=== PATIENT | male | born 1930 | race Caucasian/White ===

== ENCOUNTER → 2016-10-25 | Outpatient (CLI) | payer OTHER ==
[~2016-10-25] MED LIST: ASPI81TA28 PO; ATOR10TA88 PO; B-COTAB18 PO; CHOL2000 PO; ISOS30TA3 PO; LEVO50TA PO; PRT40 PO; SOTA80TA PO; TAMS0.4C59 PO; WARF6TAB5 PO
[2016-10-25 10:11] LABS: INR 2.5 (0.9-1.1); PROTHROMBIN TIME (PATIENT) 28.1 SECONDS (9.0-12.0)
[2016-10-25 10:19] LABS: ALT/SGPT 27 U/L (12-78); AST/SGOT 27 U/L (15-37); BLOOD UREA NITROGEN 20 mg/dl (7-18); BUN/CREATININE RATIO 26.4 (10-20); CALCIUM 8.6 mg/dl (8.5-10.1); CARBON DIOXIDE 30 mmol/L (21-32); CHLORIDE 106 mmol/L (98-107); CHOLESTEROL 103 mg/dl (0-200); CREATININE 0.75 mg/dl (0.60-1.40); GLUCOSE 119 mg/dl (70-99); POTASSIUM 4.2 mmol/L (3.5-5.1); SODIUM 144 mmol/L (136-145); TRIGLYCERIDES 46 mg/dl (0-150); VERY LOW DENSITY LIPOPROT CALC 9 mg/dl
[2016-10-25 10:21] LABS: ALB/GLOB RATIO 1.3 (0.9-2); ALKALINE PHOSPHATASE 97 U/L (45-117); CHOLESTEROL/HDL RATIO 1.9; HDL CHOLESTEROL 55 mg/dl; LDL CHOLESTEROL CALCULATED 39 mg/dl
== END | disposition home or self-care (01) ==
LOC: C.LABFOXMH 09:14
PROVIDERS: ATTEND Internal Medicine
DX: E78.00 Pure hypercholesterolemia, unspecified (principal); Z79.01 Long term (current) use of anticoagulants; Z51.81 Encounter for therapeutic drug level monitoring

== ENCOUNTER → 2016-11-22 | Outpatient (CLI) | payer OTHER ==
[2016-11-22 09:54] LABS: INR 3.5 (0.9-1.1); PROTHROMBIN TIME (PATIENT) 38.9 SECONDS (9.0-12.0)
== END | disposition home or self-care (01) ==
LOC: C.LABFOXMH 09:07
PROVIDERS: ATTEND Internal Medicine
DX: Z79.01 Long term (current) use of anticoagulants (principal); Z51.81 Encounter for therapeutic drug level monitoring

== ENCOUNTER → 2016-12-06 | Outpatient (CLI) | payer OTHER ==
[2016-12-06 09:02] LABS: INR 1.6 (0.9-1.1); PROTHROMBIN TIME (PATIENT) 17.3 SECONDS (9.0-12.0)
== END ==
LOC: C.LABFOXMH 08:36
PROVIDERS: ATTEND Internal Medicine
DX: Z79.01 Long term (current) use of anticoagulants (principal)

== ENCOUNTER → 2016-12-20 | Outpatient (CLI) | payer OTHER ==
[2016-12-20 09:06] LABS: INR 2.4 (0.9-1.1)
== END | disposition home or self-care (01) ==
LOC: C.LABFOXMH 08:36
PROVIDERS: ATTEND Internal Medicine
DX: Z79.01 Long term (current) use of anticoagulants (principal); Z51.81 Encounter for therapeutic drug level monitoring

== ENCOUNTER → 2017-01-17 | Outpatient (CLI) | payer OTHER ==
[~2017-01-17] MED LIST changes: +ATOR10TA82 PO; -ATOR10TA88 PO
[2017-01-17 09:19] LABS: INR 3.1 (0.9-1.1); PROTHROMBIN TIME (PATIENT) 34.2 SECONDS (9.0-12.0)
== END | disposition home or self-care (01) ==
LOC: C.LABFOXMH 09:00
PROVIDERS: ATTEND Internal Medicine
DX: Z79.01 Long term (current) use of anticoagulants (principal)

== ENCOUNTER 2017-01-30 09:45 | Inpatient (IN) | payer OTHER ==
[~2017-01-30] VITALS: Ht 167.6 cm; Wt 70.9 kg
[2017-01-30] VITALS (17 sets, daily range): BP systolic 90–160; BP diastolic 51–78; PULSE 59–74; TEMP 36.3–36.9; O2SAT 96–100; Ht 167.6 cm; Wt 70.9 kg
[~2017-01-30 09:45] MED LIST changes: -PRT40 PO
[2017-01-30] MEDS ORDERED: SODIUM CHLORIDE 0.9% 1000ML 500 ML IV STA (10:23)
[2017-01-30] MEDS ORDERED: ONDANSETRON INJ 2 MG/ML 2 ML VIAL IV STA (10:23)
[2017-01-30] MEDS ORDERED: PHYTONADIONE 5 MG TAB PO STA (10:23)
[2017-01-30 10:41] LABS: BASO % 0.2 %; BASO ABS # 0.01 K/uL (0-0.2); COMPLETE YES; EOS % 2.9 %; HEMATOCRIT 27.4 % (42-52); IG% 0.4 %; LYMPH % 20.4 %; LYMPH ABS # 1.12 K/uL (1.2-3.4); MEAN CELL VOLUME 95.1 fL (80-100); MEAN CORPUSCULAR HEMOGLOBIN 32.6 pg (25-34); MEAN CORPUSCULAR HGB CONC 34.3 g/dl (32-36); MEAN PLATELET VOLUME 9.7 fL (7.4-10.4); MONO % 8.8 %; NEUT % 67.3 %; PLATELET COUNT 147 K/uL (130-400); RED BLOOD COUNT 2.88 M/uL (4.7-6.1); WHITE BLOOD COUNT 5.48 K/uL (4.8-10.8)
[2017-01-30 10:42] LABS: PARTIAL THROMBOPLASTIN RATIO 1.2; PROTHROMBIN TIME (PATIENT) 49.2 SECONDS (9.0-12.0)
--- NOTE | 2017-01-30 10:42 | DIAGNOSTIC IMAGING REPORT ---
CHEST ONE VIEW PORTABLE CLINICAL HISTORY: EVALUATE GI BLEED bleeding COMPARISON STUDY: 10/07/2015 FINDINGS: Lungs are clear. Calcified granuloma right base. No focal infiltrate. No evidence for cardiac enlargement. IMPRESSION: No acute process. Lungs are clear. Electronically signed by: Renny Lomeli M.D. 01/30/2017 10:40 AM Dictated Date/Time: 01/30/2017 10:39 AM
[2017-01-30] MEDS ORDERED: PANTOprazole INJ 80 MG in DEXTROSE 5% 100ML IV SCH (10:45)
[2017-01-30 10:48] LABS: INR 4.3 (0.9-1.1)
[2017-01-30 10:49] LABS: BUN/CREATININE RATIO 46.2 (10-20); CALCIUM 7.3 mg/dl (8.5-10.1); CREATININE 0.8 mg/dl (0.60-1.40); POTASSIUM 4.2 mmol/L (3.5-5.1)
[2017-01-30] MEDS ORDERED: PANTOprazole INJ 40 MG in DEXTROSE 5% 100ML IV SCH (11:00)
[2017-01-30] MEDS ORDERED: ONDANSETRON INJ 2 MG/ML 2 ML VIAL IV PRN (11:00)
[2017-01-30] MEDS ORDERED: ACETAMINOPHEN 325 MG TAB PO PRN (11:00)
--- NOTE | 2017-01-30 12:28 | History and Physical ---
History & Physical Date & Time of Service: Jan 30, 2017 at 12:01 Chief Complaint: Rectal Bleeding Primary Care Physician: Tyrone Salazar History of Present Illness Source: patient, hospital records 86 yo male with a 3-4 day history of change in stool color and then bleeding today. The patient was feeling well until 4 days ago when he noticed that his appetite was decreased and his stools became dark. His stools were formed. He never noticed this before. He denies any abdominal pain and he has not felt nauseated or vomited. The dark stools persisted for 3 days and then today he had some bright red blood with dark formed stool. He has noticed some increased fatigue for 3 days and some light headedness. No chest pain, no dyspnea and no ONEILL. He has been compliant with all of his medications. His INR was high at 4.2, he has been taking his usual dose of Coumadin and he says it is unusual for him to have an INR that high. 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 He did not eat or drink anything this AM. He has no history of GI bleeding. He remembers having a colonoscopy, he believes with Dr. Hatch, many years ago for hemorrhoids. He did have radiation to the left groin in the and the radiation was wide and hit his left lower quadrant and he was told that in the future he may have issues with left sided colon and small intestine. Past Medical/Surgical History Atrial fibrillation, s/p pacer DVT and PE, 10 years ago Hodgkin's lymphoma, left groin, treated with radiation, Medical Problems: (1) Cataract Nos Status: Resolved (2) Chronic Pulmonary Embolism Status: Chronic (3) Hx-Hodgkin's Disease Status: Chronic (4) Hypertension Nos Status: Chronic (5) Pancreatic Disease Nos Status: Chronic Family History Diabetes mellitus Heart disease Hypertension Social History Smoking Status: Former Smoker Drug Use: none Marital Status: Occupational Status: retired Immunizations History of Influenza Vaccine: No History of Tetanus Vaccine?: Yes History of Pneumococcal: Yes Pneumococcal Date: Oct 20, 1999 History of Hepatitis B Vaccine: Yes Multi-Drug Resistant Organisms History of MDRO: No Allergies Coded Allergies: Doxycycline (Unverified Allergy, Unknown, rash, 01/30/17) Penicillins (Verified Allergy, Unknown, 09/09/16) PT REPORTS TO THIS NURSE " I DONT KNOW IF I HAVE THIS ANYMORE" Home Medications Scheduled Aspirin (Aspirin Ec), 81 MG PO DAILY Atorvastatin (Lipitor), 10 MG PO DAILY B-Complex Vitamins (Vitamin B Complex), 1 TAB PO DAILY Cholecalciferol (Vitamin D3), 1 CAP PO QPM Isosorbide Mononitrate Ext Rel (Imdur Ext Rel), 1 TAB PO DAILY Levothyroxine Sodium (Synthroid), 50 MCG PO DAILY Sotalol Hcl (Sotalol Hcl), 80 MG PO QAM Sotalol Hcl (Sotalol Hcl), 40 TAB PO QPM Tamsulosin Hcl (Flomax), 0.4 MG PO HS Warfarin Sod (Jantoven), 6 MG PO QPM Review of Systems Constitutional: + fatigue, + weakness, No chills, No fever, No sweats, No weight loss Eyes: No diplopia, No discharge, No eye pain, No problem reported, No redness, No worsening of vision ENT: No dental problems, No hearing loss, No nasal symptoms, No problem reported, No sore throat, No tinnitus, No trouble swallowing, No unusual epistaxis Respiratory: No cough, No dyspnea at rest, No dyspnea on exertion, No hemoptysis, No problem reported, No shortness of breath, No sputum, No wheezing Cardiovascular: No PND, No chest pain, No claudication, No edema, No orthopnea , No palpitations, No problem reported Abdomen: + GI bleeding (dark hard stools and then bright red blood for one day) , No constipation, No diarrhea, No nausea, No pain, No vomiting Musculoskeletal: No calf pain, No joint pain, No muscle pain, No problem reported, No swelling Genitourinary - Male: No dysuria, No hematuria, No urinary frequency, No urinary urgency Neurologic: No balance problems, No memory loss, No numbness/tingling, No paralysis, No problem reported, No vertigo, No weakness Psychiatric: No anhedonism, No anxiety, No depression symptoms, No insomnia, No problem reported, No substance abuse Endocrine: No excessive thirst, No excessive urination, No fatigue, No problem reported Hematologic / Lymphatic: No abnormal bleeding/bruising, No clotting problems, No night sweats, No problem reported, No swollen lymph nodes Integumentary: No bleeding, No color change, No itch, No new/changing skin lesions, No problem reported, No rash Allergic / Immunologic: No environmental allergies, No food allergies, No frequent infections, No hives, No pet sensitivities, No poor healing, No problem reported, No prolonged convalescence, No seasonal allergies Physical Exam Vital Signs Date Time Temp Pulse Resp B/P Pulse Ox O2 Delivery O2 Flow Rate FiO2 01/30/17 11:43 73 19 102/47 100 Room Air 01/30/17 11:07 62 21 106/57 95 Room Air 01/30/17 10:45 68 17 103/54 98 Room Air 01/30/17 10:31 99 Room Air 01/30/17 10:09 62 01/30/17 09:50 36.4 73 18 127/70 100 Room Air General Appearance: WD/WN, no apparent distress Head: normocephalic, atraumatic Eyes: normal inspection, EOMI, sclerae normal ENT: normal ENT inspection, hearing grossly normal, pharynx normal Neck: supple, no adenopathy, no JVD, trachea midline Respiratory/Chest: chest non-tender, lungs clear, normal breath sounds, no respiratory distress, no accessory muscle use Cardiovascular: regular rate, rhythm, no edema, no gallop, no JVD, no murmur, normal peripheral pulses Abdomen/GI: normal bowel sounds, non tender, soft, no organomegaly, + pertinent finding (rectal exam performed by ED physician - dark stool, heme + grossly) Back: normal inspection, no CVA tenderness, no muscle spasm, normal range of motion Extremities/Musculoskelatal: normal inspection, no calf tenderness, normal capillary refill, no pedal edema, normal range of motion, pelvis stable Neurologic/Psych: hand binder cutter II-XII nml as tested, no motor/sensory deficits, alert, normal mood/affect, normal reflexes, oriented x 3 Skin: normal color, warm/dry, no rash Lymphatic: no adenopathy Diagnostics Laboratory Results Results Past 24 Hours Test 01/30/17 10:00 Range/Units White Blood Count 5.48 4.8-10.8 K/uL Red Blood Count 2.88 4.7-6.1 M/uL Hemoglobin 9.4 14.0-18.0 g/dL Hematocrit 27.4 42-52 % Mean Corpuscular Volume 95.1 80-100 fL Mean Corpuscular Hemoglobin 32.6 25-34 pg Mean Corpuscular Hemoglobin Concent 34.3 32-36 g/dl Platelet Count 147 130-400 K/uL Mean Platelet Volume 9.7 7.4-10.4 fL Neutrophils (%) (Auto) 67.3 % Lymphocytes (%) (Auto) 20.4 % Monocytes (%) (Auto) 8.8 % Eosinophils (%) (Auto) 2.9 % Basophils (%) (Auto) 0.2 % Neutrophils # (Auto) 3.69 1.4-6.5 K/uL Lymphocytes # (Auto) 1.12 1.2-3.4 K/uL Monocytes # (Auto) 0.48 0.11-0.59 K/uL Eosinophils # (Auto) 0.16 0-0.5 K/uL Basophils # (Auto) 0.01 0-0.2 K/uL RDW Standard Deviation 47.4 36.4-46.3 fL RDW Coefficient of Variation 13.8 11.5-14.5 % Immature Granulocyte % (Auto) 0.4 % Immature Granulocyte # (Auto) 0.02 0.00-0.02 K/uL Prothrombin Time 49.2 9.0-12.0 SECONDS Prothromb Time International Ratio 4.3 0.9-1.1 Activated Partial Thromboplast Time 32.2 21.0-31.0 SECONDS Partial Thromboplastin Ratio 1.2 Sodium Level 141 136-145 mmol/L Potassium Level 4.2 3.5-5.1 mmol/L Chloride Level 107 98-107 mmol/L Carbon Dioxide Level 28 21-32 mmol/L Anion Gap 6.0 3-11 mmol/L Blood Urea Nitrogen 37 7-18 mg/dl Creatinine 0.80 0.60-1.40 mg/dl Est Creatinine Clear Calc Drug Dose 60.9 ml/min Estimated GFR () 94.4 Estimated GFR (Non- 81.5 BUN/Creatinine Ratio 46.2 10-20 Random Glucose 163 70-99 mg/dl Calcium Level 7.3 8.5-10.1 mg/dl Total Bilirubin 1.2 0.2-1 mg/dl Direct Bilirubin 0.2 0-0.2 mg/dl Aspartate Amino Transf (AST/SGOT) 25 15-37 U/L Alanine Aminotransferase (ALT/SGPT) 27 12-78 U/L Alkaline Phosphatase 72 45-117 U/L Total Protein 4.7 6.4-8.2 gm/dl Albumin 2.6 3.4-5.0 gm/dl CXR normal Impression Assessment and Plan 86 yo male with history of atrial fibrillation, s/p pacer, h/o DVT/PE on Coumadin who presented with 4 days of dark stools then some bright red blood, weakness and fatigue - GI bleed with acute blood loss anemia: vitals stable, Hb down at 9.5 from baseline closer to 14 no need for transfusion currently but patient agreeable if needed, type and screen repeat H/H this afternoon NPO, Protonix IV, consult GI - Case admit to telemetry for close monitoring - Coagulopathy: INR 4.2, normally not supratherapeutic, maybe due to poor diet past few days? received PO Vitamin K in the ED, ordered some IV as well to try to reverse for potential scope today - Atrial fibrillation, sick sinus history, s/p pacer continue Sotalolol 80mg qAM and 40mg qPM - DVT/PE: reverse INR due to bleeding, clot was 10 years ago - h/o Hodgkin's lymphoma left groin: treated with radiation in the - DVT prophylaxis: SCD only, INR 4.2 Level 1 Level of Care Telemetry Advanced Directives Existing Living Will: Yes VTE Prophylaxis VTE Risk Assessment Done? Y/N: Yes Risk Level: Moderate Given or contraindicated: SCD's Additional Copies To Tyrone Salazar
[2017-01-30] MEDS ORDERED: PHYTONADIONE INJ 5 MG in SODIUM CHLORIDE 0.9% 50ML 50 ML IV ONE (13:00)
[2017-01-30] MEDS: SODIUM CHLORIDE 0.9% 1000ML 1,000 ML IV SCH (13:08)
--- NOTE | 2017-01-30 13:54 | EMERGENCY ROOM VISIT NOTE ---
History Report prepared by Phani: Vito Sexton Under the Supervision of: Dr. Austen Leonard M.D. First contact with patient: 10:13 Chief Complaint: RECTAL BLEEDING Stated Complaint: RECTAL BLEEDING Nursing Triage Summary: Patient arrived via EMS from [facility]. Patient reports he has had dark tarry stools x 3 days and this morning the blood was red and filled the commode. Pt denies n/v/d/abdominal pain. Associates Loss of appetite. Pt states stool has been wnl, no constipation or diarrhea. Pt reports coumadin daily for afib. History of Present Illness The patient is an 86 year old male who presents to the Emergency Room with complaints of persistent rectal bleeding for the past three days. The patient started having black tarry stools three days ago, however today he noticed red blood in his stool. He is on Coumadin for a history of atrial fibrillation, and has a pacemaker. He also has a history of blood clots. He has felt weaker lately and experiences some dizziness. He denies syncope, increased shortness of breath, or abdominal pain. The patient came to the ED from [facility]. He denies recent falls. He has a history of cancer which was treated with radiation therapy in the . The patient has chronic back pain. Source of History: patient Onset: three days ago Position: other (rectal) Quality: other (bleeding) Timing: other (persistent) Associated Symptoms: + weakness, No LOC, No SOB, No abdominal pain Review of Systems See HPI for pertinent positives & negatives. A total of 10 systems reviewed and were otherwise negative. 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 Family History Diabetes mellitus Heart disease Hypertension Social History Smoking Status: Former Smoker Drug Use: none Marital Status: Housing Status: lives with family Occupation Status: retired Current/Historical Medications Scheduled Aspirin (Aspirin Ec), 81 MG PO DAILY Atorvastatin (Lipitor), 10 MG PO DAILY B-Complex Vitamins (Vitamin B Complex), 1 TAB PO DAILY Cholecalciferol (Vitamin D3), 1 CAP PO QPM Isosorbide Mononitrate Ext Rel (Imdur Ext Rel), 1 TAB PO DAILY Levothyroxine Sodium (Synthroid), 50 MCG PO DAILY Sotalol Hcl (Sotalol Hcl), 80 MG PO QAM Sotalol Hcl (Sotalol Hcl), 40 TAB PO QPM Tamsulosin Hcl (Flomax), 0.4 MG PO HS Warfarin Sod (Jantoven), 6 MG PO QPM Allergies Coded Allergies: Doxycycline (Unverified Allergy, Unknown, rash, 01/30/17) Penicillins (Verified Allergy, Unknown, 09/09/16) PT REPORTS TO THIS NURSE " I DONT KNOW IF I HAVE THIS ANYMORE" Physical Exam Vital Signs Date Time Temp Pulse Resp B/P Pulse Ox O2 Delivery O2 Flow Rate FiO2 01/30/17 10:45 68 17 103/54 98 Room Air 01/30/17 10:31 99 Room Air 01/30/17 10:09 62 01/30/17 09:50 36.4 73 18 127/70 100 Room Air Physical Exam GENERAL: Patient is in no acute distress. HEENT: No acute trauma, normocephalic atraumatic, mucous membranes moist, no nasal congestion, no scleral icterus. NECK: No stridor, no adenopathy, no meningismus, trachea is midline. LUNGS: Crackles in both lung bases no wheezing, breath sounds are equal. HEART: Irregular rhythm with no murmurs, rate is normal. ABDOMEN: Soft, nontender, bowel sounds positive, no hernias, no peritonitis. EXTREMITIES: No cyanosis or edema, full range of motion of all the joints without pain or difficulty, no signs for acute trauma. NEUROLOGIC: Oriented x 3, no acute motor or sensory deficits, no focal weakness. SKIN: No rash, no jaundice, no diaphoresis. RECTAL: Maroon / dark red stool that tests heme positive. Medical Decision & Procedures ER Provider Diagnostic Interpretation: X-ray results as stated below per interpretation by me and the radiologist: CHEST ONE VIEW PORTABLE CLINICAL HISTORY: EVALUATE GI BLEED bleeding COMPARISON STUDY: 10/07/2015 FINDINGS: Lungs are clear. Calcified granuloma right base. No focal infiltrate. No evidence for cardiac enlargement. IMPRESSION: No acute process. Lungs are clear. Electronically signed by: Renny Lomeli M.D. 01/30/2017 10:40 AM Dictated Date/Time: 01/30/2017 10:39 AM Laboratory Results 01/30/17 10:00 Red Blood Count 2.88, Mean Corpuscular Volume 95.1, Mean Corpuscular Hemoglobin 32.6, Mean Corpuscular Hemoglobin Concent 34.3, Mean Platelet Volume 9.7, Neutrophils (%) (Auto) 67.3, Lymphocytes (%) (Auto) 20.4, Monocytes (%) (Auto) 8.8, Eosinophils (%) (Auto) 2.9, Basophils (%) (Auto) 0.2, Neutrophils # (Auto) 3.69, Lymphocytes # (Auto) 1.12, Monocytes # (Auto) 0.48, Eosinophils # (Auto) 0.16, Basophils # (Auto) 0.01 01/30/17 10:00 Test 01/30/17 10:00 White Blood Count 5.48 K/uL (4.8-10.8) Red Blood Count 2.88 M/uL (4.7-6.1) Hemoglobin 9.4 g/dL (14.0-18.0) Hematocrit 27.4 % (42-52) Mean Corpuscular Volume 95.1 fL (80-100) Mean Corpuscular Hemoglobin 32.6 pg (25-34) Mean Corpuscular Hemoglobin Concent 34.3 g/dl (32-36) Platelet Count 147 K/uL (130-400) Mean Platelet Volume 9.7 fL (7.4-10.4) Neutrophils (%) (Auto) 67.3 % Lymphocytes (%) (Auto) 20.4 % Monocytes (%) (Auto) 8.8 % Eosinophils (%) (Auto) 2.9 % Basophils (%) (Auto) 0.2 % Neutrophils # (Auto) 3.69 K/uL (1.4-6.5) Lymphocytes # (Auto) 1.12 K/uL (1.2-3.4) Monocytes # (Auto) 0.48 K/uL (0.11-0.59) Eosinophils # (Auto) 0.16 K/uL (0-0.5) Basophils # (Auto) 0.01 K/uL (0-0.2) RDW Standard Deviation 47.4 fL (36.4-46.3) RDW Coefficient of Variation 13.8 % (11.5-14.5) Immature Granulocyte % (Auto) 0.4 % Immature Granulocyte # (Auto) 0.02 K/uL (0.00-0.02) Activated Partial Thromboplast Time 32.2 SECONDS (21.0-31.0) Partial Thromboplastin Ratio 1.2 Anion Gap 6.0 mmol/L (3-11) Est Creatinine Clear Calc Drug Dose 60.9 ml/min Estimated GFR () 94.4 Estimated GFR (Non- 81.5 BUN/Creatinine Ratio 46.2 (10-20) Calcium Level 7.3 mg/dl (8.5-10.1) Total Bilirubin 1.2 mg/dl (0.2-1) Direct Bilirubin 0.2 mg/dl (0-0.2) Aspartate Amino Transf (AST/SGOT) 25 U/L (15-37) Alanine Aminotransferase (ALT/SGPT) 27 U/L (12-78) Alkaline Phosphatase 72 U/L (45-117) Total Protein 4.7 gm/dl (6.4-8.2) Albumin 2.6 gm/dl (3.4-5.0) Laboratory results reviewed by me. Medications Administered Medications (Trade) Dose Ordered Sig/Efrain Route Start Time Stop Time Status Last Admin Dose Admin Sodium Chloride (Nss 1000ml) 500 ml @ 999 mls/hr Q31M STAT IV 01/30/17 10:23 01/30/17 10:53 DC 01/30/17 10:40 999 MLS/HR Ondansetron HCl (Zofran Inj) 4 mg NOW STAT IV 01/30/17 10:23 01/30/17 10:26 DC 01/30/17 10:39 4 MG Phytonadione (Mephyton Tab) 10 mg NOW STAT PO 01/30/17 10:23 01/30/17 10:26 DC 01/30/17 10:39 10 MG Pantoprazole Sodium 1 ea 1 ea NOW STAT IV 01/30/17 10:29 01/30/17 10:30 DC 01/30/17 10:29 1 EA Pantoprazole Sodium 80 mg/ Dextrose 120 ml @ 480 mls/hr 1045 IV 01/30/17 10:45 01/30/17 10:59 DC 01/30/17 10:46 480 MLS/HR Pantoprazole Sodium/Dextrose (Protonix Inj/D5 100ml) 100 ml @ 20 mls/hr Q5H IV 01/30/17 11:00 01/30/17 15:59 DC 01/30/17 10:46 20 MLS/HR ECG Indication: weakness Rate (beats per minute): 65 Rhythm: other (atrial pacemaker) Findings: no acute ischemic change, no ectopy ED Course 1015: The patient was evaluated in room A12b. A complete history and physical exam was performed. 1023: Mephyton Tab 10 mg PO, Zofran 4 mg IV, NSS 500 ml @ 999 mls/hr. 1029: Protonix IV bolus / drip. 1045: Pantoprazole Sodium 80 mg / dextrose 120 ml @ 480 mls/hr. 1055: Discussed the case with Dr. Molina [facility]. The patient will be evaluated. 1059: Updated the patient. 1100: Pantoprazole Sodium 40 mg / dextrose 100 ml @ 20 mls/hr. Medical Decision Differential diagnosis includes upper or lower GI bleeding, coagulopathy, anemia , electrolyte imbalance, dehydration, hypotension, hemorrhoid. There is no leukocytosis. The patient is anemic with a hemoglobin around 9- this is a drop for him. No significant electrolyte abnormality, kidney failure or hepatitis. INR is elevated at around 4-he is over anticoagulated. Chest x- ray shows no pneumonia or free air. EKG shows an atrial pacemaker, no acute ischemia. By exam, patient had tarry, dark red stool that was heme positive. The patient received IV saline, he was given a dose of IV Protonix and then placed on an IV Protonix drip. He received a dose of oral vitamin K. Patient was given IV Zofran for nausea. The patient presents with tarry, maroon-colored stools. He is suffering from a GI bleed and is anemic although he is not hypotensive or in need of an emergent blood transfusion. His hemoglobin may drop further and he is aware of this, in short, a blood transfusion may be needed in the near future. Admission/observation is warranted. I spoke to the patient and case management. The on-call hospitalist was consulted. Consults Time Called: 1050 Consulting Physician: Dr. Molina [facility]. Returned Call: [phone]: Discussed the case with Dr. Molina, [facility] Hospitalist. The patient will be evaluated. Impression Primary Impression: GI bleed Additional Impressions: Anemia Coagulopathy Scribe Attestation The scribe's documentation has been prepared under my direction and personally reviewed by me in its entirety. I confirm that the note above accurately reflects all work, treatment, procedures, and medical decision making performed by me. Departure Information Dispostion Being Evaluated By Hospitalist Referrals Tyrone Salazar (PCP) Patient Instructions My [facility] Health Problem Qualifiers
[2017-01-30 15:30] LABS: PROTHROMBIN TIME (PATIENT) 49.5 SECONDS (9.0-12.0)
[2017-01-30 15:36] LABS: HEMATOCRIT 22.3 % (42-52)
[2017-01-30 15:55] LABS: INR 4.4 (0.9-1.1)
[2017-01-30] MEDS ORDERED: PHYTONADIONE INJ 5 MG in SODIUM CHLORIDE 0.9% 50ML 50 ML IV STA (17:42)
--- NOTE | 2017-01-30 18:40 | GASTROINTESTINAL CONSULTATION ---
DATE OF CONSULTATION: 01/30/2017 AGE: 86 SEX: Male. RACE: . CONSULTING PHYSICIAN: Nikolas Prado DO REASON FOR CONSULTATION: Acute blood loss anemia, GI bleed. HISTORY OF PRESENT ILLNESS: Evens Osborn is an 86-year-old male who presented to the Department of Emergency Medicine earlier today with a 3-4 day history of melena with bright red blood per rectum today. He stated that he noticed dark stools and denied any NSAID use prior to arrival to the ER. He does take Coumadin for atrial fibrillation and upon arrival was noted to have an INR of 4.3. His H\T\H was noted to be 9.4 and 27.4. His most recent H\T\H prior to this was in March of 2016 when he was noted to have an H\T\H of 14.4 and 41.6. He was given p.o. vitamin K in the ER and I was contacted by Dr. Molina regarding this patient's consultation and after noting that patient was hemodynamically stable with a supratherapeutic INR, decision was made to place patient on Protonix 40 mg IV b.i.d., give an additional 5 mg of IV vitamin K and plan on upper endoscopy in the a.m. unless there was a change in patient's clinical status. I examined patient at his bedside this afternoon. Repeat laboratory studies showed an H\T\H of 8.2 and 22.3 and an INR of 4.4. The patient himself stated that he was feeling slightly improved since when he presented to the ER, but still has slight lightheadedness. He denied any chest pain, shortness of breath, fevers, chills, nausea, vomiting, hematemesis. He did admit to having 1 melenic bowel movement since his arrival here. He denied any abdominal pain. He does have a history of having undergone a colonoscopy by Dr. Sterling in 2005 and had removal of 2 hyperplastic polyps at that time. He does state also that he has a history of gastroparesis and admits to taking no PPI therapy at home. He denies any further complaints. PAST MEDICAL HISTORY: Significant for atrial fibrillation on chronic Coumadin therapy, DVT and PE greater than 10 years ago, history of Hodgkin lymphoma, hypertension, pancreatitis. PAST SURGICAL HISTORY: Includes cataract surgery, pacemaker placement. ALLERGIES: DOXYCYCLINE AND PENICILLIN. MEDICATIONS AT PRESENT: Sotalol 80 mg p.o. q.a.m., Synthroid 50 mcg p.o. daily, Zofran 4 mg IV q. 6 p.r.n. nausea, and Tylenol as needed. SOCIAL HISTORY: He is . He denies any tobacco, alcohol or illicit drug use at present. He is a former smoker. FAMILY HISTORY: Negative for GI malignancy or inflammatory bowel disease. REVIEW OF SYSTEMS: Negative x12 system review other than pertinent positives listed in the HPI. PHYSICAL EXAMINATION: VITAL SIGNS: Temp of 36.5, pulse 69, respirations 18, blood pressure 90/54, 96% on room air. I did recycle his blood pressure and his repeat reading was 104/60. GENERAL: He is alert, oriented x3, cooperative, noted pallor. HEAD: Normocephalic, atraumatic. EYES: Pupils equally round. Extraocular muscles are intact. ENT: External evaluation of ears and nose are normal. Oropharynx is clear. NECK: Soft and supple. There is no JVD or lymphadenopathy. CHEST: Clear to auscultation bilaterally. CARDIOVASCULAR SYSTEM: Regular rate and rhythm. No murmurs, rubs or gallops. ABDOMEN: Soft. Nontender. EXTREMITIES: No clubbing, cyanosis or edema. SKIN: Noted pallor. RADIOGRAPHIC STUDIES AND LABORATORY STUDIES. Reviewed in the HPI. IMPRESSION: An 86-year-old male who presents with acute blood loss anemia secondary to gastrointestinal bleeding with melena and supratherapeutic INR. PLAN: At the present time, I would recommend that patient be continued to be on a monitored bed. I would recommend transfusing him to maintain his H\T\H greater than 8 and 24. I would recommend continue him on Protonix 40 mg IV b.i.d. I would recommend reversal of his INR with an additional 5 mg of vitamin K IV x1 now, this was discussed with Dr. Molina. I would also recommend rechecking this later this evening and keeping patient n.p.o. tonight after midnight for upper endoscopy in the morning. If patient has any instability overnight, the submarine cable equipment technician concrete mixer operator helper should be notified, though it is imperative that patient's INR be reversed as it is contributing to patient's continued GI bleeding. Once again, thanks for allowing me to participate in the care of this patient. If you have any further questions, please do not hesitate in contacting me.
[2017-01-30] MEDS: SOTALOL HCL 80 MG TAB PO SCH (21:02)
[2017-01-30] MEDS: PANTOprazole INJ 40 MG in SYRINGE 0 ML IV SCH (21:02)
[2017-01-30 22:21] LABS: HEMATOCRIT 23.8 % (42-52)
[2017-01-31] VITALS (7 sets, daily range): BP systolic 90–132; BP diastolic 51–71; PULSE 61–86; TEMP 36.4–36.8; O2SAT 93–100
[2017-01-31] MEDS: SODIUM CHLORIDE 0.9% 1000ML 1,000 ML IV SCH ×2 (01:25→13:58)
[2017-01-31] MEDS: LEVOTHYROXINE 50 MCG TAB PO SCH (06:03)
[2017-01-31 06:17] LABS: BASO % 0.2 %; BASO ABS # 0.01 K/uL (0-0.2); EOS % 1.9 %; IG% 0.2 %; LYMPH % 23.2 %; LYMPH ABS # 1.35 K/uL (1.2-3.4); MEAN CELL VOLUME 90.6 fL (80-100); MEAN CORPUSCULAR HEMOGLOBIN 32.2 pg (25-34); MEAN CORPUSCULAR HGB CONC 35.6 g/dl (32-36); MEAN PLATELET VOLUME 9.8 fL (7.4-10.4); MONO % 10.8 %; NEUT % 63.7 %; PLATELET COUNT 100 K/uL (130-400); RED BLOOD COUNT 2.76 M/uL (4.7-6.1); WHITE BLOOD COUNT 5.83 K/uL (4.8-10.8)
[2017-01-31 06:23] LABS: INR 1.3 (0.9-1.1); PROTHROMBIN TIME (PATIENT) 14.3 SECONDS (9.0-12.0)
[2017-01-31 06:46] LABS: COMPLETE YES
[2017-01-31 06:52] LABS: CALCIUM 7.1 mg/dl (8.5-10.1); CREATININE 0.74 mg/dl (0.60-1.40); POTASSIUM 4.1 mmol/L (3.5-5.1)
--- NOTE | 2017-01-31 07:48 | Clinical Documentation Query ---
CLINICAL DOCUMENTATION QUERY Dr. ESCALONA, In your clinical opinion is this patient being managed for: ( xx ) Coumadin induced coagulopathy with GI bleed ( ) Other explanation of clinical findings (Please Explain) ( ) Unable to determine (Please Define) ( ) Need to Discuss ( ) Not Agree Why didn't Thuan bring this down in the morning? The medical record reflects the following clinical findings, treatment, and risk factors. Clinical Indicators: 86 yo male presenting with melena and supratherapeutic INR (4.2). Chronically treated with coumadin for A fib. Treatment:500 cc NSS bolus then continuous fluids, 2U PRBC, po and IV x 2 vitamin K, IV protonix bolus then gtt then changed to BID, GI consult with plan for endoscopy Risk Factors: supratherapeutic INR d/t chronic coumadin therapy for Afib Please clarify and document your clinical opinion in the progress notes and discharge summary. Terms such as "probable", "suspected", "likely", "questionable", "possible", or "still to be ruled out" are acceptable. IF IN AGREEMENT, YOU MUST DOCUMENT ABOVE DIAGNOSTIC STATEMENT IN DAILY PROGRESS NOTES AND DISCHARGE SUMMARY. This document is not part of the patient's record. Thank You, Shazia Olvera, JOSE [phone]
[2017-01-31] MEDS: PANTOprazole INJ 40 MG in SYRINGE 0 ML IV SCH (08:20)
[2017-01-31] MEDS ORDERED: MIDAZOLAM HCL 1 MG/ML 2ML VIAL ONE (09:41)
[2017-01-31] MEDS ORDERED: PROPOFOL IV EMULSION 10 MG/ML 20 ML VIAL IV ONE (09:41)
[2017-01-31] MEDS ORDERED: ONDANSETRON INJ 2 MG/ML 2 ML VIAL ONE (09:41)
[2017-01-31] MEDS ORDERED: LIDOCAINE HCL 2% 2 ML VIAL (20MG/ML) ONE (09:41)
--- NOTE | 2017-01-31 10:28 | GI REPORT ---
Procedure Date: 01/31/2017 9:28 AM Procedure: Upper GI endoscopy Indications: Acute post hemorrhagic anemia, Melena Medicines: Monitored Anesthesia Care Complications: No immediate complications. Estimated Blood Loss: Estimated blood loss: none. Procedure: Pre-Anesthesia Assessment: - Prior to the procedure, a History and Physical was performed, and patient medications and allergies were reviewed. The patient's tolerance of previous anesthesia was also reviewed. The risks and benefits of the procedure and the sedation options and risks were discussed with the patient. All questions were answered, and informed consent was obtained. Prior Anticoagulants: The patient last took aspirin 2 days and Coumadin (warfarin) 2 days prior to the procedure. ASA Grade Assessment: III - A patient with severe systemic disease. After reviewing the risks and benefits, the patient was deemed in satisfactory condition to undergo the procedure. After obtaining informed consent, the endoscope was passed under direct vision. Throughout the procedure, the patient's blood pressure, pulse, and oxygen saturations were monitored continuously. The scope was introduced through the mouth, and advanced to the third part of duodenum. The upper GI endoscopy was accomplished without difficulty. The patient tolerated the procedure well. Findings: The examined esophagus was normal. A small hiatus hernia was present. Hematin (altered blood/eimyyz-eivbtq-zmij material) was found in the stomach. One oozing cratered duodenal ulcer with a visible vessel was found in the second part of the duodenum. The lesion was 8 mm in largest dimension. Area was successfully injected with 2 mL of a 1:10,000 solution of epinephrine for hemostasis. Fulguration to ablate the lesion to prevent bleeding by heater probe was successful. Impression: - Normal esophagus. - Small hiatus hernia. - Hematin (altered blood/aragak-qsbvup-uihb material) in the stomach. - One oozing duodenal ulcer with a visible vessel. Injected. Treated with a heater probe. - No specimens collected. Recommendation: - Resume previous diet. - Continue present medications. - [facility] patient [facility] care. - Clear liquid diet today. - Continue present medications. Nikolas Prado DO 01/31/2017 10:27:00 AM This report has been signed electronically. Note Initiated On: 01/31/2017 9:28 AM I attest to the content of the Intraoperative Record and orders documented therein, exceptions below
[2017-01-31] MEDS ORDERED: PANTOprazole INJ 80 MG in DEXTROSE 5% 100ML IV ONE (10:30)
--- NOTE | 2017-01-31 10:53 | Anesthesiology Progress Note ---
Anesthesia Post Op Note Date & Time Jan 31, 2017 at 10:52 Vital Signs Pain Intensity: 0.0 Vital Signs Past 12 Hours Date Time Temp Pulse Resp B/P Pulse Ox O2 Delivery O2 Flow Rate FiO2 01/31/17 10:29 63 16 100/40 98 Room Air 0.0 01/31/17 10:14 75 16 96/42 96 Room Air 0.0 01/31/17 09:16 36.8 70 20 118/52 97 Room Air 01/31/17 08:04 36.6 64 16 107/68 99 Room Air 01/31/17 08:00 Room Air 01/31/17 04:00 36.7 65 20 93/51 93 Room Air 01/31/17 04:00 Room Air 01/31/17 00:50 36.8 61 18 90/60 98 01/31/17 00:00 Room Air 01/30/17 23:50 36.3 60 18 93/51 99 01/30/17 23:20 36.9 63 18 90/56 98 01/30/17 23:20 36.9 63 18 90/56 98 01/30/17 23:16 36.3 69 18 95/60 98 Room Air Notes Mental Status: alert / awake / arousable, participated in evaluation Pt Amnestic to Procedure: Yes Nausea / Vomiting: adequately controlled Pain: adequately controlled Airway Patency, RR, SpO2: stable & adequate BP & HR: stable & adequate Hydration State: stable & adequate Anesthetic Complications: no major complications apparent
[2017-01-31] MEDS: PANTOprazole INJ 40 MG in DEXTROSE 5% 100ML IV SCH ×3 (11:00→20:58)
[2017-01-31] MEDS: SOTALOL HCL 80 MG TAB PO SCH ×2 (11:31→20:58)
--- NOTE | 2017-01-31 13:58 | Hospitalist Progress Note ---
Hospitalist Progress Note Date of Service Jan 31, 2017. (Hailey Pascual PA-C) Subjective Pt evaluation today including: conversation w/ patient, physical exam, chart review, lab review, review of studies, review of inpatient medication list Patient seen and evaluated. Patient underwent EGD this morning which revealed a bleeding duodenal ulcer. Patient has completed 2 units PRBCs and reversal of Coumadin with current INR of 1.3. Patient tolerated clear liquid diet and is requesting advancement. He verbalizes no other complaints at this time. Additional Comments: REVIEW OF SYSTEMS: General/Constitutional: Denies fever/chills, fatigue, weakness, weight gain/loss ENT: Denies visual changes, nasal drainage, hearing loss, sore throat, trouble swallowing Cardiovascular: Denies chest pain, palpitations, edema Respiratory: Denies cough, sputum, SOB, wheezing, orthopnea GI: +melena/hematochezia (prior to admission); Denies nausea, vomiting, abdominal pain, constipation, diarrhea : Denies dysuria, frequency, hematuria Musculoskeletal: Denies joint/muscle aches, weakness, swelling Neurologic: Denies dizziness/lightheadedness, numbness/tingling, weakness Psychiatric: Deferred Endocrine: Deferred Hematologic/Lymphatic: Denies bleeding/clotting abnormalities (DVT/PE x 10 years ago) Skin: Denies rash, itch, new skin changes, easy bruising Allergy/Immunologic: Deferred (Hailey Pascual, YAELC) Medications Current Inpatient Medications Medications (Trade) Dose Ordered Sig/Efrain Route Start Time Stop Time Status Last Admin Dose Admin Sodium Chloride (Nss 1000ml) 1,000 ml @ 80 mls/hr [id number] IV 01/30/17 12:45 03/01/17 12:44 01/31/17 01:25 80 MLS/HR Acetaminophen (Tylenol Tab) 650 mg Q4H PRN PO 01/30/17 11:00 03/01/17 10:59 Ondansetron HCl (Zofran Inj) 4 mg Q6H PRN IV 01/30/17 11:00 03/01/17 10:59 Levothyroxine Sodium (Synthroid Tab) 50 mcg DAILYBB PO 01/31/17 06:30 03/02/17 06:29 Sotalol HCl (Betapace Tab) 40 mg QPM PO 01/30/17 21:00 03/01/17 20:59 01/30/17 21:02 40 MG Sotalol HCl 80 mg 80 mg QAM PO 01/31/17 09:00 03/02/17 08:59 01/31/17 11:31 80 MG Pantoprazole Sodium/Dextrose (Protonix Inj/D5 100ml) 100 ml @ 20 mls/hr Q5H IV 01/31/17 10:30 03/02/17 10:29 01/31/17 11:00 20 MLS/HR (Hailey Pascual, NIRU) Objective Vital Signs Date Time Temp Pulse Resp B/P Pulse Ox O2 Delivery O2 Flow Rate FiO2 01/31/17 12:00 Room Air 01/31/17 11:01 36.5 66 18 109/63 99 Room Air 01/31/17 10:50 60 16 100/53 98 Room Air 0.0 01/31/17 10:29 63 16 100/40 98 Room Air 0.0 01/31/17 10:14 75 16 96/42 96 Room Air 0.0 01/31/17 09:16 36.8 70 20 118/52 97 Room Air 01/31/17 08:04 36.6 64 16 107/68 99 Room Air 01/31/17 08:00 Room Air 01/31/17 04:00 36.7 65 20 93/51 93 Room Air 01/31/17 04:00 Room Air 01/31/17 00:50 36.8 61 18 90/60 98 01/31/17 00:00 Room Air 01/30/17 23:50 36.3 60 18 93/51 99 01/30/17 23:20 36.9 63 18 90/56 98 01/30/17 23:20 36.9 63 18 90/56 98 01/30/17 23:16 36.3 69 18 95/60 98 Room Air 01/30/17 22:51 36.3 62 18 95/60 98 01/30/17 22:50 36.3 62 18 95/60 98 01/30/17 22:35 36.6 60 16 98/63 01/30/17 22:21 36.6 60 16 98/62 98 01/30/17 22:14 36.7 61 18 102/65 98 01/30/17 21:37 74 18 100/64 96 01/30/17 20:30 36.7 59 16 95/58 01/30/17 20:15 36.7 59 16 95/58 01/30/17 20:00 Room Air 01/30/17 19:50 36.5 64 18 100/60 99 01/30/17 19:19 36.6 60 18 110/68 100 01/30/17 19:07 36.6 69 18 107/64 96 0.0 01/30/17 16:20 Room Air 01/30/17 16:04 36.5 69 18 90/54 Room Air 01/30/17 15:23 36.5 69 18 90/54 96 Room Air (Hailey Pascual PA-C) Physical Exam Notes: PHYSICAL EXAM:: General Appearance: WDWN in NAD who is A&O x 3 HEENT: Head is normocephalic/atraumatic; EOMI; PERRLA; Hearing grossly intact; Mucous membranes moist; Pharynx negative for exudate/lesions Neck: Supple; Trachea midline; Neg JVD; Neg lymphadenopathy Heart: RRR with no M/G/R Lungs: CTA in all lung puentes bilaterally; Respirations unlabored; Neg accessory muscle use Abdomen: Soft, non-tender, non-distended; Positive BS x 4 quadrants; Neg organomegaly Extremities: Capillary refill < 2 seconds; Neg cyanosis or edema Neurological: Speech clear; Gross motor/sensory function intact; Neg focal neurologic deficits Psychiatric: Appropriate mood/affect Skin: Normal Color; Warm/Dry; Neg rashes, ecchymosis, lacerations/ulcerations (Hailey Pascual PA-C) Laboratory Results Last 24 Hours Test 01/30/17 15:00 01/30/17 15:25 01/30/17 22:10 01/31/17 05:43 Prothrombin Time 49.5 SECONDS 14.3 SECONDS Prothromb Time International Ratio 4.4 1.3 Hemoglobin 8.2 g/dL 8.7 g/dL 8.9 g/dL Hematocrit 22.3 % 23.8 % 25.0 % White Blood Count 5.83 K/uL Red Blood Count 2.76 M/uL Mean Corpuscular Volume 90.6 fL Mean Corpuscular Hemoglobin 32.2 pg Mean Corpuscular Hemoglobin Concent 35.6 g/dl Platelet Count 100 K/uL Mean Platelet Volume 9.8 fL Neutrophils (%) (Auto) 63.7 % Lymphocytes (%) (Auto) 23.2 % Monocytes (%) (Auto) 10.8 % Eosinophils (%) (Auto) 1.9 % Basophils (%) (Auto) 0.2 % Neutrophils # (Auto) 3.72 K/uL Lymphocytes # (Auto) 1.35 K/uL Monocytes # (Auto) 0.63 K/uL Eosinophils # (Auto) 0.11 K/uL Basophils # (Auto) 0.01 K/uL RDW Standard Deviation 49.1 fL RDW Coefficient of Variation 15.0 % Immature Granulocyte % (Auto) 0.2 % Immature Granulocyte # (Auto) 0.01 K/uL Red Blood Cell Morphology Unremarkable Sodium Level 144 mmol/L Potassium Level 4.1 mmol/L Chloride Level 111 mmol/L Carbon Dioxide Level 26 mmol/L Anion Gap 7.0 mmol/L Blood Urea Nitrogen 28 mg/dl Creatinine 0.74 mg/dl Est Creatinine Clear Calc Drug Dose 65.8 ml/min Estimated GFR () 97.5 Estimated GFR (Non- 84.1 BUN/Creatinine Ratio 38.0 Random Glucose 122 mg/dl Calcium Level 7.1 mg/dl Magnesium Level 2.0 mg/dl (Hailey Pascual, PAKindraC) Assessment and Plan 86 yo male with history of atrial fibrillation, s/p pacer, h/o DVT/PE on Coumadin who presented with 4 days of dark stools then some bright red blood, weakness and fatigue Acute Blood Loss Anemia 2/2 Bleeding Duodenal Ulcer and Supratherapeutic INR: Baseline Hgb 14 - Patient received 2 units PRBC (01/30) and Coumadin reversal with current INR of 1.3 - Protonix bolus/drip - NSS at 80 mL/hr and can be D/C'd once diet tolerance confirmed - Clear liquid diet and advance as tolerated - patient currently tolerating clear liquid diet for lunch - GI following - recommendations reviewed - continue current regimen and diet advancement Atrial Fibrillation - Sick Sinus History - S/P Pacer: - Sotalol 80 mg in AM and 40 mg in PM - Continue to hold Coumadin - 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 Discussed with Hailey Pascual PAC and agree with findings and plan as documented in the note. Any exceptions or clarifications are listed here: None Pt admitted with Coumadin coagulapathy associated GIB, found to have duodenal ulcer on EGD, did receive 2 U PRBC for acute blood loss anemia, now will be on 72 hours IV protonix vitals stable hoarse voice but is his baseline car is regular, lungs are clear abd is soft and non tender supportive care, follow hgb, continue IV PPI, hold coumadin for short term healing Documented By: Jesse Butcher (Jesse Butcher M.D.)
[2017-01-31] MEDS: TAMSULOSIN HCL 0.4 MG CAP PO SCH (20:58)
[2017-02-01] VITALS (19 sets, daily range): BP systolic 91–134; BP diastolic 49–81; PULSE 62–88; TEMP 36.3–37.1; O2SAT 93–100
[2017-02-01] MEDS: PANTOprazole INJ 40 MG in DEXTROSE 5% 100ML IV SCH ×5 (02:04→21:37)
[2017-02-01] MEDS: SODIUM CHLORIDE 0.9% 1000ML 1,000 ML IV SCH ×2 (02:05→16:29)
[2017-02-01] MEDS: LEVOTHYROXINE 50 MCG TAB PO SCH (05:49)
[2017-02-01 06:06] LABS: HEMATOCRIT 22.9 % (42-52); MEAN CELL VOLUME 93.9 fL (80-100); MEAN CORPUSCULAR HEMOGLOBIN 31.6 pg (25-34); MEAN CORPUSCULAR HGB CONC 33.6 g/dl (32-36); RED BLOOD COUNT 2.44 M/uL (4.7-6.1); WHITE BLOOD COUNT 5.37 K/uL (4.8-10.8)
[2017-02-01 06:30] LABS: MEAN PLATELET VOLUME 9.8 fL (7.4-10.4); PLATELET COUNT 94 K/uL (130-400); PLT ESTIMATE DECREASED
[2017-02-01 06:51] LABS: BUN/CREATININE RATIO 18.8 (10-20); CALCIUM 6.9 mg/dl (8.5-10.1); CREATININE 0.79 mg/dl (0.60-1.40); MAGNESIUM 1.9 mg/dl (1.8-2.4); POTASSIUM 3.7 mmol/L (3.5-5.1)
[2017-02-01] MEDS: SOTALOL HCL 80 MG TAB PO SCH ×2 (08:54→21:37)
--- NOTE | 2017-02-01 10:04 | Hospitalist Progress Note ---
Hospitalist Progress Note Date of Service Feb 01, 2017. (Hailey Pascual PA-C) Subjective Pt evaluation today including: conversation w/ patient, physical exam, chart review, lab review, review of studies, review of inpatient medication list Patient seen and evaluated. Noted to have 29 beat PVCs overnight with hypotension. Patient asymptomatic and has low normal blood pressures normally. AM labs noted for Hgb 7.7 and will transfuse 2 more units PRBCs. H and states that he did not feel palpitations overnight but reports having history of runs of an abnormal arrhythmia in the past. Patient is largely tolerating a clear liquid diet and with like to advance to a full liquid diet but would like to avoid solid foods at this time. He denies abdominal pain however states that he does have a sensation in the right upper quadrant that he is unable to describe but says it is manageable. He denies any further complaints at this time. 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 He follows with Dr. Jesse Lubin ([facility]) will attempt to discuss patient later today and give recommendations for reinstitution of anticoagulation. Additional Comments: REVIEW OF SYSTEMS: General/Constitutional: Denies fever/chills, fatigue, weakness ENT: Denies visual changes, nasal drainage, hearing loss, sore throat, trouble swallowing Cardiovascular: Denies chest pain, palpitations, edema Respiratory: Denies cough, sputum, SOB, wheezing, orthopnea GI: Denies nausea, vomiting, abdominal pain, constipation, diarrhea, melena/ hematochezia : Denies dysuria, frequency, hematuria Musculoskeletal: Denies joint/muscle aches, weakness, swelling Neurologic: Denies dizziness/lightheadedness, numbness/tingling, weakness Psychiatric: Deferred Endocrine: Deferred Hematologic/Lymphatic: Denies bleeding/clotting abnormalities Skin: Denies rash, itch, new skin changes, easy bruising Allergy/Immunologic: Deferred (Hailey Pascual PA-C) Medications Current Inpatient Medications Medications (Trade) Dose Ordered Sig/Efrain Route Start Time Stop Time Status Last Admin Dose Admin Sodium Chloride (Nss 1000ml) 1,000 ml @ 80 mls/hr [id number] IV 01/30/17 12:45 03/01/17 12:44 02/01/17 02:05 80 MLS/HR Acetaminophen (Tylenol Tab) 650 mg Q4H PRN PO 01/30/17 11:00 03/01/17 10:59 Ondansetron HCl (Zofran Inj) 4 mg Q6H PRN IV 01/30/17 11:00 03/01/17 10:59 Levothyroxine Sodium (Synthroid Tab) 50 mcg DAILYBB PO 01/31/17 06:30 03/02/17 06:29 02/01/17 05:49 50 MCG Sotalol HCl (Betapace Tab) 40 mg QPM PO 01/30/17 21:00 03/01/17 20:59 01/31/17 20:58 40 MG Sotalol HCl 80 mg 80 mg QAM PO 01/31/17 09:00 03/02/17 08:59 02/01/17 08:54 80 MG Pantoprazole Sodium/Dextrose (Protonix Inj/D5 100ml) 100 ml @ 20 mls/hr Q5H IV 01/31/17 10:30 03/02/17 10:29 02/01/17 07:03 20 MLS/HR Tamsulosin HCl (Flomax Cap) 0.4 mg HS PO 01/31/17 21:00 03/02/17 20:59 01/31/17 20:58 0.4 MG (Hailey Pascual, MINERVA-C) Objective Vital Signs Date Time Temp Pulse Resp B/P Pulse Ox O2 Delivery O2 Flow Rate FiO2 02/01/17 07:38 36.4 65 20 103/65 99 02/01/17 04:43 36.7 62 18 94/52 97 Room Air 02/01/17 04:00 Room Air 02/01/17 02:25 36.8 63 18 101/56 98 Room Air 02/01/17 00:01 Room Air 01/31/17 23:12 36.8 61 18 109/64 98 Room Air 01/31/17 20:10 Room Air 01/31/17 19:01 36.4 86 20 132/66 98 01/31/17 16:10 Room Air 01/31/17 15:34 36.4 62 20 117/71 100 Room Air 01/31/17 12:00 Room Air 01/31/17 11:01 36.5 66 18 109/63 99 Room Air 01/31/17 10:50 60 16 100/53 98 Room Air 0.0 01/31/17 10:29 63 16 100/40 98 Room Air 0.0 01/31/17 10:14 75 16 96/42 96 Room Air 0.0 01/31/17 09:16 36.8 70 20 118/52 97 Room Air (Hailey Pascual PA-C) Physical Exam Notes: PHYSICAL EXAM:: General Appearance: WDWN in NAD who is A&O x 3; thin HEENT: Head is normocephalic/atraumatic; EOMI; PERRLA; Hearing grossly intact; Mucous membranes moist; Pharynx negative for exudate/lesions Neck: Supple; Trachea midline; Neg JVD; Neg lymphadenopathy Heart: RRR with no M/G/R Lungs: CTA in all lung puentes bilaterally; Respirations unlabored; Neg accessory muscle use Abdomen: Soft, non-tender, non-distended; Positive BS x 4 quadrants; Neg organomegaly Extremities: +trace pitting edema bilateral lower extremities; Capillary refill < 2 seconds; Neg cyanosis Neurological: Speech clear; Gross motor/sensory function intact; Neg focal neurologic deficits Psychiatric: Appropriate mood/affect Skin: Normal Color; Warm/Dry; Neg rashes, ecchymosis, lacerations/ulcerations (Hailey Pascual PA-C) Laboratory Results Last 24 Hours Test 02/01/17 05:33 White Blood Count 5.37 K/uL Red Blood Count 2.44 M/uL Hemoglobin 7.7 g/dL Hematocrit 22.9 % Mean Corpuscular Volume 93.9 fL Mean Corpuscular Hemoglobin 31.6 pg Mean Corpuscular Hemoglobin Concent 33.6 g/dl RDW Standard Deviation 51.8 fL RDW Coefficient of Variation 15.2 % Platelet Count 94 K/uL Mean Platelet Volume 9.8 fL Platelet Estimate DECREASED Sodium Level 145 mmol/L Potassium Level 3.7 mmol/L Chloride Level 112 mmol/L Carbon Dioxide Level 26 mmol/L Anion Gap 7.0 mmol/L Blood Urea Nitrogen 15 mg/dl Creatinine 0.79 mg/dl Est Creatinine Clear Calc Drug Dose 61.7 ml/min Estimated GFR () 94.9 Estimated GFR (Non- 81.9 BUN/Creatinine Ratio 18.8 Random Glucose 138 mg/dl Calcium Level 6.9 mg/dl Magnesium Level 1.9 mg/dl (Hailey Pascual, YAELC) Assessment and Plan 86 yo male with history of atrial fibrillation, s/p pacer, h/o DVT/PE on Coumadin who presented with 4 days of dark stools then some bright red blood, weakness and fatigue Acute Blood Loss Anemia 2/2 Bleeding Duodenal Ulcer and Supratherapeutic INR: Baseline Hgb 14 - Patient received 2 units PRBC (01/30) and will receive 2 units PRBCs (02/01) we' ll continue to monitor H&H - Protonix bolus/drip - NSS at 80 mL/hr - Clear liquid diet and advance as tolerated - patient currently tolerating clear liquid diet and will advance to full liquid - GI following - recommendations reviewed - continue current regimen and diet advancement Atrial Fibrillation - Sick Sinus History - S/P Pacer: - Sotalol 80 mg in AM and 40 mg in PM - Continue to hold Coumadin - will discuss with 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 Discussed with Hailey Pascual PAC and agree with findings and plan as documented in the note. Any exceptions or clarifications are listed here: None Pt admitted with Coumadin coagulopathy associated GIB, found to have duodenal ulcer on EGD, did receive 4 U PRBC for acute blood loss anemia, now will be on 72 hours IV protonix vitals stable( did have lowering of hgb suspected from dilution and ordered additional prbc making 4 units given) hoarse voice but is his baseline car is regular, lungs are clear abd is soft and non tender supportive care, follow hgb, continue IV PPI, hold coumadin for short term healing will discuss with Dr Lubin for advice, continue clear liq diet for now Documented By: Jesse Butcher (Jesse Butcher M.D.)
--- NOTE | 2017-02-01 11:03 | Gastroenterology Progress Note ---
Progress Note Date of Service: Feb 01, 2017 Subjective Pt evaluation today including: conversation w/ patient, physical exam, chart review, lab review, review of studies, review of inpatient medication list Patient reports feeling well today. Has not had a bowel movement since yesterday. Slight drop in H&H and he is currently being transfused with 1 of 2 ordered units of PRBCs. Continues PPI ggt. Clear liquid diet. Stool for H pylori remains uncollected. No abdominal pain, nausea or vomiting or other GI complaints. Review of Systems Constitutional: No problem reported Respiratory: No problem reported Cardiac: No problem reported Abdomen: + see HPI Medications Current Inpatient Medications Medications (Trade) Dose Ordered Sig/Efrain Route Start Time Stop Time Status Last Admin Dose Admin Sodium Chloride (Nss 1000ml) 1,000 ml @ 80 mls/hr [id number] IV 01/30/17 12:45 03/01/17 12:44 02/01/17 02:05 80 MLS/HR Acetaminophen (Tylenol Tab) 650 mg Q4H PRN PO 01/30/17 11:00 03/01/17 10:59 Ondansetron HCl (Zofran Inj) 4 mg Q6H PRN IV 01/30/17 11:00 03/01/17 10:59 Levothyroxine Sodium (Synthroid Tab) 50 mcg DAILYBB PO 01/31/17 06:30 03/02/17 06:29 02/01/17 05:49 50 MCG Sotalol HCl (Betapace Tab) 40 mg QPM PO 01/30/17 21:00 03/01/17 20:59 01/31/17 20:58 40 MG Sotalol HCl 80 mg 80 mg QAM PO 01/31/17 09:00 03/02/17 08:59 02/01/17 08:54 80 MG Pantoprazole Sodium/Dextrose (Protonix Inj/D5 100ml) 100 ml @ 20 mls/hr Q5H IV 01/31/17 10:30 03/02/17 10:29 02/01/17 07:03 20 MLS/HR Tamsulosin HCl (Flomax Cap) 0.4 mg HS PO 01/31/17 21:00 03/02/17 20:59 01/31/17 20:58 0.4 MG Objective Vital Signs Date Time Temp Pulse Resp B/P Pulse Ox O2 Delivery O2 Flow Rate FiO2 4/19/17 09:55 36.5 66 18 92/55 02/01/17 09:25 36.3 88 18 110/58 02/01/17 08:55 36.4 88 18 97/52 02/01/17 08:40 36.7 88 18 91/54 02/01/17 08:24 36.6 88 20 108/64 02/01/17 08:00 Room Air 02/01/17 07:38 36.4 65 20 103/65 99 02/01/17 04:43 36.7 62 18 94/52 97 Room Air 02/01/17 04:00 Room Air 02/01/17 02:25 36.8 63 18 101/56 98 Room Air 02/01/17 00:01 Room Air 01/31/17 23:12 36.8 61 18 109/64 98 Room Air 01/31/17 20:10 Room Air 01/31/17 19:01 36.4 86 20 132/66 98 01/31/17 16:10 Room Air 01/31/17 15:34 36.4 62 20 117/71 100 Room Air 01/31/17 12:00 Room Air 01/31/17 11:01 36.5 66 18 109/63 99 Room Air Physical Exam General Appearance: no apparent distress Eyes: EOMI ENT: hearing grossly normal Respiratory/Chest: lungs clear, normal breath sounds, no respiratory distress Cardiovascular: regular rate, rhythm, no gallop, no murmur Abdomen: normal bowel sounds, non tender, soft Extremities: no pedal edema Neurologic/Psych: alert, normal mood/affect, oriented x 3 Skin: warm/dry Laboratory Results Last 24 Hours Test 02/01/17 05:33 White Blood Count 5.37 K/uL Red Blood Count 2.44 M/uL Hemoglobin 7.7 g/dL Hematocrit 22.9 % Mean Corpuscular Volume 93.9 fL Mean Corpuscular Hemoglobin 31.6 pg Mean Corpuscular Hemoglobin Concent 33.6 g/dl RDW Standard Deviation 51.8 fL RDW Coefficient of Variation 15.2 % Platelet Count 94 K/uL Mean Platelet Volume 9.8 fL Platelet Estimate DECREASED Sodium Level 145 mmol/L Potassium Level 3.7 mmol/L Chloride Level 112 mmol/L Carbon Dioxide Level 26 mmol/L Anion Gap 7.0 mmol/L Blood Urea Nitrogen 15 mg/dl Creatinine 0.79 mg/dl Est Creatinine Clear Calc Drug Dose 61.7 ml/min Estimated GFR () 94.9 Estimated GFR (Non- 81.9 BUN/Creatinine Ratio 18.8 Random Glucose 138 mg/dl Calcium Level 6.9 mg/dl Magnesium Level 1.9 mg/dl Assessment and Plan Patient is a 86 year-old male admitted with acute blood loss anemia in the setting of supratherapeutic INR (now corrected) and findings of duodenal ulcer with visible vessel status post hemostasis with Epinephrine and Bicap therapy. 1. Continue PPI ggt for a total of 72 hours. Then switch to Protonix 40 mg BID thereafter. 2. Clear liquid diet today with slow dietary advancement this evening if no significant bleeding events today. 3. Supportive measures per primary team. Agree with JONI Damian as above Abd: Soft, NT, ND, +BS Continue Protonix gtt. for 72 hours Advance diet as tolerated
[2017-02-01 16:16] LABS: HEMATOCRIT 33.8 % (42-52)
[2017-02-01] MEDS ORDERED: NURSING VERBAL MED ORDER ONE (18:30)
[2017-02-01] MEDS ORDERED: FUROSEMIDE INJ 20 MG in SYRINGE 0 ML IV ONE (19:00)
[2017-02-01] MEDS: TAMSULOSIN HCL 0.4 MG CAP PO SCH (21:37)
[2017-02-02] VITALS (8 sets, daily range): BP systolic 102–136; BP diastolic 49–65; PULSE 63–81; TEMP 36.3–36.8; O2SAT 96–99
[2017-02-02] MEDS: PANTOprazole INJ 40 MG in DEXTROSE 5% 100ML IV SCH ×2 (02:56→07:05)
[2017-02-02 05:43] LABS: HEMATOCRIT 28.8 % (42-52); MEAN CELL VOLUME 91.4 fL (80-100); MEAN CORPUSCULAR HEMOGLOBIN 31.4 pg (25-34); MEAN CORPUSCULAR HGB CONC 34.4 g/dl (32-36); RED BLOOD COUNT 3.15 M/uL (4.7-6.1); WHITE BLOOD COUNT 4.18 K/uL (4.8-10.8)
[2017-02-02 05:44] LABS: PLATELET COUNT 97 K/uL (130-400)
[2017-02-02 05:49] LABS: INR 1.1 (0.9-1.1); PROTHROMBIN TIME (PATIENT) 11.5 SECONDS (9.0-12.0)
[2017-02-02 06:33] LABS: BUN/CREATININE RATIO 13.9 (10-20); CALCIUM 7.3 mg/dl (8.5-10.1); CREATININE 0.83 mg/dl (0.60-1.40)
[2017-02-02] MEDS: LEVOTHYROXINE 50 MCG TAB PO SCH (07:05)
[2017-02-02] MEDS: SOTALOL HCL 80 MG TAB PO SCH (08:05)
[2017-02-02] MEDS ORDERED: POTASSIUM CHLORIDE 10 MEQ TABCR PO ONE (08:15)
--- NOTE | 2017-02-02 10:18 | Gastroenterology Progress Note ---
Progress Note Date of Service: Feb 02, 2017 Subjective Pt evaluation today including: conversation w/ patient, physical exam, chart review, lab review, review of studies, review of inpatient medication list Patient reports feeling well today. Reports only small amount of dark stool last evening. No bowel movements this morning. Tolerating full liquids. Continues PPI ggt. No new GI complaints. Review of Systems Constitutional: No fatigue Respiratory: No problem reported Cardiac: No problem reported Abdomen: + see HPI, No nausea, No pain, No vomiting Medications Current Inpatient Medications Medications (Trade) Dose Ordered Sig/Efrain Route Start Time Stop Time Status Last Admin Dose Admin Acetaminophen (Tylenol Tab) 650 mg Q4H PRN PO 01/30/17 11:00 03/01/17 10:59 Ondansetron HCl (Zofran Inj) 4 mg Q6H PRN IV 01/30/17 11:00 03/01/17 10:59 Levothyroxine Sodium (Synthroid Tab) 50 mcg DAILYBB PO 01/31/17 06:30 03/02/17 06:29 02/02/17 07:05 50 MCG Sotalol HCl (Betapace Tab) 40 mg QPM PO 01/30/17 21:00 03/01/17 20:59 02/01/17 21:37 40 MG Sotalol HCl 80 mg 80 mg QAM PO 01/31/17 09:00 03/02/17 08:59 02/02/17 08:05 80 MG Pantoprazole Sodium/Dextrose (Protonix Inj/D5 100ml) 100 ml @ 20 mls/hr Q5H IV 01/31/17 10:30 03/02/17 10:29 02/02/17 07:05 20 MLS/HR Tamsulosin HCl (Flomax Cap) 0.4 mg HS PO 01/31/17 21:00 03/02/17 20:59 02/01/17 21:37 0.4 MG Objective Vital Signs Date Time Temp Pulse Resp B/P Pulse Ox O2 Delivery O2 Flow Rate FiO2 02/02/17 07:22 36.8 64 20 109/49 96 02/02/17 04:00 36.7 64 20 107/58 98 Room Air 02/02/17 04:00 Room Air 02/02/17 02:13 76 113/65 02/02/17 00:05 36.6 81 20 136/65 99 02/02/17 00:01 Room Air 02/01/17 20:10 Room Air 02/01/17 19:15 36.3 69 18 95 Room Air 02/01/17 18:57 68 123/63 02/01/17 17:44 67 18 132/79 99 02/01/17 15:37 Room Air 02/01/17 15:31 73 93 02/01/17 14:19 36.4 63 18 110/61 100 02/01/17 13:20 36.4 63 18 95/54 02/01/17 12:50 36.6 62 18 99/49 100 02/01/17 12:20 36.4 66 18 107/65 02/01/17 12:07 37.1 64 18 98/63 02/01/17 12:00 Room Air 02/01/17 11:48 36.4 64 18 101/60 02/01/17 10:59 36.6 67 18 96/58 Physical Exam General Appearance: no apparent distress Eyes: EOMI ENT: hearing grossly normal Respiratory/Chest: lungs clear, normal breath sounds, no respiratory distress Cardiovascular: regular rate, rhythm, no murmur, + extra beats Abdomen: normal bowel sounds, non tender, soft Extremities: no pedal edema Neurologic/Psych: alert, normal mood/affect, oriented x 3 Skin: warm/dry Laboratory Results Last 24 Hours Test 02/01/17 15:51 02/01/17 15:53 02/02/17 05:13 Hemoglobin 11.3 g/dL 9.9 g/dL Hematocrit 33.8 % 28.8 % White Blood Count 4.18 K/uL Red Blood Count 3.15 M/uL Mean Corpuscular Volume 91.4 fL Mean Corpuscular Hemoglobin 31.4 pg Mean Corpuscular Hemoglobin Concent 34.4 g/dl RDW Standard Deviation 51.3 fL RDW Coefficient of Variation 15.5 % Platelet Count 97 K/uL Mean Platelet Volume 10.0 fL Prothrombin Time 11.5 SECONDS Prothromb Time International Ratio 1.1 Sodium Level 144 mmol/L Potassium Level 3.0 mmol/L Chloride Level 108 mmol/L Carbon Dioxide Level 31 mmol/L Anion Gap 5.0 mmol/L Blood Urea Nitrogen 12 mg/dl Creatinine 0.83 mg/dl Est Creatinine Clear Calc Drug Dose 58.7 ml/min Estimated GFR () 93.0 Estimated GFR (Non- 80.2 BUN/Creatinine Ratio 13.9 Random Glucose 143 mg/dl Calcium Level 7.3 mg/dl Assessment and Plan Patient is a 86 year-old male admitted with acute blood loss anemia in the setting of supratherapeutic INR (now corrected) and findings of duodenal ulcer with visible vessel status post hemostasis with Epinephrine and Bicap therapy. 1. Continue PPI ggt for a total of 72 hours (tomorrow morning). Then switch to Protonix 40 mg BID thereafter. 2. Okay to advance diet. 3. Supportive measures per primary team. 4. Reinitiation of Coumadin per cardiology but would recommend holding at least 1 additional week to reduce risk of brisk rebleeding. This was discussed with Hailey Pascual PA-C.
[2017-02-02] MEDS ORDERED: PRT40 PO (11:12)
--- NOTE | 2017-02-02 11:24 | Discharge Instructions ---
Discharge Instructions Date of Service Feb 02, 2017. Admission Reason for Admission: Blood Loss Anemia; Gi Bleed Discharge Discharge Diagnosis / Problem: Bleeding Duodenal Ulcer Discharge Goals Goal(s): Decrease discomfort, Improve function, Increase independence Activity Recommendations Activity Limitations: as noted below Lifting Limitations: gradually increase as tolerated Exercise/Sports Limitations: gradually increase as tolerated Shower/Bathe: no limitations . Instructions / Follow-Up Instructions / Follow-Up 86 yo male with history of atrial fibrillation, s/p pacer, h/o DVT/PE on Coumadin who presented with 4 days of dark stools then some bright red blood, weakness and fatigue Acute Blood Loss Anemia due to Bleeding Duodenal Ulcer and Supratherapeutic INR : Baseline Hgb 14 - He received 4 units of blood on 01/30 and 02/01 and hemoglobin has stabilized at 9.9 - You will be sent with a prescription for Protonix 40 mg twice a day and will use this for the next 6 weeks. 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 Your family doctor will obtain these results. - Would recommend taking it easy and gradually increasing your activity level - as your blood levels improve your energy level well improve as well - AVOID medications such as ibuprofen, Motrin, Advil... These medications are grouped in a class called NSAIDs. These medications can increase bleeding risk. -- If you're experiencing mild pain he may use Tylenol. Please follow dosing instructions on the bottle for administration WHAT TO WATCH FOR: -You may experience a few more bowel movements that are dark in color as the remaining blood is removed from your body and this should begin to lessen - If you notice increasing amount of black colored stools or bright red blood please seek medical attention - As well, if you develop significant weakness, shortness of breath, chest pain - please seek medical attention Follow-Up: - Please see your family doctor in 7-10 days - and please obtain your blood work prior to this appointment Current Hospital Diet Patient's current hospital diet: AHA Diet (Heart Healthy), Vegetarian Diet Discharge Diet Recommended Diet: AHA Diet (Heart Healthy) Procedures Procedures Performed: EGD w/Hemostasis and Epinephrine injection Pending Studies Studies pending at discharge: yes List of pending studies: Stool H. Pylori Medical Emergencies . Who to Call and When: Medical Emergencies: If at any time you feel your situation is an emergency, please call 911 immediately. . Non-Emergent Contact Non-Emergency issues call your: Primary Care Provider Call Non-Emergent contact if: you have a fever, your pain is concerning you, you have any medication questions . . "Provider Documentation" section prepared by Hailey Pascual. . VTE Core Measure Inpt VTE Proph given/why not?: SCD's
[2017-02-02 11:59] LABS: HEMATOCRIT 31.6 % (42-52)
--- NOTE | 2017-02-02 15:12 | Discharge Summary ---
Discharge Summary Date of Service Feb 02, 2017. 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 CHEST ONE VIEW PORTABLE CLINICAL HISTORY: EVALUATE GI BLEED bleeding COMPARISON STUDY: 10/07/2015 FINDINGS: Lungs are clear. Calcified granuloma right base. No focal infiltrate. No evidence for cardiac enlargement. IMPRESSION: No acute process. Lungs are clear. 2. EGD Impression: - Normal esophagus. - Small hiatus hernia. - Hematin (altered blood/lbemwl-cxqubh-wgsc material) in the stomach. - One oozing duodenal ulcer with a visible vessel. Injected. Treated with a heater probe. - No specimens collected. Recommendation: - Resume previous diet. - Continue present medications. - Return patient to [facility] for [facility] care. - Clear liquid diet today. - Continue present medications. Consultations: 1. Gastroenterology 2. PT/OT (Hailey Pascual PA-C) Medication Reconciliation New Medications: Pantoprazole (Pantoprazole Sodium) 40 Mg Tab 40 MG PO BID for 42 Days, #84 TAB Take one dose tonight 02/02 then resume twice a day on 02/03 Continued Medications: Atorvastatin (Lipitor) 10 Mg Tab 10 MG PO DAILY, TAB B-Complex Vitamins (Vitamin B Complex) 1 Tab Tab 1 TAB PO DAILY Cholecalciferol (Vitamin D3) 2,000 Unit Cap 1 CAP PO QPM for 90 Days, CAP 3 Refills Isosorbide Mononitrate Ext Rel (Imdur Ext Rel) 30 Mg Ertab 1 TAB PO DAILY for 30 Days, #30 TAB 5 Refills Levothyroxine Sodium (Synthroid) 50 Mcg Tab 50 MCG PO DAILY, TAB Sotalol Hcl (Sotalol Hcl) 80 Mg Tab 80 MG PO QAM for 30 Days Sotalol Hcl (Sotalol Hcl) 80 Mg Tab 40 TAB PO QPM for 30 Days, TAB 5 Refills Tamsulosin Hcl (Flomax) 0.4 Mg Cap 0.4 MG PO HS, CAP Discontinued Medications: Aspirin (Aspirin Ec) 81 Mg Tab 81 MG PO DAILY Warfarin Sod (Jantoven) 6 Mg Tab 6 MG PO QPM, TAB TAKES WITH EVENING MEAL Discharge Exam REVIEW OF SYSTEMS: General/Constitutional: +generalized fatigue (improving); Denies fever/chills, fatigue, weight gain/loss ENT: +hoarse voice (baseline); Denies visual changes, nasal drainage, hearing loss, sore throat, trouble swallowing Cardiovascular: Denies chest pain, palpitations Respiratory: Denies cough, sputum, SOB, wheezing, orthopnea GI: +minimal melena; Denies nausea, vomiting, abdominal pain, constipation, diarrhea : Denies dysuria, frequency, hematuria Musculoskeletal: +bilateral lower extremity edema (baseline); Denies joint/ muscle aches, weakness Neurologic: Denies dizziness/lightheadedness, numbness/tingling, weakness Psychiatric: Deferred Endocrine: Deferred Hematologic/Lymphatic: H/O DVT/PE (10 years ago) Skin: Denies rash, itch, new skin changes, easy bruising Allergy/Immunologic: Deferred PHYSICAL EXAM:: General Appearance: WDWN in NAD who is A&O x 3 HEENT: Head is normocephalic/atraumatic; EOMI; PERRLA; Hearing grossly intact; Mucous membranes moist; Pharynx negative for exudate/lesions Neck: Supple; Trachea midline; Neg JVD; Neg lymphadenopathy Heart: RRR with no M/G/R Lungs: CTA in all lung puentes bilaterally; Respirations unlabored; Neg accessory muscle use Abdomen: Soft, non-tender, non-distended; Positive BS x 4 quadrants; Neg organomegaly Extremities: trace to 1+ pitting edema of bilateral lower extremities (baseline) Neurological: Speech clear; Gross motor/sensory function intact; Neg focal neurologic deficits Psychiatric: Appropriate mood/affect Skin: Normal Color; Warm/Dry; Neg rashes, ecchymosis, lacerations/ulcerations (Hailey Pascual, NIRU) Hospital Course ADMISSION: 86 yo male with a 3-4 day history of change in stool color and then bleeding today. The patient was feeling well until 4 days ago when he noticed that his appetite was decreased and his stools became dark. His stools were formed. He never noticed this before. He denies any abdominal pain and he has not felt nauseated or vomited. The dark stools persisted for 3 days and then today he had some bright red blood with dark formed stool. He has noticed some increased fatigue for 3 days and some light headedness. No chest pain, no dyspnea and no ONEILL. He has been compliant with all of his medications. His INR was high at 4.2, he has been taking his usual dose of Coumadin and he says it is unusual for him to have an INR that high. 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 He did not eat or drink anything this AM. He has no history of GI bleeding. He remembers having a colonoscopy, he believes with Dr. Hatch, many years ago for hemorrhoids. He did have radiation to the left groin in the and the radiation was wide and hit his left lower quadrant and he was told that in the future he may have issues with left sided colon and small intestine. HOSPITAL COURSE: Mr. sOborn was admitted for acute GI bleed 2/2 duodenal ulcer with visible vessel and hemostasis maintained. He presented with supratherapeutic INR is reversed with vitamin K. Hemoglobin on admission was 9.4 and decreased to 8.2 and was transfused 2 units PRBCs and hemoglobin remained stable throughout the day. The following day, hemoglobin dropped to 7.7 and was transfused another 2 units PRBCs. He was maintained on Protonix drip for 72 hours and prescription provided for Protonix 40 mg BID for the next 6 weeks. 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 Recommendation to Coumadin and ASA therapy 1 week and can resume. Patient noted to have isolated runs of PVCs with intermittent normal conducted beats two nights in a row but was asymptomatic. Patient is hemodynamically stable and optimal for discharge home. He was provided a prescription for follow-up CBC to be forwarded to PCP. Recommend PCP follow-up in 7-10 days. Total Time Spent: Greater than 30 minutes This includes examination of the patient, discharge planning, medication reconciliation, and communication with other providers. (Hailey Pascual, NIRU) [facility] Physician Supervision Note: I interviewed and examined the patient. Discussed with Hailey Pascual PAC and agree with findings and plan as documented in the note. Any exceptions or clarifications are listed here: None Pt admitted with Coumadin coagulopathy associated GIB, found to have duodenal ulcer on EGD, did receive 4 U PRBC for acute blood loss anemia, completed 72 hours IV protonix, will be on po protonix vitals stable( did have lowering of hgb suspected from dilution and ordered additional prbc making 4 units given) hoarse voice but is his baseline car is regular, lungs are clear abd is soft and non tender follow hgb out pt hgb, po PPI, hold coumadin for short term healing will discuss with Dr Lubin in out pt clinic Documented By: Jesse Butcher (Jesse Butcher M.D.) Discharge Instructions Please refer to the electronic Patient Visit Report (Discharge Instructions) for additional information. (Hailey Pascual PA-C) Additional Copies To Terence Lynn M.D.
[2017-02-02] MEDS ORDERED: PANTOprazole SOD 40 MG TAB PO SCH (21:00)
== END 2017-02-02 16:15 | disposition home or self-care (01) | DRG 378 ==
LOC: ENRESERVDT → ENRESERVTM → C.EDA 10:09 → C.MED 11:02
PROVIDERS: ADMIT Internal Medicine; ATTEND Internal Medicine
PROC: 0DJ08ZZ Inspection of Upper Intestinal Tract, Via Natural or Artificial Opening Endoscopic (ICD-10-PCS; principal; 2017-01-31 09:08)
DX: K26.4 Chronic or unspecified duodenal ulcer with hemorrhage (principal); D68.9 Coagulation defect, unspecified; D62 Acute posthemorrhagic anemia; I48.91 Unspecified atrial fibrillation; Z86.718 Personal history of other venous thrombosis and embolism; Z95.0 Presence of cardiac pacemaker; Z86.711 Personal history of pulmonary embolism; Z85.71 Personal history of Hodgkin lymphoma; I10 Essential (primary) hypertension; K44.9 Diaphragmatic hernia without obstruction or gangrene; Z87.891 Personal history of nicotine dependence; Z83.3 Family history of diabetes mellitus; Z82.49 Family history of ischemic heart disease and other diseases of the circulatory system; Z79.82 Long term (current) use of aspirin; Z79.01 Long term (current) use of anticoagulants; H26.9 Unspecified cataract

== ENCOUNTER → 2017-02-03 | Outpatient (CLI) | payer OTHER ==
[~2017-02-03] MED LIST changes: -ASPI81TA28 PO; +PRT40 PO; -WARF6TAB5 PO
[2017-02-03 10:06] LABS: HEMATOCRIT 32.8 % (42-52); MEAN CELL VOLUME 92.4 fL (80-100); MEAN CORPUSCULAR HGB CONC 33.5 g/dl (32-36); MEAN PLATELET VOLUME 9.8 fL (7.4-10.4); PLATELET COUNT 139 K/uL (130-400); RED BLOOD COUNT 3.55 M/uL (4.7-6.1); WHITE BLOOD COUNT 5.15 K/uL (4.8-10.8)
== END | disposition home or self-care (01) ==
LOC: C.LABVPSUW 09:54
PROVIDERS: ATTEND Internal Medicine
DX: D64.9 Anemia, unspecified (principal)

== ENCOUNTER → 2017-02-06 | Outpatient (CLI) | payer OTHER ==
--- NOTE | 2017-02-06 15:33 | DIAGNOSTIC IMAGING REPORT ---
ULTRASOUND VENOUS DOPPLER LWR EXT BILA CLINICAL HISTORY: Lower leg edema COMPARISON STUDY: 02/12/2010 FINDINGS: Real-time and color flow Doppler imaging were performed. Flow was seen within the femoral, popliteal and calf veins with no intraluminal thrombus demonstrated. The saphenous vein is patent. IMPRESSION: No evidence of lower extremity DVT. Electronically signed by: Aamir Giles M.D. 02/06/2017 3:30 PM Dictated Date/Time: 02/06/2017 3:30 PM
== END ==
LOC: C.ULTRBC 14:55
PROVIDERS: ATTEND Internal Medicine
DX: R60.9 Edema, unspecified (principal)

== ENCOUNTER → 2017-02-09 | Outpatient (CLI) | payer OTHER ==
[2017-02-09 09:22] LABS: HEMATOCRIT 33.1 % (42-52); MEAN CELL VOLUME 94.8 fL (80-100); MEAN CORPUSCULAR HEMOGLOBIN 30.9 pg (25-34); MEAN CORPUSCULAR HGB CONC 32.6 g/dl (32-36); MEAN PLATELET VOLUME 9.3 fL (7.4-10.4); PLATELET COUNT 195 K/uL (130-400); RED BLOOD COUNT 3.49 M/uL (4.7-6.1); WHITE BLOOD COUNT 4.32 K/uL (4.8-10.8)
== END ==
LOC: C.LABFOXMH 09:02
PROVIDERS: ATTEND Internal Medicine
DX: D64.9 Anemia, unspecified (principal)

== ENCOUNTER → 2017-02-13 | Outpatient (CLI) | payer OTHER ==
[2017-02-13 09:25] LABS: HEMATOCRIT 33.8 % (42-52); MEAN CELL VOLUME 94.4 fL (80-100); MEAN CORPUSCULAR HEMOGLOBIN 31.3 pg (25-34); MEAN CORPUSCULAR HGB CONC 33.1 g/dl (32-36); MEAN PLATELET VOLUME 9.3 fL (7.4-10.4); PLATELET COUNT 205 K/uL (130-400); RED BLOOD COUNT 3.58 M/uL (4.7-6.1)
[2017-02-13 09:34] LABS: ALT/SGPT 22 U/L (12-78); AST/SGOT 22 U/L (15-37); BLOOD UREA NITROGEN 13 mg/dl (7-18); BUN/CREATININE RATIO 14.9 (10-20); CARBON DIOXIDE 31 mmol/L (21-32); CHLORIDE 105 mmol/L (98-107); GLUCOSE 147 mg/dl (70-99); SODIUM 143 mmol/L (136-145)
[2017-02-13 09:35] LABS: ALKALINE PHOSPHATASE 113 U/L (45-117)
[2017-02-13 09:38] LABS: CALCIUM 8.6 mg/dl (8.5-10.1)
== END | disposition home or self-care (01) ==
LOC: C.LABFOXMH 08:39
PROVIDERS: ATTEND Internal Medicine
DX: D64.9 Anemia, unspecified (principal)

== ENCOUNTER → 2017-02-17 | Outpatient (CLI) | payer OTHER ==
[2017-02-17 10:34] LABS: INR 1.1 (0.9-1.1); PROTHROMBIN TIME (PATIENT) 11.9 SECONDS (9.0-12.0)
== END | disposition home or self-care (01) ==
LOC: C.LABFOXMH 09:58
PROVIDERS: ATTEND Internal Medicine
DX: Z51.81 Encounter for therapeutic drug level monitoring (principal); Z79.01 Long term (current) use of anticoagulants

== ENCOUNTER → 2017-02-20 | Outpatient (CLI) | payer OTHER | LOC: C.LABFOXMH 14:01 | PROVIDERS: ATTEND Internal Medicine | DX: K26.9 Duodenal ulcer, unspecified as acute or chronic, without hemorrhage or perforation (principal) ==

== ENCOUNTER → 2017-02-21 | Outpatient (CLI) | payer OTHER ==
[2017-02-21 10:10] LABS: INR 1.6 (0.9-1.1); PROTHROMBIN TIME (PATIENT) 17.9 SECONDS (9.0-12.0)
== END ==
LOC: C.LABFOXMH 09:44
PROVIDERS: ATTEND Internal Medicine
DX: Z79.01 Long term (current) use of anticoagulants (principal)

== ENCOUNTER → 2017-02-28 | Outpatient (CLI) | payer OTHER ==
[2017-02-28 10:38] LABS: PROTHROMBIN TIME (PATIENT) 34.1 SECONDS (9.0-12.0)
== END ==
LOC: C.LABFOXMH 10:03
PROVIDERS: ATTEND Internal Medicine
DX: Z79.01 Long term (current) use of anticoagulants (principal)

== ENCOUNTER → 2017-03-09 | Outpatient (CLI) | payer OTHER ==
[2017-03-09 11:30] LABS: HEMATOCRIT 34.5 % (42-52); MEAN CELL VOLUME 88.9 fL (80-100); MEAN CORPUSCULAR HEMOGLOBIN 27.3 pg (25-34); MEAN CORPUSCULAR HGB CONC 30.7 g/dl (32-36); MEAN PLATELET VOLUME 9.4 fL (7.4-10.4); PLATELET COUNT 190 K/uL (130-400); RED BLOOD COUNT 3.88 M/uL (4.7-6.1)
[2017-03-09 11:42] LABS: CALCIUM 8.3 mg/dl (8.5-10.1)
[2017-03-09 11:47] LABS: BLOOD UREA NITROGEN 18 mg/dl (7-18); CARBON DIOXIDE 30 mmol/L (21-32); CHLORIDE 108 mmol/L (98-107); CHOLESTEROL 84 mg/dl (0-200); CREATININE 0.92 mg/dl (0.60-1.40); GLUCOSE 112 mg/dl (70-99); POTASSIUM 4.2 mmol/L (3.5-5.1); SODIUM 144 mmol/L (136-145); TRIGLYCERIDES 44 mg/dl (0-150); VERY LOW DENSITY LIPOPROT CALC 9 mg/dl
[2017-03-09 11:51] LABS: HDL CHOLESTEROL 42 mg/dl; LDL CHOLESTEROL CALCULATED 33 mg/dl
[2017-03-09 12:21] LABS: ESTIMATED AVERAGE GLUCOSE 146 mg/dl; HA1C FLAG Normal (Normal)
== END | disposition home or self-care (01) ==
LOC: C.LABFOXMH 09:39
PROVIDERS: ATTEND Internal Medicine
DX: E11.9 Type 2 diabetes mellitus without complications (principal); D64.9 Anemia, unspecified

== ENCOUNTER → 2017-03-16 | Outpatient (CLI) | payer OTHER ==
[2017-03-16 10:16] LABS: HEMATOCRIT 35.6 % (42-52); MEAN CELL VOLUME 90.6 fL (80-100); MEAN CORPUSCULAR HEMOGLOBIN 28.5 pg (25-34); MEAN CORPUSCULAR HGB CONC 31.5 g/dl (32-36); MEAN PLATELET VOLUME 9.7 fL (7.4-10.4); PLATELET COUNT 203 K/uL (130-400); RED BLOOD COUNT 3.93 M/uL (4.7-6.1); WHITE BLOOD COUNT 4.45 K/uL (4.8-10.8)
[2017-03-16 10:28] LABS: INR 3.2 (0.9-1.1); PROTHROMBIN TIME (PATIENT) 35.9 SECONDS (9.0-12.0)
== END | disposition home or self-care (01) ==
LOC: C.LABFOXMH 09:06
PROVIDERS: ATTEND Internal Medicine
DX: D64.9 Anemia, unspecified (principal); Z79.01 Long term (current) use of anticoagulants

== ENCOUNTER → 2017-03-23 | Outpatient (CLI) | payer OTHER ==
[2017-03-23 10:03] LABS: HEMATOCRIT 35.7 % (42-52); MEAN CELL VOLUME 91.1 fL (80-100); MEAN CORPUSCULAR HEMOGLOBIN 29.3 pg (25-34); MEAN CORPUSCULAR HGB CONC 32.2 g/dl (32-36); MEAN PLATELET VOLUME 9.8 fL (7.4-10.4); PLATELET COUNT 162 K/uL (130-400); RED BLOOD COUNT 3.92 M/uL (4.7-6.1); WHITE BLOOD COUNT 4.67 K/uL (4.8-10.8)
[2017-03-23 10:11] LABS: INR 2.4 (0.9-1.1); PROTHROMBIN TIME (PATIENT) 26.9 SECONDS (9.0-12.0)
== END ==
LOC: C.LABFOXMH 09:55
PROVIDERS: ATTEND Internal Medicine
DX: D64.9 Anemia, unspecified (principal); Z79.01 Long term (current) use of anticoagulants

== ENCOUNTER → 2017-03-30 | Outpatient (CLI) | payer OTHER ==
[2017-03-30 08:26] LABS: MEAN CELL VOLUME 92.8 fL (80-100); MEAN CORPUSCULAR HEMOGLOBIN 29.4 pg (25-34); MEAN CORPUSCULAR HGB CONC 31.7 g/dl (32-36); MEAN PLATELET VOLUME 9.6 fL (7.4-10.4); PLATELET COUNT 145 K/uL (130-400); RED BLOOD COUNT 3.88 M/uL (4.7-6.1); WHITE BLOOD COUNT 3.79 K/uL (4.8-10.8)
[2017-03-30 08:31] LABS: PROTHROMBIN TIME (PATIENT) 21.8 SECONDS (9.0-12.0)
[2017-03-30 08:32] LABS: BLOOD UREA NITROGEN 14 mg/dl (7-18)
== END | disposition home or self-care (01) ==
LOC: C.LABFOXMH 07:46
PROVIDERS: ATTEND Internal Medicine
DX: D64.9 Anemia, unspecified (principal); Z51.81 Encounter for therapeutic drug level monitoring; Z79.01 Long term (current) use of anticoagulants

== ENCOUNTER → 2017-04-04 | Outpatient (CLI) | payer OTHER ==
[~2017-04-04] MED LIST changes: +GADAVIST IV PRN
--- NOTE | 2017-04-04 15:48 | DIAGNOSTIC IMAGING REPORT ---
MRI OF THE BRAIN COMBO INTERNAL AUDITORY CANAL PROTOCOL CLINICAL HISTORY: Left-sided hearing loss of several months duration. COMPARISON STUDY: CT of the brain dated 09/09/2016. TECHNIQUE: MRI of the brain was performed utilizing various T1 and T2-weighted sequences in the axial, sagittal, and coronal planes. Contrast-enhanced sequences were acquired following the administration of 7 cc of Gadavist. Additional high-resolution imaging was performed through the skull base both pre and post contrast to further assess the internal auditory canals. FINDINGS: Brain parenchyma: There are age-related involutional changes noting mild to moderate patchy subcortical and periventricular microangiopathic disease. There is no hemorrhage or mass effect. There is no restricted diffusion to suggest acute ischemia. No enhancing mass lesion is identified on the postcontrast images. 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 Fischer-white matter differentiation is preserved. No extra-axial fluid collection is seen. The cerebellar tonsils are normal in configuration. Ventricles, sulci, and cisterns: Prominent secondary to involutional change. Internal auditory canals: No enhancing mass lesion is seen in the cerebellopontine angle bilaterally. No mass or abnormal enhancement is identified along the course of the internal auditory canals. The middle ear structures are normal as imaged. Pituitary and sella: Unremarkable. Intracranial vasculature: Normal flow voids are maintained at the skull base. Orbits: The bony orbits are grossly intact. Orbital contents are normal in appearance noting bilateral ocular lens implants. Sinuses and mastoids: Clear. Calvarium: Unremarkable. Cervical cord: Partially visualized cervical spinal cord is normal in morphology and signal intensity. IMPRESSION: 1. No acute intracranial abnormality. 2. Unremarkable MRI assessment of the internal auditory canals. Electronically signed by: Austen Castrejon M.D. 04/04/2017 3:46 PM Dictated Date/Time: 04/04/2017 3:30 PM
== END | disposition home or self-care (01) ==
LOC: C.MRI 14:07
PROVIDERS: ATTEND Physician Assistant
DX: H90.42 Sensorineural hearing loss, unilateral, left ear, with unrestricted hearing on the contralateral side (principal)

== ENCOUNTER → 2017-04-06 | Outpatient (CLI) | payer OTHER ==
[~2017-04-06] MED LIST changes: -GADAVIST IV PRN
[2017-04-06 10:45] LABS: HEMATOCRIT 40.6 % (42-52); MEAN CELL VOLUME 92.9 fL (80-100); MEAN CORPUSCULAR HEMOGLOBIN 29.1 pg (25-34); MEAN CORPUSCULAR HGB CONC 31.3 g/dl (32-36); MEAN PLATELET VOLUME 9.8 fL (7.4-10.4); PLATELET COUNT 162 K/uL (130-400); RED BLOOD COUNT 4.37 M/uL (4.7-6.1); WHITE BLOOD COUNT 4.13 K/uL (4.8-10.8)
[2017-04-06 10:52] LABS: PROTHROMBIN TIME (PATIENT) 22.2 SECONDS (9.0-12.0)
== END | disposition home or self-care (01) ==
LOC: C.LABFOXMH 09:12
PROVIDERS: ATTEND Internal Medicine
DX: D64.9 Anemia, unspecified (principal); Z79.01 Long term (current) use of anticoagulants

== ENCOUNTER → 2017-04-13 | Outpatient (CLI) | payer OTHER ==
[~2017-04-13] MED LIST changes: -ATOR10TA82 PO; +ATOR10TA88 PO
[2017-04-13 10:40] LABS: HEMATOCRIT 40.5 % (42-52); MEAN CORPUSCULAR HEMOGLOBIN 29.5 pg (25-34); MEAN CORPUSCULAR HGB CONC 32.1 g/dl (32-36); MEAN PLATELET VOLUME 10.1 fL (7.4-10.4); PLATELET COUNT 155 K/uL (130-400); WHITE BLOOD COUNT 4.68 K/uL (4.8-10.8)
== END ==
LOC: C.LABFOXMH 08:51
PROVIDERS: ATTEND Internal Medicine
DX: D64.9 Anemia, unspecified (principal); Z79.01 Long term (current) use of anticoagulants

== ENCOUNTER → 2017-04-20 | Outpatient (CLI) | payer OTHER ==
[2017-04-20 09:11] LABS: HEMATOCRIT 39.6 % (42-52); MEAN CELL VOLUME 91.9 fL (80-100); MEAN CORPUSCULAR HEMOGLOBIN 30.2 pg (25-34); MEAN CORPUSCULAR HGB CONC 32.8 g/dl (32-36); MEAN PLATELET VOLUME 9.8 fL (7.4-10.4); PLATELET COUNT 130 K/uL (130-400); RED BLOOD COUNT 4.31 M/uL (4.7-6.1); WHITE BLOOD COUNT 3.93 K/uL (4.8-10.8)
[2017-04-20 09:27] LABS: INR 1.8 (0.9-1.1); PROTHROMBIN TIME (PATIENT) 19.9 SECONDS (9.0-12.0)
== END ==
LOC: C.LABFOXMH 08:40
PROVIDERS: ATTEND Internal Medicine
DX: D64.9 Anemia, unspecified (principal); Z79.01 Long term (current) use of anticoagulants

== ENCOUNTER → 2017-05-02 | Outpatient (CLI) | payer OTHER ==
[2017-05-02 08:52] LABS: MEAN CELL VOLUME 90.5 fL (80-100); MEAN CORPUSCULAR HEMOGLOBIN 30.1 pg (25-34); MEAN CORPUSCULAR HGB CONC 33.3 g/dl (32-36); MEAN PLATELET VOLUME 9.3 fL (7.4-10.4); PLATELET COUNT 124 K/uL (130-400); RED BLOOD COUNT 4.42 M/uL (4.7-6.1); WHITE BLOOD COUNT 4.04 K/uL (4.8-10.8)
[2017-05-02 09:01] LABS: INR 1.9 (0.9-1.1); PROTHROMBIN TIME (PATIENT) 21.3 SECONDS (9.0-12.0)
== END | disposition home or self-care (01) ==
LOC: C.LABFOXDH 08:25
PROVIDERS: ATTEND Nurse Practitioner Family
DX: D64.9 Anemia, unspecified (principal); Z79.01 Long term (current) use of anticoagulants

== ENCOUNTER → 2017-05-16 | Outpatient (CLI) | payer OTHER ==
[2017-05-16 11:21] LABS: HEMATOCRIT 39.3 % (42-52); MEAN CELL VOLUME 91.4 fL (80-100); MEAN CORPUSCULAR HEMOGLOBIN 31.2 pg (25-34); MEAN CORPUSCULAR HGB CONC 34.1 g/dl (32-36); MEAN PLATELET VOLUME 9.8 fL (7.4-10.4); PLATELET COUNT 117 K/uL (130-400); WHITE BLOOD COUNT 4.27 K/uL (4.8-10.8)
[2017-05-16 11:31] LABS: INR 1.8 (0.9-1.1); PROTHROMBIN TIME (PATIENT) 19.5 SECONDS (9.0-12.0)
[2017-05-16 11:32] LABS: ALT/SGPT 27 U/L (12-78); AST/SGOT 27 U/L (15-37); BLOOD UREA NITROGEN 16 mg/dl (7-18); BUN/CREATININE RATIO 19.4 (10-20); CALCIUM 8.1 mg/dl (8.5-10.1); CARBON DIOXIDE 30 mmol/L (21-32); CHLORIDE 107 mmol/L (98-107); CREATININE 0.83 mg/dl (0.60-1.40); GLUCOSE 123 mg/dl (70-99); POTASSIUM 3.9 mmol/L (3.5-5.1); SODIUM 142 mmol/L (136-145)
[2017-05-16 11:35] LABS: ALB/GLOB RATIO 1.2 (0.9-2); ALKALINE PHOSPHATASE 97 U/L (45-117); CHOLESTEROL 86 mg/dl (0-200); CHOLESTEROL/HDL RATIO 1.9; HDL CHOLESTEROL 45 mg/dl; LDL CHOLESTEROL CALCULATED 30 mg/dl; TRIGLYCERIDES 54 mg/dl (0-150); VERY LOW DENSITY LIPOPROT CALC 11 mg/dl
== END | disposition home or self-care (01) ==
LOC: C.LABFOXMH 09:45
PROVIDERS: ATTEND Internal Medicine
DX: D64.9 Anemia, unspecified (principal); I48.0 Paroxysmal atrial fibrillation; Z95.0 Presence of cardiac pacemaker; I95.9 Hypotension, unspecified; I25.10 Atherosclerotic heart disease of native coronary artery without angina pectoris; Z79.01 Long term (current) use of anticoagulants

== ENCOUNTER → 2017-05-23 | Outpatient (CLI) | payer OTHER ==
[2017-05-23 10:46] LABS: INR 2.1 (0.9-1.1); PROTHROMBIN TIME (PATIENT) 22.9 SECONDS (9.0-12.0)
== END ==
LOC: C.LABFOXMH 08:40
PROVIDERS: ATTEND Internal Medicine
DX: Z79.01 Long term (current) use of anticoagulants (principal)

== ENCOUNTER → 2017-06-06 | Outpatient (CLI) | payer OTHER ==
[2017-06-06 09:59] LABS: INR 2.3 (0.9-1.1); PROTHROMBIN TIME (PATIENT) 25.9 SECONDS (9.0-12.0)
== END | disposition home or self-care (01) ==
LOC: C.LABFOXMH 09:15
PROVIDERS: ATTEND Nurse Practitioner Family
DX: Z51.81 Encounter for therapeutic drug level monitoring (principal); Z79.01 Long term (current) use of anticoagulants

== ENCOUNTER → 2017-06-27 | Outpatient (CLI) | payer OTHER ==
[2017-06-27 11:31] LABS: INR 1.9 (0.9-1.1); PROTHROMBIN TIME (PATIENT) 20.9 SECONDS (9.0-12.0)
== END | disposition home or self-care (01) ==
LOC: C.LABFOXMH 09:19
PROVIDERS: ATTEND Nurse Practitioner Family
DX: Z51.81 Encounter for therapeutic drug level monitoring (principal); Z79.01 Long term (current) use of anticoagulants

== ENCOUNTER → 2017-07-11 | Outpatient (CLI) | payer OTHER ==
[2017-07-11 09:15] LABS: PROTHROMBIN TIME (PATIENT) 22.6 SECONDS (9.0-12.0)
== END | disposition home or self-care (01) ==
LOC: C.LABFOXMH 08:32
PROVIDERS: ATTEND Internal Medicine
DX: Z51.81 Encounter for therapeutic drug level monitoring (principal); Z79.01 Long term (current) use of anticoagulants

== ENCOUNTER → 2017-08-01 | Outpatient (CLI) | payer OTHER ==
[2017-08-01 10:59] LABS: INR 2.4 (0.9-1.1); PROTHROMBIN TIME (PATIENT) 27.1 SECONDS (9.0-12.0)
== END ==
LOC: C.LABFOXMH 10:43
PROVIDERS: ATTEND Internal Medicine
DX: Z79.01 Long term (current) use of anticoagulants (principal)

== ENCOUNTER → 2017-09-12 | Outpatient (CLI) | payer OTHER ==
[~2017-09-12] MED LIST changes: +ATOR10TA82 PO; -ATOR10TA88 PO
[2017-09-12 09:24] LABS: INR 2.5 (0.9-1.1); PROTHROMBIN TIME (PATIENT) 27.7 SECONDS (9.0-12.0)
== END | disposition home or self-care (01) ==
LOC: C.LABFOXMH 08:43
PROVIDERS: ATTEND Internal Medicine
DX: Z51.81 Encounter for therapeutic drug level monitoring (principal); Z79.01 Long term (current) use of anticoagulants

== ENCOUNTER → 2017-10-10 | Outpatient (CLI) | payer OTHER ==
[2017-10-10 08:21] LABS: INR 1.5 (0.9-1.1); PROTHROMBIN TIME (PATIENT) 15.5 SECONDS (9.0-12.0)
== END | disposition home or self-care (01) ==
LOC: C.LABFOXMH 08:03
PROVIDERS: ATTEND Internal Medicine
DX: Z79.01 Long term (current) use of anticoagulants (principal)

== ENCOUNTER → 2017-10-24 | Outpatient (CLI) | payer OTHER ==
[2017-10-24 10:14] LABS: INR 2.2 (0.9-1.1)
== END | disposition home or self-care (01) ==
LOC: C.LABFOXMH 08:58
PROVIDERS: ATTEND Internal Medicine
DX: Z79.01 Long term (current) use of anticoagulants (principal); Z51.81 Encounter for therapeutic drug level monitoring

== ENCOUNTER → 2017-11-14 | Outpatient (CLI) | payer OTHER ==
[2017-11-14 09:41] LABS: HEMATOCRIT 41.2 % (42-52); HEMOGLOBIN 14.3 g/dL (14.0-18.0); MEAN CELL VOLUME 96.7 fL (80-100); MEAN CORPUSCULAR HEMOGLOBIN 33.6 pg (25-34); MEAN CORPUSCULAR HGB CONC 34.7 g/dl (32-36); PLATELET COUNT 132 K/uL (130-400); RED CELL DISTRIBUTION WIDTH CV 13.5 % (11.5-14.5); RED CELL DISTRIBUTION WIDTH SD 47.1 fL (36.4-46.3); WHITE BLOOD COUNT 4.68 K/uL (4.8-10.8)
[2017-11-14 09:52] LABS: HEMOGLOBIN A1C 6.4 % (4.5-5.6)
[2017-11-14 09:54] LABS: INR 2.1 (0.9-1.1)
[2017-11-14 09:55] LABS: ALBUMIN 3.1 gm/dl (3.4-5.0); ALT/SGPT 33 U/L (12-78); AST/SGOT 31 U/L (15-37); BLOOD UREA NITROGEN 14 mg/dl (7-18); CALCIUM 8.4 mg/dl (8.5-10.1); CARBON DIOXIDE 29 mmol/L (21-32); CHOLESTEROL 88 mg/dl (0-200); CREATININE 0.81 mg/dl (0.60-1.40); GLUCOSE 131 mg/dl (70-99); SODIUM 141 mmol/L (136-145)
[2017-11-14 09:58] LABS: ALKALINE PHOSPHATASE 86 U/L (45-117); LDL CHOLESTEROL CALCULATED 31 mg/dl; TOTAL PROTEIN 5.7 gm/dl (6.4-8.2)
== END ==
LOC: C.LABFOXMH 08:54
PROVIDERS: ATTEND Internal Medicine Cardiovascular Disease
DX: Z79.01 Long term (current) use of anticoagulants (principal); D64.9 Anemia, unspecified; E11.9 Type 2 diabetes mellitus without complications; I10 Essential (primary) hypertension; R97.20 Elevated prostate specific antigen [PSA]; I48.0 Paroxysmal atrial fibrillation

== ENCOUNTER → 2017-11-24 | Outpatient (CLI) | payer OTHER | END | disposition home or self-care (01) | LOC: C.LABFOXMH 11:06 | PROVIDERS: ATTEND Nurse Practitioner Family | DX: R35.0 Frequency of micturition (principal) ==

== ENCOUNTER → 2017-12-26 | Outpatient (CLI) | payer OTHER ==
[2017-12-26 09:30] LABS: INR 2.7 (0.9-1.1)
== END | disposition home or self-care (01) ==
LOC: C.LABFOXMH 08:50
PROVIDERS: ATTEND Internal Medicine
DX: Z79.01 Long term (current) use of anticoagulants (principal); Z51.81 Encounter for therapeutic drug level monitoring

== ENCOUNTER → 2018-01-16 | Outpatient (CLI) | payer OTHER ==
[2018-01-16 09:10] LABS: INR 2.4 (0.9-1.1)
== END | disposition home or self-care (01) ==
LOC: C.LABFOXMH 08:21
PROVIDERS: ATTEND Internal Medicine
DX: Z79.01 Long term (current) use of anticoagulants (principal)

== ENCOUNTER → 2018-02-02 | Outpatient (CLI) | payer OTHER ==
[2018-02-02 17:00] LABS: HEMATOCRIT 39.9 % (42-52); HEMOGLOBIN 13.5 g/dL (14.0-18.0); MEAN CELL VOLUME 95.5 fL (80-100); MEAN CORPUSCULAR HEMOGLOBIN 32.3 pg (25-34); MEAN CORPUSCULAR HGB CONC 33.8 g/dl (32-36); MEAN PLATELET VOLUME 10.1 fL (7.4-10.4); PLATELET COUNT 148 K/uL (130-400); RED CELL DISTRIBUTION WIDTH CV 14.5 % (11.5-14.5); RED CELL DISTRIBUTION WIDTH SD 50.2 fL (36.4-46.3); WHITE BLOOD COUNT 5.92 K/uL (4.8-10.8)
[2018-02-02 17:07] LABS: INR 2.3 (0.9-1.1)
== END | disposition home or self-care (01) ==
LOC: C.LABBC 13:00
PROVIDERS: ATTEND Internal Medicine
DX: Z79.01 Long term (current) use of anticoagulants (principal)

== ENCOUNTER → 2018-02-06 | Outpatient (CLI) | payer OTHER ==
[2018-02-06 16:18] LABS: HEMATOCRIT 39.5 % (42-52); HEMOGLOBIN 13.8 g/dL (14.0-18.0); MEAN CELL VOLUME 93.6 fL (80-100); MEAN CORPUSCULAR HEMOGLOBIN 32.7 pg (25-34); MEAN CORPUSCULAR HGB CONC 34.9 g/dl (32-36); MEAN PLATELET VOLUME 9.8 fL (7.4-10.4); PLATELET COUNT 145 K/uL (130-400); WHITE BLOOD COUNT 5.76 K/uL (4.8-10.8)
[2018-02-06 16:26] LABS: ALBUMIN 3.1 gm/dl (3.4-5.0); ALT/SGPT 31 U/L (12-78); AST/SGOT 27 U/L (15-37); BLOOD UREA NITROGEN 17 mg/dl (7-18); CARBON DIOXIDE 31 mmol/L (21-32); CREATININE 0.96 mg/dl (0.60-1.40); GLUCOSE 165 mg/dl (70-99); LIPASE 79 U/L (73-393); POTASSIUM 3.7 mmol/L (3.5-5.1); SODIUM 141 mmol/L (136-145)
[2018-02-06 16:33] LABS: ALKALINE PHOSPHATASE 93 U/L (45-117); TOTAL PROTEIN 5.8 gm/dl (6.4-8.2)
== END | disposition home or self-care (01) ==
LOC: C.LABFOXMH 15:40
PROVIDERS: ATTEND Internal Medicine
DX: R10.813 Right lower quadrant abdominal tenderness (principal)

== ENCOUNTER → 2018-02-08 | Outpatient (CLI) | payer OTHER ==
--- NOTE | 2018-02-08 08:53 | DIAGNOSTIC IMAGING REPORT ---
ABDOMINAL ULTRASOUND, RIGHT UPPER QUADRANT HISTORY: Right upper quadrant abdominal pain.. COMPARISON: None. FINDINGS: Pancreas: Obscured by overlying bowel gas. Liver: Unremarkable. Gallbladder: No gallbladder wall thickening. No gallstones. CBD: 4 mm. Right kidney: No hydronephrosis. IMPRESSION: No significant abnormality identified within the right upper quadrant. The pancreas was obscured by overlying bowel gas. Electronically signed by: Scout Greenberg M.D. 02/08/2018 8:02 AM Dictated Date/Time: 02/08/2018 7:56 AM
== END | disposition home or self-care (01) ==
LOC: C.ULTR 07:05
PROVIDERS: ATTEND Internal Medicine
DX: R10.11 Right upper quadrant pain (principal)

== ENCOUNTER → 2018-02-26 | Outpatient (CLI) | payer OTHER ==
[2018-02-26 09:46] LABS: INR 2.2 (0.9-1.1)
== END | disposition home or self-care (01) ==
LOC: C.LABFOXMH 08:47
PROVIDERS: ATTEND Internal Medicine
DX: Z79.01 Long term (current) use of anticoagulants (principal); Z51.81 Encounter for therapeutic drug level monitoring

== ENCOUNTER → 2018-05-04 | Outpatient (CLI) | payer OTHER ==
[~2018-05-04] MED LIST changes: +PANT1TAB4 PO; -PRT40 PO
[2018-05-04 11:05] LABS: HEMATOCRIT 38.1 % (42-52); HEMOGLOBIN 13.5 g/dL (14.0-18.0); MEAN CELL VOLUME 93.2 fL (80-100); MEAN CORPUSCULAR HGB CONC 35.4 g/dl (32-36); MEAN PLATELET VOLUME 9.9 fL (7.4-10.4); PLATELET COUNT 155 K/uL (130-400); RED CELL DISTRIBUTION WIDTH CV 13.6 % (11.5-14.5); RED CELL DISTRIBUTION WIDTH SD 46.1 fL (36.4-46.3); WHITE BLOOD COUNT 5.34 K/uL (4.8-10.8)
[2018-05-04 11:24] LABS: ALBUMIN 2.9 gm/dl (3.4-5.0); ALKALINE PHOSPHATASE 89 U/L (45-117); ALT/SGPT 36 U/L (12-78); AST/SGOT 31 U/L (15-37); BLOOD UREA NITROGEN 14 mg/dl (7-18); CALCIUM 7.7 mg/dl (8.5-10.1); CARBON DIOXIDE 26 mmol/L (21-32); CREATININE 0.73 mg/dl (0.60-1.40); GLUCOSE 130 mg/dl (70-99); SODIUM 140 mmol/L (136-145); TOTAL PROTEIN 5.6 gm/dl (6.4-8.2)
== END | disposition home or self-care (01) ==
LOC: C.LABFOXMH 10:47
PROVIDERS: ATTEND Nurse Practitioner Family
DX: R53.83 Other fatigue (principal)

== ENCOUNTER → 2018-05-08 | Outpatient (CLI) | payer OTHER ==
[2018-05-08 09:51] LABS: INR 2.2 (0.9-1.1)
== END ==
LOC: C.LABFOXMH 08:58
PROVIDERS: ATTEND Internal Medicine
DX: Z79.01 Long term (current) use of anticoagulants (principal)

== ENCOUNTER → 2018-05-17 | Outpatient (CLI) | payer OTHER ==
[~2018-05-17] MED LIST changes: +OPTIRAY 320 IV PRN
--- NOTE | 2018-05-17 14:03 | DIAGNOSTIC IMAGING REPORT ---
CT ABD/PELVIS IV AND ORAL CONT CLINICAL HISTORY: ABD PAIN, WEIGHT LOSS, HX OF LYMPHOMA COMPARISON STUDY: Biliary ultrasound dated 02/08/2018 TECHNIQUE: Following the IV administration of 94 mL of Optiray-320, CT scan of the abdomen and pelvis was performed from the lung bases to the proximal femurs. Images are reviewed in the axial, sagittal, and coronal planes. IV contrast was administered without complication. A dose lowering technique was utilized adhering to the principles of ALARA. CT DOSE: 318.73 mGy.cm FINDINGS: Lower chest: There is a 3 cm groundglass opacity within the right lower lobe. Additional subcentimeter groundglass nodules are present within the right lower lobe. The 7 mm groundglass nodule within the left lower lobe. Short-term CT follow-up subsequent antibiotic therapy is recommended. Liver: The contrast-enhanced liver is normal in size, contour, and attenuation. There is no intrahepatic biliary ductal dilatation. The hepatic veins and portal veins are patent. Gallbladder: Unremarkable. Spleen: Normal in size and attenuation. Pancreas: There are a few scattered calcifications. There is no pancreatic ductal dilatation. No pancreatic masses are visualized. Adrenal glands: Unremarkable. Kidneys: There is a 17 mm left renal cyst. Bowel: There are no transition zones indicate bowel obstruction. There is no acute diverticulitis. There is no nodes of acute appendicitis. Peritoneum: There is no intraperitoneal free air or abdominal ascites. There is a left inguinal hernia containing fat and fluid. Vasculature: The abdominal aorta is normal in course and caliber. Adenopathy: None. Pelvic viscera: The prostate is enlarged measuring 7 cm. There are several bladder diverticula/septations present. Skeletal structures: The bones are osteopenic. No destructive lesions are visualized. IMPRESSION: 1. No evidence of bowel obstruction. No evidence of free air 2. Normal appendix. No evidence of acute diverticulitis 3. Marked prostamegaly 4. Bladder diverticula/septations 5. Left inguinal hernia containing fat and fluid 6. No evidence of pathologic adenopathy 7. Nonspecific bilateral lower lobe groundglass pulmonary opacities. A short-term follow-up CT scan subsequent to antibiotic therapy is recommended. Please refer to below summary of Fleischner criteria recommendations for follow-up of incidental CT nodules (Rick Mora, Guidelines for management of small pulmonary nodules detected on CT scans: A statement from the Fleischner Society, Radiology 237: [id number].) SOLID NODULES Solitary nodule size: <6 mm * low risk patients: no follow-up needed * high risk patients: optional CT at 12 months Solitary nodule size: 6-8 mm * low risk patients: follow-up at 6-12 months, then consider further follow-up at 18-24 months * high risk patients: initial follow-up CT at 6-12 months and then at 18-24 months if no change Solitary nodule size: >8 mm * either low or high risk patients - consider follow-up CT at 3 months, and/or CT-PET, and/or biopsy Multiple nodules size: <6 mm * low risk patients: no routine follow-up * high risk patients: optional CT at 12 months Multiple nodules size: 6-8 mm * low risk patients: follow-up at 3-6 months, then consider further follow-up at 18-24 months * high risk patients: follow-up at 3-6 months, then at 18-24 months if no change Multiple nodules size: >8 mm * low risk patients: follow-up at 3-6 months, then consider further follow-up at 18-24 months * high risk patients: follow-up at 3-6 months, then at 18-24 months if no change Note: newly detected indeterminate nodule in persons 35 years of age or older. * low risk patients: minimal or absent history of smoking and/or other known risk factors * high risk patients: history of smoking or of other known risk factors (e.g. first degree relative with lung cancer, or exposure to asbestos, radon, uranium) * if a nodule up to 8 mm is partly solid or is ground glass further follow-up is required after 24 months to exclude possible slow growing adenocarcinoma (JAKI) SUBSOLID NODULES Solitary pure ground-glass nodule * nodule size <6 mm - no CT follow-up required * nodule size >=6 mm - follow-up CT at 6-12 months, then every 2 years until 5 years Solitary part-solid nodule * nodule size <6 mm - no CT follow-up required * nodule size >=6 mm - follow-up CT at 3-6 months. If unchanged, and solid component remains <6 mm, then annual follow-up for 5 years Multiple subsolid nodules * nodule size <6 mm - follow-up CT at 3-6 months, consider further follow-up at 2 and 4 years if stable * nodule size >=6 mm - follow-up CT at 3-6 months, subsequent management based on the most suspicious nodule(s) Electronically signed by: Aamir Giles M.D. 05/17/2018 2:02 PM Dictated Date/Time: 05/17/2018 1:53 PM
== END | disposition home or self-care (01) ==
LOC: C.CTS 13:25
PROVIDERS: ATTEND Internal Medicine
DX: R10.9 Unspecified abdominal pain (principal); R63.4 Abnormal weight loss; Z85.72 Personal history of non-Hodgkin lymphomas

== ENCOUNTER → 2018-05-22 | Outpatient (CLI) | payer OTHER ==
[~2018-05-22] MED LIST changes: -OPTIRAY 320 IV PRN
[2018-05-22 10:52] LABS: INR 1.9 (0.9-1.1)
== END | disposition home or self-care (01) ==
LOC: C.LABFOXMH 08:23
PROVIDERS: ATTEND Internal Medicine
DX: Z79.01 Long term (current) use of anticoagulants (principal)

== ENCOUNTER → 2018-05-29 | Outpatient (CLI) | payer OTHER | END | disposition home or self-care (01) | LOC: C.LABFOXMH 08:59 | PROVIDERS: ATTEND Internal Medicine | DX: N40.1 Benign prostatic hyperplasia with lower urinary tract symptoms (principal); R63.4 Abnormal weight loss ==

== ENCOUNTER → 2018-06-05 | Outpatient (CLI) | payer OTHER ==
[2018-06-05 09:30] LABS: INR 1.9 (0.9-1.1)
== END ==
LOC: C.LABFOXMH 08:32
PROVIDERS: ATTEND Internal Medicine
DX: Z79.01 Long term (current) use of anticoagulants (principal)

== ENCOUNTER 2018-11-22 17:45 | Inpatient (IN) ==
[2018-11-22] MEDS ORDERED: ACETAMINOPHEN 1,000 MG/100 ML VIAL IV ONE (18:07)
[2018-11-22] MEDS ORDERED: SODIUM CHLORIDE 0.9% 500 ML IV SCH (18:15)
[2018-11-22 18:40] LABS: Basophils # (auto) 0.01 K/uL (0-0.2); Basophils % (auto) 0.2 %; Eosinophils # (auto) 0.08 K/uL (0-0.5); Eosinophils % (auto) 1.4 %; Hematocrit (blood only) 36.5 % (42-52); Hemoglobin 12.7 g/dL (14.0-18.0); Immature Granulocytes # (auto) 0.01 K/uL (0.00-0.02); Immature Granulocytes % (auto) 0.2 %; Lymphocytes # (auto) 1.59 K/uL (1.2-3.4); Lymphocytes % (auto) 28.3 %; Mean Corpuscular Hgb Conc 34.8 g/dL (32-36); Mean Corpuscular Volume 93.4 fL (80-100); Mean Platelet Volume 9.5 fL (7.4-10.4); Monocytes # (auto) 0.62 K/uL (0.11-0.59); Neutrophils # (auto) 3.31 K/uL (1.4-6.5); Neutrophils % (auto) 58.9 %; Platelet Count 159 K/uL (130-400); RDW Coefficient of Variation 14.5 % (11.5-14.5); Red Blood Count 3.91 M/uL (4.7-6.1); White Blood Count 5.62 K/uL (4.8-10.8)
[2018-11-22 18:46] LABS: INR 1.5 (0.9-1.1); Prothrombin Time 15.1 Seconds (9.0-12.0)
[2018-11-22 18:51] LABS: Alanine Aminotransferase 43 U/L (12-78); Albumin Level 2.6 gm/dl (3.4-5.0); Aspartate Aminotransferase 33 U/L (15-37); BUN Creatinine Ratio 17.1 (10-20); Blood Urea Nitrogen 11 mg/dl (7-18); Carbon Dioxide 30 mmol/L (21-32); Chloride 104 mmol/L (98-107); Creatinine Clr Calc Pharmacy 83.9 ml/min; Est GFR (African American) 103.4; Est GFR (Non-African American) 89.2; Glucose 68 mg/dl (70-99); Potassium 3.5 mmol/L (3.5-5.1); Sodium 137 mmol/L (136-145)
[2018-11-22 18:56] LABS: Albumin Globulin Ratio 0.9 (0.9-2); Alkaline Phosphatase 137 U/L (45-117); Bilirubin,Total 1.3 mg/dl (0.2-1); Globulin 2.9 gm/dl (2.5-4.0); Total Protein 5.5 gm/dl (6.4-8.2); Troponin I < 0.015 ng/ml (0-0.045)
[2018-11-22 18:59] LABS: Appearance Urine Clear (Clear); Bilirubin Urine Negative (Negative); Color Urine Yellow; Glucose Urine UA Negative (Negative); Ketones Urine Negative (Negative); Leukocyte Esterase Urine Negative (Negative); Nitrite Urine Negative (Negative); Protein Urine Negative (Negative); Specific Gravity Urine 1.011 (1.000-1.030); Urobilinogen Urine Negative (Negative)
[2018-11-22] MEDS ORDERED: IOVERSOL 100ml IV PRN (19:06)
--- NOTE | 2018-11-22 19:07 | Emergency Department Note ---
Entered by Austen Browne acting as a scribe for Alvaro Jiang MD History of Present Illness General Chief complaint: Abdominal Pain Time Seen by Provider: 11/22/18 18:00 Source: patient and family History of Present Illness Provider complaint: Abdominal Pain Onset (ago): hour(s) 2 Location: abdomen Pain Consistency: + constant Maximum Pain Intensity: 8 Associated symptoms: + denies other symptoms (cough, congestion, diarrhea, black or bloody stools) and + other (swollen legs); no fever/chills, no nausea/ vomiting and no shortness of breath The patient is a 88 year old male who presents to the Emergency Room with complaints of abdominal pain starting 2 hours ago. The patient rates his pain as an 8/10. He reports that the pain is throughout his entire abdomen. The patient notes he has a history of pancreatitis and states that his current symptoms feel similar to his past symptoms of pancreatitis. The patient states that his last pancreatitis was diagnosed with bloodwork. The patient also adds that he had a CT done approximately 6 months ago. The patient reports that over the last several months he has lost 15 pounds and has felt weak.. The patient adds that he has swollen legs. The patient reports that he is on Coumadin and has recently started insulin. The patient denies any past abdominal surgeries. The patient denies fevers, coughs, congestion, shortness of breath, nausea / vomiting, diarrhea, and bloody or black stools. Home Medications Home Medications Medication Instructions Recorded Confirmed Type atorvastatin 10 mg PO QAM 10/22/18 11/22/18 History cholecalciferol (vitamin D3) 2,000 units PO QPM 10/22/18 11/22/18 History [Vitamin D3] finasteride 5 mg PO HS 10/22/18 11/22/18 History insulin detemir U-100 [Levemir 14 units SUBCUT HS 10/22/18 11/22/18 History FlexTouch U-100 Insuln] levothyroxine 50 mcg PO QAM 10/22/18 11/22/18 History pantoprazole 40 mg PO QAM 10/22/18 11/22/18 History warfarin 5 mg PO HS 10/30/18 11/22/18 History warfarin 2 mg PO HS 11/22/18 11/22/18 History Allergies Allergy/AdvReac Type Severity Reaction Status Date / Time doxycycline Allergy Unknown rash Unverified 10/30/18 10:17 Penicillins Allergy Unknown Unknown Verified 10/30/18 10:17 Past Med/Surg History Medical History Atrial fibrillation (Chronic) HTN (hypertension) (Chronic) Chest pain (Acute) Hyperlipidemia (Chronic) Tachy-logan syndrome (Acute) Social History Current Living Situation: Spouse Current Living Situation Comment: [place] Other Information That Helps Us Care for You: No Feels Safe at Home: Yes Smoking Status: Former smoker Hx Alcohol Use: Yes Alcohol type: wine Alcohol Intake Frequency: holidays/ special occasions only Hx Substance Use: No Beliefs That Will Affect Care: None Preferred Language: Croatian Communication Ability: Effective Clinical Geneticist Required: No Review of Systems See HPI for pertinent positives & negatives. and A total of 10 systems reviewed and were otherwise negative Physical Exam Vital Signs Vital Signs - 24 hr 11/22/18 17:54 11/22/18 19:37 11/22/18 22:36 Temperature 36.5 C Temperature Source Oral Sepsis Recent Fever Within 48 Hours No Sepsis New/Unexplained Change in Mental Status No Sepsis Action Taken by Nursing No Action Required Pulse Rate 90 Pulse Rate [Right Finger] 60 73 Respiratory Rate 18 18 18 Respiratory Effort / Characteristics Respiratory Depth Respiratory Pattern Blood Pressure 135/89 Blood Pressure [Left Arm] 117/66 149/75 H Blood Pressure Mean 104 Blood Pressure Mean [Left Arm] 83 99 Blood Pressure Position Lying Pulse Oximetry 100 98 98 Oxygen Delivery Method Room Air 11/22/18 23:24 11/23/18 00:19 11/23/18 00:30 Temperature Temperature Source Sepsis Recent Fever Within 48 Hours Sepsis New/Unexplained Change in Mental Status Sepsis Action Taken by Nursing Pulse Rate 63 Pulse Rate [Right Finger] 60 62 Respiratory Rate 16 15 18 Respiratory Effort / Characteristics Non-Labored Spontaneous Respiratory Depth Normal Respiratory Pattern Regular Blood Pressure 119/67 Blood Pressure [Left Arm] 117/67 145/62 H Blood Pressure Mean Blood Pressure Mean [Left Arm] 83 89 Blood Pressure Position Pulse Oximetry 92 96 Oxygen Delivery Method Room Air Room Air 11/23/18 01:34 11/23/18 03:00 Temperature 34.2 C L Temperature Source Rectal Sepsis Recent Fever Within 48 Hours Sepsis New/Unexplained Change in Mental Status Sepsis Action Taken by Nursing Pulse Rate 60 Pulse Rate [Right Finger] Respiratory Rate Respiratory Effort / Characteristics Respiratory Depth Respiratory Pattern Blood Pressure Blood Pressure [Left Arm] Blood Pressure Mean Blood Pressure Mean [Left Arm] Blood Pressure Position Pulse Oximetry Oxygen Delivery Method GENERAL: Awake, alert, Fatigued-cachectic appearing, in no distress HENT: Normocephalic, atraumatic. Oropharynx with dry mucous membranes and otherwise unremarkable. EYES: Normal conjunctiva. Sclera non-icteric. NECK: Supple. No nuchal rigidity. FROM. No JVD. RESPIRATORY: Clear to auscultation. CARDIAC: Regular rate, normal rhythm. Extremities warm and well perfused. Pulses equal. ABDOMEN: Soft, non-distended. Generalized abdominal discomfort without discrete tenderness. No rebound or guarding. No masses. RECTAL: Deferred. MUSCULOSKELETAL: Chest examination reveals no tenderness. The back is symmetrical on inspection without obvious abnormality. There is no CVA tenderness to palpation. No joint edema. LOWER EXTREMITIES: Calves are equal size bilaterally and non-tender. No edema. No discoloration. NEURO: Normal sensorium. No sensory or motor deficits noted. SKIN: No rash or jaundice noted. Course 1803: Past medical records reviewed. The patient was evaluated in room B06, and a complete history and physical examination were performed. 2012: I reviewed the patient's case with to Dr. Bello-Hospitalist. He will evaluate the patient for further management. Administered Medications Dextrose (Dextrose 50%) 25 - 50 ml IV UD PRN; Protocol PRN Reason: Hypoglycemia Protocol Stop: 12/23/18 01:13 Last Admin: 11/23/18 02:29 Dose: 25 ml Glucose (Glucose 40%) 15 - 30 gm PO UD PRN; Protocol PRN Reason: Hypoglycemia Protocol Stop: 12/23/18 01:13 Last Admin: 11/23/18 02:10 Dose: 15 gm Admin: 11/23/18 01:48 Dose: 15 gm Dextrose/Sodium Chloride (D5w And Nss) 1,000 mls @ 80 mls/hr IV .[id number] OPAL Stop: 11/26/18 01:59 Last Admin: 11/23/18 02:00 Dose: 80 mls/hr Ioversol (Optiray 320 100ml) 95 ml IV ONCE PRN PRN Reason: Interaction Checking Stop: 11/26/18 19:05 Last Admin: 11/22/18 19:06 Dose: 95 ml Discontinued Medications Dextrose (Dextrose 50%) 25 ml IV NOW ONE Stop: 11/22/18 19:11 Last Admin: 11/22/18 19:31 Dose: 25 ml Sodium Chloride (Nss) 500 mls @ 999 mls/hr IV .[id number] OPAL Stop: 11/22/18 18:45 Last Infusion: 11/22/18 19:34 Dose: 0 mls/hr Admin: 11/22/18 18:52 Dose: 999 mls/hr Acetaminophen (Ofirmev) 1,000 mg in 100 mls @ 400 mls/hr IV NOW ONE Stop: 11/22/18 18:21 Last Infusion: 11/22/18 19:34 Dose: 0 mls/hr Admin: 11/22/18 18:52 Dose: 400 mls/hr Sodium Chloride (Nss 1000ml) 1,000 mls @ 80 mls/hr IV .[id number] [facility] Stop: 11/25/18 00:40 Last Admin: 11/23/18 02:05 Dose: Not Given Medical Decision Making Differential Diagnosis I considered cholelithiasis, cholecystitis, bowel obstruction, diverticulitis , pancreatitis, renal colic, appendicitis inflammatory bowel disease, gastritis , and peptic/gastric ulcer disease. Medical Records Attestation: I reviewed the patient's medical records. Home Medications Current Medication List: was personally reviewed by me Laboratory Data Attestation: I reviewed the patient's lab results. Result diagrams: 11/22/18 18:22 11/22/18 18:22 Lab Results 11/22/18 11/22/18 11/22/18 Range/Units 18:22 18:22 18:22 WBC 5.62 (4.8-10.8) K/uL RBC 3.91 L (4.7-6.1) M/uL Hgb 12.7 L (14.0-18.0) g/dL Hct 36.5 L (42-52) % MCV 93.4 (80-100) fL MCH 32.5 (25-34) pg MCHC 34.8 (32-36) g/dL RDW Std Deviation 49.0 H (36.4-46.3) fL RDW Coeff of Zane 14.5 (11.5-14.5) % Plt Count 159 (130-400) K/uL MPV 9.5 (7.4-10.4) fL Immature Gran % (Auto) 0.2 % Neut % (Auto) 58.9 % Lymph % (Auto) 28.3 % [place] % (Auto) 11.0 % Eos % (Auto) 1.4 % Baso % (Auto) 0.2 % Immature Gran # (Auto) 0.01 (0.00-0.02) K/uL Neut # (Auto) 3.31 (1.4-6.5) K/uL Lymph # (Auto) 1.59 (1.2-3.4) K/uL [place] # (Auto) 0.62 H (0.11-0.59) K/uL Eos # (Auto) 0.08 (0-0.5) K/uL Baso # (Auto) 0.01 (0-0.2) K/uL PT 15.1 H (9.0-12.0) Seconds INR 1.5 H (0.9-1.1) Sodium 137 (136-145) mmol/L Potassium 3.5 (3.5-5.1) mmol/L Chloride 104 (98-107) mmol/L Carbon Dioxide 30 (21-32) mmol/L Anion Gap 3.0 (3-11) BUN 11 (7-18) mg/dl Creatinine 0.62 (0.6-1.4) mg/dl Est Cr Clr Drug Dosing 83.9 ml/min Est GFR ( Amer) 103.4 Est GFR (Non-Af Amer) 89.2 BUN/Creatinine Ratio 17.1 (10-20) Glucose 68 L (70-99) mg/dl POC Glucose (70-99) Calcium 8.0 L (8.5-10.1) mg/dl Total Bilirubin 1.3 H (0.2-1) mg/dl Direct Bilirubin 0.3 H (0-0.2) mg/dl AST 33 (15-37) U/L ALT 43 (12-78) U/L Alkaline Phosphatase 137 H (45-117) U/L Troponin I < 0.015 (0-0.045) ng/ml Total Protein 5.5 L (6.4-8.2) gm/dl Albumin 2.6 L (3.4-5.0) gm/dl Globulin 2.9 (2.5-4.0) gm/dl Albumin/Globulin Ratio 0.9 (0.9-2) Lipase 572 H (73-393) U/L Urine Color Urine Appearance (Clear) Urine pH (4.5-7.5) Ur Specific [place] (1.000-1.030) Urine Protein (Negative) Urine Glucose (UA) (Negative) Urine Ketones (Negative) Urine Blood (Negative) Urine Nitrite (Negative) Urine Bilirubin (Negative) Urine Urobilinogen (Negative) Ur Leukocyte Esterase (Negative) 11/22/18 11/22/18 11/23/18 Range/Units 18:46 19:59 01:04 WBC (4.8-10.8) K/uL RBC (4.7-6.1) M/uL Hgb (14.0-18.0) g/dL Hct (42-52) % MCV (80-100) fL MCH (25-34) pg MCHC (32-36) g/dL RDW Std Deviation (36.4-46.3) fL RDW Coeff of Zane (11.5-14.5) % Plt Count (130-400) K/uL MPV (7.4-10.4) fL Immature Gran % (Auto) % Neut % (Auto) % Lymph % (Auto) % [place] % (Auto) % Eos % (Auto) % Baso % (Auto) % Immature Gran # (Auto) (0.00-0.02) K/uL Neut # (Auto) (1.4-6.5) K/uL Lymph # (Auto) (1.2-3.4) K/uL [place] # (Auto) (0.11-0.59) K/uL Eos # (Auto) (0-0.5) K/uL Baso # (Auto) (0-0.2) K/uL PT (9.0-12.0) Seconds INR (0.9-1.1) Sodium (136-145) mmol/L Potassium (3.5-5.1) mmol/L Chloride (98-107) mmol/L Carbon Dioxide (21-32) mmol/L Anion Gap (3-11) BUN (7-18) mg/dl Creatinine (0.6-1.4) mg/dl Est Cr Clr Drug Dosing ml/min Est GFR ( Amer) Est GFR (Non-Af Amer) BUN/Creatinine Ratio (10-20) Glucose (70-99) mg/dl POC Glucose 127 H 60 L* (70-99) Calcium (8.5-10.1) mg/dl Total Bilirubin (0.2-1) mg/dl Direct Bilirubin (0-0.2) mg/dl AST (15-37) U/L ALT (12-78) U/L Alkaline Phosphatase (45-117) U/L Troponin I (0-0.045) ng/ml Total Protein (6.4-8.2) gm/dl Albumin (3.4-5.0) gm/dl Globulin (2.5-4.0) gm/dl Albumin/Globulin Ratio (0.9-2) Lipase (73-393) U/L Urine Color Yellow Urine Appearance Clear (Clear) Urine pH 8.0 H (4.5-7.5) Ur Specific [place] 1.011 (1.000-1.030) Urine Protein Negative (Negative) Urine Glucose (UA) Negative (Negative) Urine Ketones Negative (Negative) Urine Blood Negative (Negative) Urine Nitrite Negative (Negative) Urine Bilirubin Negative (Negative) Urine Urobilinogen Negative (Negative) Ur Leukocyte Esterase Negative (Negative) 11/23/18 11/23/18 11/23/18 Range/Units 01:40 02:04 02:22 WBC (4.8-10.8) K/uL RBC (4.7-6.1) M/uL Hgb (14.0-18.0) g/dL Hct (42-52) % MCV (80-100) fL MCH (25-34) pg MCHC (32-36) g/dL RDW Std Deviation (36.4-46.3) fL RDW Coeff of Zane (11.5-14.5) % Plt Count (130-400) K/uL MPV (7.4-10.4) fL Immature Gran % (Auto) % Neut % (Auto) % Lymph % (Auto) % [place] % (Auto) % Eos % (Auto) % Baso % (Auto) % Immature Gran # (Auto) (0.00-0.02) K/uL Neut # (Auto) (1.4-6.5) K/uL Lymph # (Auto) (1.2-3.4) K/uL [place] # (Auto) (0.11-0.59) K/uL Eos # (Auto) (0-0.5) K/uL Baso # (Auto) (0-0.2) K/uL PT (9.0-12.0) Seconds INR (0.9-1.1) Sodium (136-145) mmol/L Potassium (3.5-5.1) mmol/L Chloride (98-107) mmol/L Carbon Dioxide (21-32) mmol/L Anion Gap (3-11) BUN (7-18) mg/dl Creatinine (0.6-1.4) mg/dl Est Cr Clr Drug Dosing ml/min Est GFR ( Amer) Est GFR (Non-Af Amer) BUN/Creatinine Ratio (10-20) Glucose (70-99) mg/dl POC Glucose 64 L* 63 L* 68 L* (70-99) Calcium (8.5-10.1) mg/dl Total Bilirubin (0.2-1) mg/dl Direct Bilirubin (0-0.2) mg/dl AST (15-37) U/L ALT (12-78) U/L Alkaline Phosphatase (45-117) U/L Troponin I (0-0.045) ng/ml Total Protein (6.4-8.2) gm/dl Albumin (3.4-5.0) gm/dl Globulin (2.5-4.0) gm/dl Albumin/Globulin Ratio (0.9-2) Lipase (73-393) U/L Urine Color Urine Appearance (Clear) Urine pH (4.5-7.5) Ur Specific [place] (1.000-1.030) Urine Protein (Negative) Urine Glucose (UA) (Negative) Urine Ketones (Negative) Urine Blood (Negative) Urine Nitrite (Negative) Urine Bilirubin (Negative) Urine Urobilinogen (Negative) Ur Leukocyte Esterase (Negative) 11/23/18 Range/Units 02:50 WBC (4.8-10.8) K/uL RBC (4.7-6.1) M/uL Hgb (14.0-18.0) g/dL Hct (42-52) % MCV (80-100) fL MCH (25-34) pg MCHC (32-36) g/dL RDW Std Deviation (36.4-46.3) fL RDW Coeff of Zane (11.5-14.5) % Plt Count (130-400) K/uL MPV (7.4-10.4) fL Immature Gran % (Auto) % Neut % (Auto) % Lymph % (Auto) % [place] % (Auto) % Eos % (Auto) % Baso % (Auto) % Immature Gran # (Auto) (0.00-0.02) K/uL Neut # (Auto) (1.4-6.5) K/uL Lymph # (Auto) (1.2-3.4) K/uL [place] # (Auto) (0.11-0.59) K/uL Eos # (Auto) (0-0.5) K/uL Baso # (Auto) (0-0.2) K/uL PT (9.0-12.0) Seconds INR (0.9-1.1) Sodium (136-145) mmol/L Potassium (3.5-5.1) mmol/L Chloride (98-107) mmol/L Carbon Dioxide (21-32) mmol/L Anion Gap (3-11) BUN (7-18) mg/dl Creatinine (0.6-1.4) mg/dl Est Cr Clr Drug Dosing ml/min Est GFR ( Amer) Est GFR (Non-Af Amer) BUN/Creatinine Ratio (10-20) Glucose (70-99) mg/dl POC Glucose 131 H (70-99) Calcium (8.5-10.1) mg/dl Total Bilirubin (0.2-1) mg/dl Direct Bilirubin (0-0.2) mg/dl AST (15-37) U/L ALT (12-78) U/L Alkaline Phosphatase (45-117) U/L Troponin I (0-0.045) ng/ml Total Protein (6.4-8.2) gm/dl Albumin (3.4-5.0) gm/dl Globulin (2.5-4.0) gm/dl Albumin/Globulin Ratio (0.9-2) Lipase (73-393) U/L Urine Color Urine Appearance (Clear) Urine pH (4.5-7.5) Ur Specific [place] (1.000-1.030) Urine Protein (Negative) Urine Glucose (UA) (Negative) Urine Ketones (Negative) Urine Blood (Negative) Urine Nitrite (Negative) Urine Bilirubin (Negative) Urine Urobilinogen (Negative) Ur Leukocyte Esterase (Negative) Imaging Data Radiologist's Impression: Radiology results as stated below per my review and the radiologist's interpretation: CT SCAN OF THE ABDOMEN AND PELVIS WITH IV CONTRAST CLINICAL HISTORY: Generalized abdominal pain. COMPARISON STUDY: Abdominal CT dated 05/17/2018. TECHNIQUE: Following the IV administration of 95 cc of Optiray 320, CT scan of the abdomen and pelvis is performed from the lung bases to the proximal femora. Images are reviewed in the axial, sagittal, and coronal planes. IV contrast was administered without complication. A dose lowering technique was utilized adhering to the principles of ALARA. CT DOSE: 252.76 mGy.cm FINDINGS: Lung bases: The heart is enlarged and without pericardial effusion. Pacemaker leads are noted. The lung bases are clear comment noting bibasilar scarring/ atelectasis. Liver: The contrast-enhanced liver is normal in size, contour, and attenuation. There is moderate intra and extrahepatic biliary ductal dilatation. This represents a significant change from 05/17/2018. The hepatic veins and portal veins are patent. Gallbladder: The gallbladder is distended. There is no CT evidence of acute cholecystitis. Spleen: Normal in size and attenuation. Calcified spine granuloma is incidentally noted. Pancreas: The pancreas is atrophic. Numerous parenchymal calcifications suggest chronic pancreatitis. The pancreatic duct is markedly dilated, measuring up to 9 mm in diameter, with a sharp cut off in the region of the pancreatic head/ ampulla. 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 No definite pancreatic mass lesion is identified. The pancreatic parenchyma enhances homogeneously. There is trace fluid around the distal pancreas and in the gastrohepatic space. Adrenal glands: Unremarkable. Kidneys: The contrast enhanced kidneys demonstrate cortical atrophy and are without hydronephrosis. The kidneys enhance symmetrically. A 1.3 cm cyst is noted in the left upper pole. Abdominal vasculature: The abdominal aorta is normal in course and caliber noting advanced atherosclerotic calcification. Bowel: There is moderate colonic fecal retention. No bowel obstruction is identified. The appendix is well-visualized and normal. Peritoneum: There is a small volume of free fluid in the upper abdomen, greatest around the distal pancreas. There is also trace free fluid in the pelvis. No intraperitoneal free air is seen. Lymphadenopathy: None. Pelvic viscera: The prostate gland is markedly enlarged and heterogeneous, measuring 7 cm in transverse diameter. There is median lobe hypertrophy. The bladder is distended, and the bladder wall is thickened and trabeculated. Large bladder diverticula are noted and the appearance is consistent with chronic outlet obstruction. There is a small fat-containing right inguinal hernia. Skeletal structures: The skeletal structures are heterogeneously osteopenic. There is moderate to advanced lumbosacral spondylosis. Degenerative change and partial fusion is noted in the sacroiliac joints. No lytic or blastic lesions are seen. IMPRESSION: 1. There is moderate intra and extrahepatic biliary ductal dilatation, as well as marked dilatation of the pancreatic duct. This represents a significant change from the 05/17/2018 examination and this is highly concerning for an obstructing mass lesion at the level of the pancreatic head/ampulla. There is also high-grade narrowing of the superior mesenteric vein just below the portosplenic confluence at this level. No mass lesion is clearly delineated on today's CT scan. Consider ERCP for further assessment. 2. There are changes of chronic pancreatitis. 3. There is a small volume of free fluid in the upper abdomen, greatest around the distal pancreas and in the gastrohepatic space. This is nonspecific, and could be seen in the setting of acute on chronic pancreatitis. Correlation with serum amylase/lipase levels is recommended. 4. Trace free fluid is also seen in the pelvis. 5. 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 6. Cardiomegaly and cardiac pacemaker. 7. Additional findings as above. Findings were discussed with Dr. Jiang in the emergency department at the time of interpretation. Electronically signed by: Austen Castrejon M.D. 11/22/2018 7:29 PM SINGLE VIEW CHEST CLINICAL HISTORY: Generalized abdominal pain. FINDINGS: An AP, portable, upright chest radiograph is compared to study dated and correlated with chest CT dated 07/12/2018. The examination is degraded by portable technique and patient rotation. A 2-lead cardiac pacemaker is unchanged in position and partially obscures the left mid chest. The heart is mildly enlarged and there is atherosclerotic calcification of the thoracic aorta. The pulmonary vasculature is noncongested. Chronic interstitial thickening is similar to previous. There is mild bibasilar scarring/ atelectasis. No airspace consolidation or large pleural effusion is identified. Mild apical scarring is observed. No pneumothorax is seen. The skeletal structures are osteopenic. The bony thorax is grossly intact. IMPRESSION: 1. Cardiomegaly and cardiac pacemaker. There is no radiographic evidence of congestive failure. 2. No airspace consolidation or large pleural effusion is identified. Electronically signed by: Austen Castrejon M.D. 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 On arrival the patient is fatigued appearing but no acute distress, afebrile stable vital signs. Patient appears clinically dry. Patient's abdomen has generalized discomfort without discrete tenderness. WBC within normal limits. H/H 12.7/36.5 similar to prior. Chemistry without acidosis. Glucose 68 and patient provided with half amp of D50. Total bilirubin 1.3 with direct bilirubin of 0.3. Troponin negative. Lipase 572 slightly decreased from prior. UA negative for infection. Chest x-ray negative for acute process. CT abdomen pelvis demonstrates moderate intra-and extrahepatic biliary ductal dilatation with marked dilatation of the pancreatic duct that is highly concerning for obstructing mass lesion at the level of the pancreatic head/ampulla. However, no mass lesion definitively seen on CT. Additionally shows small volume of free fluid that is mostly around the distal pancreas and gastrohepatic space that could suggest acute on chronic pancreatitis. Given the patient's pain in the setting of his ongoing weight loss findings are highly suspicious for pancreatic mass. Thus reasonable to admit the patient for further management and likely GI consultation for ERCP. Case was discussed with Dr. Bello, [facility] hospitalist, who will evaluate the patient for admission. Impression & Plan Mass of pancreas Discharge Plan Visit Data *Final* Discharge Date/Time: 11/23/18 00:19 Chief Complaint: Abdominal Pain ED Provider: Alvaro Jiang Discharge Problem: Mass of pancreas Patient Disposition: Admitted As Inpatient Discharge Instructions Interventions: ED Discharge Assessment Last Done: 11/23/18 00:19 The scribe's documentation has been prepared under my direction and personally reviewed by me in its entirety. I confirm that the note above accurately reflects all work, treatment, procedures, and medical decision making performed by me.
[2018-11-22] MEDS ORDERED: DEXTROSE 50% 50 ML SYRINGE IV ONE (19:10)
--- NOTE | 2018-11-22 19:15 | XRay Report ---
SINGLE VIEW CHEST CLINICAL HISTORY: Generalized abdominal pain. FINDINGS: An AP, portable, upright chest radiograph is compared to study dated 10/30/2018 and correlat ed with chest CT dated 07/12/2018. The examination is degraded by portable technique and patient rotat ion. A 2-lead cardiac pacemaker is unchanged in position and partially obscures the left mid chest. T he heart is mildly enlarged and there is atherosclerotic calcification of the thoracic aorta. The pul monary vasculature is noncongested. Chronic interstitial thickening is similar to previous. There is mild bibasilar scarring/atelectasis. No airspace consolidation or large pleural effusion is identifie d. Mild apical scarring is observed. No pneumothorax is seen. The skeletal structures are osteopenic. The bony thorax is grossly intact. IMPRESSION: 1. Cardiomegaly and cardiac pacemaker. There is no radiographic evidence of congestive failure. 2. No airspace consolidation or large pleural effusion is identified. Electronically signed by: Austen Castrejon M.D. 11/22/2018 7:14 PM
--- NOTE | 2018-11-22 19:32 | CT Scan Report ---
CT SCAN OF THE ABDOMEN AND PELVIS WITH IV CONTRAST CLINICAL HISTORY: Generalized abdominal pain. COMPARISON STUDY: Abdominal CT dated 05/17/2018. TECHNIQUE: Following the IV administration of 95 cc of Optiray 320, CT scan of the abdomen and pelvi s is performed from the lung bases to the proximal femora. Images are reviewed in the axial, sagittal , and coronal planes. IV contrast was administered without complication. A dose lowering technique wa s utilized adhering to the principles of ALARA. CT DOSE: 252.76 mGy.cm FINDINGS: Lung bases: The heart is enlarged and without pericardial effusion. Pacemaker leads are noted. The abel ng bases are clear comment noting bibasilar scarring/atelectasis. Liver: The contrast-enhanced liver is normal in size, contour, and attenuation. There is moderate int ra and extrahepatic biliary ductal dilatation. This represents a significant change from 05/17/2018. Th e hepatic veins and portal veins are patent. Gallbladder: The gallbladder is distended. There is no CT evidence of acute cholecystitis. Spleen: Normal in size and attenuation. Calcified spine granuloma is incidentally noted. Pancreas: The pancreas is atrophic. Numerous parenchymal calcifications suggest chronic pancreatitis. The pancreatic duct is markedly dilated, measuring up to 9 mm in diameter, with a sharp cut off in t he region of the pancreatic head/ampulla. There is also high-grade narrowing of the superior mesenter ic vein at this level below the portosplenic confluence (axial image #108). No definite pancreatic ma ss lesion is identified. The pancreatic parenchyma enhances homogeneously. There is trace fluid aroun d the distal pancreas and in the gastrohepatic space. Adrenal glands: Unremarkable. Kidneys: The contrast enhanced kidneys demonstrate cortical atrophy and are without hydronephrosis. T he kidneys enhance symmetrically. A 1.3 cm cyst is noted in the left upper pole. Abdominal vasculature: The abdominal aorta is normal in course and caliber noting advanced atheroscle rotic calcification. Bowel: There is moderate colonic fecal retention. No bowel obstruction is identified. The appendix is well-visualized and normal. Peritoneum: There is a small volume of free fluid in the upper abdomen, greatest around the distal pa ncreas. There is also trace free fluid in the pelvis. No intraperitoneal free air is seen. Lymphadenopathy: None. Pelvic viscera: The prostate gland is markedly enlarged and heterogeneous, measuring 7 cm in transver se diameter. There is median lobe hypertrophy. The bladder is distended, and the bladder wall is thic kened and trabeculated. Large bladder diverticula are noted and the appearance is consistent with chr onic outlet obstruction. There is a small fat-containing right inguinal hernia. Skeletal structures: The skeletal structures are heterogeneously osteopenic. There is moderate to adv anced lumbosacral spondylosis. Degenerative change and partial fusion is noted in the sacroiliac join ts. No lytic or blastic lesions are seen. IMPRESSION: 1. There is moderate intra and extrahepatic biliary ductal dilatation, as well as marked dilatation o f the pancreatic duct. This represents a significant change from the 05/17/2018 examination and this is highly concerning for an obstructing mass lesion at the level of the pancreatic head/ampulla. There is also high-grade narrowing of the superior mesenteric vein just below the portosplenic confluence a t this level. No mass lesion is clearly delineated on today's CT scan. Consider ERCP for further asse ssment. 2. There are changes of chronic pancreatitis. 3. There is a small volume of free fluid in the upper abdomen, greatest around the distal pancreas an d in the gastrohepatic space. This is nonspecific, and could be seen in the setting of acute on chron ic pancreatitis. Correlation with serum amylase/lipase levels is recommended. 4. Trace free fluid is also seen in the pelvis. 5. 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 6. Cardiomegaly and cardiac pacemaker. 7. Additional findings as above. Findings were discussed with Dr. Jiang in the emergency department at the time of interpretation. Electronically signed by: Austen Castrejon M.D. 11/22/2018 7:29 PM
[2018-11-22 19:34] LABS: Bilirubin Direct 0.3 mg/dl (0-0.2)
--- NOTE | 2018-11-22 23:13 | History & Physical Report ---
Date of Service November 22, 2018 Assessment & Plan (1) Dilated pancreatic duct: Evens is an 88-year-old male resident of [facility] who presents with nonspecific abdominal pain. His past medical history is significant for recurrent pancreatitis as well as lymphoma, esophageal dysmotility and gastroparesis. Recent medical history is also notable for new onset diabetes 1 month ago and 15 pound unintentional weight loss over the last 6 months as well as fatigue. In the ED, abdomen and pelvis CT was done and significant for markedly dilated pancreatic duct measuring up to 9 mm in diameter, as well as moderate intra-and extrahepatic biliary ductal dilatation which is a significant change from previous CT done 05/17/2018 -- highly concerning for an obstructing mass lesion at the pancreatic head. No definite pancreatic mass lesion is identified. Homogenous parenchyma. Trace fluid around the distal pancreas. No lymphadenopathy. Chronic outlet obstruction is evident, small fat-containing right inguinal hernia. No lytic or blastic lesions are seen in the skeletal structures. Labs remarkable for anemia H&H 12.7/36.5 which is not his baseline. INR 1.5, BMP unremarkable with the exception of hypoglycemia. Total bilirubin elevated 1.3, elevated alkaline phosphatase 137, negative troponin, elevated lipase 572. Patient was admitted for further evaluation and possible ERCP. Assessment -New markedly dilated pancreatic duct, up to 9 mm -15 pound unintentional weight loss -Chronic pancreatitis -Normocytic anemia -New onset diabetes 1 month ago, hypoglycemia -Findings concerning for malignancy Plan -ERCP: Patient has requested [facility] gastroenterology, nonurgent consult placed -N.p.o. except meds -Maintenance fluids with D5 normal saline due to persistent hypoglycemia. -Pain adequately controlled with IV Tylenol as needed Diabetes, insulin-dependent -Insulin sliding scale -Hypoglycemia as above On anticoagulation -For 2 instances of thromboembolism in lower leg and PE in the distant past -INR 1.3, will hold Coumadin until seen by GI in anticipation of procedure Unintentional weight loss -Concerning for malignancy -May benefit from dietitian consult FEN/GI: N.p.o. except meds, maintenance fluids normal saline at 80 mL/hr DVT ppx: Previously on Coumadin this has been held in preparation for possible procedure. SCDs. CODE STATUS: Full, no mechanical ventilation as confirmed with the patient. Note he has a pacemaker. DISPO: Med telemetry Other ongoing medical problems: Chronic outlet obstruction, BPH-continue Flomax 0.4 mg daily, finasteride 5 mg p.o. at bedtime Hyperlipidemia-continue atorvastatin 10 mg p.o. every morning Hypothyroid-continue levothyroxine 50 mcg p.o. History of GI bleed, ulcer-continue pantoprazole 40 mg p.o. every morning Kizzy Peralta MD Store Manager (2) Dilated intrahepatic bile duct: (3) Abdominal pain of unknown etiology: (4) Pacemaker: (5) HTN (hypertension): (6) Hyperlipidemia: (7) History of deep venous thrombosis or pulmonary embolus: (8) History of upper gastrointestinal bleeding: (9) Unintended weight loss: (10) Fatigue: History of Present Illness [facility] Evens is an 88-year-old male resident of [facility] who presents with nonspecific abdominal pain. His past medical history is significant for recurrent pancreatitis as well as lymphoma, esophageal dysmotility and gastroparesis. Recent medical history is also notable for new onset diabetes 1 month ago and 15 pound unintentional weight loss over the last 6 months as well as fatigue. In the ED, abdomen and pelvis CT was done and significant for markedly dilated pancreatic duct measuring up to 9 mm in diameter which is a significant change from previous CT done 05/17/2018 highly concerning for an obstructing mass lesion at the pancreatic head. No definite pancreatic mass lesion is identified. Homogenous parenchyma. Trace fluid around the distal pancreas. No lymphadenopathy. Chronic outlet obstruction is evident, small fat-containing right inguinal hernia. No lytic or blastic lesions are seen in the skeletal structures. Patient was admitted for further evaluation and possible ERCP. PMH: 1. Lymphoma, status post radiation, 10 years ago 2. Chronic pancreatitis since the 3. Laryngospasm historically requiring Botox injections 4. Esophageal dysmotility disorder, status post esophageal dilatation 5. History of gastroparesis on Reglan, Reglan stopped 7 years ago with no current issues. 6. History of bleeding ulcer, cauterized by Dr. Prado 2 years ago 7. History of PE, history of DVT in lower extremity, on Coumadin 8. Tachybradycardia syndrome, status post pacemaker 9. History of BCC and actinic keratoses, status post Mohs surgery Past surgical history: Bleeding ulcer cauterization as above, esophageal dilatation as above Family history: Sister lung cancer, mother CVA, father suicide Social history: Lives at [facility] with his . Smoked 1 cigar/day for 30 years but quit 40 years ago. Occasional alcohol 1 glass of wine every 2-3 days , no illicit drug use. Allergies Allergy/AdvReac Type Severity Reaction Status Date / Time doxycycline Allergy Unknown rash Unverified 10/30/18 10:17 Penicillins Allergy Unknown Unknown Verified 10/30/18 10:17 Home Medications Home Medications Medication Instructions Recorded Confirmed Type atorvastatin 10 mg PO QAM 10/22/18 11/22/18 History cholecalciferol (vitamin D3) 2,000 units PO QPM 10/22/18 11/22/18 History [Vitamin D3] finasteride 5 mg PO HS 10/22/18 11/22/18 History insulin detemir U-100 [Levemir 14 units SUBCUT HS 10/22/18 11/22/18 History FlexTouch U-100 Insuln] levothyroxine 50 mcg PO QAM 10/22/18 11/22/18 History pantoprazole 40 mg PO QAM 10/22/18 11/22/18 History warfarin 5 mg PO HS 10/30/18 11/22/18 History warfarin 2 mg PO HS 11/22/18 11/22/18 History Past Med/Surg History Medical History Atrial fibrillation (Chronic) HTN (hypertension) (Chronic) Chest pain (Acute) Hyperlipidemia (Chronic) Tachy-logan syndrome (Acute) S/p PM placement Diabetes 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 Pulmonary embolism 10 years ago Surgical History H/O esophagogastroduodenoscopy H/O local excision of skin lesion S/P cardiac cath 2011 S/P placement of cardiac pacemaker 2014 Social History Current Living Situation: Spouse Current Living Situation Comment: [place] Other Information That Helps Us Care for You: No Feels Safe at Home: Yes Smoking Status: Former smoker Hx Alcohol Use: Yes Alcohol type: wine Alcohol Intake Frequency: holidays/ special occasions only Hx Substance Use: No Beliefs That Will Affect Care: None Communication Ability: Effective Physical Exam 2 Vital Signs (Past 24 Hours): Last Vital Signs Temp 36.5 C 11/22/18 17:54 Pulse 73 11/22/18 22:36 Resp 18 11/22/18 22:36 BP 149/75 H 11/22/18 22:36 Pulse Ox 98 11/22/18 22:36 Physical Exam: Vitals noted as above and within normal limits GENERAL: Awake, alert to person, place, and time, nontoxic-appearing, in no distress. Very thin. HENT: Normocephalic, atraumatic. . Mucus membranes appear moist. EYES: Normal conjunctiva. Sclera non-icteric. EOMI. NECK: Supple. Full range of motion. No JVD RESPIRATORY: Clear to auscultation. Normal work of breathing. CARDIAC: Regular rate, paced rhythm. Extremities warm and well perfused, 2+ radial pulses bilaterally; 2+ posterior tibialis pulses bilaterally. ABDOMEN: Soft, non-distended. No tenderness to palpation in all four quadrants. No rebound or guarding. Right inguinal hernia palpated. Bowel sounds are normal. LOWER EXTREMITIES: Inspection of calves reveal equal size bilaterally. They are non-tender. Trace edema. No discoloration. Left calf slightly larger than right. Patient states this is chronic for him. NEURO: No focal gross focal motor deficits noted. Sensation in tact. CN II-XII grossly in tact. SKIN: Rash not present. No jaundice noted. Significant lesions not present. PSYCH: Appropriate mood and affect. Cooperative. Exam as done by Kizzy Peralta MD, Store Manager. Results & Data Laboratory Results 11/23/18 11/23/18 11/23/18 Range/Units 02:50 02:22 02:04 WBC (4.8-10.8) K/uL RBC (4.7-6.1) M/uL Hgb (14.0-18.0) g/dL Hct (42-52) % MCV (80-100) fL MCH (25-34) pg MCHC (32-36) g/dL RDW Std Deviation (36.4-46.3) fL RDW Coeff of Zane (11.5-14.5) % Plt Count (130-400) K/uL MPV (7.4-10.4) fL Immature Gran % (Auto) % Neut % (Auto) % Lymph % (Auto) % [place] % (Auto) % Eos % (Auto) % Baso % (Auto) % Immature Gran # (Auto) (0.00-0.02) K/uL Neut # (Auto) (1.4-6.5) K/uL Lymph # (Auto) (1.2-3.4) K/uL [place] # (Auto) (0.11-0.59) K/uL Eos # (Auto) (0-0.5) K/uL Baso # (Auto) (0-0.2) K/uL PT (9.0-12.0) Seconds INR (0.9-1.1) Sodium (136-145) mmol/L Potassium (3.5-5.1) mmol/L Chloride (98-107) mmol/L Carbon Dioxide (21-32) mmol/L Anion Gap (3-11) BUN (7-18) mg/dl Creatinine (0.6-1.4) mg/dl Est Cr Clr Drug Dosing ml/min Est GFR ( Amer) Est GFR (Non-Af Amer) BUN/Creatinine Ratio (10-20) Glucose (70-99) mg/dl POC Glucose 131 H 68 L* 63 L* (70-99) Calcium (8.5-10.1) mg/dl Total Bilirubin (0.2-1) mg/dl Direct Bilirubin (0-0.2) mg/dl AST (15-37) U/L ALT (12-78) U/L Alkaline Phosphatase (45-117) U/L Troponin I (0-0.045) ng/ml Total Protein (6.4-8.2) gm/dl Albumin (3.4-5.0) gm/dl Globulin (2.5-4.0) gm/dl Albumin/Globulin Ratio (0.9-2) Lipase (73-393) U/L Urine Color Urine Appearance (Clear) Urine pH (4.5-7.5) Ur Specific [place] (1.000-1.030) Urine Protein (Negative) Urine Glucose (UA) (Negative) Urine Ketones (Negative) Urine Blood (Negative) Urine Nitrite (Negative) Urine Bilirubin (Negative) Urine Urobilinogen (Negative) Ur Leukocyte Esterase (Negative) 11/23/18 11/23/18 11/22/18 Range/Units 01:40 01:04 19:59 WBC (4.8-10.8) K/uL RBC (4.7-6.1) M/uL Hgb (14.0-18.0) g/dL Hct (42-52) % MCV (80-100) fL MCH (25-34) pg MCHC (32-36) g/dL RDW Std Deviation (36.4-46.3) fL RDW Coeff of Zane (11.5-14.5) % Plt Count (130-400) K/uL MPV (7.4-10.4) fL Immature Gran % (Auto) % Neut % (Auto) % Lymph % (Auto) % [place] % (Auto) % Eos % (Auto) % Baso % (Auto) % Immature Gran # (Auto) (0.00-0.02) K/uL Neut # (Auto) (1.4-6.5) K/uL Lymph # (Auto) (1.2-3.4) K/uL [place] # (Auto) (0.11-0.59) K/uL Eos # (Auto) (0-0.5) K/uL Baso # (Auto) (0-0.2) K/uL PT (9.0-12.0) Seconds INR (0.9-1.1) Sodium (136-145) mmol/L Potassium (3.5-5.1) mmol/L Chloride (98-107) mmol/L Carbon Dioxide (21-32) mmol/L Anion Gap (3-11) BUN (7-18) mg/dl Creatinine (0.6-1.4) mg/dl Est Cr Clr Drug Dosing ml/min Est GFR ( Amer) Est GFR (Non-Af Amer) BUN/Creatinine Ratio (10-20) Glucose (70-99) mg/dl POC Glucose 64 L* 60 L* 127 H (70-99) Calcium (8.5-10.1) mg/dl Total Bilirubin (0.2-1) mg/dl Direct Bilirubin (0-0.2) mg/dl AST (15-37) U/L ALT (12-78) U/L Alkaline Phosphatase (45-117) U/L Troponin I (0-0.045) ng/ml Total Protein (6.4-8.2) gm/dl Albumin (3.4-5.0) gm/dl Globulin (2.5-4.0) gm/dl Albumin/Globulin Ratio (0.9-2) Lipase (73-393) U/L Urine Color Urine Appearance (Clear) Urine pH (4.5-7.5) Ur Specific [place] (1.000-1.030) Urine Protein (Negative) Urine Glucose (UA) (Negative) Urine Ketones (Negative) Urine Blood (Negative) Urine Nitrite (Negative) Urine Bilirubin (Negative) Urine Urobilinogen (Negative) Ur Leukocyte Esterase (Negative) 11/22/18 11/22/18 11/22/18 Range/Units 18:46 18:22 18:22 WBC (4.8-10.8) K/uL RBC (4.7-6.1) M/uL Hgb (14.0-18.0) g/dL Hct (42-52) % MCV (80-100) fL MCH (25-34) pg MCHC (32-36) g/dL RDW Std Deviation (36.4-46.3) fL RDW Coeff of Zane (11.5-14.5) % Plt Count (130-400) K/uL MPV (7.4-10.4) fL Immature Gran % (Auto) % Neut % (Auto) % Lymph % (Auto) % [place] % (Auto) % Eos % (Auto) % Baso % (Auto) % Immature Gran # (Auto) (0.00-0.02) K/uL Neut # (Auto) (1.4-6.5) K/uL Lymph # (Auto) (1.2-3.4) K/uL [place] # (Auto) (0.11-0.59) K/uL Eos # (Auto) (0-0.5) K/uL Baso # (Auto) (0-0.2) K/uL PT 15.1 H (9.0-12.0) Seconds INR 1.5 H (0.9-1.1) Sodium 137 (136-145) mmol/L Potassium 3.5 (3.5-5.1) mmol/L Chloride 104 (98-107) mmol/L Carbon Dioxide 30 (21-32) mmol/L Anion Gap 3.0 (3-11) BUN 11 (7-18) mg/dl Creatinine 0.62 (0.6-1.4) mg/dl Est Cr Clr Drug Dosing 83.9 ml/min Est GFR ( Amer) 103.4 Est GFR (Non-Af Amer) 89.2 BUN/Creatinine Ratio 17.1 (10-20) Glucose 68 L (70-99) mg/dl POC Glucose (70-99) Calcium 8.0 L (8.5-10.1) mg/dl Total Bilirubin 1.3 H (0.2-1) mg/dl Direct Bilirubin 0.3 H (0-0.2) mg/dl AST 33 (15-37) U/L ALT 43 (12-78) U/L Alkaline Phosphatase 137 H (45-117) U/L Troponin I < 0.015 (0-0.045) ng/ml Total Protein 5.5 L (6.4-8.2) gm/dl Albumin 2.6 L (3.4-5.0) gm/dl Globulin 2.9 (2.5-4.0) gm/dl Albumin/Globulin Ratio 0.9 (0.9-2) Lipase 572 H (73-393) U/L Urine Color Yellow Urine Appearance Clear (Clear) Urine pH 8.0 H (4.5-7.5) Ur Specific [place] 1.011 (1.000-1.030) Urine Protein Negative (Negative) Urine Glucose (UA) Negative (Negative) Urine Ketones Negative (Negative) Urine Blood Negative (Negative) Urine Nitrite Negative (Negative) Urine Bilirubin Negative (Negative) Urine Urobilinogen Negative (Negative) Ur Leukocyte Esterase Negative (Negative) 11/22/18 Range/Units 18:22 WBC 5.62 (4.8-10.8) K/uL RBC 3.91 L (4.7-6.1) M/uL Hgb 12.7 L (14.0-18.0) g/dL Hct 36.5 L (42-52) % MCV 93.4 (80-100) fL MCH 32.5 (25-34) pg MCHC 34.8 (32-36) g/dL RDW Std Deviation 49.0 H (36.4-46.3) fL RDW Coeff of Zane 14.5 (11.5-14.5) % Plt Count 159 (130-400) K/uL MPV 9.5 (7.4-10.4) fL Immature Gran % (Auto) 0.2 % Neut % (Auto) 58.9 % Lymph % (Auto) 28.3 % [place] % (Auto) 11.0 % Eos % (Auto) 1.4 % Baso % (Auto) 0.2 % Immature Gran # (Auto) 0.01 (0.00-0.02) K/uL Neut # (Auto) 3.31 (1.4-6.5) K/uL Lymph # (Auto) 1.59 (1.2-3.4) K/uL [place] # (Auto) 0.62 H (0.11-0.59) K/uL Eos # (Auto) 0.08 (0-0.5) K/uL Baso # (Auto) 0.01 (0-0.2) K/uL PT (9.0-12.0) Seconds INR (0.9-1.1) Sodium (136-145) mmol/L Potassium (3.5-5.1) mmol/L Chloride (98-107) mmol/L Carbon Dioxide (21-32) mmol/L Anion Gap (3-11) BUN (7-18) mg/dl Creatinine (0.6-1.4) mg/dl Est Cr Clr Drug Dosing ml/min Est GFR ( Amer) Est GFR (Non-Af Amer) BUN/Creatinine Ratio (10-20) Glucose (70-99) mg/dl POC Glucose (70-99) Calcium (8.5-10.1) mg/dl Total Bilirubin (0.2-1) mg/dl Direct Bilirubin (0-0.2) mg/dl AST (15-37) U/L ALT (12-78) U/L Alkaline Phosphatase (45-117) U/L Troponin I (0-0.045) ng/ml Total Protein (6.4-8.2) gm/dl Albumin (3.4-5.0) gm/dl Globulin (2.5-4.0) gm/dl Albumin/Globulin Ratio (0.9-2) Lipase (73-393) U/L Urine Color Urine Appearance (Clear) Urine pH (4.5-7.5) Ur Specific [place] (1.000-1.030) Urine Protein (Negative) Urine Glucose (UA) (Negative) Urine Ketones (Negative) Urine Blood (Negative) Urine Nitrite (Negative) Urine Bilirubin (Negative) Urine Urobilinogen (Negative) Ur Leukocyte Esterase (Negative) Supervising Physician Co-Signing Physician Notes Attending addendum: I have physically seen this patient, have supervised the medical residents activities, and agree with the H&P unless as otherwise noted. Assessment and Plan: Recurrent pancreatitis/newly diagnosed dilated pancreatic duct-- 15 lb weight loss Moderate intra- and extrahepatic biliary ductal dilitation. Patient will need an ERCP. NPO IVF's Serial Labs. Hypoglycemia-- place on D5 Remainer of orders and notations as noted Resident Activity Tracking Resident Involvement: Resident Care Provided Care Provided: Adult [facility] Medicine
[2018-11-23] MEDS ORDERED: SODIUM CHLORIDE 0.9% 1000ML 1,000 ML IV SCH (00:41)
[2018-11-23] MEDS ORDERED: ACETAMINOPHEN 1000 MG/100 ML IV IV PRN (00:41)
[2018-11-23] MEDS ORDERED: ONDANSETRON INJ 2 MG/ML 2 ML VIAL IV PRN ×2 (00:41→16:07)
[2018-11-23] MEDS ORDERED: GLUCOSE 10 TABS/TUBE PO PRN (01:14)
[2018-11-23] MEDS ORDERED: DEXTROSE 50% 50 ML SYRINGE IV PRN (01:14)
[2018-11-23] MEDS ORDERED: GLUCAGON FOR INJ 1 MG VIAL SQ PRN (01:14)
[2018-11-23] MEDS ORDERED: CARBOHYDRATES FOR HYPOGLYCEMIA PO PRN (01:14)
[2018-11-23] MEDS: GLUCOSE 40% GEL 15 GM TUBE PO PRN ×2 (01:48→02:10)
[2018-11-23] MEDS: D5W AND NSS 1,000 ML IV SCH ×2 (02:00→14:16)
[2018-11-23] MEDS: LEVOTHYROXINE SODIUM 50 MCG TABLET PO SCH (05:51)
[2018-11-23 07:15] LABS: Estimated Average Glucose 260 mg/dl
[2018-11-23] MEDS ORDERED: INSULIN ASPART 100 UNITS/ML 3 ML PEN SC SCH (07:30)
[2018-11-23] MEDS: PANTOprazole 40 MG TAB PO SCH (07:55)
[2018-11-23] MEDS: ATORVASTATIN 10 MG TAB PO SCH (07:55)
[2018-11-23] MEDS: INSULIN ASPART 100 UNITS/ML 3 ML PEN SC SCH ×3 (12:12→21:31)
--- NOTE | 2018-11-23 12:43 | Gastrointestinal Consultation ---
Addendum entered and electronically signed by Isabella Jones 11/23/18 13: 31: Addendum (Blank) Addendum November 23, 2018 13:30 Please keep the patient NPO for EUS today 11/23/18 CA 19-9 added AMS Original Note: Date of Consultation November 23, 2018 Assessment & Plan (1) Dilated pancreatic duct: 88 year old male who presents with new onset diabetesm upper abdominal pain and weight loss - CT w/ markedly dilated 9 mm pancreatic duct w/ intra and extrahepatic biliary ductal dilatation highly concerning for an obstructing mass lesion at the pancreatic head. Last dose of coumadin was 11/22/18 Will need evaluation w/ endoscopic ultrasound. Will discuss with attending timing, likely Monday given INR elevation and coumain dose yesterday. His LFTs are normal, no currrent indication for ERCP. Please keep the patient NPO until we are able to finalize plan for EUS. Will need LFTs, PT,INR and PLT prior to EUS. Thank you for allowing us to participate in the care of this patient. Please call with any acute changes, questions or concerns. Please see addendum below with additional recommendation from my supervising physician. Present on Admission?: Yes Supervising Physician Co-Signing Physician Notes I saw and evaluated the patient. He presented yesterday afternoon for evaluation of abdominal discomfort. Of note he did have an upper endoscopy performed by my partner about 6 weeks ago which was notable for a duodenal ulcer. A CT scan was performed while in the emergency room and was found to have ductal dilation of the biliary tree in addition to the pancreatic duct. Of note his liver enzymes are presently within normal limits. The patient notes that his discomfort has dissipated since admission. Physical examination Elderly male in no obvious distress No scleral icterus noted No abdominal tenderness noted on examination today Impression: Patient presents with a history of abdominal discomfort found to have imaging which is suggestive of a pancreatic head mass. We are planning to do endoscopic ultrasound as his INR is presently 1.5 for further evaluation. As the patient's liver enzymes are presently within normal limits we will hold on ERCP for the present time. The patient and I have discussed the risks of the procedure to include bleeding, infection, perforation, pain and insufficient cellularity. We have also discussed the potential for pancreatitis. History of Present Illness Reason for Consultation: abnormal CT imaging Requesting Physician: Jesse Attending Physician: Roque Molina, DO History of Present Illness 88 year old male with history of lymphoma, chronic pancreatitis, laryngospasm, esophageal dysmotility disorder, status post esophageal dilatation, gastroparesis, PUD, PE/DVT on Coumadin last dose 11/22/17 who presents from home for evaluation of abdominal pain and weight loss. Pt was seen and evaluated, chart reviewed. Daughter at bedside. Notes he has had new diagnosis of diabetes about 1 month ago and unintentional weight loss of about 20 lbs. Yesterday AM, developed upper abdominal pain. Constant. Pressure/sharp. Radiates to his back. No nausea, vomiting. No change in bowels movements. No black/bloody stools. No fever, chills, CP, SOB CT: There is moderate intra and extrahepatic biliary ductal dilatation, as well as marked dilatation of the pancreatic duct. This represents a significant change from the 05/17/2018 examination and this is highly concerning for an obstructing mass lesion at the level of the pancreatic head/ampulla. There is also high-grade narrowing of the superior mesenteric vein just below the portosplenic confluence at this level. No mass lesion is clearly delineated on today's CT scan. Consider ERCP for further assessment. There are changes of chronic pancreatitis. Allergies Allergy/AdvReac Type Severity Reaction Status Date / Time doxycycline Allergy Unknown rash Unverified 10/30/18 10:17 Penicillins Allergy Unknown Unknown Verified 10/30/18 10:17 Home Medications Home Medications Medication Instructions Recorded Confirmed Type atorvastatin 10 mg PO QAM 10/22/18 11/22/18 History cholecalciferol (vitamin D3) 2,000 units PO QPM 10/22/18 11/22/18 History [Vitamin D3] finasteride 5 mg PO HS 10/22/18 11/22/18 History insulin detemir U-100 [Levemir 14 units SUBCUT HS 10/22/18 11/22/18 History FlexTouch U-100 Insuln] levothyroxine 50 mcg PO QAM 10/22/18 11/22/18 History pantoprazole 40 mg PO QAM 10/22/18 11/22/18 History warfarin 5 mg PO HS 10/30/18 11/22/18 History warfarin 2 mg PO HS 11/22/18 11/22/18 History Patient History Medical History Atrial fibrillation (Chronic) HTN (hypertension) (Chronic) Chest pain (Acute) Hyperlipidemia (Chronic) Tachy-logan syndrome (Acute) S/p PM placement Diabetes 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 Pulmonary embolism 10 years ago Surgical History H/O esophagogastroduodenoscopy H/O local excision of skin lesion S/P cardiac cath 2011 S/P placement of cardiac pacemaker 2014 Social History Current Living Situation: Spouse Current Living Situation Comment: [place] Other Information That Helps Us Care for You: No Feels Safe at Home: Yes Smoking Status: Former smoker Hx Alcohol Use: Yes Alcohol type: wine Alcohol Intake Frequency: holidays/ special occasions only Hx Substance Use: No Beliefs That Will Affect Care: None Communication Ability: Effective Review of Systems Constitutional: + anorexia and + weight loss; no fever, no chills and no fatigue Respiratory: no cough, no dyspnea and no wheezing Cardiovascular: no chest pain, no radiating jaw, neck or arm pain, no dyspnea, no dyspnea on exertion and no palpitations Gastrointestinal: + abdominal pain, + bloating and + early satiety; no belching , no heartburn, no nausea, no vomiting, no coffee ground emesis, no hematemesis , no pain with swallowing, no dysphagia, no cramping, no excessive flatulence, no change in bowel habits, no change in stools, no constipation, no diarrhea/ loose stools, no fecal incontinence, no constant urge to pass stools, no blood in stools and no melena Physical Exam 2 Vital Signs (Past 24 Hours): Last Vital Signs Temp 36.7 C 11/23/18 11:29 Pulse 66 11/23/18 11:29 Resp 20 11/23/18 11:29 BP 113/69 11/23/18 11:29 Pulse Ox 95 11/23/18 11:29 Constitutional: + thin, cooperative and comfortable; no acute distress Respiratory: normal respiratory effort, lungs clear to auscultation Cardiovascular: RRR, no murmur, no edema Gastrointestinal (Abdomen): normal bowel sounds, soft, nontender, no hepatosplenomegaly Skin: no rashes, warm and dry Results & Data Laboratory Results 11/23/18 11/23/18 11/23/18 Range/Units 11:25 06:21 06:09 WBC (4.8-10.8) K/uL RBC (4.7-6.1) M/uL Hgb (14.0-18.0) g/dL Hct (42-52) % MCV (80-100) fL MCH (25-34) pg MCHC (32-36) g/dL RDW Std Deviation (36.4-46.3) fL RDW Coeff of Zane (11.5-14.5) % Plt Count (130-400) K/uL MPV (7.4-10.4) fL Immature Gran % (Auto) % Neut % (Auto) % Lymph % (Auto) % [place] % (Auto) % Eos % (Auto) % Baso % (Auto) % Immature Gran # (Auto) (0.00-0.02) K/uL Neut # (Auto) (1.4-6.5) K/uL Lymph # (Auto) (1.2-3.4) K/uL [place] # (Auto) (0.11-0.59) K/uL Eos # (Auto) (0-0.5) K/uL Baso # (Auto) (0-0.2) K/uL PT (9.0-12.0) Seconds INR (0.9-1.1) Sodium (136-145) mmol/L Potassium (3.5-5.1) mmol/L Chloride (98-107) mmol/L Carbon Dioxide (21-32) mmol/L Anion Gap (3-11) BUN (7-18) mg/dl Creatinine (0.6-1.4) mg/dl Est Cr Clr Drug Dosing ml/min Est GFR ( Amer) Est GFR (Non-Af Amer) BUN/Creatinine Ratio (10-20) Glucose (70-99) mg/dl POC Glucose 215 H 195 H (70-99) Estimat Average Glucose 260 mg/dl Hemoglobin A1c 10.7 H (4.5-5.6) % Calcium (8.5-10.1) mg/dl Total Bilirubin (0.2-1) mg/dl Direct Bilirubin (0-0.2) mg/dl AST (15-37) U/L ALT (12-78) U/L Alkaline Phosphatase (45-117) U/L Troponin I (0-0.045) ng/ml Total Protein (6.4-8.2) gm/dl Albumin (3.4-5.0) gm/dl Globulin (2.5-4.0) gm/dl Albumin/Globulin Ratio (0.9-2) Lipase (73-393) U/L Urine Color Urine Appearance (Clear) Urine pH (4.5-7.5) Ur Specific [place] (1.000-1.030) Urine Protein (Negative) Urine Glucose (UA) (Negative) Urine Ketones (Negative) Urine Blood (Negative) Urine Nitrite (Negative) Urine Bilirubin (Negative) Urine Urobilinogen (Negative) Ur Leukocyte Esterase (Negative) 11/23/18 11/23/18 11/23/18 Range/Units 02:50 02:22 02:04 WBC (4.8-10.8) K/uL RBC (4.7-6.1) M/uL Hgb (14.0-18.0) g/dL Hct (42-52) % MCV (80-100) fL MCH (25-34) pg MCHC (32-36) g/dL RDW Std Deviation (36.4-46.3) fL RDW Coeff of Zane (11.5-14.5) % Plt Count (130-400) K/uL MPV (7.4-10.4) fL Immature Gran % (Auto) % Neut % (Auto) % Lymph % (Auto) % [place] % (Auto) % Eos % (Auto) % Baso % (Auto) % Immature Gran # (Auto) (0.00-0.02) K/uL Neut # (Auto) (1.4-6.5) K/uL Lymph # (Auto) (1.2-3.4) K/uL [place] # (Auto) (0.11-0.59) K/uL Eos # (Auto) (0-0.5) K/uL Baso # (Auto) (0-0.2) K/uL PT (9.0-12.0) Seconds INR (0.9-1.1) Sodium (136-145) mmol/L Potassium (3.5-5.1) mmol/L Chloride (98-107) mmol/L Carbon Dioxide (21-32) mmol/L Anion Gap (3-11) BUN (7-18) mg/dl Creatinine (0.6-1.4) mg/dl Est Cr Clr Drug Dosing ml/min Est GFR ( Amer) Est GFR (Non-Af Amer) BUN/Creatinine Ratio (10-20) Glucose (70-99) mg/dl POC Glucose 131 H 68 L* 63 L* (70-99) Estimat Average Glucose mg/dl Hemoglobin A1c (4.5-5.6) % Calcium (8.5-10.1) mg/dl Total Bilirubin (0.2-1) mg/dl Direct Bilirubin (0-0.2) mg/dl AST (15-37) U/L ALT (12-78) U/L Alkaline Phosphatase (45-117) U/L Troponin I (0-0.045) ng/ml Total Protein (6.4-8.2) gm/dl Albumin (3.4-5.0) gm/dl Globulin (2.5-4.0) gm/dl Albumin/Globulin Ratio (0.9-2) Lipase (73-393) U/L Urine Color Urine Appearance (Clear) Urine pH (4.5-7.5) Ur Specific [place] (1.000-1.030) Urine Protein (Negative) Urine Glucose (UA) (Negative) Urine Ketones (Negative) Urine Blood (Negative) Urine Nitrite (Negative) Urine Bilirubin (Negative) Urine Urobilinogen (Negative) Ur Leukocyte Esterase (Negative) 11/23/18 11/23/18 11/22/18 Range/Units 01:40 01:04 19:59 WBC (4.8-10.8) K/uL RBC (4.7-6.1) M/uL Hgb (14.0-18.0) g/dL Hct (42-52) % MCV (80-100) fL MCH (25-34) pg MCHC (32-36) g/dL RDW Std Deviation (36.4-46.3) fL RDW Coeff of Zane (11.5-14.5) % Plt Count (130-400) K/uL MPV (7.4-10.4) fL Immature Gran % (Auto) % Neut % (Auto) % Lymph % (Auto) % [place] % (Auto) % Eos % (Auto) % Baso % (Auto) % Immature Gran # (Auto) (0.00-0.02) K/uL Neut # (Auto) (1.4-6.5) K/uL Lymph # (Auto) (1.2-3.4) K/uL [place] # (Auto) (0.11-0.59) K/uL Eos # (Auto) (0-0.5) K/uL Baso # (Auto) (0-0.2) K/uL PT (9.0-12.0) Seconds INR (0.9-1.1) Sodium (136-145) mmol/L Potassium (3.5-5.1) mmol/L Chloride (98-107) mmol/L Carbon Dioxide (21-32) mmol/L Anion Gap (3-11) BUN (7-18) mg/dl Creatinine (0.6-1.4) mg/dl Est Cr Clr Drug Dosing ml/min Est GFR ( Amer) Est GFR (Non-Af Amer) BUN/Creatinine Ratio (10-20) Glucose (70-99) mg/dl POC Glucose 64 L* 60 L* 127 H (70-99) Estimat Average Glucose mg/dl Hemoglobin A1c (4.5-5.6) % Calcium (8.5-10.1) mg/dl Total Bilirubin (0.2-1) mg/dl Direct Bilirubin (0-0.2) mg/dl AST (15-37) U/L ALT (12-78) U/L Alkaline Phosphatase (45-117) U/L Troponin I (0-0.045) ng/ml Total Protein (6.4-8.2) gm/dl Albumin (3.4-5.0) gm/dl Globulin (2.5-4.0) gm/dl Albumin/Globulin Ratio (0.9-2) Lipase (73-393) U/L Urine Color Urine Appearance (Clear) Urine pH (4.5-7.5) Ur Specific [place] (1.000-1.030) Urine Protein (Negative) Urine Glucose (UA) (Negative) Urine Ketones (Negative) Urine Blood (Negative) Urine Nitrite (Negative) Urine Bilirubin (Negative) Urine Urobilinogen (Negative) Ur Leukocyte Esterase (Negative) 11/22/18 11/22/18 11/22/18 Range/Units 18:46 18:22 18:22 WBC (4.8-10.8) K/uL RBC (4.7-6.1) M/uL Hgb (14.0-18.0) g/dL Hct (42-52) % MCV (80-100) fL MCH (25-34) pg MCHC (32-36) g/dL RDW Std Deviation (36.4-46.3) fL RDW Coeff of Zane (11.5-14.5) % Plt Count (130-400) K/uL MPV (7.4-10.4) fL Immature Gran % (Auto) % Neut % (Auto) % Lymph % (Auto) % [place] % (Auto) % Eos % (Auto) % Baso % (Auto) % Immature Gran # (Auto) (0.00-0.02) K/uL Neut # (Auto) (1.4-6.5) K/uL Lymph # (Auto) (1.2-3.4) K/uL [place] # (Auto) (0.11-0.59) K/uL Eos # (Auto) (0-0.5) K/uL Baso # (Auto) (0-0.2) K/uL PT 15.1 H (9.0-12.0) Seconds INR 1.5 H (0.9-1.1) Sodium 137 (136-145) mmol/L Potassium 3.5 (3.5-5.1) mmol/L Chloride 104 (98-107) mmol/L Carbon Dioxide 30 (21-32) mmol/L Anion Gap 3.0 (3-11) BUN 11 (7-18) mg/dl Creatinine 0.62 (0.6-1.4) mg/dl Est Cr Clr Drug Dosing 83.9 ml/min Est GFR ( Amer) 103.4 Est GFR (Non-Af Amer) 89.2 BUN/Creatinine Ratio 17.1 (10-20) Glucose 68 L (70-99) mg/dl POC Glucose (70-99) Estimat Average Glucose mg/dl Hemoglobin A1c (4.5-5.6) % Calcium 8.0 L (8.5-10.1) mg/dl Total Bilirubin 1.3 H (0.2-1) mg/dl Direct Bilirubin 0.3 H (0-0.2) mg/dl AST 33 (15-37) U/L ALT 43 (12-78) U/L Alkaline Phosphatase 137 H (45-117) U/L Troponin I < 0.015 (0-0.045) ng/ml Total Protein 5.5 L (6.4-8.2) gm/dl Albumin 2.6 L (3.4-5.0) gm/dl Globulin 2.9 (2.5-4.0) gm/dl Albumin/Globulin Ratio 0.9 (0.9-2) Lipase 572 H (73-393) U/L Urine Color Yellow Urine Appearance Clear (Clear) Urine pH 8.0 H (4.5-7.5) Ur Specific [place] 1.011 (1.000-1.030) Urine Protein Negative (Negative) Urine Glucose (UA) Negative (Negative) Urine Ketones Negative (Negative) Urine Blood Negative (Negative) Urine Nitrite Negative (Negative) Urine Bilirubin Negative (Negative) Urine Urobilinogen Negative (Negative) Ur Leukocyte Esterase Negative (Negative) 11/22/18 Range/Units 18:22 WBC 5.62 (4.8-10.8) K/uL RBC 3.91 L (4.7-6.1) M/uL Hgb 12.7 L (14.0-18.0) g/dL Hct 36.5 L (42-52) % MCV 93.4 (80-100) fL MCH 32.5 (25-34) pg MCHC 34.8 (32-36) g/dL RDW Std Deviation 49.0 H (36.4-46.3) fL RDW Coeff of Zane 14.5 (11.5-14.5) % Plt Count 159 (130-400) K/uL MPV 9.5 (7.4-10.4) fL Immature Gran % (Auto) 0.2 % Neut % (Auto) 58.9 % Lymph % (Auto) 28.3 % [place] % (Auto) 11.0 % Eos % (Auto) 1.4 % Baso % (Auto) 0.2 % Immature Gran # (Auto) 0.01 (0.00-0.02) K/uL Neut # (Auto) 3.31 (1.4-6.5) K/uL Lymph # (Auto) 1.59 (1.2-3.4) K/uL [place] # (Auto) 0.62 H (0.11-0.59) K/uL Eos # (Auto) 0.08 (0-0.5) K/uL Baso # (Auto) 0.01 (0-0.2) K/uL PT (9.0-12.0) Seconds INR (0.9-1.1) Sodium (136-145) mmol/L Potassium (3.5-5.1) mmol/L Chloride (98-107) mmol/L Carbon Dioxide (21-32) mmol/L Anion Gap (3-11) BUN (7-18) mg/dl Creatinine (0.6-1.4) mg/dl Est Cr Clr Drug Dosing ml/min Est GFR ( Amer) Est GFR (Non-Af Amer) BUN/Creatinine Ratio (10-20) Glucose (70-99) mg/dl POC Glucose (70-99) Estimat Average Glucose mg/dl Hemoglobin A1c (4.5-5.6) % Calcium (8.5-10.1) mg/dl Total Bilirubin (0.2-1) mg/dl Direct Bilirubin (0-0.2) mg/dl AST (15-37) U/L ALT (12-78) U/L Alkaline Phosphatase (45-117) U/L Troponin I (0-0.045) ng/ml Total Protein (6.4-8.2) gm/dl Albumin (3.4-5.0) gm/dl Globulin (2.5-4.0) gm/dl Albumin/Globulin Ratio (0.9-2) Lipase (73-393) U/L Urine Color Urine Appearance (Clear) Urine pH (4.5-7.5) Ur Specific [place] (1.000-1.030) Urine Protein (Negative) Urine Glucose (UA) (Negative) Urine Ketones (Negative) Urine Blood (Negative) Urine Nitrite (Negative) Urine Bilirubin (Negative) Urine Urobilinogen (Negative) Ur Leukocyte Esterase (Negative)
[2018-11-23] MEDS ORDERED: ACETAMINOPHEN 500 MG TAB PO PRN (14:47)
--- NOTE | 2018-11-23 15:27 | Anesthesiology Consultation ---
Date of Service November 23, 2018 Assessment & Plan Chart Review Chart Review: Acceptable Risk for Surgery and Patient NOT seen in Pre Admission Testing Consults Requested none ASA [id number] Proposed Anesthesia Anesthesia Type: MAC Risk / Benefits Reviewed With: PT / POA / Parent / Guardian, Accepts Plan and Informed Consent Obtained NPO Date Last Intake of Fluids: 11/23/18 Time Last Intake of Fluids: 01:00 Last Intake of Fluids Comment: OJ for low BSG Date Last Intake of Solids: 11/22/18 Time Last Intake of Solids: 12:00 History Surgery Operation Date: 11/23/18 14:00 Proposed Procedures p Upper Endoscopic Ultrasonography - Cindy Phani Height/Weight Height: 1.68 m Weight: 64.8 kg Allergies Allergy/AdvReac Type Severity Reaction Status Date / Time doxycycline Allergy Unknown rash Unverified 10/30/18 10:17 Penicillins Allergy Unknown Unknown Verified 10/30/18 10:17 Medications Home Medications Medication Instructions Recorded Confirmed Last Taken atorvastatin 10 mg PO QAM 10/22/18 11/22/18 10/29/18 cholecalciferol (vitamin D3) 2,000 units PO QPM 10/22/18 11/22/18 10/29/18 [Vitamin D3] finasteride 5 mg PO HS 10/22/18 11/22/18 10/29/18 insulin detemir U-100 [Levemir 14 units SUBCUT HS 10/22/18 11/22/18 10/29/18 FlexTouch U-100 Insuln] 12 unit levothyroxine 50 mcg PO QAM 10/22/18 11/22/18 10/30/18 pantoprazole 40 mg PO QAM 10/22/18 11/22/18 10/29/18 warfarin 5 mg PO HS 10/30/18 11/22/18 10/29/18 warfarin 2 mg PO HS 11/22/18 11/22/18 Unknown Active Medications Generic Name Dose Route Start Last Admin Trade Name Freq PRN Reason Stop Dose Admin Atorvastatin Calcium 10 mg 11/23/18 09:00 11/23/18 07:55 Lipitor PO 12/23/18 08:59 10 mg QAM OPAL Administration Dextrose 25 - 50 ml 11/23/18 01:14 11/23/18 02:29 Dextrose 50% IV 12/23/18 01:13 25 ml UD PRN Administration Hypoglycemia Protocol Protocol Glucose 15 - 30 gm 11/23/18 01:14 11/23/18 02:10 Glucose 40% PO 12/23/18 01:13 15 gm UD PRN Administration Hypoglycemia Protocol Protocol Dextrose/Sodium Chloride 1,000 mls @ 80 mls/hr 11/23/18 02:00 11/23/18 14:16 D5w And Nss IV 11/26/18 01:59 80 mls/hr .[id number] OPAL Administration Insulin Aspart 0 units 11/23/18 12:00 11/23/18 12:12 Novolog Flexpen SC 12/23/18 11:59 2 units Q6 OPAL Administration Ioversol 95 ml 11/22/18 19:06 11/22/18 19:06 Optiray 320 100ml IV 11/26/18 19:05 95 ml ONCE PRN Administration Interaction Checking Levothyroxine Sodium 50 mcg 11/23/18 06:30 11/23/18 05:51 Synthroid PO 12/23/18 06:29 50 mcg DAILYBB OPAL Administration Pantoprazole Sodium 40 mg 11/23/18 09:00 11/23/18 07:55 Protonix PO 12/23/18 08:59 40 mg QAM OPAL Administration Past Medical History Medical History Atrial fibrillation (Chronic) HTN (hypertension) (Chronic) Chest pain (Acute) Hyperlipidemia (Chronic) Tachy-logan syndrome (Acute) S/p PM placement Diabetes 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 Pulmonary embolism 10 years ago Past Surgical History Surgical History H/O esophagogastroduodenoscopy H/O local excision of skin lesion S/P cardiac cath 2011 S/P placement of cardiac pacemaker 2014 Past Anesthesia History No Hx of Anesthesia Complications and No Family Hx of Anesthesia Complications History of PONV No Motion Sickness Screening History of Motion Sickness: No Social History Smoking Status: Former smoker Hx Alcohol Use: Yes Alcohol type: wine alcohol intake frequency: holidays/special occasions only Hx Substance Use: No Exercise / Class Metabolic Activity III < 4 Walking/Shop/Light housework Physical Exam Vital Signs Last Vital Signs Temp 36.6 C 11/23/18 14:56 Pulse 95 H 11/23/18 14:56 Resp 20 11/23/18 14:56 BP 133/79 11/23/18 14:56 Pulse Ox 98 11/23/18 14:56 ENMT Mouth: no TMJ abnormality and no TMJ clicking Thyromental Distance: < 3.5 Finger Breadths Mallampati Class: II Neck normal visual inspection; neck extension not limited Respiratory Auscultation: lungs clear to auscultation bilaterally Cardiovascular Rate/Rhythm: regular rate and regular rhythm Testing Electrocardiogram Date: 11/22/18 Atrial-paced rhythm @ 62 bpm with prolonged AV conduction Abnormal ECG When compared with ECG of 30-OCT-2018 08:30, QT has shortened Echocardiogram Date: 09/12/15 EF: 55-60% LV Function: normal RWMA: + none Other Findings: + diastolic dysfunction (gr II) The RV is mildly dilated The RVSP is normal Aortic valve sclerosis moderate without aortic stenosis Mild AR Moderate MR Laboratory Results 11/22/18 18:22 11/22/18 18:22 PT 15.1 Seconds (9.0-12.0) H 11/22/18 18:22 INR 1.5 (0.9-1.1) H 11/22/18 18:22 Hemoglobin A1c 10.7 % (4.5-5.6) H 11/23/18 06:21 Urine Color Yellow 11/22/18 18:46 Urine Appearance Clear (Clear) 11/22/18 18:46 Urine pH 8.0 (4.5-7.5) H 11/22/18 18:46 Ur Specific [place] 1.011 (1.000-1.030) 11/22/18 18:46 Urine Protein Negative (Negative) 11/22/18 18:46 Urine Glucose (UA) Negative (Negative) 11/22/18 18:46 Urine Ketones Negative (Negative) 11/22/18 18:46 Urine Nitrite Negative (Negative) 11/22/18 18:46 Ur Leukocyte Esterase Negative (Negative) 11/22/18 18:46 11/23/18 11/23/18 11:25 06:09 POC Glucose 215 H 195 H
--- NOTE | 2018-11-23 15:31 | Hospitalist Progress Note ---
Date of Service November 23, 2018 Assessment & Plan (1) Mass of pancreas: plan for EUS today if possible with Dr. Jeronimo follow up on pathology results CA 19-9 added to AM labs has had 15 lb unintentional weight loss wait on oncology consult until pathology results back (2) Dilated pancreatic duct: due to suspected mass, see above (3) Dilated intrahepatic bile duct: due to pancreatic mass Bilirubin minimally elevated and alk phos minimally elevated no indication for ERCP/stent at this time (4) Atrial fibrillation: h/o sick sinus and pacer hold Coumadin for EUS (5) Pacemaker: (6) History of deep venous thrombosis or pulmonary embolus: INR 1.5 hold Coumadin until after EUS (7) History of upper gastrointestinal bleeding: continue Protonix, no evidence of bleeding currently (8) Unintended weight loss: likely due to mass supportive care, nutritional support (9) Diabetes: hold on Levemir, had hypoglycemia this AM on D5, use Novolog q6 since he is not eating yet change to ACHS once eating new diagnosis for patient Subjective patient feels fine, no pain today, he is hungry no nausea discussed recent health issues such as weight loss, new diabetes discussed findings on imaging concerning for pancreatic head mass discussed case with Dr. Jeronimo, plan for EUS today for biopsy, no indication for ERCP updated patient's at the bedside Review of Systems All systems reviewed & are unremarkable except as noted in HPI & below Constitutional: + fatigue, + weakness and + weight loss (15 lbs in past few months) Gastrointestinal: + abdominal pain; no nausea, no vomiting, no constipation and no diarrhea/loose stools Physical Exam 2 Vital Signs (Past 24 Hours): Last Vital Signs Temp 36.6 C 11/23/18 14:56 Pulse 95 H 11/23/18 14:56 Resp 20 11/23/18 14:56 BP 133/79 11/23/18 14:56 Pulse Ox 98 11/23/18 14:56 Constitutional: WD/WN, vitals as above + thin Eyes: PERRL, conjunctivae normal, anicteric sclerae ENMT: external ear and nose normal, oropharynx normal Neck: trachea midline, no thyromegaly Respiratory: normal respiratory effort, lungs clear to auscultation Cardiovascular: RRR, no murmur, no edema Gastrointestinal (Abdomen): normal bowel sounds, soft, nontender, no hepatosplenomegaly Musculoskeletal: no cyanosis or clubbing, extremities motor strength 5/5 Skin: no rashes, warm and dry Neurologic: patellar DTR's 2+ bilat, sensation intact and PERRL, EOMI, accommodation nl, no face palsy, no dysarthria Psychiatric: A+Ox3, euthymic affect Lymphatic: no cervical or axillary lymphadenopathy Results & Data Laboratory Results Laboratory Results - last 24 hr 11/22/18 11/22/18 11/22/18 18:22 18:22 18:22 WBC 5.62 RBC 3.91 L Hgb 12.7 L Hct 36.5 L MCV 93.4 MCH 32.5 MCHC 34.8 RDW Std Deviation 49.0 H RDW Coeff of Zane 14.5 Plt Count 159 MPV 9.5 Immature Gran % (Auto) 0.2 Neut % (Auto) 58.9 Lymph % (Auto) 28.3 [place] % (Auto) 11.0 Eos % (Auto) 1.4 Baso % (Auto) 0.2 Immature Gran # (Auto) 0.01 Neut # (Auto) 3.31 Lymph # (Auto) 1.59 [place] # (Auto) 0.62 H Eos # (Auto) 0.08 Baso # (Auto) 0.01 PT 15.1 H INR 1.5 H Sodium 137 Potassium 3.5 Chloride 104 Carbon Dioxide 30 Anion Gap 3.0 BUN 11 Creatinine 0.62 Est Cr Clr Drug Dosing 83.9 Est GFR ( Amer) 103.4 Est GFR (Non-Af Amer) 89.2 BUN/Creatinine Ratio 17.1 Glucose 68 L POC Glucose Estimat Average Glucose Hemoglobin A1c Calcium 8.0 L Total Bilirubin 1.3 H Direct Bilirubin 0.3 H AST 33 ALT 43 Alkaline Phosphatase 137 H Troponin I < 0.015 Total Protein 5.5 L Albumin 2.6 L Globulin 2.9 Albumin/Globulin Ratio 0.9 Lipase 572 H Urine Color Urine Appearance Urine pH Ur Specific [place] Urine Protein Urine Glucose (UA) Urine Ketones Urine Blood Urine Nitrite Urine Bilirubin Urine Urobilinogen Ur Leukocyte Esterase 11/22/18 11/22/18 11/23/18 18:46 19:59 01:04 WBC RBC Hgb Hct MCV MCH MCHC RDW Std Deviation RDW Coeff of [place] Plt Count MPV Immature Gran % (Auto) Neut % (Auto) Lymph % (Auto) [place] % (Auto) Eos % (Auto) Baso % (Auto) Immature Gran # (Auto) Neut # (Auto) Lymph # (Auto) [place] # (Auto) Eos # (Auto) Baso # (Auto) PT INR Sodium Potassium Chloride Carbon Dioxide Anion Gap BUN Creatinine Est Cr Clr Drug Dosing Est GFR ( Amer) Est GFR (Non-Af Amer) BUN/Creatinine Ratio Glucose POC Glucose 127 H 60 L* Estimat Average Glucose Hemoglobin A1c Calcium Total Bilirubin Direct Bilirubin AST ALT Alkaline Phosphatase Troponin I Total Protein Albumin Globulin Albumin/Globulin Ratio Lipase Urine Color Yellow Urine Appearance Clear Urine pH 8.0 H Ur Specific [place] 1.011 Urine Protein Negative Urine Glucose (UA) Negative Urine Ketones Negative Urine Blood Negative Urine Nitrite Negative Urine Bilirubin Negative Urine Urobilinogen Negative Ur Leukocyte Esterase Negative 11/23/18 11/23/18 11/23/18 01:40 02:04 02:22 WBC RBC Hgb Hct MCV MCH MCHC RDW Std Deviation RDW Coeff of [place]ane Plt Count MPV Immature Gran % (Auto) Neut % (Auto) Lymph % (Auto) [place] % (Auto) Eos % (Auto) Baso % (Auto) Immature Gran # (Auto) Neut # (Auto) Lymph # (Auto) [place] # (Auto) Eos # (Auto) Baso # (Auto) PT INR Sodium Potassium Chloride Carbon Dioxide Anion Gap BUN Creatinine Est Cr Clr Drug Dosing Est GFR ( Amer) Est GFR (Non-Af Amer) BUN/Creatinine Ratio Glucose POC Glucose 64 L* 63 L* 68 L* Estimat Average Glucose Hemoglobin A1c Calcium Total Bilirubin Direct Bilirubin AST ALT Alkaline Phosphatase Troponin I Total Protein Albumin Globulin Albumin/Globulin Ratio Lipase Urine Color Urine Appearance Urine pH Ur Specific [place] Urine Protein Urine Glucose (UA) Urine Ketones Urine Blood Urine Nitrite Urine Bilirubin Urine Urobilinogen Ur Leukocyte Esterase 11/23/18 11/23/18 11/23/18 02:50 06:09 06:21 WBC RBC Hgb Hct MCV MCH MCHC RDW Std Deviation RDW Coeff of [place] Plt Count MPV Immature Gran % (Auto) Neut % (Auto) Lymph % (Auto) [place] % (Auto) Eos % (Auto) Baso % (Auto) Immature Gran # (Auto) Neut # (Auto) Lymph # (Auto) [place] # (Auto) Eos # (Auto) Baso # (Auto) PT INR Sodium Potassium Chloride Carbon Dioxide Anion Gap BUN Creatinine Est Cr Clr Drug Dosing Est GFR ( Amer) Est GFR (Non-Af Amer) BUN/Creatinine Ratio Glucose POC Glucose 131 H 195 H Estimat Average Glucose 260 Hemoglobin A1c 10.7 H Calcium Total Bilirubin Direct Bilirubin AST ALT Alkaline Phosphatase Troponin I Total Protein Albumin Globulin Albumin/Globulin Ratio Lipase Urine Color Urine Appearance Urine pH Ur Specific [place] Urine Protein Urine Glucose (UA) Urine Ketones Urine Blood Urine Nitrite Urine Bilirubin Urine Urobilinogen Ur Leukocyte Esterase 11/23/18 11:25 WBC RBC Hgb Hct MCV MCH MCHC RDW Std Deviation RDW Coeff of Zane Plt Count MPV Immature Gran % (Auto) Neut % (Auto) Lymph % (Auto) [place] % (Auto) Eos % (Auto) Baso % (Auto) Immature Gran # (Auto) Neut # (Auto) Lymph # (Auto) [place] # (Auto) Eos # (Auto) Baso # (Auto) PT INR Sodium Potassium Chloride Carbon Dioxide Anion Gap BUN Creatinine Est Cr Clr Drug Dosing Est GFR ( Amer) Est GFR (Non-Af Amer) BUN/Creatinine Ratio Glucose POC Glucose 215 H Estimat Average Glucose Hemoglobin A1c Calcium Total Bilirubin Direct Bilirubin AST ALT Alkaline Phosphatase Troponin I Total Protein Albumin Globulin Albumin/Globulin Ratio Lipase Urine Color Urine Appearance Urine pH Ur Specific [place] Urine Protein Urine Glucose (UA) Urine Ketones Urine Blood Urine Nitrite Urine Bilirubin Urine Urobilinogen Ur Leukocyte Esterase Medications Administered Current Inpatient Medications Acetaminophen (Tylenol) 1,000 mg PO Q8H PRN PRN Reason: Pain Stop: 12/23/18 14:46 Atorvastatin Calcium (Lipitor) 10 mg PO QAM [facility]AL Stop: 12/23/18 08:59 Last Admin: 11/23/18 07:55 Dose: 10 mg Dextrose (Dextrose 50%) 25 - 50 ml IV UD PRN; Protocol PRN Reason: Hypoglycemia Protocol Stop: 12/23/18 01:13 Last Admin: 11/23/18 02:29 Dose: 25 ml Finasteride (Proscar) 5 mg PO HS [facility] Stop: 12/23/18 20:59 Glucagon (Glucagen) 1 mg SQ UD PRN; Protocol PRN Reason: Hypoglycemia Protocol Stop: 12/23/18 01:13 Glucose (Glucose 40%) 15 - 30 gm PO UD PRN; Protocol PRN Reason: Hypoglycemia Protocol Stop: 12/23/18 01:13 Last Admin: 11/23/18 02:10 Dose: 15 gm Glucose (Dex4 Glucose) 4 - 8 tabs PO UD PRN; Protocol PRN Reason: Hypoglycemia Protocol Stop: 12/23/18 01:13 Dextrose/Sodium Chloride (D5w And Nss) 1,000 mls @ 80 mls/hr IV .[id number] [facility] Stop: 11/26/18 01:59 Last Admin: 11/23/18 14:16 Dose: 80 mls/hr Insulin Aspart (Novolog Flexpen) 0 units SC Q6 OPAL Stop: 12/23/18 11:59 Last Admin: 11/23/18 12:12 Dose: 2 units Ioversol (Optiray 320 100ml) 95 ml IV ONCE PRN PRN Reason: Interaction Checking Stop: 11/26/18 19:05 Last Admin: 11/22/18 19:06 Dose: 95 ml Levothyroxine Sodium (Synthroid) 50 mcg PO DAILYBB [facility] Stop: 12/23/18 06:29 Last Admin: 11/23/18 05:51 Dose: 50 mcg Miscellaneous (Carbohydrates For Hypoglycemia) 15 - 30 gm PO UD PRN PRN Reason: Hypoglycemia Treatment Stop: 12/23/18 01:13 Ondansetron HCl (Zofran) 4 mg IV Q6H PRN PRN Reason: Nausea Stop: 12/23/18 00:40 Pantoprazole Sodium (Protonix) 40 mg PO QAM OPAL Stop: 12/23/18 08:59 Last Admin: 11/23/18 07:55 Dose: 40 mg Vitamin D (Vitamin D3) 2,000 units PO QPM [facility] Stop: 12/23/18 20:59
[2018-11-23] MEDS ORDERED: PROPOFOL IV EMULSION 10 MG/ML 20 ML VIAL IV ONE ×2 (15:52→17:05)
[2018-11-23] MEDS ORDERED: fentaNYL citrate 100 MCG/2 ML VIAL ONE (15:52)
[2018-11-23] MEDS ORDERED: SUCCINYLCHOLINE CHLORIDE 20 MG/ML 10 ML VIAL ONE (15:52)
[2018-11-23] MEDS ORDERED: PHENYLEPHRINE 100MCG/ML 5ML SYR IV PRN (16:07)
[2018-11-23] MEDS ORDERED: fentaNYL citrate 100 MCG/2 ML VIAL IV PRN (16:07)
[2018-11-23] MEDS ORDERED: ePHEDrine sulfate 50 MG/ML AMP IV PRN (16:07)
[2018-11-23] MEDS ORDERED: ATROPINE SULFATE 0.1 MG/ML 10ML SYR IV PRN (16:07)
--- NOTE | 2018-11-23 16:29 | GI REPORT ---
Patient Name: Evens Osborn Procedure Date: 11/23/2018 4:23 PM Date of : 1930 Admit Type: Inpatient Age: 88 Gender: Male Attending MD: Cindy Jeronimo DO Procedure: Upper GI endoscopy Providers: Cindy Jeronimo DO Referring MD: Roque Molina Indications: Epigastric abdominal pain, Follow-up of duodenal ulcer Medicines: Monitored Anesthesia Care Complications: No immediate complications. Estimated blood loss: Minimal. Estimated Blood Loss: Estimated blood loss was minimal. Procedure: Pre-Anesthesia Assessment: - Prior to the procedure, a History and Physical was performed, and patient medications, allergies and sensitivities were reviewed. The patient's tolerance of previous anesthesia was reviewed. - The risks and benefits of the procedure and the sedation options and risks were discussed with the patient. All questions were answered and informed consent was obtained. - Patient identification and proposed procedure were verified prior to the procedure by the physician, the nurse and the team leader/research psychologist. The procedure was verified in the procedure room. - Pre-procedure physical examination revealed no contraindications to sedation. - After reviewing the risks and benefits, the patient was deemed in satisfactory condition to undergo the procedure. - The anesthesia plan was to use monitored anesthesia care (MAC). - Immediately prior to administration of medications, the patient was re-assessed for adequacy to receive sedatives. - The heart rate, respiratory rate, oxygen saturations, blood pressure, adequacy of pulmonary ventilation, and response to care were monitored throughout the procedure. - The physical status of the patient was re-assessed after the procedure. After obtaining informed consent, the endoscope was passed under direct vision. Throughout the procedure, the patient's blood pressure, pulse, and oxygen saturations were monitored continuously. The Endoscope was introduced through the mouth, and advanced to the third part of duodenum. The upper GI endoscopy was accomplished without difficulty. The patient tolerated the procedure well. Findings: The examined esophagus was normal. The Z-line was regular and was found 38 cm from the incisors. The entire examined stomach was normal. The examined duodenum was normal. Impression: - Normal esophagus. - Z-line regular, 38 cm from the incisors. - Normal stomach. - Normal examined duodenum. - No specimens collected. Recommendation: - Perform an upper endoscopic ultrasound (UEUS) today. Marten Jeronimo, D.Bong Jeronimo DO 11/23/2018 4:29:12 PM This report has been signed electronically. Note Initiated On: 11/23/2018 4:23 PM Number of Addenda: 0 I attest to the content of the Intraoperative Record and orders documented therein, exceptions below {[id number]}
--- NOTE | 2018-11-23 17:05 | Post Operative Brief Note ---
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
--- NOTE | 2018-11-23 17:19 | GI REPORT ---
Patient Name: Evens Osborn Procedure Date: 11/23/2018 4:29 PM Date of : 1930 Admit Type: Inpatient Age: 88 Gender: Male Attending MD: Cindy Jeronimo DO Procedure: Upper EUS Providers: Cindy Jeronimo DO Referring MD: Roque Molina Indications: Suspected mass in pancreas on CT scan Medicines: Monitored Anesthesia Care Complications: No immediate complications. Estimated blood loss: Minimal. Estimated Blood Loss: Estimated blood loss was minimal. Procedure: Pre-Anesthesia Assessment: - Prior to the procedure, a History and Physical was performed, and patient medications, allergies and sensitivities were reviewed. The patient's tolerance of previous anesthesia was reviewed. - The risks and benefits of the procedure and the sedation options and risks were discussed with the patient. All questions were answered and informed consent was obtained. - Patient identification and proposed procedure were verified prior to the procedure by the physician, the nurse and the international sales representative. The procedure was verified in the procedure room. - Pre-procedure physical examination revealed no contraindications to sedation. - ASA Grade Assessment: III - A patient with severe systemic disease. - After reviewing the risks and benefits, the patient was deemed in satisfactory condition to undergo the procedure. - The anesthesia plan was to use monitored anesthesia care (MAC). - Immediately prior to administration of medications, the patient was re-assessed for adequacy to receive sedatives. - The heart rate, respiratory rate, oxygen saturations, blood pressure, adequacy of pulmonary ventilation, and response to care were monitored throughout the procedure. - The physical status of the patient was re-assessed after the procedure. After obtaining informed consent, the endoscope was passed under direct vision. Throughout the procedure, the patient's blood pressure, pulse, and oxygen saturations were monitored continuously. The Endosonoscope was introduced through the mouth, and advanced to the second part of duodenum. The upper EUS was accomplished without difficulty. The patient tolerated the procedure well. The Endosonoscope was introduced through the mouth, and advanced to the second part of duodenum. Findings: Endosonographic Finding : Moderate hyperechoic material consistent with sludge was visualized endosonographically in the gallbladder. There was dilation in the common bile duct which measured up to 11 mm. There was no sign of significant endosonographic abnormality in the left lobe of the liver. Homogeneous parenchyma, no focal pathology and no masses were identified. There was no sign of significant endosonographic abnormality in the left adrenal gland. No adrenal gland enlargement was identified. No lymphadenopathy seen. An oval mass was identified in the region of the pancreatic head and proximal bile duct. The mass was hypoechoic. The mass measured 19 mm by 19 mm in maximal cross-sectional diameter. The endosonographic borders were well-defined.. The remainder of the pancreas was examined. The endosonographic appearance of parenchyma and the upstream pancreatic duct indicated duct dilation and parenchymal atrophy. Fine needle aspiration for cytology was performed. Color Doppler imaging was utilized prior to needle puncture to confirm a lack of significant vascular structures within the needle path. Four passes were made with the 22 gauge needle (1 pass) and with the 25 gauge needle (3 passes) using a transduodenal approach. A stylet was used. A home health travel ot was present and performed a preliminary cytologic examination. Final cytology results are pending. Estimated blood loss was minimal. Impression: - Hyperechoic material consistent with sludge was visualized endosonographically in the gallbladder. - There was dilation in the common bile duct which measured up to 11 mm. - There was no evidence of significant pathology in the left lobe of the liver. - Endosonographic images of the left adrenal gland were unremarkable. - A 19 mass was identified in the region of the pancreatic head. 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 Fine needle aspiration performed. Recommendation: - Return patient [facility] for [facility] care. - Advance diet as tolerated today. - Cipro (ciprofloxacin) 400 mg IV q 12 hr for 3 days. - Await cytology results. - MRCP over the weekend please. Cindy Jeronimo D.O. Cindy Jeronimo, 11/23/2018 5:19:22 PM This report has been signed electronically. Note Initiated On: 11/23/2018 4:29 PM Number of Addenda: 0 I attest to the content of the Intraoperative Record and orders documented therein, exceptions below {[id number]}
--- NOTE | 2018-11-23 17:39 | Anesthesiology Progress Note ---
Date of Service November 23, 2018 Anesthesia Post Procedure Vital Signs Vital Signs: Temp Pulse Pulse Pulse Resp BP BP 11/23/18 17:30 36.7 C 72 21 11/23/18 17:20 74 22 11/23/18 17:10 36.3 C L 76 17 11/23/18 16:07 37.0 C 131 H 17 11/23/18 15:51 37.0 C 76 20 11/23/18 15:30 111 H 11/23/18 14:56 36.6 C 95 H 20 133/79 11/23/18 11:29 36.7 C 66 20 113/69 11/23/18 07:16 36.4 C L 67 20 112/68 11/23/18 03:00 34.2 C L 11/23/18 01:34 60 11/23/18 00:30 62 18 145/62 H 11/23/18 00:19 63 15 119/67 11/22/18 23:24 60 16 117/67 11/22/18 22:36 73 18 149/75 H 11/22/18 19:37 60 18 117/66 11/22/18 17:54 36.5 C 90 18 135/89 BP Pulse Ox 11/23/18 17:30 103/50 L 99 11/23/18 17:20 101/43 L 99 11/23/18 17:10 87/52 L 100 11/23/18 16:07 110/67 96 11/23/18 15:51 123/73 98 11/23/18 15:30 11/23/18 14:56 98 11/23/18 11:29 95 11/23/18 07:16 98 11/23/18 03:00 11/23/18 01:34 11/23/18 00:30 96 11/23/18 00:19 92 11/22/18 23:24 11/22/18 22:36 98 11/22/18 19:37 98 11/22/18 17:54 100 Pain Intensity Medial Abdomen: Pain Intensity: 0 Notes Mental Status: alert / awake / arousable Patient Amnestic to Procedure: Yes Nausea / Vomiting: adequately controlled Pain: adequately controlled Airway Patency, RR, SpO2: stable & adequate BP & HR: stable & adequate Hydration State: stable & adequate Anesthetic Complications: no major complications apparent
[2018-11-23] MEDS: CIPROFLOXACIN 400 MG/200 ML BAG IV SCH (18:28)
[2018-11-23] MEDS: CHOLECALCIFEROL 1,000 UNITS TAB PO SCH (21:18)
[2018-11-23] MEDS: FINASTERIDE 5 MG TAB PO SCH (21:18)
[2018-11-24] MEDS: SOTALOL HCL 80 MG TAB PO SCH ×3 (00:42→20:45)
[2018-11-24 06:09] LABS: Basophils # (auto) 0.01 K/uL (0-0.2); Basophils % (auto) 0.2 %; Eosinophils # (auto) 0.04 K/uL (0-0.5); Eosinophils % (auto) 0.7 %; Immature Granulocytes # (auto) 0.01 K/uL (0.00-0.02); Immature Granulocytes % (auto) 0.2 %; Lymphocytes # (auto) 0.88 K/uL (1.2-3.4); Lymphocytes % (auto) 16.1 %; Mean Corpuscular Hgb Conc 34.4 g/dL (32-36); Mean Corpuscular Volume 94.7 fL (80-100); Mean Platelet Volume 9.7 fL (7.4-10.4); Monocytes # (auto) 0.74 K/uL (0.11-0.59); Monocytes % (auto) 13.6 %; Neutrophils # (auto) 3.78 K/uL (1.4-6.5); Neutrophils % (auto) 69.2 %; Platelet Count 117 K/uL (130-400); RDW Coefficient of Variation 14.7 % (11.5-14.5); RDW Standard Deviation 50.7 fL (36.4-46.3); Red Blood Count 3.38 M/uL (4.7-6.1); White Blood Count 5.46 K/uL (4.8-10.8)
[2018-11-24] MEDS: CIPROFLOXACIN 400 MG/200 ML BAG IV SCH (06:11)
[2018-11-24] MEDS: LEVOTHYROXINE SODIUM 50 MCG TABLET PO SCH (06:12)
[2018-11-24 06:16] LABS: INR 1.5 (0.9-1.1); Prothrombin Time 14.8 Seconds (9.0-12.0)
[2018-11-24 06:44] LABS: BUN Creatinine Ratio 17.2 (10-20); Calcium 7.4 mg/dl (8.5-10.1); Creatinine Clr Calc Pharmacy 83.9 ml/min; Est GFR (African American) 107.8; Potassium 3.3 mmol/L (3.5-5.1)
[2018-11-24 06:47] LABS: Albumin Globulin Ratio 0.7 (0.9-2); Bilirubin,Total 1.7 mg/dl (0.2-1); Globulin 2.7 gm/dl (2.5-4.0); Total Protein 4.7 gm/dl (6.4-8.2)
[2018-11-24] MEDS: ATORVASTATIN 10 MG TAB PO SCH (08:21)
[2018-11-24] MEDS: PANTOprazole 40 MG TAB PO SCH (08:21)
[2018-11-24] MEDS: INSULIN ASPART 100 UNITS/ML 3 ML PEN SC SCH ×4 (08:22→20:55)
--- NOTE | 2018-11-24 15:12 | Hospitalist Progress Note ---
Date of Service November 24, 2018 Assessment & Plan (1) Mass of pancreas: EUS on 11/23, no complications discussed with Dr. 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 biopsies taken but will take a few days for results since it is the weekend he recommended MRCP to look for other lesions in biliary tract results still pending at this time CA 19-9 drawn, will be pending still on discharge if he is strong enough we will d/c to [facility] tomorrow get PT/OT evaluations prior to discharge (2) Dilated pancreatic duct: due to mass confirmed on EUS and biopsied (3) Dilated intrahepatic bile duct: due to pancreatic mass Bilirubin minimally elevated and alk phos minimally elevated no indication for ERCP/stent at this time certainly in the future he may require ERCP if bile duct completely obstructed (4) Atrial fibrillation: h/o sick sinus and pacer hold Coumadin over the weekend with recent biopsy safe to resume on 11/26 (5) Pacemaker: (6) History of deep venous thrombosis or pulmonary embolus: INR 1.5 again today hold Coumadin as described above (7) History of upper gastrointestinal bleeding: continue Protonix, no evidence of bleeding currently (8) Unintended weight loss: likely due to mass supportive care, nutritional support (9) Diabetes: continue Novolog SS patient now eating no longer on D5 monitor for hypoglycemia (10) Hypokalemia: PO replacement ordered labs tomorrow Subjective patient doing well today, ate after his MRCP completed results still pending discussed the plan with him, to follow up with GI for pathology asked CM to arrange transport back to [facility] the facility has some concerns about his strength, requested PT/OT evaluations prior to going back discussed with patient, he is okay with staying reviewed labs today, Hb 11, plt 117 INR 1.5, K is 3.3, Bili 1.[address] Jeronimo about his recommendations Review of Systems All systems reviewed & are unremarkable except as noted in HPI & below Constitutional: + fatigue and + weakness Respiratory: no dyspnea Gastrointestinal: no abdominal pain, no nausea, no vomiting, no constipation and no diarrhea/loose stools Physical Exam 2 Vital Signs (Past 24 Hours): Last Vital Signs Temp 37.0 C 11/24/18 12:00 Pulse 83 11/24/18 15:00 Resp 20 11/24/18 12:00 BP 123/75 11/24/18 12:00 Pulse Ox 97 11/24/18 12:00 Constitutional: WD/WN, vitals as above + thin Eyes: PERRL, conjunctivae normal, anicteric sclerae ENMT: external ear and nose normal, oropharynx normal Neck: trachea midline, no thyromegaly Respiratory: normal respiratory effort, lungs clear to auscultation Cardiovascular: RRR, no murmur, no edema Gastrointestinal (Abdomen): normal bowel sounds, soft, nontender, no hepatosplenomegaly Musculoskeletal: no cyanosis or clubbing, extremities motor strength 5/5 Skin: no rashes, warm and dry Neurologic: patellar DTR's 2+ bilat, sensation intact and PERRL, EOMI, accommodation nl, no face palsy, no dysarthria Psychiatric: A+Ox3, euthymic affect Lymphatic: no cervical or axillary lymphadenopathy Results & Data Laboratory Results Laboratory Results - last 24 hr 11/23/18 11/23/18 11/23/18 15:54 17:16 18:45 WBC RBC Hgb Hct MCV MCH MCHC RDW Std Deviation RDW Coeff of Zane Plt Count MPV Immature Gran % (Auto) Neut % (Auto) Lymph % (Auto) Sac % (Auto) Eos % (Auto) Baso % (Auto) Immature Gran # (Auto) Neut # (Auto) Lymph # (Auto) Sac # (Auto) Eos # (Auto) Baso # (Auto) PT INR Sodium Potassium Chloride Carbon Dioxide Anion Gap BUN Creatinine Est Cr Clr Drug Dosing Est GFR ( Amer) Est GFR (Non-Af Amer) BUN/Creatinine Ratio Glucose POC Glucose 170 H 189 H 166 H Calcium Total Bilirubin AST ALT Alkaline Phosphatase Total Protein Albumin Globulin Albumin/Globulin Ratio 11/23/18 11/24/18 11/24/18 20:30 05:19 05:19 WBC 5.46 RBC 3.38 L Hgb 11.0 L Hct 32.0 L MCV 94.7 MCH 32.5 MCHC 34.4 RDW Std Deviation 50.7 H RDW Coeff of Zane 14.7 H Plt Count 117 L MPV 9.7 Immature Gran % (Auto) 0.2 Neut % (Auto) 69.2 Lymph % (Auto) 16.1 Sac % (Auto) 13.6 Eos % (Auto) 0.7 Baso % (Auto) 0.2 Immature Gran # (Auto) 0.01 Neut # (Auto) 3.78 Lymph # (Auto) 0.88 L Sac # (Auto) 0.74 H Eos # (Auto) 0.04 Baso # (Auto) 0.01 PT 14.8 H INR 1.5 H Sodium Potassium Chloride Carbon Dioxide Anion Gap BUN Creatinine Est Cr Clr Drug Dosing Est GFR ( Amer) Est GFR (Non-Af Amer) BUN/Creatinine Ratio Glucose POC Glucose 203 H Calcium Total Bilirubin AST ALT Alkaline Phosphatase Total Protein Albumin Globulin Albumin/Globulin Ratio 11/24/18 11/24/18 11/24/18 05:19 07:42 11:39 WBC RBC Hgb Hct MCV MCH MCHC RDW Std Deviation RDW Coeff of Zane Plt Count MPV Immature Gran % (Auto) Neut % (Auto) Lymph % (Auto) Sac % (Auto) Eos % (Auto) Baso % (Auto) Immature Gran # (Auto) Neut # (Auto) Lymph # (Auto) Sac # (Auto) Eos # (Auto) Baso # (Auto) PT INR Sodium 138 Potassium 3.3 L Chloride 104 Carbon Dioxide 28 Anion Gap 6.0 BUN 10 Creatinine 0.56 L Est Cr Clr Drug Dosing 83.9 Est GFR ( Amer) 107.8 Est GFR (Non-Af Amer) 93.0 BUN/Creatinine Ratio 17.2 Glucose 152 H POC Glucose 177 H 231 H Calcium 7.4 L Total Bilirubin 1.7 H AST 21 ALT 31 Alkaline Phosphatase 105 Total Protein 4.7 L Albumin 2.0 L Globulin 2.7 Albumin/Globulin Ratio 0.7 L Medications Administered Current Inpatient Medications Acetaminophen (Tylenol) 1,000 mg PO Q8H PRN PRN Reason: Pain Stop: 12/23/18 14:46 Atorvastatin Calcium (Lipitor) 10 mg PO QAM OPAL Stop: 12/23/18 08:59 Last Admin: 11/24/18 08:21 Dose: 10 mg Dextrose (Dextrose 50%) 25 - 50 ml IV UD PRN; Protocol PRN Reason: Hypoglycemia Protocol Stop: 12/23/18 01:13 Last Admin: 11/23/18 02:29 Dose: 25 ml Finasteride (Proscar) 5 mg PO HS OPAL Stop: 12/23/18 20:59 Last Admin: 11/23/18 21:18 Dose: 5 mg Glucose (Glucose 40%) 15 - 30 gm PO UD PRN; Protocol PRN Reason: Hypoglycemia Protocol Stop: 12/23/18 01:13 Last Admin: 11/23/18 02:10 Dose: 15 gm Ciprofloxacin (Cipro) 400 mg in 200 mls @ 100 mls/hr IV Q12H OPAL Stop: 11/24/18 17:59 Last Infusion: 11/24/18 08:24 Dose: Infused Insulin Aspart (Novolog Flexpen) 0 units SC ACHS OPAL Stop: 12/23/18 20:59 Last Admin: 11/24/18 13:37 Dose: 5 units Ioversol (Optiray 320 100ml) 95 ml IV ONCE PRN PRN Reason: Interaction Checking Stop: 11/26/18 19:05 Last Admin: 11/22/18 19:06 Dose: 95 ml Levothyroxine Sodium (Synthroid) 50 mcg PO DAILYBB OPAL Stop: 12/23/18 06:29 Last Admin: 11/24/18 06:12 Dose: 50 mcg Miscellaneous (Carbohydrates For Hypoglycemia) 15 - 30 gm PO UD PRN PRN Reason: Hypoglycemia Treatment Stop: 12/23/18 01:13 Ondansetron HCl (Zofran) 4 mg IV Q6H PRN PRN Reason: Nausea Stop: 12/23/18 00:40 Pantoprazole Sodium (Protonix) 40 mg PO QAM OPAL Stop: 12/23/18 08:59 Last Admin: 11/24/18 08:21 Dose: 40 mg Sotalol HCl (Betapace) 40 mg PO BID OPAL Stop: 12/23/18 22:44 Last Admin: 11/24/18 08:21 Dose: 40 mg Vitamin D (Vitamin D3) 2,000 units PO QPM OPAL Stop: 12/23/18 20:59 Last Admin: 11/23/18 21:18 Dose: 2,000 units
--- NOTE | 2018-11-24 17:28 | Magnetic Resonance Report ---
MRCP CLINICAL HISTORY: Intrahepatic biliary ductal dilatation and pancreatic ductal dilatation. COMPARISON STUDY: Abdominal CT dated 11/22/2018. TECHNIQUE: Abdominal MRCP is performed utilizing various T2-weighted sequences in the axial and coron al planes. IV contrast was not administered for this examination. 3-D reformats are created and asses sed. The examination is significantly compromised by motion artifact. FINDINGS: The gallbladder is distended. No gallstones are identified. There is no convincing evidence of choled ocholithiasis. The common bile duct is markedly dilated, measuring up to 14 mm in diameter. There is moderate to severe intrahepatic biliary ductal dilatation. There are no filling defects within the co mmon bile duct to suggest choledocholithiasis. Additionally, there is significant dilatation of the p ancreatic duct. This measures up to 8 mm. There is a sharp cut off of the distal common bile duct near the pancreatic head. There is also cut o ff of the pancreatic duct at this site. There is significant narrowing of the superior mesenteric vei n in this region. This constellation of findings is highly concerning for a mass lesion at the level of the pancreatic head/ampulla. A mass lesion is not well delineated on today's examination. The heart is enlarged. A trace left pleural effusion is noted. There is a small volume of upper abdom inal ascites. The liver is heterogeneous in signal intensity. The spleen is grossly unremarkable, as are the adrenal glands. Numerous tiny sidebranch IPMNs are suggested in the pancreas. The kidneys dem onstrate cortical atrophy and are without hydronephrosis. A cyst in the left upper pole measures up t o 18 mm. The abdominal aorta is normal in caliber. Fecal retention is noted throughout the colon. No bowel obstruction is identified. The partially visualized bladder is distended with evidence of chron ic outlet obstruction. IMPRESSION: 1. Motion compromised examination. 2. Again seen is marked dilatation of the intra- and extrahepatic bile ducts as well as the pancreati c duct. These findings remain highly concerning for a mass lesion at the level of the pancreatic head /ampulla, and this was better assessed on the 11/22/2018 CT scan. No mass lesion was delineated on th is examination. ERCP would be appropriate for further interrogation. 3. There is a small volume of abdominal ascites, new from 11/22/2018. 4. A trace left pleural effusion is also new from previous. Dictated: 11/24/2018 2:15 PM Transcribed: 11/24/2018 5:27 PM Concepcion [id number] JOSE ELIAS_Wadsworth Electronically signed by: Austen Castrejon M.D. 11/24/2018 7:31 PM
[2018-11-24] MEDS: CHOLECALCIFEROL 1,000 UNITS TAB PO SCH (20:45)
[2018-11-24] MEDS: POTASSIUM CHLORIDE 20 MEQ TABCR PO SCH (20:46)
[2018-11-24] MEDS: FINASTERIDE 5 MG TAB PO SCH (20:46)
[2018-11-25 05:22] LABS: INR 1.3 (0.9-1.1); Prothrombin Time 12.5 Seconds (9.0-12.0)
[2018-11-25 05:35] LABS: BUN Creatinine Ratio 17.5 (10-20); Calcium 7.2 mg/dl (8.5-10.1); Creatinine Clr Calc Pharmacy 79.6 ml/min; Est GFR (African American) 105.5; Potassium 3.5 mmol/L (3.5-5.1)
[2018-11-25 05:38] LABS: Albumin Globulin Ratio 0.7 (0.9-2); Bilirubin,Total 1.6 mg/dl (0.2-1); Globulin 2.8 gm/dl (2.5-4.0); Total Protein 4.8 gm/dl (6.4-8.2)
[2018-11-25] MEDS: LEVOTHYROXINE SODIUM 50 MCG TABLET PO SCH (06:25)
[2018-11-25] MEDS: SOTALOL HCL 80 MG TAB PO SCH (08:17)
[2018-11-25] MEDS: POTASSIUM CHLORIDE 20 MEQ TABCR PO SCH (08:17)
[2018-11-25] MEDS: PANTOprazole 40 MG TAB PO SCH (08:18)
[2018-11-25] MEDS: INSULIN ASPART 100 UNITS/ML 3 ML PEN SC SCH (08:18)
[2018-11-25] MEDS: ATORVASTATIN 10 MG TAB PO SCH (08:18)
--- NOTE | 2018-11-25 12:23 | Discharge Summary ---
Date of Service November 25, 2018 Admission HPI Per Admitting Provider Evens is an 88-year-old male resident of [facility] who presents with nonspecific abdominal pain. His past medical history is significant for recurrent pancreatitis as well as lymphoma, esophageal dysmotility and gastroparesis. Recent medical history is also notable for new onset diabetes 1 month ago and 15 pound unintentional weight loss over the last 6 months as well as fatigue. In the ED, abdomen and pelvis CT was done and significant for markedly dilated pancreatic duct measuring up to 9 mm in diameter which is a significant change from previous CT done 05/17/2018 highly concerning for an obstructing mass lesion at the pancreatic head. No definite pancreatic mass lesion is identified. Homogenous parenchyma. Trace fluid around the distal pancreas. No lymphadenopathy. Chronic outlet obstruction is evident, small fat-containing right inguinal hernia. No lytic or blastic lesions are seen in the skeletal structures. Patient was admitted for further evaluation and possible ERCP. PMH: 1. Lymphoma, status post radiation, 10 years ago 2. Chronic pancreatitis since the 3. Laryngospasm historically requiring Botox injections 4. Esophageal dysmotility disorder, status post esophageal dilatation 5. History of gastroparesis on Reglan, Reglan stopped 7 years ago with no current issues. 6. History of bleeding ulcer, cauterized by Dr. Prado 2 years ago 7. History of PE, history of DVT in lower extremity, on Coumadin 8. Tachybradycardia syndrome, status post pacemaker 9. History of BCC and actinic keratoses, status post Mohs surgery Past surgical history: Bleeding ulcer cauterization as above, esophageal dilatation as above Family history: Sister lung cancer, mother CVA, father suicide Social history: Lives at [facility] with his . Smoked 1 cigar/day for 30 years but quit 40 years ago. Occasional alcohol 1 glass of wine every 2-3 days , no illicit drug use. Admission Exam Per Admitting Provider Vitals noted as above and within normal limits GENERAL: Awake, alert to person, place, and time, nontoxic-appearing, in no distress. Very thin. HENT: Normocephalic, atraumatic. . Mucus membranes appear moist. EYES: Normal conjunctiva. Sclera non-icteric. EOMI. NECK: Supple. Full range of motion. No JVD RESPIRATORY: Clear to auscultation. Normal work of breathing. CARDIAC: Regular rate, paced rhythm. Extremities warm and well perfused, 2+ radial pulses bilaterally; 2+ posterior tibialis pulses bilaterally. ABDOMEN: Soft, non-distended. No tenderness to palpation in all four quadrants. No rebound or guarding. Right inguinal hernia palpated. Bowel sounds are normal. LOWER EXTREMITIES: Inspection of calves reveal equal size bilaterally. They are non-tender. Trace edema. No discoloration. Left calf slightly larger than right. Patient states this is chronic for him. NEURO: No focal gross focal motor deficits noted. Sensation in tact. CN II-XII grossly in tact. SKIN: Rash not present. No jaundice noted. Significant lesions not present. PSYCH: Appropriate mood and affect. Cooperative. Principal Diagnosis Pancreatic mass Discharge Exam Constitutional WD/WN, vitals as above + thin Eyes PERRL, conjunctivae normal, anicteric sclerae ENMT external ear and nose normal, oropharynx normal Neck trachea midline, no thyromegaly Respiratory normal respiratory effort, lungs clear to auscultation Cardiovascular RRR, no murmur, no edema Gastrointestinal (Abdomen) normal bowel sounds, soft, nontender, no hepatosplenomegaly Musculoskeletal no cyanosis or clubbing, extremities motor strength 5/5 Skin no rashes, warm and dry Neurologic patellar DTR's 2+ bilat, sensation intact and PERRL, EOMI, accommodation nl, no face palsy, no dysarthria Psychiatric A+Ox3, euthymic affect Lymphatic no cervical or axillary lymphadenopathy Discharge Data Allergies Allergy/AdvReac Type Severity Reaction Status Date / Time doxycycline Allergy Unknown rash Unverified 10/30/18 10:17 Penicillins Allergy Unknown Unknown Verified 10/30/18 10:17 Consultations 11/22/18 19:53 ED Decision to Admit Stat 11/23/18 11:50 Consult Gastroenterology Routine Procedures Performed Operation Date: 11/23/18 14:00 Actual Procedures p Upper Endoscopic Ultrasonography, esophagoduodenoscopy, (Not Applicable) - Cindy Jeronimo Ordered Studies 11/22/18 18:21 CT abd pelvis IV con only Stat 11/23/18 16:22 US upper EUS PACS images Routine 11/24/18 08:59 MR MRCP Urgent Hospital Course (1) Mass of pancreas: EUS on 11/23, no complications discussed with Dr. 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 biopsies taken but will take a few days for results since it is the weekend he recommended MRCP to look for other lesions in biliary tract MRCP on 11/24, no other massess seen in biliary duct system CA 19-9 drawn, pending still on discharge d/c to [facility] independent living, walked independently in the joshi today with therapy will be on Cipro for two more doses for prophylaxis after the biopsy hold Coumadin on 11/25 but can resume on 11/[address] Jeronimo this week for pathology results and further recommendations discussed this with patient's (2) Dilated pancreatic duct: due to mass confirmed on EUS and biopsied (3) Dilated intrahepatic bile duct: due to pancreatic mass Bilirubin minimally elevated and alk phos minimally elevated no indication for ERCP/stent at this time certainly in the future he may require ERCP if bile duct completely obstructed (4) Atrial fibrillation: h/o sick sinus and pacer hold Coumadin over the weekend with recent biopsy safe to resume on 11/26 continue Sotalol (5) Pacemaker: (6) History of deep venous thrombosis or pulmonary embolus: INR 1.3 today hold Coumadin as described above resume on 11/26 (7) History of upper gastrointestinal bleeding: continue Protonix, no evidence of bleeding currently (8) Unintended weight loss: likely due to mass supportive care, nutritional support recommend Boost or Ensure three times a day with meals, try to increase protein intake (9) Diabetes: resume prior regimen of Levemir (10) Hypokalemia: PO replacement ordered resolved Total Time Total Time Spent Total Time Spent (In Minutes): 40 minutes Total Time Includes: Examination of the Patient, Discharge Planning, Medication Reconciliation, Communication With Other Providers (Dr. Jeronimo) and Other ( discussion with patient's family) Discharge Plan Discharge Items Patient Disposition: Home - Self-Care Reason For Visit: PANCREATIC MASS, ABDOMINAL PAIN Discharge Diagnosis: Mass in head of the pancreas Condition: Good Discharge Goals: Improve function, Improve nutritional status and Specific goals Specific Goals: follow up with Dr. Jeronimo for pathology results Activity: Resume your previous activity Non-emergency contact: Primary Care Provider and Asl Interpreter Call non-emergency contact if: you have any medication questions, your symptoms worsen, your pain is not controlled and you have a fever Diet: Carb Consistent or DM2 Addtl Provider Instructions: Medications: - CIPROFLOXACIN: complete two more doses per direction of gastroenterology - SOTALOL: listed as new but that is because it was not on initial list Pancreatic mass seen on initial CT of the abdomen, showed dilation of pancreatic duct endoscopic ultrasound with Dr. Jeronimo on 11/23, showed mass in the duct biopsies taken, they are still pending no indication for ERCP or stent placement in the bile duct because bilirubin stable MRI on 11/24 showed only the mass in the pancreas, no masses in liver complete two more doses of cipro, this is just preventative after biopsy HOLD coumadin today, can resume tomorrow Plan: get rest and try to improve nutrition recommend glucose control Boost or Ensure three times a day in addition to meals FOLLOW UP - Dr. Jeronimo, cement tester assistant, later this week for pathology results his office should contact you if you do not hear from them tomorrow then call [phone] during your follow up visit, Dr. Jeronimo will discuss the diagnosis and what steps should be taken next possible referral to oncologic surgeon and oncology but he will make those recommendations Prescriptions: New sotalol 80 mg Tablet 40 mg PO BID 30 Days Qty: 30 RF: 1 ciprofloxacin HCl 250 mg tablet 250 mg PO Q12H Qty: 2 RF: 0 Continue warfarin 5 mg tablet 5 mg PO HS RF: 0 atorvastatin 10 mg tablet 10 mg PO QAM RF: 0 levothyroxine 50 mcg tablet 50 mcg PO QAM RF: 0 pantoprazole 40 mg tablet,delayed release (DR/EC) 40 mg PO QAM RF: 0 finasteride 5 mg tablet 5 mg PO HS RF: 0 insulin detemir U-100 100 unit/mL (3 mL) insulin pen 14 units subcut HS RF: 0 cholecalciferol (vitamin D3) [Vitamin D3] 2,000 unit Capsule 2,000 units PO QPM RF: 0 warfarin 2 mg tablet 2 mg PO HS RF: 0 Stand-Alone Forms: [facility] Discharge Orders: Discharge Order (Routine); Ordered 11/25/18 Ordered By: Roque Molina Admission Data Admit Date/Time: 11/22/18 23:05 Attending Provider: Roque Molina Admit Provider: Kizzy Peralta Primary Care Provider: Marie Hansen Other Providers: Edmar Bello ; Rosa Molina ; Phil Orellana ; Mary Brooke ; Abdiaziz Neal ; Cindy Jeronimo ; Joceline Salazar ; Lilia Leavitt ; Nico Sterling ; Orlando Crowder ; Isabella Jones ; Evelina Coon ; Sheela Izaguirre ; Kami Amado ; Madie Pepper Service: Telemetry Medical Other Interventions: Discharge Summary Assessment (RN) Last Done: 11/25/18 11:38
== END 2018-11-25 12:41 | disposition home or self-care (01) | DRG 436 ==
LOC: ED 17:45 → SUATTDRO 23:05 → 2N 23:05

== ENCOUNTER 2018-11-29 05:55 | Inpatient (IN) ==
[2018-11-29 06:58] LABS: Eosinophils # (auto) 0.02 K/uL (0-0.5); Eosinophils % (auto) 0.4 %; Hematocrit (blood only) 31.2 % (42-52); Hemoglobin 10.8 g/dL (14.0-18.0); Immature Granulocytes # (auto) 0.02 K/uL (0.00-0.02); Immature Granulocytes % (auto) 0.4 %; Lymphocytes # (auto) 0.17 K/uL (1.2-3.4); Mean Corpuscular Hgb Conc 34.6 g/dL (32-36); Mean Corpuscular Volume 94.3 fL (80-100); Mean Platelet Volume 9.9 fL (7.4-10.4); Monocytes # (auto) 0.24 K/uL (0.11-0.59); Monocytes % (auto) 4.3 %; Neutrophils # (auto) 5.19 K/uL (1.4-6.5); Neutrophils % (auto) 91.9 %; Platelet Count 101 K/uL (130-400); RDW Coefficient of Variation 14.3 % (11.5-14.5); Red Blood Count 3.31 M/uL (4.7-6.1); White Blood Count 5.64 K/uL (4.8-10.8)
[2018-11-29 07:25] LABS: Appearance Urine Clear (Clear); Bilirubin Urine Negative (Negative); Color Urine Yellow; Glucose Urine UA Negative (Negative); Ketones Urine Negative (Negative); Leukocyte Esterase Urine Negative (Negative); Nitrite Urine Negative (Negative); Protein Urine Negative (Negative); Specific Gravity Urine 1.014 (1.000-1.030); Urobilinogen Urine Negative (Negative); pH Urine 7.5 (4.5-7.5)
[2018-11-29 08:14] LABS: INR 1.3 (0.9-1.1); Prothrombin Time 12.5 Seconds (9.0-12.0)
[2018-11-29 08:24] LABS: Albumin Level 2.1 gm/dl (3.4-5.0); Calcium 7.8 mg/dl (8.5-10.1); Creatinine Clr Calc Pharmacy 69.1 ml/min; Est GFR (African American) 99.5; Est GFR (Non-African American) 85.9; Potassium 3.8 mmol/L (3.5-5.1)
[2018-11-29 08:27] LABS: Albumin Globulin Ratio 0.7 (0.9-2); Bilirubin,Total 1.1 mg/dl (0.2-1); Total Protein 5.1 gm/dl (6.4-8.2)
[2018-11-29] MEDS ORDERED: IOVERSOL 100ml IV PRN (09:19)
--- NOTE | 2018-11-29 09:37 | CT Scan Report ---
CT abd pelvis IV con only CLINICAL HISTORY: lower abd pain COMPARISON STUDY: 11/22/2018 TECHNIQUE: The patient was scanned in a dynamic helical fashion during intravenous administration of 92 cc of Optiray 320. A dose lowering technique was utilized adhering to the principles of ALARA. CT DOSE: 350.62 mGy.cm FINDINGS: Lower chest: The heart is mildly enlarged. There is basilar atelectasis. Liver: There is evidence for intra and extrahepatic biliary ductal dilatation. The degree of ductal d ilatation is slightly diminished when compared the preceding study. No focal hepatic masses are visua lized. Gallbladder: The gallbladder is mildly distended. No calculi are visualized. Spleen: The spleen is mildly enlarged measuring 12.7 cm Pancreas: There are changes of chronic pancreatitis with pancreatic calcifications. There is persiste nt pancreatic ductal dilatation measuring up to 6 mm. Venous narrowing at the portal splenic confluen ce. Adrenal glands: Unremarkable. Kidneys: There is a 12 mm left renal cyst. There is no hydronephrosis. No solid renal masses are visu alized. Bowel: There are no transition zones indicate bowel obstruction. There is fecal retention. Correlate clinically for symptoms of constipation. The appendix appears normal. There is no acute diverticuliti s. Peritoneum: There is no intraperitoneal free. There is trace ascites. There are small fat-containing hernias. Vasculature: The abdominal aorta is normal in course and caliber. Adenopathy: None. Pelvic viscera: The prostate is enlarged. There are bladder trabeculation/septations, likely secondar y to chronic bladder outlet obstruction. Skeletal structures: No destructive osseous lesions are seen. IMPRESSION: 1. Persistent intra and extrahepatic biliary ductal dilatation. Persistent pancreatic ductal dilatati on. The degree of intrahepatic biliary ductal dilatation is slightly diminished when compared the pre ceding study 2. Changes of chronic pancreatitis 3. 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 Trace ascites 5. Fecal retention. Correlate for clinical signs of constipation 6. Possible megaly with evidence of chronic bladder outlet obstruction 7. Normal appendix. No evidence of acute diverticulitis. Electronically signed by: Aamir Giles M.D. 11/29/2018 9:36 AM
--- NOTE | 2018-11-29 10:44 | History & Physical Report ---
Addendum entered and electronically signed by Alicia De Leon PA-C 11/29/18 12:29: Addendum (Blank) Addendum November 29, 2018 12:28 Discussed again with GI - will hold off on antibiotics at this time as no white count and afebrile. Dr. Jeronimo plans to review pts chart and determine if further procedure indicated. Appreciate GI recs. Original Note: Date of Service November 29, 2018 Assessment & Plan (1) Pancreatitis: (2) Mass of pancreas: (3) Dilated intrahepatic bile duct: (4) Dilated pancreatic duct: (5) Elevated LFTs: - Admit to tele - Pt initially hypotensive, with abdominal pain, and significantly elevated AST= 176, JHM=026, alk qszd=856. - Consult GI for possible MRCP and stent placement. Reviewed MRI from 11/24, which shows intra and extrahepatic biliary ductal dilation. - have spoken with Sheela Izaguirre and will await formal consultation for further recs - Follow LFTs with am labs - NPO for elevated [id number]=[id number] - NSS at 80ml/hr - Cover with cefazolin and metronidazole for possible cholangitis in the setting of elevated lfts and abdominal pain with pancreatic mass. - Follow pathology reports for pancreatic mass biopsy, in process. - GI prophylaxis with pantoprazole (6) Unintended weight loss: - Seconday to pancreatic mass - Continue on boost daily for protein supplementation (7) History of deep venous thrombosis or pulmonary embolus: - Continue coumadin (8) Atrial fibrillation: Continue anticoagulation with coumadin. 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 (11) HTN (hypertension): - Hold sotolol 40 mg BID for hypotension upon admission, resume when able. (12) Bilateral hip pain: - Will check bilateral hip xray with new onset pain - CT reviewed but does not show osseous fracture. - Morphine IV 1-2 mg (13) Hyperlipidemia: - Continue statin therapy (14) Diabetes: - Hold outpatient levemir 8 U BID while NPO, use ISS with accuchecks. - Last A1C =10.7 on 11/23/18 (15) Thrombocytopenia: - PLT 101, follow with am labs, have trended down since last admission. (16) Hypothyroidism: - Continue levothyroxine 50 mcg daily (17) DVT prophylaxis: - Continue coumadin. History of Present Illness Chief Complaint: Abdominal pain, lower Primary Care Provider: Tristenoctavia Hansen This is an 88 yo M with PMHx of Lymphoma,s/p radiation 10 years ago, chronic pancreatitis, esophageal dysmotility s/p esophageal dilation, gastroparesis, laryngospasm, bleeding ulcer, cauterized by Dr. 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 Pt was recently admitted from 11/22-11/25 and underwent EUS with bx obtained, which is still pending. CA-19 was elevated a 553. During previous admission his LFTs and bili were within normal limits. Pt underwent and MRI on 11/24 which showed moderate to severe intrahepatic biliary ductal dilatation up to 14 mm. There was also dilation of the pancreatic duct up to 8 mm. Today LFTs have significantly increased. Pt presented with lower abdominal pain while sitting at the edge of the bed, across his hips bilaterally and was unable to get up. He notes having chills overnight but no fevers. He has been using tylenol for pain. Pt currently denies abdominal pain during my exam, denies bloating or distension. He had a BM this morning. Pt admits to 15 lb weight loss in past 6 months and feels his muscle mass has significantly reduced. He was running/walking 3 mi daily before 6 months ago. Allergies Allergy/AdvReac Type Severity Reaction Status Date / Time doxycycline Allergy Unknown rash Unverified 11/29/18 06:19 Penicillins Allergy Unknown Unknown Verified 11/29/18 06:19 Home Medications Home Medications Medication Instructions Recorded Confirmed Type atorvastatin 10 mg PO QAM 10/22/18 11/29/18 History cholecalciferol (vitamin D3) 2,000 units PO QPM 10/22/18 11/29/18 History [Vitamin D3] finasteride 5 mg PO HS 10/22/18 11/29/18 History levothyroxine 50 mcg PO QAM 10/22/18 11/29/18 History pantoprazole 40 mg PO QAM 10/22/18 11/29/18 History sotalol 40 mg PO BID 30 Days #30 tab 11/25/18 11/29/18 Rx ferrous sulfate 325 mg PO BID 11/29/18 11/29/18 History insulin detemir U-100 [Levemir 8 unit SUBCUT BID 11/29/18 11/29/18 History FlexTouch U-100 Insuln] vitamin B complex 1 tab PO DAILY 11/29/18 11/29/18 History warfarin 4 mg PO QPM 11/29/18 11/29/18 History Past Med/Surg History Medical History Thrombocytopenia Bilateral hip pain Hypothyroidism Pancreatitis Elevated LFTs Diabetes Mass of pancreas (Acute) Unintended weight loss History of deep venous thrombosis or pulmonary embolus Pacemaker 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 Atrial fibrillation (Chronic) HTN (hypertension) (Chronic) Hyperlipidemia (Chronic) Tachy-logan syndrome (Acute) S/p PM placement GI bleed Diabetes 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 Pulmonary embolism 10 years ago Surgical History H/O esophagogastroduodenoscopy H/O local excision of skin lesion S/P cardiac cath 2011 S/P placement of cardiac pacemaker 2014 Social History Current Living Situation: Spouse and Personal Care Facility Current Living Situation Comment: [facility] Other Information That Helps Us Care for You: No Feels Safe at Home: Yes Safety Concerns: Feels Safe At This Time Smoking Status: Former smoker Do You Dip or Chew Tobacco: No Second Hand Exposure: No Tobacco Cessation Education Requested by Patient: No Hx Alcohol Use: Yes Alcohol type: wine Alcohol Intake Frequency: holidays/ special occasions only Hx Substance Use: No Beliefs That Will Affect Care: None Preferred Language: Zimbabwean Communication Ability: Effective Tin Flopper Required: No Review of Systems Constitutional: no fever, no chills, no sweats and no fatigue Eyes: no diplopia and no worsening vision Ear, Nose, Mouth, Throat: no dizziness, no nasal discharge, no facial pain and no sore throat Respiratory: no cough, no dyspnea and no wheezing Cardiovascular: no chest pain, no palpitations, no lightheadedness and no syncope Gastrointestinal: as per Subjective / HPI; no nausea, no vomiting, no change in bowel habits, no constipation and no diarrhea/loose stools no diarrhea Genitourinary (Male): no dysuria, no urinary frequency, no urinary hesitancy and no hematuria Musculoskeletal: no back pain, no joint pain, no swelling and no muscle weakness Integumentary: no rash, no lesions and no wounds Neurologic: no gait abnormality, no falls, no numbness, no dizziness and no syncope Psychiatric: no depression and no anxiety Endocrine: no fatigue Physical Exam 2 Vital Signs (Past 24 Hours): Last Vital Signs Temp 37.3 C 11/29/18 06:00 Pulse 95 H 11/29/18 06:53 Resp 18 11/29/18 07:00 BP 90/49 L 11/29/18 07:00 Pulse Ox 98 11/29/18 07:00 Physical Exam: General: awake, alert, no apparent distress, +thin Head: Normocephalic, atraumatic ENT: PERRL, EOMI, no pharyngeal exudate, mucous membranes moist Chest: +diminished at the left base with faint crackles, otherwise clear throughout, on room air. Cardiac: Regular rate and rhythm, + AKILA grade III/, no JVD, normal peripheral pulses, good capillary refill Abdominal: NABS x 4 quadrants, soft, +mild distension, nontender to palpation, no rebound, guarding or tenderness Extremities: Normal inspection, 2+ peripheral edema of ankles and calfs bilaterally, no erythema, calfs nontender to palpation Psych: Normal mood and affect Neuro: AAO x 3, no motor deficits, speech is clear, no peripheral sensory deficits Results & Data Diagnostic Findings CT abd pelvis IV con only CLINICAL HISTORY: lower abd pain COMPARISON STUDY: 11/22/2018 TECHNIQUE: The patient was scanned in a dynamic helical fashion during intravenous administration of 92 cc of Optiray 320. A dose lowering technique was utilized adhering to the principles of ALARA. CT DOSE: 350.62 mGy.cm FINDINGS: Lower chest: The heart is mildly enlarged. There is basilar atelectasis. Liver: There is evidence for intra and extrahepatic biliary ductal dilatation. The degree of ductal dilatation is slightly diminished when compared the preceding study. No focal hepatic masses are visualized. Gallbladder: The gallbladder is mildly distended. No calculi are visualized. Spleen: The spleen is mildly enlarged measuring 12.7 cm Pancreas: There are changes of chronic pancreatitis with pancreatic calcifications. There is persistent pancreatic ductal dilatation measuring up to 6 mm. Venous narrowing at the portal splenic confluence. Adrenal glands: Unremarkable. Kidneys: There is a 12 mm left renal cyst. There is no hydronephrosis. No solid renal masses are visualized. Bowel: There are no transition zones indicate bowel obstruction. There is fecal retention. Correlate clinically for symptoms of constipation. The appendix appears normal. There is no acute diverticulitis. Peritoneum: There is no intraperitoneal free. There is trace ascites. There are small fat-containing hernias. Vasculature: The abdominal aorta is normal in course and caliber. Adenopathy: None. Pelvic viscera: The prostate is enlarged. There are bladder trabeculation/ septations, likely secondary to chronic bladder outlet obstruction. Skeletal structures: No destructive osseous lesions are seen. IMPRESSION: 1. Persistent intra and extrahepatic biliary ductal dilatation. Persistent pancreatic ductal dilatation. The degree of intrahepatic biliary ductal dilatation is slightly diminished when compared the preceding study 2. Changes of chronic pancreatitis 3. 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 Trace ascites 5. Fecal retention. Correlate for clinical signs of constipation 6. Possible megaly with evidence of chronic bladder outlet obstruction 7. Normal appendix. No evidence of acute diverticulitis. Electronically signed by: Aamir Giles M.D. 11/29/2018 9:36 AM Code Status & VTE Plan Code Status DNR - Discussion was held with the patient and his at bedside. Supervising Physician Co-Signing Physician Notes Pt seen examined in conjunction with MINERVA Rosa. Orders and plan of admission formulated with MINERVA. 88 y/o M Hx of Lymphoma 10 years ago, chronic pancreatitis, esophageal dysmotility, gastroparesis, laryngospasm, PUD, previous PE/DVT on coumadin, tachybrady syndrome - pacemaker - recent diagnosis of a pancreatic head/ampulla mass. MRI 11/24 showing moderate to severe intrahepatic biliary ductal dilatation up to 14 mm and dilation of the pancreatic duct up to 8 mm. Presents with increasing abdominal pain. Intial labs demonstrating significant LFT elevation and there is concern for biliary obstruction. 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
[2018-11-29] MEDS ORDERED: MoRPHine SULFATE 2 MG/ML CARP ONE (10:58)
[2018-11-29] MEDS ORDERED: MoRPHine SULFATE 4 MG/ML 1 ML CARP\\VIAL IV STA (11:00)
--- NOTE | 2018-11-29 11:15 | Gastrointestinal Consultation ---
Date of Consultation November 29, 2018 Assessment & Plan (1) Bilateral hip pain: (2) Mass of pancreas: Pt is a 88 y/o male here w bilateral hip pain, worse w straight leg raises and hip rotation. 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 Labs today did show new LFT elevation. Though his abd exam is benign today, and no jaundice, he did report some chills last night but afebrile. - Monitor LFTs - Discussed case with Drs. Coon and Phani: can defer antibiotic use at this time given less likely has developing cholangitis. Will also defer ERCP at this time unless he starts to develop jaundice, abd pain, fevers. Will await EUS path result. - Recommend hip/pelvis xray to further evaluate hip pain. Primary team to follow. Present on Admission?: Yes Supervising Physician Co-Signing Physician Notes I have seen and examined the patient with JONI Choudhury whose note reflects our findings and plan. Discussed with Dr. Jeronimo. Awaiting path from the EUS biopsy which was done. Will watch LFTs. No plan for ERCP at this time. History of Present Illness Reason for Consultation: Lower abdominal pain Requesting Physician: MINERVA Harley Attending Physician: Dr. Evelina Coon History of Present Illness Pt is a 88 y/o male currently seen in ED for lower abd pain symptoms which started and woke him up from sleep today at 3AM. He kept referring to the pain as at his "hips" area and cannot get positionally comfortable. He has hx of L leg neuropathy, took Tylenol this AM for the pain but not relieved. He had been seen by our GI team last week (Dr. Jeronimo and JONI Davison) for obstructing pancreas head mass, biliary and pancreatic duct dilation workup. He is s/p EUS by Dr. Jeronimo 11/23/18, FNA cytology pending but he's suspected to have cholangiocarcinoma. CA 19-9 elevated at 553. He had normal LFTs then so ERCP was deferred last week. It is noted today however that LFTs are significantly increased: T bili 1.1, AST 176, ALT 109, Alk phos 189, Lipase 991. On exam he is non tender to palpation on abdomen areas. He denies any jaundice, nausea, vomiting. Last BM in ED and he denies being constipated. His bilateral his pain is reproducible when he does raise straight leg raises and whenever R hip is externally rotated. Repeat CT abd/pelvis w contrast today showed: 1. Persistent intra and extrahepatic biliary ductal dilatation. Persistent pancreatic ductal dilatation. The degree of intrahepatic biliary ductal dilatation is slightly diminished when compared the preceding study 2. Changes of chronic pancreatitis 3. 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 Trace ascites 5. Fecal retention. Correlate for clinical signs of constipation 6. Possible megaly with evidence of chronic bladder outlet obstruction 7. Normal appendix. No evidence of acute diverticulitis. Allergies Allergy/AdvReac Type Severity Reaction Status Date / Time doxycycline Allergy Unknown rash Unverified 11/29/18 06:19 Penicillins Allergy Unknown Unknown Verified 11/29/18 06:19 Home Medications Home Medications Medication Instructions Recorded Confirmed Type atorvastatin 10 mg PO QAM 10/22/18 11/29/18 History cholecalciferol (vitamin D3) 2,000 units PO QPM 10/22/18 11/29/18 History [Vitamin D3] finasteride 5 mg PO HS 10/22/18 11/29/18 History levothyroxine 50 mcg PO QAM 10/22/18 11/29/18 History pantoprazole 40 mg PO QAM 10/22/18 11/29/18 History sotalol 40 mg PO BID 30 Days #30 tab 11/25/18 11/29/18 Rx ferrous sulfate 325 mg PO BID 11/29/18 11/29/18 History insulin detemir U-100 [Levemir 8 unit SUBCUT BID 11/29/18 11/29/18 History FlexTouch U-100 Insuln] vitamin B complex 1 tab PO DAILY 11/29/18 11/29/18 History warfarin 4 mg PO QPM 11/29/18 11/29/18 History Patient History Medical History Thrombocytopenia Bilateral hip pain Hypothyroidism Pancreatitis Elevated LFTs Diabetes Mass of pancreas (Acute) Unintended weight loss History of deep venous thrombosis or pulmonary embolus Pacemaker 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 Atrial fibrillation (Chronic) HTN (hypertension) (Chronic) Hyperlipidemia (Chronic) Tachy-logan syndrome (Acute) S/p PM placement GI bleed Diabetes 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 Pulmonary embolism 10 years ago Surgical History H/O esophagogastroduodenoscopy H/O local excision of skin lesion S/P cardiac cath 2011 S/P placement of cardiac pacemaker 2014 Social History Current Living Situation: Spouse and Personal Care Facility Current Living Situation Comment: [place] Other Information That Helps Us Care for You: No Feels Safe at Home: Yes Safety Concerns: Feels Safe At This Time Smoking Status: Former smoker Do You Dip or Chew Tobacco: No Second Hand Exposure: No Tobacco Cessation Education Requested by Patient: No Hx Alcohol Use: Yes Alcohol type: wine Alcohol Intake Frequency: holidays/ special occasions only Hx Substance Use: No Beliefs That Will Affect Care: None Preferred Language: Frisian Communication Ability: Effective Hoeing Row Boss Required: No Review of Systems Constitutional: as per Subjective / HPI and + chills; no fever Respiratory: no cough and no dyspnea Cardiovascular: no chest pain Gastrointestinal: as per Subjective / HPI; no abdominal pain, no nausea, no vomiting, no change in stools and no constipation Musculoskeletal: as per Subjective / HPI c/o bilateral hip pain Neurologic: as per Subjective / HPI has L leg neuropathy Physical Exam 2 Vital Signs (Past 24 Hours): Last Vital Signs Temp 37.3 C 11/29/18 06:00 Pulse 95 H 11/29/18 06:53 Resp 18 11/29/18 07:00 BP 90/49 L 11/29/18 07:00 Pulse Ox 98 11/29/18 07:00 Constitutional: + thin, cooperative and + in distress (appears to be in pain, cannot feel comfortable with position changes) Eyes: PERRL, conjunctivae normal, anicteric sclerae ENMT: external ear and nose normal, oropharynx normal Respiratory: normal respiratory effort, lungs clear to auscultation Cardiovascular: RRR, no murmur, no edema Gastrointestinal (Abdomen): Inspection/Auscultation: + hypoactive bowel sounds Percussion/Palpation: abdomen soft; abdomen nontender Skin: no rashes, warm and dry no jaundice Neurologic: Motor/Sensory: no asterixis Psychiatric: A+Ox3, euthymic affect Lymphatic: no lymphedema Results & Data Laboratory Results Laboratory Results - last 48 hr 11/29/18 11/29/18 11/29/18 06:50 06:50 06:50 WBC 5.64 RBC 3.31 L Hgb 10.8 L Hct 31.2 L MCV 94.3 MCH 32.6 MCHC 34.6 RDW Std Deviation 49.0 H RDW Coeff of Zane 14.3 Plt Count 101 L MPV 9.9 Immature Gran % (Auto) 0.4 Neut % (Auto) 91.9 Lymph % (Auto) 3.0 [place] % (Auto) 4.3 Eos % (Auto) 0.4 Baso % (Auto) 0.0 Immature Gran # (Auto) 0.02 Neut # (Auto) 5.19 Lymph # (Auto) 0.17 L [place] # (Auto) 0.24 Eos # (Auto) 0.02 Baso # (Auto) 0.00 PT Cancelled INR Cancelled APTT Cancelled PTT Ratio Cancelled Sodium Cancelled Potassium Cancelled Chloride Cancelled Carbon Dioxide Cancelled Anion Gap Cancelled BUN Cancelled Creatinine Cancelled Est Cr Clr Drug Dosing Cancelled Est GFR ( Amer) Cancelled Est GFR (Non-Af Amer) Cancelled BUN/Creatinine Ratio Cancelled Glucose Cancelled Calcium Cancelled Total Bilirubin Cancelled AST Cancelled ALT Cancelled Alkaline Phosphatase Cancelled Total Protein Cancelled Albumin Cancelled Globulin Cancelled Albumin/Globulin Ratio Cancelled Lipase Cancelled Urine Color Urine Appearance Urine pH Ur Specific [place] Urine Protein Urine Glucose (UA) Urine Ketones Urine Blood Urine Nitrite Urine Bilirubin Urine Urobilinogen Ur Leukocyte Esterase 11/29/18 11/29/18 11/29/18 07:10 07:40 07:40 WBC RBC Hgb Hct MCV MCH MCHC RDW Std Deviation RDW Coeff of Zane Plt Count MPV Immature Gran % (Auto) Neut % (Auto) Lymph % (Auto) [place] % (Auto) Eos % (Auto) Baso % (Auto) Immature Gran # (Auto) Neut # (Auto) Lymph # (Auto) [place] # (Auto) Eos # (Auto) Baso # (Auto) PT 12.5 H INR 1.3 H APTT PTT Ratio Sodium 137 Potassium 3.8 Chloride 101 Carbon Dioxide 29 Anion Gap 7.0 BUN 14 Creatinine 0.68 Est Cr Clr Drug Dosing 69.1 Est GFR ( Amer) 99.5 Est GFR (Non-Af Amer) 85.9 BUN/Creatinine Ratio 20.0 Glucose 155 H Calcium 7.8 L Total Bilirubin 1.1 H AST 176 H ALT 109 H Alkaline Phosphatase 185 H Total Protein 5.1 L Albumin 2.1 L Globulin 3.0 Albumin/Globulin Ratio 0.7 L Lipase 991 H Urine Color Yellow Urine Appearance Clear Urine pH 7.5 Ur Specific [place] 1.014 Urine Protein Negative Urine Glucose (UA) Negative Urine Ketones Negative Urine Blood Negative Urine Nitrite Negative Urine Bilirubin Negative Urine Urobilinogen Negative Ur Leukocyte Esterase Negative 11/29/18 07:40 WBC RBC Hgb Hct MCV MCH MCHC RDW Std Deviation RDW Coeff of Zane Plt Count MPV Immature Gran % (Auto) Neut % (Auto) Lymph % (Auto) [place] % (Auto) Eos % (Auto) Baso % (Auto) Immature Gran # (Auto) Neut # (Auto) Lymph # (Auto) [place] # (Auto) Eos # (Auto) Baso # (Auto) PT INR APTT 25.0 PTT Ratio 1.0 Sodium Potassium Chloride Carbon Dioxide Anion Gap BUN Creatinine Est Cr Clr Drug Dosing Est GFR ( Amer) Est GFR (Non-Af Amer) BUN/Creatinine Ratio Glucose Calcium Total Bilirubin AST ALT Alkaline Phosphatase Total Protein Albumin Globulin Albumin/Globulin Ratio Lipase Urine Color Urine Appearance Urine pH Ur Specific [place] Urine Protein Urine Glucose (UA) Urine Ketones Urine Blood Urine Nitrite Urine Bilirubin Urine Urobilinogen Ur Leukocyte Esterase Diagnostic Findings CT abd/pelvis w contrast as noted in HPI above.
[2018-11-29] MEDS ORDERED: HYDROmorphone INJ 0.5 MG/0.5 ML SYR IV STA (11:42)
[2018-11-29] MEDS ORDERED: GLUCAGON FOR INJ 1 MG VIAL SQ PRN (13:01)
[2018-11-29] MEDS ORDERED: GLUCOSE 40% GEL 15 GM TUBE PO PRN (13:01)
[2018-11-29] MEDS ORDERED: GLUCOSE 10 TABS/TUBE PO PRN (13:01)
[2018-11-29] MEDS ORDERED: DEXTROSE 50% 50 ML SYRINGE IV PRN (13:01)
--- NOTE | 2018-11-29 14:16 | XRay Report ---
XR pelvis 1-2V routine CLINICAL HISTORY: Bilateral hip pain. COMPARISON: CT of the abdomen and pelvis November 22, 2018. FINDINGS: There is contrast within the bladder from recent contrast-enhanced CT. Smooth indentation on the base of the bladder is likely due to an enlarged prostate. Sacroiliac joints and symphysis pub is are intact. There is no acute fracture or suspicious lesion within the pelvis or the hips. There i s mild right and mild to moderate left hip osteoarthrosis. IMPRESSION: 1. No acute fracture within the pelvis or hips. 2. 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 Electronically signed by: Chris Hunter M.D. 11/29/2018 2:15 PM
[2018-11-29] MEDS: SODIUM CHLORIDE 0.9% 1000ML 1,000 ML IV SCH (14:21)
--- NOTE | 2018-11-29 14:22 | Emergency Department Note ---
Entered by Francisca Perla acting as a scribe for Melvin Correa MD History of Present Illness General Chief complaint: Abdominal Pain Time Seen by Provider: 11/29/18 06:28 Source: patient Mode of arrival: EMS History of Present Illness Provider complaint: abdominal pain Onset (ago): hour(s) (2.5) Location: abdomen (lower) Severity: severe and similar to prior episodes Pain Consistency: + other (persistent) Quality: + other (abdominal pain) Associated symptoms: + other (back pain. Denies: bloody or black stools, nausea , vomiting, fevers, difficulty having bowel movements. , chest pain, shortness of breath, groin pain or swelling. ) The patient is an 88 year old male who presents to the Emergency Room with complaints of persistent, severe lower abdominal pain beginning 2.5 hours ago. He notes the pain is on both the left and right side of his abdomen. The patient denies bloody or black stools, nausea, vomiting, fevers, difficulty having bowel movements, chest pain, shortness of breath, or groin pain or swelling. He reports back pain. The patient notes a history of similar symptoms 1 week ago, and states his pain was higher up in his abdomen that time. He states he has lost about 15 lbs in the past month. 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 Home Medications Home Medications Medication Instructions Recorded Confirmed Type atorvastatin 10 mg PO QAM 10/22/18 11/29/18 History cholecalciferol (vitamin D3) 2,000 units PO QPM 10/22/18 11/29/18 History [Vitamin D3] finasteride 5 mg PO HS 10/22/18 11/29/18 History levothyroxine 50 mcg PO QAM 10/22/18 11/29/18 History pantoprazole 40 mg PO QAM 10/22/18 11/29/18 History sotalol 40 mg PO BID 30 Days #30 tab 11/25/18 11/29/18 Rx ferrous sulfate 325 mg PO BID 11/29/18 11/29/18 History insulin detemir U-100 [Levemir 8 unit SUBCUT BID 11/29/18 11/29/18 History FlexTouch U-100 Insuln] vitamin B complex 1 tab PO DAILY 11/29/18 11/29/18 History warfarin 4 mg PO QPM 11/29/18 11/29/18 History Allergies Allergy/AdvReac Type Severity Reaction Status Date / Time doxycycline Allergy Unknown rash Unverified 11/29/18 06:19 Penicillins Allergy Unknown Unknown Verified 11/29/18 06:19 Past Med/Surg History Medical History Thrombocytopenia Bilateral hip pain Hypothyroidism Pancreatitis Elevated LFTs Diabetes Mass of pancreas (Acute) Unintended weight loss History of deep venous thrombosis or pulmonary embolus Pacemaker 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 Atrial fibrillation (Chronic) HTN (hypertension) (Chronic) Hyperlipidemia (Chronic) Tachy-logan syndrome (Acute) S/p PM placement GI bleed Diabetes 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 Pulmonary embolism 10 years ago Surgical History H/O esophagogastroduodenoscopy H/O local excision of skin lesion S/P cardiac cath 2011 S/P placement of cardiac pacemaker 2014 Social History Current Living Situation: Spouse and Personal Care Facility Current Living Situation Comment: [place] Other Information That Helps Us Care for You: No Feels Safe at Home: Yes Safety Concerns: Feels Safe At This Time Smoking Status: Former smoker Do You Dip or Chew Tobacco: No Second Hand Exposure: No Tobacco Cessation Education Requested by Patient: No Hx Alcohol Use: Yes Alcohol type: wine Alcohol Intake Frequency: holidays/ special occasions only Hx Substance Use: No Beliefs That Will Affect Care: None Preferred Language: Bruneian Communication Ability: Effective Drug Department Worker Required: No Review of Systems See HPI for pertinent positives & negatives. and A total of 10 systems reviewed and were otherwise negative Physical Exam Vital Signs Vital Signs - 24 hr 11/29/18 06:00 11/29/18 06:53 11/29/18 07:00 Temperature 37.3 C Temperature Source Oral Sepsis Recent Fever Within 48 Hours No Sepsis New/Unexplained Change in Mental Status No Sepsis Action Taken by Nursing No Action Required Pulse Rate 93 H 95 H Pulse Rate [Left] Pulse Rhythm Regular Pulse Rhythm [Left] Pulse Strength Normal Pulse Strength [Left] Respiratory Rate 18 16 18 Respiratory Effort / Characteristics Non-Labored Non-Labored Respiratory Depth Normal Normal Respiratory Pattern Regular Regular Blood Pressure 142/81 H Blood Pressure [Left Arm] 90/49 L Blood Pressure Mean 101 Blood Pressure Mean [Left Arm] 62 Blood Pressure Position Lying Blood Pressure Position [Left Arm] Lying Pulse Oximetry 94 98 98 Oxygen Delivery Method Room Air Room Air Room Air 11/29/18 09:00 11/29/18 12:00 11/29/18 13:10 Temperature 36.9 C Temperature Source Oral Sepsis Recent Fever Within 48 Hours Sepsis New/Unexplained Change in Mental Status Sepsis Action Taken by Nursing Pulse Rate Pulse Rate [Left] 82 86 Pulse Rhythm Pulse Rhythm [Left] Regular Regular Pulse Strength Pulse Strength [Left] Normal Normal Respiratory Rate 18 Respiratory Effort / Characteristics Non-Labored Spontaneous Non-Labored Non-Labored Spontaneous Respiratory Depth Normal Normal Normal Respiratory Pattern Regular Regular Blood Pressure Blood Pressure [Left Arm] 96/53 L 112/48 L Blood Pressure Mean Blood Pressure Mean [Left Arm] 67 69 Blood Pressure Position Blood Pressure Position [Left Arm] Lying Lying Pulse Oximetry 97 94 Oxygen Delivery Method Room Air Room Air Room Air General: Non-ill appearing older male in no acute distress. HEENT: Normal cephalic atraumatic. Pupils are equal round and reactive to light. Extraocular movements are intact. Oropharynx is pink with moist mucous membranes. No swelling of the mouth lips or tongue. Neck: Supple with a midline trachea. No meningeal signs or stiffness, no JVD or bruits. No Stridor. Chest: Clear to auscultation bilaterally. No wheezes or rhonchi. No increased work of breathing. Heart: regular rate and rhythm. Abdomen: Soft nontender, nondistended without rebound guarding or rigidity. Extremities: No cyanosis clubbing or edema. No calf tenderness or assymetry Spine/Back. Non tender to palpation. No CVA tenderness Skin: Good turgor without rashes. Neurologic exam: Cranial nerves two through 12 are intact. Motor and sensation are intact and symmetrical throughout. Course 0630: Past medical records reviewed. The patient was evaluated in room A11B, and a complete history and physical examination were performed. 727: I reevaluated and updated the patient. 32: Upon reevaluation, the patient is sleeping and waiting for CT. 48: I reviewed the patient's case with Alicia De Leon PA-C, [facility] hospitalist. She will evaluate the patient. Consultations Consultation #1: Alicia De Leon PA-C, [facility] hospitalist Time: 09:48 Administered Medications Ioversol (Optiray 320 100ml) 92 ml IV ONCE PRN PRN Reason: Interaction Checking Stop: 12/03/18 09:18 Last Admin: 11/29/18 09:22 Dose: 92 ml Discontinued Medications Hydromorphone HCl (Dilaudid) 0.5 mg IV NOW STA Stop: 11/29/18 11:43 Last Admin: 11/29/18 12:09 Dose: 0.5 mg Morphine Sulfate (Morphine Sulfate) Confirm Administered Dose 2 mg .ROUTE .STK- MED ONE Stop: 11/29/18 10:59 Last Admin: 11/29/18 11:01 Dose: 2 mg Medical Decision Making Differential Diagnosis Etiologies considered include diverticulitis, pancreatitis, UTI, kidney stone, aneurysm, infection. Medical Records Attestation: I reviewed the patient's medical records. Home Medications Current Medication List: was personally reviewed by me Laboratory Data Attestation: I reviewed the patient's lab results. Result diagrams: 11/29/18 06:50 11/29/18 07:40 Lab Results 11/29/18 11/29/18 11/29/18 Range/Units 06:50 06:50 06:50 WBC 5.64 (4.8-10.8) K/uL RBC 3.31 L (4.7-6.1) M/uL Hgb 10.8 L (14.0-18.0) g/dL Hct 31.2 L (42-52) % MCV 94.3 (80-100) fL MCH 32.6 (25-34) pg MCHC 34.6 (32-36) g/dL RDW Std Deviation 49.0 H (36.4-46.3) fL RDW Coeff of Zane 14.3 (11.5-14.5) % Plt Count 101 L (130-400) K/uL MPV 9.9 (7.4-10.4) fL Immature Gran % (Auto) 0.4 % Neut % (Auto) 91.9 % Lymph % (Auto) 3.0 % [place] % (Auto) 4.3 % Eos % (Auto) 0.4 % Baso % (Auto) 0.0 % Immature Gran # (Auto) 0.02 (0.00-0.02) K/uL Neut # (Auto) 5.19 (1.4-6.5) K/uL Lymph # (Auto) 0.17 L (1.2-3.4) K/uL [place] # (Auto) 0.24 (0.11-0.59) K/uL Eos # (Auto) 0.02 (0-0.5) K/uL Baso # (Auto) 0.00 (0-0.2) K/uL PT Cancelled INR Cancelled APTT Cancelled PTT Ratio Cancelled Sodium Cancelled Potassium Cancelled Chloride Cancelled Carbon Dioxide Cancelled Anion Gap Cancelled BUN Cancelled Creatinine Cancelled Est Cr Clr Drug Dosing Cancelled Est GFR ( Amer) Cancelled Est GFR (Non-Af Amer) Cancelled BUN/Creatinine Ratio Cancelled Glucose Cancelled POC Glucose (70-99) Calcium Cancelled Total Bilirubin Cancelled AST Cancelled ALT Cancelled Alkaline Phosphatase Cancelled Total Protein Cancelled Albumin Cancelled Globulin Cancelled Albumin/Globulin Ratio Cancelled Lipase Cancelled Urine Color Urine Appearance (Clear) Urine pH (4.5-7.5) Ur Specific [place] (1.000-1.030) Urine Protein (Negative) Urine Glucose (UA) (Negative) Urine Ketones (Negative) Urine Blood (Negative) Urine Nitrite (Negative) Urine Bilirubin (Negative) Urine Urobilinogen (Negative) Ur Leukocyte Esterase (Negative) 11/29/18 11/29/18 11/29/18 Range/Units 07:10 07:40 07:40 WBC (4.8-10.8) K/uL RBC (4.7-6.1) M/uL Hgb (14.0-18.0) g/dL Hct (42-52) % MCV (80-100) fL MCH (25-34) pg MCHC (32-36) g/dL RDW Std Deviation (36.4-46.3) fL RDW Coeff of Zane (11.5-14.5) % Plt Count (130-400) K/uL MPV (7.4-10.4) fL Immature Gran % (Auto) % Neut % (Auto) % Lymph % (Auto) % [place] % (Auto) % Eos % (Auto) % Baso % (Auto) % Immature Gran # (Auto) (0.00-0.02) K/uL Neut # (Auto) (1.4-6.5) K/uL Lymph # (Auto) (1.2-3.4) K/uL [place] # (Auto) (0.11-0.59) K/uL Eos # (Auto) (0-0.5) K/uL Baso # (Auto) (0-0.2) K/uL PT 12.5 H INR 1.3 H APTT PTT Ratio Sodium 137 Potassium 3.8 Chloride 101 Carbon Dioxide 29 Anion Gap 7.0 BUN 14 Creatinine 0.68 Est Cr Clr Drug Dosing 69.1 Est GFR ( Amer) 99.5 Est GFR (Non-Af Amer) 85.9 BUN/Creatinine Ratio 20.0 Glucose 155 H POC Glucose (70-99) Calcium 7.8 L Total Bilirubin 1.1 H AST 176 H ALT 109 H Alkaline Phosphatase 185 H Total Protein 5.1 L Albumin 2.1 L Globulin 3.0 Albumin/Globulin Ratio 0.7 L Lipase 991 H Urine Color Yellow Urine Appearance Clear (Clear) Urine pH 7.5 (4.5-7.5) Ur Specific [place] 1.014 (1.000-1.030) Urine Protein Negative (Negative) Urine Glucose (UA) Negative (Negative) Urine Ketones Negative (Negative) Urine Blood Negative (Negative) Urine Nitrite Negative (Negative) Urine Bilirubin Negative (Negative) Urine Urobilinogen Negative (Negative) Ur Leukocyte Esterase Negative (Negative) 11/29/18 11/29/18 Range/Units 07:40 13:05 WBC (4.8-10.8) K/uL RBC (4.7-6.1) M/uL Hgb (14.0-18.0) g/dL Hct (42-52) % MCV (80-100) fL MCH (25-34) pg MCHC (32-36) g/dL RDW Std Deviation (36.4-46.3) fL RDW Coeff of Zane (11.5-14.5) % Plt Count (130-400) K/uL MPV (7.4-10.4) fL Immature Gran % (Auto) % Neut % (Auto) % Lymph % (Auto) % [place] % (Auto) % Eos % (Auto) % Baso % (Auto) % Immature Gran # (Auto) (0.00-0.02) K/uL Neut # (Auto) (1.4-6.5) K/uL Lymph # (Auto) (1.2-3.4) K/uL [place] # (Auto) (0.11-0.59) K/uL Eos # (Auto) (0-0.5) K/uL Baso # (Auto) (0-0.2) K/uL PT INR APTT 25.0 PTT Ratio 1.0 Sodium Potassium Chloride Carbon Dioxide Anion Gap BUN Creatinine Est Cr Clr Drug Dosing Est GFR ( Amer) Est GFR (Non-Af Amer) BUN/Creatinine Ratio Glucose POC Glucose 140 H (70-99) Calcium Total Bilirubin AST ALT Alkaline Phosphatase Total Protein Albumin Globulin Albumin/Globulin Ratio Lipase Urine Color Urine Appearance (Clear) Urine pH (4.5-7.5) Ur Specific [place] (1.000-1.030) Urine Protein (Negative) Urine Glucose (UA) (Negative) Urine Ketones (Negative) Urine Blood (Negative) Urine Nitrite (Negative) Urine Bilirubin (Negative) Urine Urobilinogen (Negative) Ur Leukocyte Esterase (Negative) Imaging Data Radiologist's Impression: Radiology results as stated below per my review and the radiologist's interpretation: CT abd pelvis IV con only CLINICAL HISTORY: lower abd pain COMPARISON STUDY: 11/22/2018 TECHNIQUE: The patient was scanned in a dynamic helical fashion during intravenous administration of 92 cc of Optiray 320. A dose lowering technique was utilized adhering to the principles of ALARA. CT DOSE: 350.62 mGy.cm FINDINGS: Lower chest: The heart is mildly enlarged. There is basilar atelectasis. Liver: There is evidence for intra and extrahepatic biliary ductal dilatation. The degree of ductal dilatation is slightly diminished when compared the preceding study. No focal hepatic masses are visualized. Gallbladder: The gallbladder is mildly distended. No calculi are visualized. Spleen: The spleen is mildly enlarged measuring 12.7 cm Pancreas: There are changes of chronic pancreatitis with pancreatic calcifications. There is persistent pancreatic ductal dilatation measuring up to 6 mm. Venous narrowing at the portal splenic confluence. Adrenal glands: Unremarkable. Kidneys: There is a 12 mm left renal cyst. There is no hydronephrosis. No solid renal masses are visualized. Bowel: There are no transition zones indicate bowel obstruction. There is fecal retention. Correlate clinically for symptoms of constipation. The appendix appears normal. There is no acute diverticulitis. Peritoneum: There is no intraperitoneal free. There is trace ascites. There are small fat-containing hernias. Vasculature: The abdominal aorta is normal in course and caliber. Adenopathy: None. Pelvic viscera: The prostate is enlarged. There are bladder trabeculation/ septations, likely secondary to chronic bladder outlet obstruction. Skeletal structures: No destructive osseous lesions are seen. IMPRESSION: 1. Persistent intra and extrahepatic biliary ductal dilatation. Persistent pancreatic ductal dilatation. The degree of intrahepatic biliary ductal dilatation is slightly diminished when compared the preceding study 2. Changes of chronic pancreatitis 3. 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 Trace ascites 5. Fecal retention. Correlate for clinical signs of constipation 6. Possible megaly with evidence of chronic bladder outlet obstruction 7. Normal appendix. No evidence of acute diverticulitis. Electronically signed by: Aamir Giles M.D. 11/29/2018 9:36 AM Blood Pressure Blood Pressure Findings: Normal blood pressure Blood Pressure Disposition: did not require urgent referral MDM Narrative This patient comes in as described above. He was placed in room A11. He has had lower abdominal pain mostly. It started this morning was severe but he is feeling a lot better. On exam, he has mild diffuse tenderness mostly lower abdomin. No fever. IV access established and blood work was obtained. His lipase is elevated at 900, his AST and ALT are trending upwards when compared to his most recent labs. CAT scan shows persistent dilation of his hepatic and pancreatic ducts. The working diagnosis is some sort of pancreatic tumor causing obstructive changes. He was IV access established and blood work was obtained. I do think he needs to be admitted/observe for further treatment and evaluation given his increasing numbers and I have consulted the hospitalist to see him in the ER for these measures. Impression & Plan Pancreatitis, Lower abdominal pain Discharge Plan Visit Data *Final* Discharge Date/Time: 11/29/18 12:15 Chief Complaint: Abdominal Pain ED Provider: Melvin Correa Discharge Problem: Pancreatitis, Lower abdominal pain Patient Disposition: Admitted As Inpatient Discharge Instructions Interventions: ED Discharge Assessment Last Done: 11/29/18 12:15 The scribe's documentation has been prepared under my direction and personally reviewed by me in its entirety. I confirm that the note above accurately reflects all work, treatment, procedures, and medical decision making performed by me.
[2018-11-29] MEDS ORDERED: WARFARIN SOD 4 MG TAB PO SCH (16:00)
[2018-11-29] MEDS: ENOXAPARIN INJ 40 MG/0.4 ML SYR SQ SCH (16:04)
[2018-11-29] MEDS ORDERED: INSULIN ASPART 100 UNITS/ML 3 ML PEN SC SCH (16:30)
[2018-11-29] MEDS: INSULIN ASPART 100 UNITS/ML 3 ML PEN SC SCH (17:49)
[2018-11-29] MEDS: MoRPHine SULFATE 4 MG/ML 1 ML CARP\\VIAL IV PRN (18:07)
[2018-11-29] MEDS: FINASTERIDE 5 MG TAB PO SCH (21:15)
[2018-11-30] MEDS: INSULIN ASPART 100 UNITS/ML 3 ML PEN SC SCH ×6 (01:18→20:50)
[2018-11-30] MEDS: SODIUM CHLORIDE 0.9% 1000ML 1,000 ML IV SCH ×2 (03:05→16:25)
[2018-11-30] MEDS: MoRPHine SULFATE 4 MG/ML 1 ML CARP\\VIAL IV PRN ×2 (05:02→10:27)
[2018-11-30 05:44] LABS: Hematocrit (blood only) 30.8 % (42-52); Hemoglobin 10.5 g/dL (14.0-18.0); Mean Corpuscular Hgb Conc 34.1 g/dL (32-36); Mean Corpuscular Volume 95.4 fL (80-100); RDW Coefficient of Variation 14.8 % (11.5-14.5); RDW Standard Deviation 51.9 fL (36.4-46.3); Red Blood Count 3.23 M/uL (4.7-6.1); White Blood Count 6.79 K/uL (4.8-10.8)
[2018-11-30] MEDS ORDERED: INDOMETHACIN 50 MG SUPP PR SCH (06:00)
[2018-11-30 06:10] LABS: Mean Platelet Volume 9.3 fL (7.4-10.4); Platelet Count 96 K/uL (130-400)
[2018-11-30 06:13] LABS: Albumin Level 1.9 gm/dl (3.4-5.0); BUN Creatinine Ratio 21.7 (10-20); Calcium 7.3 mg/dl (8.5-10.1); Creatinine Clr Calc Pharmacy 65.2 ml/min; Est GFR (African American) 97.2; Est GFR (Non-African American) 83.9; Magnesium 1.6 mg/dl (1.8-2.4); Potassium 3.6 mmol/L (3.5-5.1)
[2018-11-30 06:20] LABS: INR 1.4 (0.9-1.1); Prothrombin Time 13.8 Seconds (9.0-12.0)
[2018-11-30 06:25] LABS: Albumin Globulin Ratio 0.7 (0.9-2); Bilirubin Direct 0.4 mg/dl (0-0.2); Bilirubin,Total 1.8 mg/dl (0.2-1); Globulin 2.9 gm/dl (2.5-4.0); Phosphorus 2.8 mg/dl (2.5-4.9); Total Protein 4.8 gm/dl (6.4-8.2)
[2018-11-30] MEDS: LEVOTHYROXINE SODIUM 50 MCG TABLET PO SCH (06:44)
[2018-11-30] MEDS: PANTOprazole 40 MG TAB PO SCH (12:05)
[2018-11-30] MEDS: ATORVASTATIN 10 MG TAB PO SCH (12:05)
[2018-11-30] MEDS ORDERED: INDOMETHACIN 50 MG SUPP PR ONE ×2 (13:00→13:35)
[2018-11-30] MEDS ORDERED: fentaNYL citrate 100 MCG/2 ML VIAL ONE (13:14)
[2018-11-30] MEDS ORDERED: PROPOFOL IV EMULSION 10 MG/ML 20 ML VIAL IV ONE (13:14)
[2018-11-30] MEDS ORDERED: LIDOCAINE HCL 2% 2 ML VIAL/AMP(20MG/ML) INFIL ONE (13:14)
--- NOTE | 2018-11-30 13:32 | History & Physical Bridge Note ---
Date of Service November 30, 2018 History & Physical Bridge Note I have examined the patient, reviewed the History & Physical and in the interval since the performance of the History & Physical I have noted the following changes of clinical significance: no changes noted. The patient has evidence of biliary obstruction on imaging studies and has new elevation of his liver associated enzymes. Given the suspicion for an underlying cholangiocarcinoma we are planning to do ERCP today with stent placement and brush cytology. The patient his and I have discussed the risks of the procedure to include bleeding, infection, perforation, pain, infection, failed cannulation and pancreatitis.
--- NOTE | 2018-11-30 13:53 | Anesthesiology Consultation ---
Date of Service November 30, 2018 Assessment & Plan (1) Encounter for pre-operative examination: Chart Review Chart Review: Acceptable Risk for Surgery Consults Requested none ASA ASA4 Proposed Anesthesia Anesthesia Type: General Risk / Benefits Reviewed With: PT / POA / Parent / Guardian, Accepts Plan and Informed Consent Obtained NPO Date Last Intake of Fluids: 11/28/18 Time Last Intake of Fluids: 18:00 Last Intake of Fluids Comment: few sips water over past 2 days Date Last Intake of Solids: 11/28/18 Time Last Intake of Solids: 18:00 History Surgery Operation Date: 11/30/18 09:35 Proposed Procedures p Endoscopic Retrograde Cholangiopancreatogram - Cindy Jeronimo Height/Weight Height: 5 ft 6 in Weight: 65.1 kg Allergies Allergy/AdvReac Type Severity Reaction Status Date / Time doxycycline Allergy Intermediate rash Verified 11/29/18 14:58 Penicillins Allergy Unknown Unknown Verified 11/29/18 06:19 Medications Home Medications Medication Instructions Recorded Confirmed Last Taken atorvastatin 10 mg PO QAM 10/22/18 11/29/18 11/28/18 cholecalciferol (vitamin D3) 2,000 units PO QPM 10/22/18 11/29/18 11/28/18 [Vitamin D3] finasteride 5 mg PO HS 10/22/18 11/29/18 11/28/18 levothyroxine 50 mcg PO QAM 10/22/18 11/29/18 11/28/18 pantoprazole 40 mg PO QAM 10/22/18 11/29/18 11/28/18 sotalol 40 mg PO BID 30 Days #30 tab 11/25/18 11/29/18 11/28/18 ferrous sulfate 325 mg PO BID 11/29/18 11/29/18 11/28/18 insulin detemir U-100 [Levemir 8 unit SUBCUT BID 11/29/18 11/29/18 11/28/18 FlexTouch U-100 Insuln] vitamin B complex 1 tab PO DAILY 11/29/18 11/29/18 11/28/18 warfarin 4 mg PO QPM 11/29/18 11/29/18 11/28/18 Active Medications Generic Name Dose Route Start Last Admin Trade Name Freq PRN Reason Stop Dose Admin Atorvastatin Calcium 10 mg 11/30/18 09:00 11/30/18 12:05 Lipitor PO 12/30/18 08:59 Not Given QAM OPAL Enoxaparin Sodium 40 mg 11/29/18 16:00 11/29/18 16:04 Lovenox SQ 12/29/18 15:59 40 mg Q24H OPAL Administration Finasteride 5 mg 11/29/18 21:00 11/29/18 21:15 Proscar PO 12/29/18 20:59 5 mg HS OPAL Administration Sodium Chloride 1,000 mls @ 80 mls/hr 11/29/18 13:40 11/30/18 03:05 Nss 1000ml IV 12/29/18 13:39 80 mls/hr .[id number] OPAL Administration Insulin Aspart 0 units 11/29/18 18:00 11/30/18 13:02 Novolog Flexpen SC 12/29/18 17:59 Not Given Q6 OPAL Ioversol 92 ml 11/29/18 09:19 11/29/18 09:22 Optiray 320 100ml IV 12/03/18 09:18 92 ml ONCE PRN Administration Interaction Checking Levothyroxine Sodium 50 mcg 11/30/18 06:30 11/30/18 06:44 Synthroid PO 12/30/18 06:29 50 mcg DAILYBB OPAL Administration Morphine Sulfate 1 mg 11/29/18 13:01 11/30/18 10:27 Morphine Sulfate IV 12/13/18 13:00 1 mg Q4H PRN Administration Pain Pantoprazole Sodium 40 mg 11/30/18 09:00 11/30/18 12:05 Protonix PO 12/30/18 08:59 Not Given QAM OPAL Past Medical History Medical History Thrombocytopenia Bilateral hip pain Hypothyroidism Pancreatitis Elevated LFTs Diabetes Mass of pancreas (Acute) Unintended weight loss History of deep venous thrombosis or pulmonary embolus Pacemaker 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 Atrial fibrillation (Chronic) HTN (hypertension) (Chronic) Hyperlipidemia (Chronic) Tachy-logan syndrome (Acute) S/p PM placement GI bleed Diabetes 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 Pulmonary embolism 10 years ago Past Surgical History Surgical History H/O esophagogastroduodenoscopy H/O local excision of skin lesion S/P cardiac cath 2011 S/P placement of cardiac pacemaker 2014 Past Anesthesia History No Hx of Anesthesia Complications and No Family Hx of Anesthesia Complications History of PONV No Motion Sickness Screening History of Motion Sickness: No Social History Smoking Status: Former smoker Do You Dip or Chew Tobacco: No Hx Alcohol Use: Yes Alcohol type: wine alcohol intake frequency: holidays/special occasions only Hx Substance Use: No Exercise / Class Metabolic Activity III < 4 Walking/Shop/Light housework Physical Exam Vital Signs Last Vital Signs Temp 99.1 F 11/30/18 13:32 Pulse 102 H 11/30/18 13:32 Resp 20 11/30/18 13:32 BP 141/75 H 11/30/18 13:32 Pulse Ox 93 11/30/18 13:32 ENMT Mouth: no dentition abnormality Thyromental Distance: > or= 3.5 Finger Breadths Mallampati Class: II Neck normal visual inspection Respiratory normal respiratory effort Auscultation: lungs clear to auscultation bilaterally Cardiovascular Rate/Rhythm: regular rate and regular rhythm Testing Electrocardiogram Date: 11/22/18 Atrial-paced rhythm with prolonged AV conduction rate 62 bpm Chest X-Ray Date: 11/22/18 1. Cardiomegaly and cardiac pacemaker. There is no radiographic evidence of congestive failure. 2. No airspace consolidation or large pleural effusion is identified. Laboratory Results 11/30/18 05:26 11/30/18 05:26 PT 13.8 Seconds (9.0-12.0) H 11/30/18 05:26 INR 1.4 (0.9-1.1) H 11/30/18 05:26 APTT 25.0 Seconds (21.0-31.0) 11/29/18 07:40 Urine Color Yellow 11/29/18 07:10 Urine Appearance Clear (Clear) 11/29/18 07:10 Urine pH 7.5 (4.5-7.5) 11/29/18 07:10 Ur Specific [place] 1.014 (1.000-1.030) 11/29/18 07:10 Urine Protein Negative (Negative) 11/29/18 07:10 Urine Glucose (UA) Negative (Negative) 11/29/18 07:10 Urine Ketones Negative (Negative) 11/29/18 07:10 Urine Nitrite Negative (Negative) 11/29/18 07:10 Ur Leukocyte Esterase Negative (Negative) 11/29/18 07:10 11/30/18 11/30/18 11:34 05:51 POC Glucose 143 H 137 H
[2018-11-30] MEDS ORDERED: ePHEDrine sulfate 50 MG/ML AMP IV PRN (13:55)
[2018-11-30] MEDS ORDERED: fentaNYL citrate 100 MCG/2 ML VIAL IV PRN (13:55)
[2018-11-30] MEDS ORDERED: ATROPINE SULFATE 0.1 MG/ML 10ML SYR IV PRN (13:55)
[2018-11-30] MEDS ORDERED: SUCCINYLCHOLINE CHLORIDE 20 MG/ML 10 ML VIAL ONE (14:14)
[2018-11-30] MEDS ORDERED: ROCURONIUM BROMIDE 10 MG/ML 5 ML VIAL ONE (14:14)
--- NOTE | 2018-11-30 14:35 | GI REPORT ---
Patient Name: Evens Osborn Procedure Date: 11/30/2018 1:48 PM Date of : 1930 Admit Type: Inpatient Age: 88 Gender: Male Attending MD: Cindy Jeronimo DO Procedure: ERCP Providers: Cindy Jeronimo DO Referring MD: Evelina Coon DO, Roy Kedem, . 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 Estimated blood loss: Minimal. Estimated Blood Loss: Estimated blood loss was minimal. Procedure: Pre-Anesthesia Assessment: - Prior to the procedure, a History and Physical was performed, and patient medications, allergies and sensitivities were reviewed. The patient's tolerance of previous anesthesia was reviewed. - The risks and benefits of the procedure and the sedation options and risks were discussed with the patient. All questions were answered and informed consent was obtained. - Patient identification and proposed procedure were verified prior to the procedure by the physician, the nurse and the mainframe systems engineer. The procedure was verified in the procedure room. - Pre-procedure physical examination revealed no contraindications to sedation. - ASA Grade Assessment: III - A patient with severe systemic disease. - After reviewing the risks and benefits, the patient was deemed in satisfactory condition to undergo the procedure. - The anesthesia plan was to use general anesthesia. - Immediately prior to administration of medications, the patient was re-assessed for adequacy to receive sedatives. - The heart rate, respiratory rate, oxygen saturations, blood pressure, adequacy of pulmonary ventilation, and response to care were monitored throughout the procedure. - The physical status of the patient was re-assessed after the procedure. After obtaining informed consent, the scope was passed under direct vision. Throughout the procedure, the patient's blood pressure, pulse, and oxygen saturations were monitored continuously. The scope was introduced through the mouth, and advanced to the duodenum and used to inject contrast into the bile duct. The patient tolerated the procedure well. The ERCP was somewhat difficult due to abnormal anatomy. Findings: The district branch manager film was normal. The esophagus was successfully intubated under direct vision without detailed examination of the pharynx, larynx, and associated structures, and upper GI tract. The upper GI tract was grossly normal. The major papilla was small. The bile duct was deeply cannulated with the short-nosed traction sphincterotome (Omni 35) and 0.035 in Acrobat 2 guidewire during the first attempt. Contrast was injected. I personally interpreted the bile duct images. Contrast extended to the hepatic ducts. The lower third of the main bile duct contained a single segmental stenosis 20 mm in length. The middle third of the main bile duct, upper third of the main bile duct and left and right hepatic ducts and all intrahepatic branches were moderately dilated, with an obstruction. The largest diameter was 11mm. Biliary sphincterotomy was made with a monofilament Fusion OMNI sphincterotome using ERBE electrocautery. There was no post-sphincterotomy bleeding. Cells for cytology were obtained by brushing in the lower third of the main bile duct. One 7 Fr by 7 cm biliary stent with a full external pigtail and a full internal pigtail was placed 7 cm into the common bile duct. Bile and sludge flowed through the stent. The stent was in good position. Indomethacin 100 mg was given via suppository to decrease the risk of post-ERCP pancreatitis (PEP). The total fluoroscopy exposure time was 53 seconds. The endoscope was withdrawn from the patient. Impression: - The major papilla appeared to be small. - A single segmental biliary stricture was found in the lower third of the main bile duct. 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 - The left and right hepatic ducts and all intrahepatic branches, upper third of the main bile duct and middle third of the main bile duct were moderately dilated, with an obstruction. - A biliary sphincterotomy was performed. - Cells for cytology obtained in the lower third of the main duct. - One biliary stent was placed into the common bile duct. - Indomethacin given to decrease risk of post-ERCP pancreatitis. Recommendation: - Return patient to [facility] for [facility] care. - Clear liquid diet today. - Cipro (ciprofloxacin) 400 mg IV q 12 hr for 3 days. - Await cytology results. Cindy Jeronimo D.O. Cindy Jeronimo DO 11/30/2018 2:34:36 PM This report has been signed electronically. Note Initiated On: 11/30/2018 1:48 PM Number of Addenda: 0 I attest to the content of the Intraoperative Record and orders documented therein, exceptions below {[id number]}
--- NOTE | 2018-11-30 14:42 | Post Operative Brief Note ---
Immediate Post Op Note v1 Date of Surgery November 30, 2018 Pre & Post Diagnosis Operation Date: 11/30/18 09:35 Pre-Op Diagnosis: abdominal pain, elevated LFT's, Pancreatic Mass, Common Bile Duct obstruction Post-Op Diagnosis: abdominal pain, elevated LFT's, Pancreatic Mass, Common Bile Duct obstruction Procedure Operation Date: 11/30/18 09:35 Actual Procedures p Endoscopic Retrograde Cholangiopancreatogram(Not Applicable) - Cindy Jeronimo Surgeon Cindy Jeronimo Strip Tank Tender None Estimated Blood Loss 0 Findings Consistent with Post-Op Diagnosis
[2018-11-30] MEDS ORDERED: CIPROFLOXACIN 400MG / 200ML D5W IV ONE (14:55)
--- NOTE | 2018-11-30 15:11 | Fluoroscopy Report ---
[place] ERCP biliary ductal CLINICAL HISTORY: ERCP IN OR COMPARISON STUDY: CT of the abdomen and pelvis November 29, 2018. MRCP November 24, 2018. FLUOROSCOPY TIME: 53 seconds. FLUOROSCOPIC IMAGES: 8 FINDINGS: These images demonstrate cannulation of the common bile duct. Note is made of an area of th e distal common bile duct which suggests a stricture. This may be malignant. Biliary ductal dilatatio n is noted. Subsequent image demonstrates placement of a biliary stent which appears appropriately po sitioned. There is reflux of contrast into the gallbladder. IMPRESSION: 1. Fluoroscopic images from ERCP with biliary stent placement which demonstrate biliary ductal dilata tion and a distal common bile duct stricture which may be malignant. Electronically signed by: Chris Hunter M.D. 11/30/2018 3:09 PM
--- NOTE | 2018-11-30 15:23 | Anesthesiology Progress Note ---
Date of Service November 30, 2018 Anesthesia Post Procedure Vital Signs Vital Signs: Temp Pulse Pulse Pulse Resp BP BP 11/30/18 15:06 99 H 23 139/78 11/30/18 15:05 90 21 11/30/18 15:01 88 19 133/66 11/30/18 15:00 85 19 11/30/18 14:56 94 H 29 H 127/73 11/30/18 14:55 93 H 20 11/30/18 14:51 89 19 127/67 11/30/18 14:50 93 H 18 11/30/18 14:46 93 H 22 127/59 L 11/30/18 14:45 91 H 19 11/30/18 14:40 36.9 C 93 H 93 H 18 112/62 11/30/18 13:32 37.3 C 102 H 20 11/30/18 13:05 85 11/30/18 13:00 79 11/30/18 12:55 81 11/30/18 12:50 92 H 11/30/18 12:45 81 11/30/18 12:40 80 11/30/18 12:35 89 11/30/18 12:30 84 11/30/18 12:25 89 11/30/18 12:23 37 C 81 18 106/54 L 11/30/18 12:20 85 11/30/18 12:15 81 11/30/18 12:10 89 11/30/18 12:05 87 11/30/18 12:00 88 11/30/18 11:55 85 11/30/18 11:50 88 11/30/18 11:45 87 11/30/18 11:40 87 11/30/18 11:35 90 11/30/18 11:30 86 11/30/18 11:25 85 11/30/18 11:20 87 11/30/18 11:15 90 11/30/18 11:10 91 H 11/30/18 11:05 92 H 11/30/18 11:00 94 H 11/30/18 10:55 98 H 11/30/18 10:50 100 H 11/30/18 10:45 97 H 11/30/18 10:40 102 H 11/30/18 10:35 101 H 11/30/18 10:30 103 H 11/30/18 10:29 37.5 C 11/30/18 10:25 104 H 11/30/18 10:20 88 11/30/18 10:15 81 11/30/18 10:10 81 11/30/18 10:05 74 11/30/18 10:00 80 11/30/18 09:55 99 H 11/30/18 08:00 37.8 C H 80 81 18 104/48 L 11/30/18 04:00 36.9 C 83 20 11/30/18 00:00 37.3 C 85 17 96/51 L 11/29/18 19:07 37.5 C 84 16 11/29/18 18:09 146/76 H 11/29/18 17:51 76 11/29/18 16:00 36.9 C 85 18 97/58 L BP Pulse Ox 11/30/18 15:06 96 11/30/18 15:05 93 11/30/18 15:01 94 11/30/18 15:00 94 11/30/18 14:56 99 11/30/18 14:55 99 11/30/18 14:51 99 11/30/18 14:50 99 11/30/18 14:46 100 11/30/18 14:45 99 11/30/18 14:40 112/62 99 11/30/18 13:32 141/75 H 93 11/30/18 13:05 11/30/18 13:00 11/30/18 12:55 11/30/18 12:50 11/30/18 12:45 11/30/18 12:40 11/30/18 12:35 11/30/18 12:30 11/30/18 12:25 11/30/18 12:23 97 11/30/18 12:20 11/30/18 12:15 11/30/18 12:10 11/30/18 12:05 11/30/18 12:00 11/30/18 11:55 11/30/18 11:50 11/30/18 11:45 11/30/18 11:40 11/30/18 11:35 11/30/18 11:30 11/30/18 11:25 11/30/18 11:20 11/30/18 11:15 11/30/18 11:10 11/30/18 11:05 11/30/18 11:00 11/30/18 10:55 11/30/18 10:50 11/30/18 10:45 11/30/18 10:40 11/30/18 10:35 11/30/18 10:30 11/30/18 10:29 11/30/18 10:25 11/30/18 10:20 11/30/18 10:15 11/30/18 10:10 11/30/18 10:05 11/30/18 10:00 11/30/18 09:55 11/30/18 08:00 94 11/30/18 04:00 101/54 L 99 11/30/18 00:00 94 11/29/18 19:07 107/47 L 95 11/29/18 18:09 11/29/18 17:51 11/29/18 16:00 97 Pain Intensity Lower Abdomen: Pain Intensity: 0 Bilateral Hip: Pain Intensity: 0 Notes Mental Status: alert / awake / arousable Patient Amnestic to Procedure: Yes Nausea / Vomiting: adequately controlled Pain: adequately controlled Airway Patency, RR, SpO2: stable & adequate BP & HR: stable & adequate Hydration State: stable & adequate Anesthetic Complications: no major complications apparent
[2018-11-30] MEDS: ENOXAPARIN INJ 40 MG/0.4 ML SYR SQ SCH (17:19)
[2018-11-30] MEDS: FINASTERIDE 5 MG TAB PO SCH (20:51)
[2018-12-01] MEDS: CIPROFLOXACIN 400 MG/200 ML BAG IV SCH ×2 (02:29→13:23)
[2018-12-01] MEDS: MoRPHine SULFATE 4 MG/ML 1 ML CARP\\VIAL IV PRN ×2 (02:46→13:23)
[2018-12-01] MEDS: LEVOTHYROXINE SODIUM 50 MCG TABLET PO SCH (06:36)
[2018-12-01 06:54] LABS: Hematocrit (blood only) 29.6 % (42-52); Hemoglobin 10.3 g/dL (14.0-18.0); Mean Corpuscular Hgb Conc 34.8 g/dL (32-36); Mean Corpuscular Volume 94.3 fL (80-100); RDW Coefficient of Variation 14.7 % (11.5-14.5); RDW Standard Deviation 50.2 fL (36.4-46.3); Red Blood Count 3.14 M/uL (4.7-6.1); White Blood Count 6.77 K/uL (4.8-10.8)
[2018-12-01 07:09] LABS: INR 1.4 (0.9-1.1)
[2018-12-01 07:19] LABS: Mean Platelet Volume 9.7 fL (7.4-10.4); Platelet Count 76 K/uL (130-400)
[2018-12-01] MEDS: SODIUM CHLORIDE 0.9% 1000ML 1,000 ML IV SCH (07:24)
[2018-12-01 07:29] LABS: Albumin Level 1.6 gm/dl (3.4-5.0); BUN Creatinine Ratio 30.9 (10-20); Bilirubin Direct 0.5 mg/dl (0-0.2); Calcium 6.9 mg/dl (8.5-10.1); Creatinine Clr Calc Pharmacy 85.4 ml/min; Est GFR (African American) 108.6; Est GFR (Non-African American) 93.7; Potassium 3.3 mmol/L (3.5-5.1)
[2018-12-01 07:32] LABS: Albumin Globulin Ratio 0.6 (0.9-2); Bilirubin,Total 1.8 mg/dl (0.2-1); Globulin 2.9 gm/dl (2.5-4.0); Total Protein 4.5 gm/dl (6.4-8.2)
--- NOTE | 2018-12-01 08:10 | Gastroenterology Progress Note ---
Date of Service December 01, 2018 Assessment & Plan (1) Bilateral hip pain: (2) Mass of pancreas: Pt is a 88 y/o male here w bilateral hip pain, worse w straight leg raises and hip rotation. 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 Labs did show new LFT elevation. Underwent ERCP yesterday. Stricture noted, brushed for cells, and stent placed. labs improving. - Monitor LFTs - Cipro x 3 days. - Follow up on path results when available. Subjective Still with hip pain. Mild nausea. No vomiting. ERCP done yesterday and reviewed. Stricture noted, brushed for cytology, and stent placed. Transaminases and AP improving. Bili lagging. Constitutional: as per Subjective / HPI and + chills; no fever Gastrointestinal: as per Subjective / HPI; no abdominal pain, no nausea, no vomiting, no change in stools and no constipation Musculoskeletal: as per Subjective / HPI Neurologic: as per Subjective / HPI Physical Exam 2 Vital Signs (Past 24 Hours): Last Vital Signs Temp 37.0 C 12/01/18 06:52 Pulse 65 12/01/18 06:52 Resp 16 12/01/18 06:52 BP 100/55 L 12/01/18 06:52 Pulse Ox 95 12/01/18 06:52 Constitutional: WD/WN, vitals as above Eyes: PERRL, conjunctivae normal, anicteric sclerae Neck: trachea midline, no thyromegaly Respiratory: normal respiratory effort, lungs clear to auscultation Cardiovascular: RRR, no murmur, no edema Gastrointestinal (Abdomen): normal bowel sounds, soft, nontender, no hepatosplenomegaly Musculoskeletal: no cyanosis or clubbing, extremities motor strength 5/5 Neurologic: CN's II-XI intact bilaterally
[2018-12-01] MEDS: INSULIN ASPART 100 UNITS/ML 3 ML PEN SC SCH ×4 (08:13→20:41)
[2018-12-01] MEDS: ATORVASTATIN 10 MG TAB PO SCH (08:14)
[2018-12-01] MEDS: PANTOprazole 40 MG TAB PO SCH (08:14)
--- NOTE | 2018-12-01 10:48 | Anesthesiology Progress Note ---
Date of Service December 01, 2018 Anesthesia Post Procedure Vital Signs Vital Signs: Temp Pulse Pulse Pulse Resp BP BP 12/01/18 06:52 37.0 C 65 16 12/01/18 02:47 36.7 C 72 22 11/30/18 22:48 36.7 C 70 18 11/30/18 19:10 37.1 C 67 18 103/57 L 11/30/18 16:14 115/63 11/30/18 16:00 36.8 C 88 18 123/58 L 11/30/18 15:44 132/69 11/30/18 15:06 99 H 23 139/78 11/30/18 15:05 90 21 11/30/18 15:01 88 19 133/66 11/30/18 15:00 85 19 11/30/18 14:56 94 H 29 H 127/73 11/30/18 14:55 93 H 20 11/30/18 14:51 89 19 127/67 11/30/18 14:50 93 H 18 11/30/18 14:46 93 H 22 127/59 L 11/30/18 14:45 91 H 19 11/30/18 14:40 36.9 C 93 H 93 H 18 112/62 11/30/18 13:32 37.3 C 102 H 20 11/30/18 13:05 85 11/30/18 13:00 79 11/30/18 12:55 81 11/30/18 12:50 92 H 11/30/18 12:45 81 11/30/18 12:40 80 11/30/18 12:35 89 11/30/18 12:30 84 11/30/18 12:25 89 11/30/18 12:23 37 C 81 18 106/54 L 11/30/18 12:20 85 11/30/18 12:15 81 11/30/18 12:10 89 11/30/18 12:05 87 11/30/18 12:00 88 11/30/18 11:55 85 11/30/18 11:50 88 11/30/18 11:45 87 11/30/18 11:40 87 11/30/18 11:35 90 11/30/18 11:30 86 11/30/18 11:25 85 11/30/18 11:20 87 11/30/18 11:15 90 11/30/18 11:10 91 H 11/30/18 11:05 92 H 11/30/18 11:00 94 H 11/30/18 10:55 98 H 11/30/18 10:50 100 H BP Pulse Ox 12/01/18 06:52 100/55 L 95 12/01/18 02:47 122/72 95 11/30/18 22:48 117/62 95 11/30/18 19:10 92 11/30/18 16:14 11/30/18 16:00 95 11/30/18 15:44 11/30/18 15:06 96 11/30/18 15:05 93 11/30/18 15:01 94 11/30/18 15:00 94 11/30/18 14:56 99 11/30/18 14:55 99 11/30/18 14:51 99 11/30/18 14:50 99 11/30/18 14:46 100 11/30/18 14:45 99 11/30/18 14:40 112/62 99 11/30/18 13:32 141/75 H 93 11/30/18 13:05 11/30/18 13:00 11/30/18 12:55 11/30/18 12:50 11/30/18 12:45 11/30/18 12:40 11/30/18 12:35 11/30/18 12:30 11/30/18 12:25 11/30/18 12:23 97 11/30/18 12:20 11/30/18 12:15 11/30/18 12:10 11/30/18 12:05 11/30/18 12:00 11/30/18 11:55 11/30/18 11:50 11/30/18 11:45 11/30/18 11:40 11/30/18 11:35 11/30/18 11:30 11/30/18 11:25 11/30/18 11:20 11/30/18 11:15 11/30/18 11:10 11/30/18 11:05 11/30/18 11:00 11/30/18 10:55 11/30/18 10:50 Pain Intensity Lower Abdomen: Pain Intensity: 0 Bilateral Hip: Pain Intensity: 0 Notes Mental Status: alert / awake / arousable Patient Amnestic to Procedure: Yes Nausea / Vomiting: adequately controlled Pain: adequately controlled Airway Patency, RR, SpO2: stable & adequate BP & HR: stable & adequate Hydration State: stable & adequate Anesthetic Complications: no major complications apparent and Pt Satisfied with anesthetic care
--- NOTE | 2018-12-01 13:40 | Hospitalist Progress Note ---
Date of Service November 30, 2018 Assessment & Plan (1) Pancreatitis: (2) Mass of pancreas: (3) Dilated intrahepatic bile duct: (4) Dilated pancreatic duct: (5) Elevated LFTs: - On tele -Patient appears to be improving after his procedure. Biliary sphincterectomy. Patient no longer hypotensive. will continue to monitor labs - GI prophylaxis with pantoprazole (6) Unintended weight loss: - Seconday to pancreatic mass - Continue on boost daily for protein supplementation (7) History of deep venous thrombosis or pulmonary embolus: - Continue coumadin (8) Atrial fibrillation: Continue anticoagulation with coumadin. 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 (11) HTN (hypertension): - Hold sotolol 40 mg BID for hypotension upon admission, resume when able. (12) Bilateral hip pain: - Will check bilateral hip xray with new onset pain - CT reviewed but does not show osseous fracture. - Morphine IV 1-2 mg (13) Hyperlipidemia: - Continue statin therapy (14) Diabetes: - Hold outpatient levemir 8 U BID while NPO, use ISS with accuchecks. - Last A1C =10.7 on 11/23/18 (15) Thrombocytopenia: - PLT 101, follow with am labs, have trended down since last admission. (16) Hypothyroidism: - Continue levothyroxine 50 mcg daily (17) Cholangiocarcinoma: suspected/still to be ruled out cholangiocarcinoma Pending further workup by GI (18) DVT prophylaxis: - Continue coumadin. Subjective Patient reports feeling better after his procedure. Patient reports that prior he was having hypogastric abdominal pain, but this has resolved. Patient reports his pain was similar to his hip pain. Patient currently denies nausea, and vomiting and reports tolerating his diet. Review of Systems All systems reviewed & are unremarkable except as noted in HPI & below Gastrointestinal: as per Subjective / HPI; no nausea, no vomiting, no change in bowel habits, no constipation and no diarrhea/loose stools Physical Exam 2 Vital Signs (Past 24 Hours): Last Vital Signs Temp 36.8 C 11/30/18 16:00 Pulse 88 11/30/18 16:00 Resp 18 11/30/18 16:00 BP 115/63 11/30/18 16:00 Pulse Ox 95 11/30/18 16:00 Physical Exam: General: awake, alert, no apparent distress, +thin Head: Normocephalic, atraumatic ENT: PERRL, EOMI, no pharyngeal exudate, mucous membranes moist Chest: clear throughout, on room air. Cardiac: Regular rate and rhythm, + AKILA grade III/, no JVD, normal peripheral pulses, good capillary refill Abdominal: NABS x 4 quadrants, soft, +mild distension, nontender to palpation, no rebound, guarding or tenderness Extremities: Normal inspection, 2+ peripheral edema of ankles and calfs bilaterally, no erythema, calfs nontender to palpation Psych: Normal mood and affect Neuro: AAO x 3, no motor deficits, speech is clear, no peripheral sensory deficits
--- NOTE | 2018-12-01 14:26 | XRay Report ---
XR chest 1V portable CLINICAL HISTORY: Shortness of breath. COMPARISON STUDY: Chest CT July 12, 2018. Chest radiograph November 22, 2018. FINDINGS: Dual-lead left subclavian pacemaker is in place. There is no pneumothorax or pleural effusi on. There is no evidence for pulmonary edema. Cardiac size is normal. Biliary stent is noted. Left ba silar opacity has increased. IMPRESSION: Increase in left basilar opacity which may reflect atelectasis or pneumonia. Electronically signed by: Chris Hunter M.D. 12/01/2018 2:24 PM
[2018-12-01] MEDS: ENOXAPARIN 100 MG/1ML SYR SC SCH (16:57)
[2018-12-01] MEDS: SOTALOL HCL 80 MG TAB PO SCH (16:59)
[2018-12-01] MEDS: POTASSIUM CHLORIDE 10 MEQ TABCR PO SCH (20:42)
[2018-12-01] MEDS: FINASTERIDE 5 MG TAB PO SCH (20:42)
[2018-12-02] MEDS: SODIUM CHLORIDE 0.9% 1000ML 1,000 ML IV SCH ×2 (00:29→17:55)
[2018-12-02 06:08] LABS: Hematocrit (blood only) 32.1 % (42-52); Hemoglobin 10.6 g/dL (14.0-18.0); Mean Corpuscular Volume 95.5 fL (80-100); RDW Coefficient of Variation 14.7 % (11.5-14.5); RDW Standard Deviation 51.2 fL (36.4-46.3); Red Blood Count 3.36 M/uL (4.7-6.1); White Blood Count 4.23 K/uL (4.8-10.8)
[2018-12-02 06:10] LABS: Mean Platelet Volume 9.5 fL (7.4-10.4); Platelet Count 77 K/uL (130-400)
[2018-12-02] MEDS: LEVOTHYROXINE SODIUM 50 MCG TABLET PO SCH (06:15)
[2018-12-02 06:27] LABS: INR 1.4 (0.9-1.1); Prothrombin Time 14.2 Seconds (9.0-12.0)
[2018-12-02 06:35] LABS: Albumin Level 1.5 gm/dl (3.4-5.0); BUN Creatinine Ratio 18.9 (10-20); Bilirubin Direct 0.5 mg/dl (0-0.2); Creatinine Clr Calc Pharmacy 74.5 ml/min; Est GFR (African American) 102.7; Est GFR (Non-African American) 88.6; Potassium 3.6 mmol/L (3.5-5.1)
[2018-12-02 06:38] LABS: Albumin Globulin Ratio 0.5 (0.9-2); Bilirubin,Total 1.5 mg/dl (0.2-1); Globulin 3.1 gm/dl (2.5-4.0); Total Protein 4.6 gm/dl (6.4-8.2)
[2018-12-02] MEDS: PANTOprazole 40 MG TAB PO SCH (08:38)
[2018-12-02] MEDS: ATORVASTATIN 10 MG TAB PO SCH (08:38)
[2018-12-02] MEDS: POTASSIUM CHLORIDE 10 MEQ TABCR PO SCH ×2 (08:41→20:53)
[2018-12-02] MEDS: INSULIN ASPART 100 UNITS/ML 3 ML PEN SC SCH ×4 (08:42→20:54)
[2018-12-02] MEDS: SOTALOL HCL 80 MG TAB PO SCH ×2 (08:48→20:52)
--- NOTE | 2018-12-02 09:19 | Hospitalist Progress Note ---
Date of Service December 01, 2018 Assessment & Plan (1) Pancreatitis: (2) Mass of pancreas: (3) Dilated intrahepatic bile duct: (4) Dilated pancreatic duct: (5) Elevated LFTs: - On tele -Patient appears to be improving after his procedure. Biliary sphincterectomy. Patient no longer hypotensive. will continue to monitor labs. Patient remains tachycardic. Restarted sotalol, likely rebound tachycardia Patient symptoms however do not seem to be coming from his pancreatitis. Will obtain consult with ortho. - GI prophylaxis with pantoprazole (6) Unintended weight loss: - Seconday to pancreatic mass - Continue on boost daily for protein supplementation (7) History of deep venous thrombosis or pulmonary embolus: - Continue coumadin (8) Atrial fibrillation: Continue anticoagulation with coumadin. Rate controlled. INR is subtherapuetic. Will place patient on lovenox therapeutic dose. 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 (11) HTN (hypertension): Held on admission. rsumed sotalol today. (12) Bilateral hip pain: - Will check bilateral hip xray with new onset pain - CT reviewed but does not show osseous fracture. - Morphine IV 1-2 mg will consult ortho surgery. (13) Hyperlipidemia: - Continue statin therapy (14) Diabetes: - Hold outpatient levemir 8 U BID while NPO, use ISS with accuchecks. - Last A1C =10.7 on 11/23/18 (15) Thrombocytopenia: - PLT 101, follow with am labs, have trended down since last admission. (16) Hypothyroidism: - Continue levothyroxine 50 mcg daily (17) Cholangiocarcinoma: suspected/still to be ruled out cholangiocarcinoma Pending further workup by GI (18) DVT prophylaxis: - Continue coumadin. and lovenox. spent 35 minutes in management of patient. Subjective Patient reports he continues to have bilateral hip pain, more left than right. He states that this pain is his main concern. Patient reports that prior he was having hypogastric abdominal pain, but this has resolved. Patient currently denies nausea, and vomiting and reports tolerating his diet. was at bedside and was updated. Gastrointestinal: as per Subjective / HPI; no nausea, no vomiting, no change in bowel habits, no constipation and no diarrhea/loose stools Physical Exam 2 Vital Signs (Past 24 Hours): Last Vital Signs Temp 37.2 C 12/01/18 15:22 Pulse 121 12/01/18 15:22 Resp 16 12/01/18 15:22 BP 114/67 12/01/18 15:22 Pulse Ox 95 12/01/18 15:22 Physical Exam: General: awake, alert, no apparent distress, +thin Head: Normocephalic, atraumatic ENT: PERRL, EOMI, no pharyngeal exudate, mucous membranes moist Chest: clear throughout, on room air. Cardiac: Regular rate and rhythm, + AKILA grade III/, no JVD, normal peripheral pulses, good capillary refill Abdominal: NABS x 4 quadrants, soft, +mild distension, nontender to palpation, no rebound, guarding or tenderness Extremities: Normal inspection, 2+ peripheral edema of ankles and calfs bilaterally, no erythema, calfs nontender to palpation, tenderness over hip region Psych: Normal mood and affect Neuro: AAO x 3, no motor deficits, speech is clear, no peripheral sensory deficits
[2018-12-02] MEDS: MoRPHine SULFATE 4 MG/ML 1 ML CARP\\VIAL IV PRN ×3 (11:17→16:47)
[2018-12-02] MEDS ORDERED: MoRPHine SULFATE 4 MG/ML 1 ML CARP\\VIAL IV STA ×2 (13:41→16:55)
[2018-12-02] MEDS ORDERED: NAPROXEN 250 MG TAB PO STA (16:47)
[2018-12-02] MEDS: ENOXAPARIN 100 MG/1ML SYR SC SCH (16:49)
--- NOTE | 2018-12-02 20:12 | Consultation Report ---
DATE OF CONSULTATION: 12/02/2018 ORTHOPEDIC CONSULT CHIEF COMPLAINT: Bilateral hip pain. 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 We were asked to evaluate the patient for his bilateral hip pain. Currently, sitting in his chair at bedside. He is alert and oriented, able to communicate well. He states he is used to having lower abdominal pain secondary to his pancreatitis, but recently developed this lower bilateral groin/hip pain. He denies fall or trauma. He states he does not have any significant pain with weightbearing and he does use a walker to ambulate. PHYSICAL EXAMINATION: EXTREMITIES: On exam, I can passively move both hips without significant pain. He has no pain to passive internal/external rotation. He has no significant discomfort with straight leg raise bilaterally. He has no tenderness about the bilateral greater trochanters. He denies any pain in the low back or buttocks region. X-RAYS: AP pelvis was reviewed and shows no acute findings. He may have some mild degenerative changes, but overall nothing significant. He can note some degenerative disc disease in his lower lumbar spine on the pelvis view. He also had an abdominal/pelvis CT and there was no notable findings on it as well. ASSESSMENT: Nonspecific bilateral hip pain. PLAN: I will discuss this with Dr. Enriquez. At this time, I did not see a significant orthopedic issue. We will follow along with the patient as indicated.
[2018-12-02] MEDS: FINASTERIDE 5 MG TAB PO SCH (20:53)
--- NOTE | 2018-12-02 23:01 | Consultation Report ---
DATE OF CONSULTATION: 12/02/2018 PERTINENT HISTORY: This is an 88-year-old gentleman seen at the request of Dr. Obed Holloway and Dr. Kizzy Peralta as well as Dr. Severiano Castaneda. This is a pleasant 88-year-old gentleman seen at his bedside, sitting up in a chair. He has had complaints of bilateral hip pain, more pronounced on the right than the left. He was admitted due to dilated pancreatic duct with abdominal pain and recurrent pancreatitis, lymphoma and esophageal dysmotility with gastroparesis. He has had new-onset diabetes mellitus and 15-pound unintentional weight loss over the past 6 months. He has had worsening fatigue. He has had to curtail his running. He was running up to 3 miles per day; however, the last several months he had to reduce his running to just a walk for approximately 1 mile now due to the early fatigue and exhaustion. 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 The patient had a recent procedure by Dr. Jeronimo and is feeling somewhat better; however, he continues to have bilateral hip pain which is limiting his ability to ambulate and it is uncomfortable and painful for him on a regular and recurrent basis. PAST MEDICAL HISTORY: Chronic outlet obstruction, BPH, hyperlipidemia, hypothyroidism, history of GI bleed, ulcer, insulin-dependent diabetes mellitus, chronic anticoagulation, unintentional weight loss, chronic recurrent pancreatitis, normocytic anemia, esophageal dysmotility, lymphoma, gastroparesis, hyperlipidemia, history of DVT, fatigue, history of PE, tachybrady syndrome, history of BCC and actinic keratoses, status post Mohs surgery, laryngospasm with intermittent Botox injections. PAST SURGICAL HISTORY: Pacemaker, cholangiogram with stenting, esophageal dilatation and bleeding ulcer cauterization. ALLERGIES: DOXYCYCLINE, PENICILLIN. MEDICATIONS: Atorvastatin, vitamin D3, finasteride, insulin, levothyroxine, pantoprazole, warfarin. SOCIAL HISTORY: Lives at [facility] with his . 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 He smoked 1 cigar per day for 30 years, quit 40 years ago. Occasional glass of wine every 2-3 days. No drug use. PHYSICAL EXAMINATION: This is an 88-year-old gentleman sitting upright in a bedside chair with his present. He is alert and oriented x3. Speech clear and fluent. Affect is appropriate. Examination of the bilateral lower extremities demonstrates skin warm, dry and intact. Cap refill less than 2 seconds. Dorsalis pedis and posterior pulses are palpable. He has tenderness to palpation in bilateral inguinal regions associated with the anterior hip joint capsule. He has pain on the right greater than left with active forward flexion of the hips. He has discomfort with internal and external rotation of the right hip, both active and passive. He has no pain with internal and external rotation of the left hip, active or passive. Limitation of range of motion is noted due to pain and guarding bilateral hips. Radiographs of the pelvis and hips demonstrate moderate degenerative changes with loss of joint space, marginal osteophytes, and subchondral sclerosis. No significant subchondral cyst formation. He was also noted to have lumbosacral degenerative changes with loss of disc height at L4-L5 and L5-S1 with marginal osteophytes and degenerative disc disease. RADIOGRAPHS: Reviewed. LABORATORIES: Reviewed. Notes from other providers reviewed. IMPRESSION: 1. [id number] bilateral hip osteoarthritis, more pronounced on the right than the left. 2. Confounding multiple comorbidities including recent exacerbation of recurrent pancreatitis with likely increase in generalized inflammation which could account for the [id number] arthritis of the hips. RECOMMENDATIONS: Oral anti-inflammatories approved by the medical team and would consider doing an intra-articular steroid injection into the femoral acetabular joint on either the right or bilateral hips if approved by the medical team. We will discuss further. Recommend against any type of hip arthroplasty procedure due to the patient's other ongoing medical issues. Thank you for the opportunity to consult in the care of this patient. I attest to the content of the Intraoperative Record and any orders documented therein. Any exceptions are noted below. VERNA
--- NOTE | 2018-12-02 23:41 | Hospitalist Progress Note ---
Date of Service December 02, 2018 Assessment & Plan (1) Pancreatitis: (2) Mass of pancreas: (3) Dilated intrahepatic bile duct: (4) Dilated pancreatic duct: (5) Elevated LFTs: - On tele -Patient appears to be improving after his procedure. Biliary sphincterectomy. Patient no longer hypotensive. will continue to monitor labs. Patient no longer tachycardic Restarted sotalol yesterday. Patient symptoms however do not seem to be coming from his pancreatitis. Will obtain consult with ortho. They recommend starting NSAIDs. From medicine standpoint ok for hip injection as a diagnosistic and therapuetic approach. - GI prophylaxis with pantoprazole (6) Unintended weight loss: - Seconday to pancreatic mass - Continue on boost daily for protein supplementation (7) History of deep venous thrombosis or pulmonary embolus: - ordered coumadin for 12/03 On lovenox as INR is subtherapuetic. (8) Atrial fibrillation: Continue anticoagulation with coumadin. Rate controlled. INR is subtherapuetic. Will place patient on lovenox therapeutic dose. 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 (11) HTN (hypertension): Held on admission. rsumed sotalol yesterday. (12) Bilateral hip pain: - Will check bilateral hip xray with new onset pain - CT reviewed but does not show osseous fracture. - Morphine IV 1-2 mg consulted ortho surgery. Started naprosyn. ortho may do hip injection. (13) Hyperlipidemia: - Continue statin therapy (14) Diabetes: - Hold outpatient levemir 8 U BID while NPO, use ISS with accuchecks. - Last A1C =10.7 on 11/23/18 (15) Thrombocytopenia: - PLT 101, follow with am labs, have trended down since last admission. (16) Hypothyroidism: - Continue levothyroxine 50 mcg daily (17) Cholangiocarcinoma: suspected/still to be ruled out cholangiocarcinoma Pending further workup by GI (18) DVT prophylaxis: - Continue coumadin. and lovenox. spent 35 minutes in management of patient. Subjective Patient reports he continues to have bilateral hip pain, more left than right. He states that this pain is his main concern. Patient has jamila requiring multiple dorses of morhine to treat the pain. Patient reports that prior he was having hypogastric abdominal pain, but this has resolved. Patient currently denies nausea, and vomiting and reports tolerating his diet. was at bedside and was updated. Gastrointestinal: as per Subjective / HPI; no nausea, no vomiting, no change in bowel habits, no constipation and no diarrhea/loose stools Physical Exam 2 Vital Signs (Past 24 Hours): Last Vital Signs Temp 38.1 C H 12/02/18 19:13 Pulse 79 12/02/18 19:13 Resp 20 12/02/18 19:13 BP 92/54 L 12/02/18 19:13 Pulse Ox 96 12/02/18 19:13 Physical Exam: General: awake, alert, no apparent distress, +thin Head: Normocephalic, atraumatic ENT: PERRL, EOMI, no pharyngeal exudate, mucous membranes moist Chest: clear throughout, on room air. Cardiac: Regular rate and rhythm, + AKILA grade III/, no JVD, normal peripheral pulses, good capillary refill Abdominal: NABS x 4 quadrants, soft, +mild distension, nontender to palpation, no rebound, guarding or tenderness Extremities: Normal inspection, 2+ peripheral edema of ankles and calfs bilaterally, no erythema, calfs nontender to palpation, tenderness over L hip region Psych: Normal mood and affect Neuro: AAO x 3, no motor deficits, speech is clear, no peripheral sensory deficits
[2018-12-03] MEDS: SODIUM CHLORIDE 0.9% 1000ML 1,000 ML IV SCH ×2 (04:56→06:30)
[2018-12-03] MEDS: LEVOTHYROXINE SODIUM 50 MCG TABLET PO SCH (06:30)
--- NOTE | 2018-12-03 08:35 | Anesthesiology Progress Note ---
Date of Service December 03, 2018 Anesthesia Post Procedure Vital Signs Vital Signs: Temp Pulse Pulse Resp BP BP Pulse Ox 12/03/18 07:02 36.5 C 70 18 108/65 99 12/03/18 04:10 36.5 C 61 18 105/57 L 97 12/02/18 23:42 36.4 C L 63 17 107/56 L 99 12/02/18 19:13 38.1 C H 79 20 92/54 L 96 12/02/18 15:15 36.6 C 90 18 110/71 92 12/02/18 10:45 36.6 C 78 18 90/63 L 98 Pain Intensity Lower Abdomen: Pain Intensity: 0 Bilateral Hip: Pain Intensity: 0 Notes Mental Status: alert / awake / arousable and participated in evaluation Nausea / Vomiting: adequately controlled Pain: adequately controlled Airway Patency, RR, SpO2: stable & adequate BP & HR: stable & adequate Hydration State: stable & adequate
[2018-12-03 08:49] LABS: Hematocrit (blood only) 30.7 % (42-52); Hemoglobin 10.6 g/dL (14.0-18.0); Mean Corpuscular Hgb Conc 34.5 g/dL (32-36); Mean Corpuscular Volume 94.8 fL (80-100); RDW Standard Deviation 52.2 fL (36.4-46.3); Red Blood Count 3.24 M/uL (4.7-6.1); White Blood Count 4.91 K/uL (4.8-10.8)
[2018-12-03 08:52] LABS: Basophils # (auto) 0.01 K/uL (0-0.2); Basophils % (auto) 0.2 %; Eosinophils # (auto) 0.08 K/uL (0-0.5); Eosinophils % (auto) 1.6 %; Immature Granulocytes # (auto) 0.02 K/uL (0.00-0.02); Immature Granulocytes % (auto) 0.4 %; Lymphocytes # (auto) 0.84 K/uL (1.2-3.4); Lymphocytes % (auto) 17.1 %; Mean Platelet Volume 9.8 fL (7.4-10.4); Monocytes # (auto) 0.68 K/uL (0.11-0.59); Monocytes % (auto) 13.8 %; Neutrophils # (auto) 3.28 K/uL (1.4-6.5); Neutrophils % (auto) 66.9 %; Platelet Count 89 K/uL (130-400)
[2018-12-03 09:04] LABS: INR 1.4 (0.9-1.1); Prothrombin Time 13.8 Seconds (9.0-12.0)
[2018-12-03] MEDS: PANTOprazole 40 MG TAB PO SCH (09:12)
[2018-12-03] MEDS: NAPROXEN 250 MG TAB PO SCH ×2 (09:13→20:47)
[2018-12-03] MEDS: POTASSIUM CHLORIDE 10 MEQ TABCR PO SCH (09:13)
[2018-12-03] MEDS: ATORVASTATIN 10 MG TAB PO SCH (09:13)
[2018-12-03] MEDS: SOTALOL HCL 80 MG TAB PO SCH ×2 (09:14→20:47)
[2018-12-03] MEDS: INSULIN ASPART 100 UNITS/ML 3 ML PEN SC SCH ×4 (09:16→20:49)
[2018-12-03 09:23] LABS: Albumin Level 1.7 gm/dl (3.4-5.0); BUN Creatinine Ratio 30.3 (10-20); Calcium 7.4 mg/dl (8.5-10.1); Creatinine Clr Calc Pharmacy 71.2 ml/min; Est GFR (African American) 100.8; Est GFR (Non-African American) 86.9; Magnesium 1.9 mg/dl (1.8-2.4); Phosphorus 1.7 mg/dl (2.5-4.9); Potassium 3.9 mmol/L (3.5-5.1)
[2018-12-03 09:25] LABS: Albumin Globulin Ratio 0.6 (0.9-2); Bilirubin,Total 1.4 mg/dl (0.2-1); Total Protein 4.7 gm/dl (6.4-8.2)
--- NOTE | 2018-12-03 09:54 | Orthopedic Progress Note ---
Date of Service December 03, 2018 Assessment & Plan (1) Bilateral hip pain: Bilateral hip pain Likely combination of inflammation of recurrent pancreatitis, multiple medical issues, and osteoarthritis. A this point the patient feels as though the hips are doing well, possibly due to addition of naprosyn. Would recommend Physical therapy: gait training with walker and B/L LE strengthening. If hips were to become more symptomatic in the future, poss steroid injections in the outpatient setting with our pain management team. No surgical indication at this time. Ortho will sign off for now, thank you. Subjective Orthopedically patient states his hips are feeling much better. He states medicine service has added naprosyn to his regimine and has had to use less morphine. He is eager to start some therapy as he has only been to the bathroom and back. He stated, as per earlier suggestion, that he doesnt think he needs steroid injections at this point. Physical Exam 2 Vital Signs (Past 24 Hours): Last Vital Signs Temp 36.5 C 12/03/18 07:02 Pulse 70 12/03/18 07:02 Resp 18 12/03/18 07:02 BP 108/65 12/03/18 07:02 Pulse Ox 99 12/03/18 07:02 Physical Exam: Pleasant 88 yo male sitting upright in his chair. A&Ox3 and very good historian. Both hips: pain free passive IR/ ER, flexion/ extension. Isometric hip strength reasonably good. Both LE's: no calf tenderness, pulses in tact, sensation in tact, minimal edema.
[2018-12-03] MEDS: MoRPHine SULFATE 4 MG/ML 1 ML CARP\\VIAL IV PRN (12:56)
--- NOTE | 2018-12-03 14:38 | Hospitalist Progress Note ---
Date of Service December 03, 2018 Assessment & Plan (1) Elevated LFTs: On admission, had elevated Tbili to 1.8 with concern for biliary obstruction from possible pancreatic mass (GI has concern for cholangiocarcinoma ). Underwent ERCP with Dr. Jeronimo on 11/30 with biliary sphincterectomy and single biliary stent placed. Per reports, he was hypotensive and tachycardic after procedure, but as of 12/03, he is comfortable with normal BP and HR. - Trend LFTs - Follow up with GI re: further recs (2) Mass of pancreas: MRCP on 11/24 showed concerning findings for pancreatic head mass; however , EUS on 11/23 was non-diagnostic. - Will need to follow up with outpatient GI. (3) Bilateral hip pain: Actual reason patient presented to the hospital. Seen by orthopedics with thought that it is osteoarthritis with inflammation from pancreatic issues. - Started naprosyn 250mg PO BID on 12/02 which is a so-so standing medication given his anticoagulation for his afib and possible cancer. - As of 12/03, hip pain improved and orthopedics signed off. - Will monitor hip pain and decrease naproxen as able. (4) Hypophosphatemia: Likely multifactorial with poor PO intake, medications, and possible cancer. May be worsening his weakness. - Replete (5) Pancreatitis: Lipase elevated to 991 on admission, then up to 1940 on 11/30. None after. - Check lipase in the morning, though patient reports no abdominal pain. (6) Unintended weight loss: Likely seconday to pancreatic mass. - Continue on boost daily for protein supplementation (7) History of deep venous thrombosis or pulmonary embolus: Unclear when the patient had DVT/PE. - On warfarin 4mg PO QHS per home dosing - Continue Lovenox as INR is subtherapuetic. (INR 1.4 on 12/03). (8) Atrial fibrillation: Continue anticoagulation with Lovenox/warfarin as above. Rate controlled with sotalol 40mg PO BID. - Plan as above (9) Tachy-logan syndrome: S/p pacemaker. EKG on 11/22 showed atrial pacing with a MI interval of 250. Current HR is around 60 bpm. - No inpatient needs. (10) HTN (hypertension): Has history of HTN listed in chart, but only on sotalol for HTN (not really a BP med). Held on admission for low BP. - Resumed sotalol on 12/01 (11) Hyperlipidemia: - Continued statin therapy (12) Diabetes: Last A1c was 10.7% on 11/23/2018. Held outpatient levemir 8 units BID while NPO for his procedure, but it was never restarted. - Sliding scale insulin - Consistently running 140-210 inpatient - Restarted levemir 8 units subcut QHS on 12/03 (13) Thrombocytopenia: PLT was 101 on admission; down to 89 on 12/03 with nikole of 76 on 12/01. Likely multifactorial with possible cancer, acute illness, and age all playing a role. No signs of bleeding. - Monitor (14) Hypothyroidism: No signs of hypo-/hyperthyroidism. TSH was 3.2 in 10/2018 and stable from priors. - Continue levothyroxine 50 mcg daily (15) DVT prophylaxis: Continue therapeutic Lovenox and warfarin. Subjective 88yo M w/ hx of abdominal pain who presents with right > left hip pain and elevated total bilirubin. This morning, he is doing well. Less hip pain with the naproxen and also notes his appetite is doing well. Reports no fevers/chills, chest pain, shortness of breath, abdominal pain, nausea, or vomiting. Physical Exam 2 Vital Signs (Past 24 Hours): Last Vital Signs Temp 36.6 C 12/03/18 11:56 Pulse 57 L 12/03/18 11:56 Resp 16 12/03/18 11:56 BP 106/61 12/03/18 11:56 Pulse Ox 95 12/03/18 11:56 Constitutional: WD/WN, vitals as above + thin, cooperative and + in distress (appears to be in pain, cannot feel comfortable with position changes) Eyes: PERRL, conjunctivae normal, anicteric sclerae ENMT: external ear and nose normal, oropharynx normal Mouth: no dentition abnormality Mallampati Class: II Neck: trachea midline, no thyromegaly normal visual inspection Respiratory: normal respiratory effort, lungs clear to auscultation normal respiratory effort Auscultation: lungs clear to auscultation bilaterally Cardiovascular: RRR, no murmur, no edema Rate/Rhythm: regular rate and regular rhythm Gastrointestinal (Abdomen): normal bowel sounds, soft, nontender, no hepatosplenomegaly Inspection/Auscultation: + hypoactive bowel sounds Percussion/Palpation: abdomen soft; abdomen nontender Musculoskeletal: no cyanosis or clubbing, extremities motor strength 5/5 Skin: no rashes, warm and dry no jaundice Neurologic: CN's II-XI intact bilaterally Motor/Sensory: no asterixis Psychiatric: A+Ox3, euthymic affect Lymphatic: no lymphedema
[2018-12-03] MEDS: ENOXAPARIN 100 MG/1ML SYR SC SCH (15:14)
[2018-12-03] MEDS: WARFARIN SOD 4 MG TAB PO SCH (15:15)
[2018-12-03] MEDS: POT PHOSPHATE MONOBASIC W/ SOD TAB PO SCH ×2 (17:57→20:46)
[2018-12-03] MEDS: FINASTERIDE 5 MG TAB PO SCH (20:46)
[2018-12-03] MEDS: INSULIN DETEMIR FLEXPEN/FLEX TOUCH 100 UNITS/ML 3ML SC SCH (20:47)
[2018-12-04] MEDS: LEVOTHYROXINE SODIUM 50 MCG TABLET PO SCH (05:59)
[2018-12-04 06:10] LABS: Hematocrit (blood only) 29.1 % (42-52); Hemoglobin 9.9 g/dL (14.0-18.0); Mean Corpuscular Volume 94.8 fL (80-100); RDW Coefficient of Variation 14.8 % (11.5-14.5); RDW Standard Deviation 51.1 fL (36.4-46.3); Red Blood Count 3.07 M/uL (4.7-6.1)
[2018-12-04 06:47] LABS: INR 1.5 (0.9-1.1); Mean Platelet Volume 8.9 fL (7.4-10.4); Platelet Count 85 K/uL (130-400); Prothrombin Time 14.8 Seconds (9.0-12.0)
[2018-12-04 06:50] LABS: Albumin Globulin Ratio 0.6 (0.9-2); Albumin Level 1.6 gm/dl (3.4-5.0); BUN Creatinine Ratio 22.6 (10-20); Calcium 6.8 mg/dl (8.5-10.1); Creatinine Clr Calc Pharmacy 85.4 ml/min; Est GFR (African American) 108.6; Est GFR (Non-African American) 93.7; Globulin 2.8 gm/dl (2.5-4.0); Magnesium 1.8 mg/dl (1.8-2.4); Phosphorus 2.3 mg/dl (2.5-4.9); Potassium 3.5 mmol/L (3.5-5.1); Total Protein 4.4 gm/dl (6.4-8.2)
[2018-12-04] MEDS: PANTOprazole 40 MG TAB PO SCH (07:48)
[2018-12-04] MEDS: SOTALOL HCL 80 MG TAB PO SCH ×2 (07:49→20:28)
[2018-12-04] MEDS: ATORVASTATIN 10 MG TAB PO SCH (07:49)
[2018-12-04] MEDS: NAPROXEN 250 MG TAB PO SCH ×2 (07:49→20:28)
[2018-12-04] MEDS: POT PHOSPHATE MONOBASIC W/ SOD TAB PO SCH ×4 (07:50→20:30)
[2018-12-04] MEDS: INSULIN ASPART 100 UNITS/ML 3 ML PEN SC SCH ×4 (07:50→20:35)
[2018-12-04] MEDS: ENOXAPARIN 100 MG/1ML SYR SC SCH (16:22)
[2018-12-04] MEDS: WARFARIN SOD 4 MG TAB PO SCH (16:23)
--- NOTE | 2018-12-04 17:04 | Hospitalist Progress Note ---
Date of Service December 04, 2018 Assessment & Plan (1) Elevated LFTs: On admission, had elevated Tbili to 1.8 with concern for biliary obstruction from possible pancreatic mass (GI has concern for cholangiocarcinoma ). Underwent ERCP with Dr. Jeronimo on 11/30 with biliary sphincterectomy and single biliary stent placed. Per reports, he was hypotensive and tachycardic after procedure, but as of 12/03, he was comfortable with normal BP and HR. - He will follow up with GI as an outpatient for follow up of his path and further needs for diagnosis or treatment of his possible pancreatic mass. (2) Mass of pancreas: MRCP on 11/24 showed concerning findings for pancreatic head mass; however , EUS on 11/23 was non-diagnostic. - Will need to follow up with outpatient GI. (3) Bilateral hip pain: Actual reason patient presented to the hospital. Seen by orthopedics with thought that it is osteoarthritis with inflammation from pancreatic issues. - Started naprosyn 250mg PO BID on 12/02 which is a so-so standing medication given his anticoagulation for his afib and possible cancer. - As of 12/03, hip pain improved and orthopedics signed off. - Will monitor hip pain and decrease naproxen as able. - Very concerned about hip pain. Will trial Tylenol and tramadol as dual-option pain medication. If no pain or if this works for his pain, will discharge on these meds. (4) Hypophosphatemia: Likely multifactorial with poor PO intake, medications, and possible cancer. May be worsening his weakness. - Replete (5) Pancreatitis: Lipase elevated to 991 on admission, then up to 1940 on 11/30. None after. - Check lipase in the morning, though patient reports no abdominal pain. (6) Unintended weight loss: Likely seconday to pancreatic mass. - Continue on boost daily for protein supplementation (7) History of deep venous thrombosis or pulmonary embolus: Unclear when the patient had DVT/PE. - On warfarin 4mg PO QHS per home dosing - Continue Lovenox as INR is subtherapuetic. (INR 1.5 on 12/04). (8) Atrial fibrillation: Continue anticoagulation with Lovenox/warfarin as above. Rate controlled with sotalol 40mg PO BID. - Plan as above (9) Tachy-logan syndrome: S/p pacemaker. EKG on 11/22 showed atrial pacing with a DE interval of 250. Current HR is around 60 bpm. - No inpatient needs. (10) HTN (hypertension): Has history of HTN listed in chart, but only on sotalol for HTN (not really a BP med). Held on admission for low BP. - Resumed sotalol on 12/01 (11) Hyperlipidemia: - Continued statin therapy (12) Diabetes: Last A1c was 10.7% on 11/23/2018. Held outpatient levemir 8 units BID while NPO for his procedure, but it was never restarted. - Sliding scale insulin - Restarted levemir 8 units subcut QHS on 12/03 - Blood sugar improved on 12/04 with BS running 80-110 (13) Thrombocytopenia: Platelets were 101 on admission; down to 89 on 12/03 with nikole of 76 on 12/01. Likely multifactorial with possible cancer, acute illness, and age all playing a role. No signs of bleeding. - Monitor (14) Hypothyroidism: No signs of hypo-/hyperthyroidism. TSH was 3.2 in 10/2018 and stable from priors. - Continue levothyroxine 50 mcg daily (15) DVT prophylaxis: Continue therapeutic Lovenox and warfarin. I spent 35 minutes counseling the patient and discussing the current state, treatment course, and prognosis of his/her disease, including his possible pancreatic tumor and treatment strategy for his hip pain. Subjective 88yo M w/ hx of abdominal pain who presents with right > left hip pain and elevated total bilirubin. This morning, he is doing well. Less hip pain with the naproxen; however, he is very concerned that he will have pain without the morphine. Reports no fevers/ chills, chest pain, shortness of breath, abdominal pain, nausea, or vomiting. Physical Exam 2 Vital Signs (Past 24 Hours): Last Vital Signs Temp 36.6 C 12/04/18 15:19 Pulse 70 12/04/18 15:19 Resp 18 12/04/18 15:19 BP 95/57 L 12/04/18 15:19 Pulse Ox 98 12/04/18 15:19 Constitutional: WD/WN, vitals as above + thin, cooperative and + in distress (appears to be in pain, cannot feel comfortable with position changes) Eyes: PERRL, conjunctivae normal, anicteric sclerae ENMT: external ear and nose normal, oropharynx normal Mouth: no dentition abnormality Mallampati Class: II Neck: trachea midline, no thyromegaly normal visual inspection Respiratory: normal respiratory effort, lungs clear to auscultation normal respiratory effort Auscultation: lungs clear to auscultation bilaterally Cardiovascular: RRR, no murmur, no edema Rate/Rhythm: regular rate and regular rhythm Gastrointestinal (Abdomen): normal bowel sounds, soft, nontender, no hepatosplenomegaly Inspection/Auscultation: + hypoactive bowel sounds Percussion/Palpation: abdomen soft; abdomen nontender Musculoskeletal: no cyanosis or clubbing, extremities motor strength 5/5 Skin: no rashes, warm and dry no jaundice Neurologic: CN's II-XI intact bilaterally Motor/Sensory: no asterixis Psychiatric: A+Ox3, euthymic affect Lymphatic: no lymphedema
[2018-12-04] MEDS: FINASTERIDE 5 MG TAB PO SCH (20:30)
[2018-12-04] MEDS: INSULIN DETEMIR FLEXPEN/FLEX TOUCH 100 UNITS/ML 3ML SC SCH (20:31)
[2018-12-04] MEDS: ACETAMINOPHEN 500 MG TAB PO PRN (20:35)
[2018-12-04] MEDS: TRAMADOL HCL 50 MG TABLET PO PRN (21:14)
[2018-12-05] MEDS: CARBOHYDRATES FOR HYPOGLYCEMIA PO PRN ×3 (03:54→04:33)
[2018-12-05] MEDS: LEVOTHYROXINE SODIUM 50 MCG TABLET PO SCH (05:01)
[2018-12-05 06:13] LABS: Hematocrit (blood only) 30.3 % (42-52); Hemoglobin 10.2 g/dL (14.0-18.0); Mean Corpuscular Hgb Conc 33.7 g/dL (32-36); RDW Coefficient of Variation 14.7 % (11.5-14.5); RDW Standard Deviation 50.8 fL (36.4-46.3); Red Blood Count 3.19 M/uL (4.7-6.1); White Blood Count 5.07 K/uL (4.8-10.8)
[2018-12-05 06:24] LABS: Mean Platelet Volume 9.3 fL (7.4-10.4); Platelet Count 82 K/uL (130-400)
[2018-12-05 06:37] LABS: INR 1.9 (0.9-1.1); Prothrombin Time 18.2 Seconds (9.0-12.0)
[2018-12-05 06:50] LABS: Albumin Level 1.6 gm/dl (3.4-5.0); BUN Creatinine Ratio 15.4 (10-20); Calcium 6.9 mg/dl (8.5-10.1); Creatinine Clr Calc Pharmacy 73.4 ml/min; Magnesium 1.8 mg/dl (1.8-2.4); Potassium 3.5 mmol/L (3.5-5.1)
[2018-12-05 06:59] LABS: Albumin Globulin Ratio 0.6 (0.9-2); Bilirubin,Total 1.1 mg/dl (0.2-1); Globulin 2.9 gm/dl (2.5-4.0); Phosphorus 3.5 mg/dl (2.5-4.9); Total Protein 4.5 gm/dl (6.4-8.2)
[2018-12-05] MEDS ORDERED: CALCIUM GLUCONATE 10% 2,000 MG in SODIUM CHLORIDE 0.9% 50 ML IV ONE (08:00)
[2018-12-05] MEDS: SOTALOL HCL 80 MG TAB PO SCH (08:07)
[2018-12-05] MEDS: NAPROXEN 250 MG TAB PO SCH (08:07)
[2018-12-05] MEDS: PANTOprazole 40 MG TAB PO SCH (08:07)
[2018-12-05] MEDS: ATORVASTATIN 10 MG TAB PO SCH (08:07)
[2018-12-05] MEDS: INSULIN ASPART 100 UNITS/ML 3 ML PEN SC SCH ×2 (08:09→12:05)
[2018-12-05] MEDS: TRAMADOL HCL 50 MG TABLET PO PRN ×2 (08:15→12:35)
[2018-12-05] MEDS: ACETAMINOPHEN 500 MG TAB PO PRN (09:31)
--- NOTE | 2018-12-05 17:32 | Discharge Summary ---
Date of Service December 05, 2018 Admission HPI Per Admitting Provider This is an 88 yo M with PMHx of Lymphoma,s/p radiation 10 years ago, chronic pancreatitis, esophageal dysmotility s/p esophageal dilation, gastroparesis, laryngospasm, bleeding ulcer, cauterized by Dr. 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 Pt was recently admitted from 11/22-11/25 and underwent EUS with bx obtained, which is still pending. CA-19 was elevated a 553. During previous admission his LFTs and bili were within normal limits. Pt underwent and MRI on 11/24 which showed moderate to severe intrahepatic biliary ductal dilatation up to 14 mm. There was also dilation of the pancreatic duct up to 8 mm. Today LFTs have significantly increased. Pt presented with lower abdominal pain while sitting at the edge of the bed, across his hips bilaterally and was unable to get up. He notes having chills overnight but no fevers. He has been using tylenol for pain. Pt currently denies abdominal pain during my exam, denies bloating or distension. He had a BM this morning. Pt admits to 15 lb weight loss in past 6 months and feels his muscle mass has significantly reduced. He was running/walking 3 mi daily before 6 months ago. Principal Diagnosis Common bile duct obstruction - Concerning for pancreatic mass/cancer Right hip pain - Likely osteoarthritis Discharge Exam Constitutional WD/WN, vitals as above + thin, cooperative and + in distress (appears to be in pain, cannot feel comfortable with position changes) Eyes PERRL, conjunctivae normal, anicteric sclerae ENMT external ear and nose normal, oropharynx normal Mouth: no dentition abnormality Mallampati Class: II Neck trachea midline, no thyromegaly normal visual inspection Respiratory normal respiratory effort, lungs clear to auscultation normal respiratory effort Auscultation: lungs clear to auscultation bilaterally Cardiovascular RRR, no murmur, no edema Rate/Rhythm: regular rate and regular rhythm Gastrointestinal (Abdomen) normal bowel sounds, soft, nontender, no hepatosplenomegaly Inspection/Auscultation: + hypoactive bowel sounds Percussion/Palpation: abdomen soft; abdomen nontender Musculoskeletal no cyanosis or clubbing, extremities motor strength 5/5 Skin no rashes, warm and dry no jaundice Neurologic CN's II-XI intact bilaterally Motor/Sensory: no asterixis Psychiatric A+Ox3, euthymic affect Lymphatic no lymphedema Discharge Data Allergies Allergy/AdvReac Type Severity Reaction Status Date / Time doxycycline Allergy Intermediate rash Verified 11/29/18 14:58 Penicillins Allergy Unknown Unknown Verified 11/29/18 06:19 Consultations 11/29/18 09:52 ED Decision to Admit Stat 11/29/18 13:01 Consult Case Management - Discharge Planning Routine Consult Gastroenterology Routine 12/01/18 14:18 Consult Orthopedic Surgery Routine Procedures Performed Operation Date: 11/30/18 09:35 Actual Procedures p Endoscopic Retrograde Cholangiopancreatogram(Not Applicable) - Cindy Jeronimo Ordered Studies 11/29/18 07:31 CT abd pelvis IV con only Stat 11/30/18 14:00 FL ERCP biliary ductal Routine Hospital Course (1) Elevated LFTs: On admission, had elevated Tbili to 1.8 with concern for biliary obstruction from possible pancreatic mass (GI has concern for cholangiocarcinoma ). Underwent ERCP with Dr. Jeronimo on 11/30 with biliary sphincterectomy and single biliary stent placed. Per reports, he was hypotensive and tachycardic after procedure, but as of 12/03, he was comfortable with normal BP and HR. - He will follow up with GI as an outpatient for follow up of his path and further needs for diagnosis or treatment of his possible pancreatic mass. (2) Mass of pancreas: MRCP on 11/24 showed concerning findings for pancreatic head mass; however , EUS on 11/23 was non-diagnostic. - Will need to follow up with outpatient GI. (3) Bilateral hip pain: Actual reason patient presented to the hospital. Seen by orthopedics with thought that it is osteoarthritis with inflammation from pancreatic issues. - Started naprosyn 250mg PO BID on 12/02 which is a so-so standing medication given his anticoagulation for his afib and possible cancer. - As of 12/03, hip pain improved and orthopedics signed off. - Will monitor hip pain and decrease naproxen as able. - He was very concerned about hip pain. Trialed Tylenol and tramadol as dual- option pain medication with good result. Discharged on naproxen PRN and tramadol /acetaminophen PRN. (4) Hypophosphatemia: Likely multifactorial with poor PO intake, medications, and possible cancer. May be worsening his weakness. - Repleted and stable on discharge (5) Pancreatitis: Lipase elevated to 991 on admission, then up to 1940 on 11/30. On 12/05, lipase up to 5000. Likely due to ERCP. No symptoms. - Monitor for any abdominal pain. (6) Unintended weight loss: Likely secondary to pancreatic mass. - Continue on boost daily for protein supplementation (7) History of deep venous thrombosis or pulmonary embolus: Unclear when the patient had DVT/PE. - On warfarin 4mg PO QHS per home dosing - Was on Lovenox as INR is subtherapuetic initially, but INR was 1.9 on 12/05, so likely no further need. - Check INR in 3-4 days. (8) Atrial fibrillation: Continue anticoagulation with Lovenox/warfarin as above. Rate controlled with sotalol 40mg PO BID. - Plan as above (9) Tachy-logan syndrome: S/p pacemaker. EKG on 11/22 showed atrial pacing with a MT interval of 250. Current HR is around 60 bpm. - No inpatient needs. (10) HTN (hypertension): Has history of HTN listed in chart, but only on sotalol for HTN (not really a BP med). Held on admission for low BP. - Resumed sotalol on 12/01 (11) Hyperlipidemia: - Continued statin therapy (12) Diabetes: Last A1c was 10.7% on 11/23/2018. Held outpatient levemir 8 units BID while NPO for his procedure, but it was never restarted. - Sliding scale insulin - Restarted levemir 8 units subcut QHS on 12/03, but sugars ran low the morning of 12/05. - Lowered insulin to 5 units every evening. (13) Thrombocytopenia: Platelets were 101 on admission; down to 89 on 12/03 with nikole of 76 on 12/01. Likely multifactorial with possible cancer, acute illness, and age all playing a role. No signs of bleeding. - Monitor (14) Hypothyroidism: No signs of hypo-/hyperthyroidism. TSH was 3.2 in 10/2018 and stable from priors. - Continue levothyroxine 50 mcg daily (15) DVT prophylaxis: Continue therapeutic Lovenox and warfarin. Total Time Total Time Spent Total Time Spent (In Minutes): 45 Total Time Includes: Examination of the Patient, Discharge Planning and Medication Reconciliation Discharge Plan Discharge Items Patient Disposition: Transfer Group Home Fac Reason For Visit: ABD PAIN,ELEVATED LFTS,PANCREATIC MASS Discharge Diagnosis: Hip pain; pancreatic mass with obstruction Discharge Goals: Decrease discomfort, Improve disease control and Improve function Activity: Resume your previous activity Exercise/Sports: Gradually increase as tolerated Non-emergency contact: Primary Care Provider and Sql Manager Call non-emergency contact if: you have any medication questions, your symptoms worsen, your pain is unusual for you and your temperature is above 100.5 Follow-up/Referrals: Cindy Jeronimo [Physician] - (Please follow up with Dr. Jeronimo at your scheduled visit.) Marie Hansen [Primary Care Provider] - (Please have the Marie physician(s ) see you in a few days after discharge to see how your hip pain is doing.) Diet: Carb Consistent or DM2 and Heart Healthy Addtl Provider Instructions: Mr. Osborn was admitted for hip pain with right worse than left. He also had elevated LFTs which we are worried is due to a pancreatic mass. He underwent ERCP with a stent placed on 11/30 with Cindy Jeronimo. His LFTs and bilirubin have improved. Tbili was a peak of 1.8, and is now down to 1.1. His AST/ALT have also improved and are 48/44 on discharge from a high of 176/104. He has had minimal abdominal pain and a good appetite while here. He mostly was concerned with his hip pain. His right was worse than left. He was seen by orthopedics with plan for conservative care. He could also consider joint injections, but these would be done outpatient by pain management. On discharge, he was on naproxen 250mg PO BID, acetaminophen, and low-dose tramadol to help with the pain which was working well. Finally, he had low blood sugar here. 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 Prescriptions: New tramadol-acetaminophen 37.5-325 mg tablet 1 tab PO Q8H PRN (Reason: pain) 5 Days Qty: 5 RF: 0 naproxen 250 mg tablet 250 mg PO BID PRN (Reason: pain) Qty: 1 RF: 0 Continue atorvastatin 10 mg tablet 10 mg PO QAM RF: 0 levothyroxine 50 mcg tablet 50 mcg PO QAM RF: 0 pantoprazole 40 mg tablet,delayed release (DR/EC) 40 mg PO QAM RF: 0 finasteride 5 mg tablet 5 mg PO HS RF: 0 cholecalciferol (vitamin D3) [Vitamin D3] 2,000 unit Capsule 2,000 units PO QPM RF: 0 sotalol 80 mg Tablet 40 mg PO BID 30 Days Qty: 30 RF: 1 warfarin 4 mg tablet 4 mg PO QPM RF: 0 vitamin B complex Tablet 1 tab PO DAILY RF: 0 Changed insulin detemir U-100 100 unit/mL (3 mL) insulin pen 5 unit subcut QPM Qty: 0 RF: 0 Discontinued ferrous sulfate 325 mg (65 mg iron) Tablet 325 mg PO BID RF: 0 Stand-Alone Forms: [facility]/Other Patient Handouts: Abd Pain, Pain Management, Chronic Pain Discharge Orders: Discharge Order (Routine); Ordered 12/05/18 Ordered By: Ashok Butler Skilled Items Patient informed of condition?: Yes DNR: Yes Discharge Level of Care: Skilled Communicable Disease: No Discharge Prognosis: Stable Admission Data Admit Date/Time: 11/29/18 10:42 Attending Provider: Ashok Butler Admit Provider: Obed Holloway Primary Care Provider: Marie Hansen Other Providers: Obed Holloway ; Evelina Coon ; Brandon Enriquez Service: Telemetry Other Interventions: Discharge Summary Assessment (RN) Last Done: 12/05/18 14:38 DC Date/Time DO NOT enter until pt leaves facility: 12/05/18 15:32
[2018-12-05] MEDS ORDERED: INSULIN DETEMIR FLEXPEN/FLEX TOUCH 100 UNITS/ML 3ML SC SCH (21:00)
== END 2018-12-05 15:32 | DRG 435 ==
LOC: ED 05:55 → 2S 10:42 → SUATTDRO 10:42 → 2S 12:15

== ENCOUNTER 2018-12-20 09:57 | Inpatient (IN) ==
[2018-12-20] MEDS ORDERED: SODIUM CHLORIDE 0.9% 500 ML IV SCH (10:45)
[2018-12-20 11:02] LABS: Hematocrit (blood only) 28.6 % (42-52); Hemoglobin 9.4 g/dL (14.0-18.0); Mean Corpuscular Hgb Conc 32.9 g/dL (32-36); Mean Corpuscular Volume 92.3 fL (80-100); RDW Coefficient of Variation 14.7 % (11.5-14.5); RDW Standard Deviation 49.4 fL (36.4-46.3); White Blood Count 6.36 K/uL (4.8-10.8)
[2018-12-20 11:05] LABS: Mean Platelet Volume 10.2 fL (7.4-10.4); Platelet Count 64 K/uL (130-400)
--- NOTE | 2018-12-20 11:10 | XRay Report ---
XR chest 1V portable CLINICAL HISTORY: weakness dyspnea COMPARISON STUDY: 12/01/2017 FINDINGS: Interval development of a left basilar parenchymal infiltrate combined with a small left ef fusion. Lungs otherwise appear clear. There is a permanent bipolar cardiac pacemaker. IMPRESSION: Interval development of a left basilar pleural effusion with left basilar infiltrative p rocess. The above report was generated using voice recognition software. It may contain grammatical, syntax or spelling errors. Electronically signed by: Renny Lomeli M.D. 12/20/2018 11:08 AM
[2018-12-20 11:18] LABS: Eosinophils # (auto) 0.04 K/uL (0-0.5); Eosinophils % (auto) 0.6 %; Immature Granulocytes # (auto) 0.02 K/uL (0.00-0.02); Immature Granulocytes % (auto) 0.3 %; Lymphocytes # (auto) 0.73 K/uL (1.2-3.4); Lymphocytes % (auto) 11.5 %; Monocytes # (auto) 0.37 K/uL (0.11-0.59); Monocytes % (auto) 5.8 %; Neutrophils % (auto) 81.8 %
[2018-12-20 11:20] LABS: Alanine Aminotransferase 31 U/L (12-78); Albumin Level 1.5 gm/dl (3.4-5.0); Aspartate Aminotransferase 43 U/L (15-37); BUN Creatinine Ratio 23.1 (10-20); Blood Urea Nitrogen 20 mg/dl (7-18); Carbon Dioxide 29 mmol/L (21-32); Chloride 101 mmol/L (98-107); Creatinine Clr Calc Pharmacy 55.3 ml/min; Est GFR (African American) 90.8; Est GFR (Non-African American) 78.3; Glucose 138 mg/dl (70-99); Potassium 3.7 mmol/L (3.5-5.1); Sodium 135 mmol/L (136-145)
[2018-12-20 11:30] LABS: Prothrombin Time > 90.0 Seconds (9.0-12.0)
[2018-12-20 11:31] LABS: Albumin Globulin Ratio 0.5 (0.9-2); Alkaline Phosphatase 335 U/L (45-117); Globulin 3.2 gm/dl (2.5-4.0); Total Protein 4.7 gm/dl (6.4-8.2); Troponin I < 0.015 ng/ml (0-0.045)
[2018-12-20 11:39] LABS: INR > 10.4 (0.9-1.1); Partial Thromboplastin Time 80.5 Seconds (21.0-31.0)
[2018-12-20] MEDS ORDERED: PANTOprazole 80 MG in DEXTROSE 5% 100 ML IV ONE (11:49)
[2018-12-20] MEDS ORDERED: PANTOPRAZOLE BOLUS/DRIP 1 EA IV STA (11:49)
[2018-12-20] MEDS ORDERED: PHYTONADIONE 10 MG in SODIUM CHLORIDE 0.9% 50 ML IV ONE (11:49)
[2018-12-20] MEDS ORDERED: PANTOprazole 40 MG in DEXTROSE 5% 100 ML IV SCH (12:00)
[2018-12-20 12:20] LABS: Appearance Urine Turbid (Clear); Bacteria Urine Automated 4+ (Negative); Bilirubin Urine Negative (Negative); Blood Urine 3+ (Negative); Color Urine Dark Yellow; Glucose Urine UA Negative (Negative); Ketones Urine Negative (Negative); Leukocyte Esterase Urine 3+ (Negative); Nitrite Urine Negative (Negative); Protein Urine Trace (Negative); Specific Gravity Urine 1.015 (1.000-1.030); Urobilinogen Urine Negative (Negative); WBC Urine Automated >30 /hpf (0-5); pH Urine 6.5 (4.5-7.5)
--- NOTE | 2018-12-20 12:51 | Gastrointestinal Consultation ---
Date of Consultation December 20, 2018 Assessment & Plan (1) Mass of pancreas: Likely malignant. EUS is scheduled. With report of chills, he may have cholangitis. Plan: 1. Cover for cholangitis with Cipro/Flagyl (allx to PCN). 2. Check LFTs tomorrow. 3. Please reverse INR as he may need ERCP procedure. 4. Clear liquids diet. 5. IV BID PPI as no gross GI bleeding. Present on Admission?: Yes Supervising Physician Co-Signing Physician Notes I have performed a history and physical examination of this patient and reviewed the electronic medical record. Specifically, on physical examination there is RUQ mild tenderness. I have discussed the case with JONI Bee. The above note reflects my findings, conclusions, and recommendations. Nico Sterling MD History of Present Illness Reason for Consultation: GI bleeding Requesting Physician: Dr. Ramos, ED Attending Physician: [facility] History of Present Illness Evens Osborn an 88 year old male with a hx of DM-2, lymphoma (chemo 1984), CAD, A-fib and PE on warfarin, who was recently found to have new pancreatic ductal dilation, seen on CT with IV contrast on 11/22/18 and since that time, underwent EUS on 11/23 with findings of a 19mm pancreatic head mass, though FNA was not diagnostic. He had increased pain and underwent ERCP on 11/30 with placement of a biliary stent with improvement in pain. ERCP cytology was negative. EUS is scheduled for 01/[address] Neal for repeat FNA. He presented to the ED today because routine labs showed an INR of 10. Hb on arrival:9.4, down from 10.2 on 12/05/18. He denies an nausea, vomiting, melena or hematochezia. No recent abdominal or back pain. No bleeding gums or nose bleeds. He is awake, alert, oriented. When asked about fevers/chills, he mentioned that he felt very cold and weak, two nights in a row. On arrival, occult stool was (+), LFTs were mildly elevated: T Bili 2.0, AST 43, ALT 31, Alk Phos 335. Prior T Bili on 12/10 was 1.0 Allergies Allergy/AdvReac Type Severity Reaction Status Date / Time doxycycline Allergy Intermediate rash Verified 12/21/18 12:34 Penicillins Allergy Unknown Unknown Verified 12/21/18 12:56 Home Medications Home Medications Medication Instructions Recorded Confirmed Type atorvastatin 10 mg PO QAM 10/22/18 12/20/18 History cholecalciferol (vitamin D3) 2,000 units PO QPM 10/22/18 12/20/18 History [Vitamin D3] finasteride 5 mg PO HS 10/22/18 12/20/18 History levothyroxine 50 mcg PO QAM 10/22/18 12/20/18 History pantoprazole 40 mg PO QAM 10/22/18 12/20/18 History sotalol 40 mg PO BID 30 Days #30 tab 11/25/18 12/20/18 Rx vitamin B complex 1 tab PO QAM 11/29/18 12/20/18 History insulin detemir U-100 5 unit SUBCUT QPM #0 ml 12/05/18 12/20/18 Rx acetaminophen 650 mg PO Q6H PRN 12/19/18 12/20/18 History bumetanide 1 mg PO QAM 12/19/18 12/20/18 History hydrocortisone [Anusol-HC] 1 applic DE BID PRN 12/19/18 12/20/18 History insulin aspart U-100 [Novolog 2 unit SUBCUT AC 12/19/18 12/20/18 History U-100 Insulin aspart] magnesium hydroxide [Milk of 30 ml PO Q OTHER DAY PRN 12/19/18 12/20/18 History Magnesia] naproxen 375 mg PO BID 12/19/18 12/20/18 History nystatin 1 applic TOPICAL BID PRN 12/19/18 12/20/18 History potassium chloride 10 meq PO BID 12/19/18 12/20/18 History sennosides [Senokot] 8.6 mg PO QAM PRN 12/19/18 12/20/18 History sertraline 75 mg PO QAM 12/19/18 12/20/18 History tramadol 50 mg PO Q6H PRN 12/19/18 12/20/18 History warfarin [Coumadin] 2 mg PO QPM 12/19/18 12/20/18 History ciprofloxacin HCl [Cipro] 500 mg PO BID 12/20/18 12/20/18 History dexamethasone [Decadron] 2 mg PO QAM PRN 12/20/18 12/20/18 History polyethylene glycol 3350 [Miralax] 17 g PO QAM PRN 12/20/18 12/20/18 History Patient History Medical History Thrombocytopenia Bilateral hip pain Pancreatitis Elevated LFTs Mass of pancreas (Acute) Unintended weight loss History of deep venous thrombosis or pulmonary embolus 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 Atrial fibrillation (Chronic) on warfarin HTN (hypertension) (Chronic) Hyperlipidemia (Chronic) Tachy-logan syndrome (Acute) S/p PM placement GI bleed (Acute) Anemia BPH (benign prostatic hyperplasia) Coronary artery disease Depression Diabetes mellitus, type 2 IDDM; newly diagnosed GERD (gastroesophageal reflux disease) Generalized edema Hypothyroidism 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 Mitral valve disorder Neuropathy 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 + fell against the wall/grab bar (legs were very weak) 2 nights ago. Eyes: no vision changes, no eye redness or pain Respiratory: No SOB, no cough Cardiovascular: No irregular heartbeats or chest pain (A-fib but never feels the irregular heart beat). Abdomen: No abdominal pain, no nausea/vomiting Ext: No edema Hem: No excessive bruising/bleeding : no dysuria, hematuria or urine hesitency. Physical Exam Vital Signs (Past 24 Hours): Last Vital Signs Temp 36.4 C L 12/20/18 12:21 Pulse 61 12/20/18 12:21 Resp 18 12/20/18 12:21 BP 116/66 12/20/18 12:21 Pulse Ox 98 12/20/18 12:21 Constitutional: + ill appearing, + thin, + frail appearing and cooperative Eyes: PERRL, conjunctivae normal, anicteric sclerae ENMT: external ear and nose normal, oropharynx normal Neck: trachea midline, no thyromegaly Respiratory: normal respiratory effort, lungs clear to auscultation Cardiovascular: RRR, no murmur, no edema Gastrointestinal (Abdomen): normal bowel sounds, soft, nontender, no hepatosplenomegaly Skin: no rashes, warm and dry pale Neurologic: PERRL, EOMI, accommodation nl, no face palsy, no dysarthria Psychiatric: A+Ox3, euthymic affect Results & Data Laboratory Results WBC 6, Hb 9.4, Hct 28.6, Platelts 64, INR 10.4, T Bili 2.0, AST 43, ALT 31, Alk Phos 335 Diagnostic Findings ERCP 11/29/18: The lower third of the main bile duct contained a single segmental stenosis 20 mm in length. The middle third of the main bile duct, upper third of the main bile duct and left and right hepatic ducts and all intrahepatic branches were moderately dilated, with an obstruction. The largest diameter was 11mm. Biliary sphincterotomy was made with a monofilament Fusion OMNI sphincterotome using ERBE electrocautery. There was no post-sphincterotomy bleeding. Cells for cytology were obtained by brushing in the lower third of the main bile duct. One 7 Fr by 7 cm biliary stent with a full external pigtail and a full internal pigtail was placed 7 cm into the common bile duct. Bile and sludge flowed through the stent CT abd/pelvis with IV contrast 11/29/18: 1. Persistent intra and extrahepatic biliary ductal dilatation. Persistent pancreatic ductal dilatation. The degree of intrahepatic biliary ductal dilatation is slightly diminished when compared the preceding study 2. Changes of chronic pancreatitis 3. 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 Trace ascites 5. Fecal retention. Correlate for clinical signs of constipation 6. Possible megaly with evidence of chronic bladder outlet obstruction 7. Normal appendix. No evidence of acute diverticulitis.
--- NOTE | 2018-12-20 14:07 | History & Physical Report ---
Date of Service December 20, 2018 Assessment & Plan (1) Generalized weakness: 88 y/o M hx PAF - Coumadin, HTN, DM II, hypothyroidism, chronic anemia and thrombocytopenia, indeterminate pancreatic head mass. He is being treated for a UTI with Cipro at present and had been complaining of weakness. He also noted bright red blood ID with a bowel movement this AM. Labs were obtained and his INR returned at > 10. He had brown heme + stool on rectal exam in the ER. He does have a history of hemorrhoids which occasionally bleed and so did not become alarmed with some bleeding this AM. The pt is currently being worked up for a pancreatic head mass and required a ductal stent due to biliary o bstruction 12/03/18. He does not report SOB, lightheadedness or CP at the time of admission. He had a biopsy 12/03 with the stent placement which was indeterminate and has an additional biopsy scheduled in the coming weeks. Initial labs are otherwise notable for a 1 unit hemoglobin drop, worsening thrombocytopenia, LFT increase, a slight BUN elevation and a strongly + UA. 1) High INR - possible acute GI bleed - pt provided IV vit K in ER - we are pending a repeat INR a 4 hours. Hb will be trended. He is placed on a PPi drip due to Hx of gastric ulcer, BUN elevation and heme+ stool. We will consult GI prior to DC. 2) UTI - may be contributing to weakness - placed on Ceftriaxone. He was on Cipro at his [facility] which does not appear to have been effective. 3) Pancreatic mass - the patient is exhibiting functional decline, his LFTs are climbing and he has severe protein malnutrition. This all points to a likely diagnosis of malignancy. He is pending stent replacement and expediting this should likely be addressed by GI as well while he is hospitalized. 4) AF - tachy/logan - rhythm is atrially paced on admission - cont Sotalol 5) DM II - placed on a SS 6) Malnourished - currently on Dexamethasone - would benefit from nutrition consult when tolerating PO 7) Hypothyroid - check TSH - cont Synthroid 8) HTN/HLD - cont Statin - Bumex held DNR confirmed Total time for this admit including review of labs, meds, imaging, records - discussion with pt and ER attending - 45 min History of Present Illness Chief Complaint: Weakness, high INR, BRBPR - heme + stool Primary Care Provider: [facility] 88 y/o M hx PAF - Coumadin, tachy/logan - pacer, HTN, DM II, hypothyroidism, chronic anemia and thrombocytopenia, indeterminate pancreatic head mass, history of lymphoma 2007. He is being treated for a UTI with Cipro at present and had been complaining of weakness. He also noted bright red blood ID with a bowel movement this AM. Labs were obtained and his INR returned at > 10. He had brown heme + stool on rectal exam in the ER. He does have a history of hemorrhoids which occasionally bleed and so did not become alarmed with some bleeding this AM. The pt is currently being worked up for a pancreatic head mas s and required a ductal stent due to biliary obstruction 12/03/18. He does not report SOB, lightheadedness or CP at the time of admission. He had a biopsy 12/03 with the stent placement which was indeterminate and has an additional biopsy scheduled in the coming weeks. Initial labs are otherwise notable for a 1 unit hemoglobin drop, worsening thrombocytopenia, LFT increase, a slight BUN elevation and a strongly + UA. 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 11) Basal cell CA 12) Bleeding gastric ulcer required cauterization 2015 13) PE/DVT 14) Hypothyroidism Sugical: 1) Pacer placement 2) Mohs 3) ERCP/stent Social: [facility]ides at [facility], distant history of cigar smoking, until recently would drink a few glasses of wne weekly Family: Mother following CVA Father due to suicide Sister due to lung CA Allergies Allergy/AdvReac Type Severity Reaction Status Date / Time doxycycline Allergy Intermediate rash Verified 12/20/18 10:55 Penicillins Allergy Unknown Unknown Verified 12/20/18 10:55 Home Medications Home Medications Medication Instructions Recorded Confirmed Type atorvastatin 10 mg PO QAM 10/22/18 12/20/18 History cholecalciferol (vitamin D3) 2,000 units PO QPM 10/22/18 12/20/18 History [Vitamin D3] finasteride 5 mg PO HS 10/22/18 12/20/18 History levothyroxine 50 mcg PO QAM 10/22/18 12/20/18 History pantoprazole 40 mg PO QAM 10/22/18 12/20/18 History sotalol 40 mg PO BID 30 Days #30 tab 11/25/18 12/20/18 Rx vitamin B complex 1 tab PO QAM 11/29/18 12/20/18 History insulin detemir U-100 5 unit SUBCUT QPM #0 ml 12/05/18 12/20/18 Rx acetaminophen 650 mg PO Q6H PRN 12/19/18 12/20/18 History bumetanide 1 mg PO QAM 12/19/18 12/20/18 History hydrocortisone [Anusol-HC] 1 applic ID BID PRN 12/19/18 12/20/18 History insulin aspart U-100 [Novolog 2 unit SUBCUT AC 12/19/18 12/20/18 History U-100 Insulin aspart] magnesium hydroxide [Milk of 30 ml PO Q OTHER DAY PRN 12/19/18 12/20/18 History Magnesia] naproxen 375 mg PO BID 12/19/18 12/20/18 History nystatin 1 applic TOPICAL BID PRN 12/19/18 12/20/18 History potassium chloride 10 meq PO BID 12/19/18 12/20/18 History sennosides [Senokot] 8.6 mg PO QAM PRN 12/19/18 12/20/18 History sertraline 75 mg PO QAM 12/19/18 12/20/18 History tramadol 50 mg PO Q6H PRN 12/19/18 12/20/18 History warfarin [Coumadin] 2 mg PO QPM 12/19/18 12/20/18 History ciprofloxacin HCl [Cipro] 500 mg PO BID 12/20/18 12/20/18 History dexamethasone [Decadron] 2 mg PO QAM PRN 12/20/18 12/20/18 History polyethylene glycol 3350 [Miralax] 17 g PO QAM PRN 12/20/18 12/20/18 History Past Med/Surg History Medical History Thrombocytopenia Bilateral hip pain Pancreatitis Elevated LFTs Mass of pancreas (Acute) Unintended weight loss History of deep venous thrombosis or pulmonary embolus 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 Atrial fibrillation (Chronic) on warfarin HTN (hypertension) (Chronic) Hyperlipidemia (Chronic) Tachy-logan syndrome (Acute) S/p PM placement GI bleed (Acute) Anemia BPH (benign prostatic hyperplasia) Coronary artery disease Depression Diabetes mellitus, type 2 IDDM; newly diagnosed GERD (gastroesophageal reflux disease) Generalized edema Hypothyroidism 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 Mitral valve disorder Neuropathy 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 Pulmonary embolism 10 years ago Social History Preferred Language: Macanese Communication Ability: Effective 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 Beliefs That Will Affect Care: None Current Living Situation: [facility] Current Living Situation Comment: [facility] Other Information That Helps Us Care for You: No Feels Safe at Home: Yes Safety Concerns: Feels Safe At This Time Smoking Status: Former smoker Hx Alcohol Use: No Hx Substance Use: No Review of Systems Gen: Malaise and progressive weakness ENT: Denies congestion, throat pain, hearing loss Eyes: Denies acute visual changes CV: Denies CP, palpitations Pulmonary: Denies SOB, cough, wheezing GI: BRBPR - no abdominal pain, N/V Neuro: Denies acute unilateral weakness, acute gait impairment, headache or ac tobin visual changes Musculoskeletal: Denies joint pain, inflammation - worsening LE edema Endocrine: Denies polydipsia, polyuria Skin: Denies acute rashes or ulcers Physical Exam Vital Signs (Past 24 Hours): Last Vital Signs Temp 36.4 C L 12/20/18 12:51 Pulse 69 12/20/18 12:51 Resp 18 12/20/18 12:51 BP 126/70 12/20/18 12:51 Pulse Ox 96 12/20/18 12:51 Physical Exam: General: AAO x 3 - pale, lethargic-appearing, elderly male - no acute distress ENT: No erythema or exudates, no thrush Eyes: DENICE, EOMI Head and neck: Normocephalic, atraumatic, No JVD, neck is supple. Chest/heart: Nontender, S1,2, RRR, no murmurs, no gallops Lungs: CTAB, no wheezing or crackles Abdomen: Nontender, nondistended, BS+ Neuro: AAO x 3, speech is clear, no unilateral weakness or loss of sensation, coordination intact Musculoskeletal: No joint inflammation - significant BL LE edema Skin: No acute rashes or ulcers Extremities: No clubbing, cyanosis - + edema as above
--- NOTE | 2018-12-20 14:22 | Emergency Department Note ---
Entered by Freya Alamo acting as a scribe for History of Present Illness General Chief complaint: Weakness Stated complaint: weakness / [place] Time Seen by Provider: 12/20/18 09:59 Source: patient and other (nursing staff) History of Present Illness Onset (ago): week(s) (6) Location: face (nose), upper extremity, buttocks (rectum) and lower extremity Pain Consistency: + other (persistent) Quality: + other (weakness) Associated symptoms: + other (Positive chills, bleeding from his nose and rectum. Negative pain anywhere, vomiting. ); no chest pain The patient is a 88 year old white male w/ PMHx of Lymphoma,s/p radiation 10 years ago, chronic pancreatitis, esophageal dysmotility s/p esophageal dilation, gastroparesis, laryngospasm, bleeding ulcer, cauterized by Dr. 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 As per nursing staff, the patient has had bleeding from his nose and rectum. The patient has chills but denies any pain anywhere, vomiting, chest pain. He has been taking his medications as prescribed. Home Medications Home Medications Medication Instructions Recorded Confirmed Type atorvastatin 10 mg PO QAM 10/22/18 12/20/18 History cholecalciferol (vitamin D3) 2,000 units PO QPM 10/22/18 12/20/18 History [Vitamin D3] finasteride 5 mg PO HS 10/22/18 12/20/18 History levothyroxine 50 mcg PO QAM 10/22/18 12/20/18 History pantoprazole 40 mg PO QAM 10/22/18 12/20/18 History sotalol 40 mg PO BID 30 Days #30 tab 11/25/18 12/20/18 Rx vitamin B complex 1 tab PO QAM 11/29/18 12/20/18 History insulin detemir U-100 5 unit SUBCUT QPM #0 ml 12/05/18 12/20/18 Rx acetaminophen 650 mg PO Q6H PRN 12/19/18 12/20/18 History bumetanide 1 mg PO QAM 12/19/18 12/20/18 History hydrocortisone [Anusol-HC] 1 applic PA BID PRN 12/19/18 12/20/18 History insulin aspart U-100 [Novolog 2 unit SUBCUT AC 12/19/18 12/20/18 History U-100 Insulin aspart] magnesium hydroxide [Milk of 30 ml PO Q OTHER DAY PRN 12/19/18 12/20/18 History Magnesia] naproxen 375 mg PO BID 12/19/18 12/20/18 History nystatin 1 applic TOPICAL BID PRN 12/19/18 12/20/18 History potassium chloride 10 meq PO BID 12/19/18 12/20/18 History sennosides [Senokot] 8.6 mg PO QAM PRN 12/19/18 12/20/18 History sertraline 75 mg PO QAM 12/19/18 12/20/18 History tramadol 50 mg PO Q6H PRN 12/19/18 12/20/18 History warfarin [Coumadin] 2 mg PO QPM 12/19/18 12/20/18 History ciprofloxacin HCl [Cipro] 500 mg PO BID 12/20/18 12/20/18 History dexamethasone [Decadron] 2 mg PO QAM PRN 12/20/18 12/20/18 History polyethylene glycol 3350 [Miralax] 17 g PO QAM PRN 12/20/18 12/20/18 History Allergies Allergy/AdvReac Type Severity Reaction Status Date / Time doxycycline Allergy Intermediate rash Verified 12/20/18 10:55 Penicillins Allergy Unknown Unknown Verified 12/20/18 10:55 Past Med/Surg History Medical History Thrombocytopenia Bilateral hip pain Pancreatitis Elevated LFTs Mass of pancreas (Acute) Unintended weight loss History of deep venous thrombosis or pulmonary embolus 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 Atrial fibrillation (Chronic) on warfarin HTN (hypertension) (Chronic) Hyperlipidemia (Chronic) Tachy-logan syndrome (Acute) S/p PM placement GI bleed (Acute) Anemia BPH (benign prostatic hyperplasia) Coronary artery disease Depression Diabetes mellitus, type 2 IDDM; newly diagnosed GERD (gastroesophageal reflux disease) Generalized edema Hypothyroidism 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 Mitral valve disorder Neuropathy Other diseases of vocal cords per [facility]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 and A total of 10 systems reviewed and were otherwise negative Physical Exam Vital Signs Vital Signs - 24 hr 12/20/18 09:57 12/20/18 11:00 12/20/18 11:30 Temperature 36.5 C Temperature Source Oral Sepsis Recent Fever Within 48 Hours No Sepsis New/Unexplained Change in Mental Status No Sepsis Action Taken by Nursing No Action Required Pulse Rate 83 Pulse Rate [Apical] 83 67 60 Pulse Rhythm Irregular Pulse Rhythm [Apical] Irregular Pulse Strength Normal Pulse Strength [Apical] Normal Respiratory Rate 16 18 18 Respiratory Effort / Characteristics Non-Labored Spontaneous Non-Labored Spontaneous Non-Labored Spontaneous Respiratory Depth Normal Normal Normal Respiratory Pattern Regular Regular Regular Blood Pressure 119/61 Blood Pressure [Right Arm] 119/61 105/56 L 114/63 Blood Pressure Mean 80 Blood Pressure Mean [Right Arm] 80 72 80 Blood Pressure Position Lying Blood Pressure Position [Right Arm] Lying Sitting Lying Pulse Oximetry 98 96 97 Oxygen Delivery Method Room Air Room Air Room Air 12/20/18 12:06 12/20/18 12:21 12/20/18 12:51 Temperature 36.4 C L 36.4 C L 36.4 C L Temperature Source Oral Oral Oral Sepsis Recent Fever Within 48 Hours Sepsis New/Unexplained Change in Mental Status Sepsis Action Taken by Nursing Pulse Rate Pulse Rate [Apical] 76 61 69 Pulse Rhythm Pulse Rhythm [Apical] Pulse Strength Pulse Strength [Apical] Respiratory Rate 18 18 18 Respiratory Effort / Characteristics Non-Labored Spontaneous Non-Labored Spontaneous Non-Labored Spontaneous Respiratory Depth Normal Normal Normal Respiratory Pattern Regular Regular Regular Blood Pressure Blood Pressure [Right Arm] 125/71 116/66 126/70 Blood Pressure Mean Blood Pressure Mean [Right Arm] 89 82 88 Blood Pressure Position Blood Pressure Position [Right Arm] Lying Sitting Lying Pulse Oximetry 98 98 96 Oxygen Delivery Method Room Air Room Air Room Air 12/20/18 12:59 12/20/18 13:51 Temperature 36.4 C L Temperature Source Oral Sepsis Recent Fever Within 48 Hours Sepsis New/Unexplained Change in Mental Status Sepsis Action Taken by Nursing Pulse Rate Pulse Rate [Apical] 66 Pulse Rhythm Pulse Rhythm [Apical] Pulse Strength Pulse Strength [Apical] Respiratory Rate 18 Respiratory Effort / Characteristics Non-Labored Spontaneous Respiratory Depth Normal Respiratory Pattern Regular Regular Blood Pressure Blood Pressure [Right Arm] 110/68 Blood Pressure Mean Blood Pressure Mean [Right Arm] 82 Blood Pressure Position Blood Pressure Position [Right Arm] Sitting Pulse Oximetry 100 Oxygen Delivery Method Room Air Room Air GENERAL: Well appearing, well nourished, NAD, non-toxic. EYE EXAM: Normal conjunctiva. PERRL, no anisocoria and EOM's grossly intact w/o pain OROPHARYNX: Moist MM. NECK: Supple, no nuchal rigidity, no adenopathy, non-tender. No signs of meningismus LUNGS: Clear to auscultation. Normal chest wall mechanics. HEART: NSR, no MRG CHEST: Device in chest ABDOMEN: Abdomen soft, non-tender, normo-active bowel sounds, no masses, no re bound or guarding. RECTAL: Several nonbleeding external hemorrhoids. NO thrombosed. No dark tarry stool. No bright red bleed. Heme positive. BACK: No CVA TTP SKIN: No rashes. Scattered ecchymosis bilaterally in the upper extremities. UPPER EXTREMITIES: Scattered ecchymosis bilaterally. Scattered ecchymosis bilaterally. LOWER EXTREMITIES: No pitting edema. No calf pain NEURO EXAM: A and O x3. GCS 15. Course 1030: Past medical records reviewed. The patient was evaluated in room C3, and a complete history and physical examination were performed. 1150: I reviewed the patient's case with Dr. Wood, Pathology. He recommends the patient be further evaluated. 1206: I reviewed the patient's case with Dr. Holloway, [facility] Hospitalist. He will e valuate the patient for further management. Consultations Consultation #1: I reviewed the patient's case with Dr. Wood, Pathology. He recommends the patient be further evaluated. Time: 11:50 Consultation #2: I reviewed the patient's case with Dr. Holloway, [facility] Hospitalist. He will evaluate the patient for further management. Time: 12:06 Administered Medications Pantoprazole Sodium 40 mg/ (Dextrose) 100 mls @ 20 mls/hr IV Q5H OPAL Stop: 01/19/19 11:59 Last Admin: 12/20/18 13:09 Dose: 20 mls/hr Documented by: [id number] Discontinued Medications Sodium Chloride (Nss) 500 mls @ 999 mls/hr IV .Q31M OPAL Stop: 12/20/18 11:15 Last Infusion: 12/20/18 12:06 Dose: 0 mls/hr Documented by: [id number] Admin: 12/20/18 11:10 Dose: 999 mls/hr Documented by: [id number] Pantoprazole Sodium (Protonix Bolus/Drip) 0 mls @ 1 mls/hr IV ONE STA Stop: 12/20/18 11:50 Last Admin: 12/20/18 12:51 Dose: Not Given Documented by: [id number] Pantoprazole Sodium 80 mg/ (Dextrose) 120 mls @ 400 mls/hr IV NOW ONE Stop: 12/20/18 12:06 Last Infusion: 12/20/18 13:13 Dose: 0 mls/hr Documented by: [id number] Admin: 12/20/18 12:51 Dose: 400 mls/hr Documented by: [id number] Phytonadione 10 mg/ Sodium (Chloride) 51 mls @ 102 mls/hr IV ONE ONE Stop: 12/20/18 12:18 Last Infusion: 12/20/18 12:36 Dose: 0 mls/hr Documented by: [id number] Admin: 12/20/18 12:06 Dose: 102 mls/hr Documented by: [id number] Medical Decision Making Medical Records Attestation: I reviewed the patient's medical records. Home Medications Current Medication List: was personally reviewed by me Laboratory Data Attestation: I reviewed the patient's lab results. Result diagrams: 12/20/18 10:50 12/20/18 10:50 Lab Results 12/20/18 12/20/18 12/20/18 Range/Units 10:50 10:50 10:50 WBC 6.36 (4.8-10.8) K/uL RBC 3.10 L (4.7-6.1) M/uL Hgb 9.4 L (14.0-18.0) g/dL Hct 28.6 L (42-52) % MCV 92.3 (80-100) fL MCH 30.3 (25-34) pg MCHC 32.9 (32-36) g/dL RDW Std Deviation 49.4 H (36.4-46.3) fL RDW Coeff of Zane 14.7 H (11.5-14.5) % Plt Count 64 L (130-400) K/uL MPV 10.2 (7.4-10.4) fL Immature Gran % (Auto) 0.3 % Neut % (Auto) 81.8 % Lymph % (Auto) 11.5 % [place] % (Auto) 5.8 % Eos % (Auto) 0.6 % Baso % (Auto) 0.0 % Immature Gran # (Auto) 0.02 (0.00-0.02) K/uL Neut # (Auto) 5.20 (1.4-6.5) K/uL Lymph # (Auto) 0.73 L (1.2-3.4) K/uL [place] # (Auto) 0.37 (0.11-0.59) K/uL Eos # (Auto) 0.04 (0-0.5) K/uL Baso # (Auto) 0.00 (0-0.2) K/uL PT > 90.0 H (9.0-12.0) Seconds INR > 10.4 H* (0.9-1.1) APTT 80.5 H* (21.0-31.0) Seconds PTT Ratio 3.0 Sodium 135 L (136-145) mmol/L Potassium 3.7 (3.5-5.1) mmol/L Chloride 101 (98-107) mmol/L Carbon Dioxide 29 (21-32) mmol/L Anion Gap 5.0 (3-11) BUN 20 H (7-18) mg/dl Creatinine 0.85 (0.6-1.4) mg/dl Est Cr Clr Drug Dosing 55.3 ml/min Est GFR ( Amer) 90.8 Est GFR (Non-Af Amer) 78.3 BUN/Creatinine Ratio 23.1 H (10-20) Glucose 138 H (70-99) mg/dl Calcium 7.0 L (8.5-10.1) mg/dl Total Bilirubin 2.0 H (0.2-1) mg/dl AST 43 H (15-37) U/L ALT 31 (12-78) U/L Alkaline Phosphatase 335 H (45-117) U/L Troponin I < 0.015 (0-0.045) ng/ml Total Protein 4.7 L (6.4-8.2) gm/dl Albumin 1.5 L (3.4-5.0) gm/dl Globulin 3.2 (2.5-4.0) gm/dl Albumin/Globulin Ratio 0.5 L (0.9-2) TSH 2.360 (0.300-4.500) uIu/ml Urine Color Urine Appearance (Clear) Urine pH (4.5-7.5) Ur Specific [place] (1.000-1.030) Urine Protein (Negative) Urine Glucose (UA) (Negative) Urine Ketones (Negative) Urine Blood (Negative) Urine Nitrite (Negative) Urine Bilirubin (Negative) Urine Urobilinogen (Negative) Ur Leukocyte Esterase (Negative) Urine WBC (Auto) (0-5) /hpf Urine RBC (Auto) (0-4) /hpf U Hyaline Cast (Auto) (0-5) /lpf U Epithel Cells (Auto) (0-5) /lpf Urine Bacteria (Auto) (Negative) Blood Type Antibody Screen 12/20/18 12/20/18 12/20/18 Range/Units 10:50 10:50 12:05 WBC (4.8-10.8) K/uL RBC (4.7-6.1) M/uL Hgb (14.0-18.0) g/dL Hct (42-52) % MCV (80-100) fL MCH (25-34) pg MCHC (32-36) g/dL RDW Std Deviation (36.4-46.3) fL RDW Coeff of Zane (11.5-14.5) % Plt Count (130-400) K/uL MPV (7.4-10.4) fL Immature Gran % (Auto) % Neut % (Auto) % Lymph % (Auto) % [place] % (Auto) % Eos % (Auto) % Baso % (Auto) % Immature Gran # (Auto) (0.00-0.02) K/uL Neut # (Auto) (1.4-6.5) K/uL Lymph # (Auto) (1.2-3.4) K/uL [place] # (Auto) (0.11-0.59) K/uL Eos # (Auto) (0-0.5) K/uL Baso # (Auto) (0-0.2) K/uL PT (9.0-12.0) Seconds INR (0.9-1.1) APTT (21.0-31.0) Seconds PTT Ratio Sodium (136-145) mmol/L Potassium (3.5-5.1) mmol/L Chloride (98-107) mmol/L Carbon Dioxide (21-32) mmol/L Anion Gap (3-11) BUN (7-18) mg/dl Creatinine (0.6-1.4) mg/dl Est Cr Clr Drug Dosing ml/min Est GFR ( Amer) Est GFR (Non-Af Amer) BUN/Creatinine Ratio (10-20) Glucose (70-99) mg/dl Calcium (8.5-10.1) mg/dl Total Bilirubin (0.2-1) mg/dl AST (15-37) U/L ALT (12-78) U/L Alkaline Phosphatase (45-117) U/L Troponin I Cancelled (0-0.045) ng/ml Total Protein (6.4-8.2) gm/dl Albumin (3.4-5.0) gm/dl Globulin (2.5-4.0) gm/dl Albumin/Globulin Ratio (0.9-2) TSH (0.300-4.500) uIu/ml Urine Color Dark Yellow Urine Appearance Turbid H (Clear) Urine pH 6.5 (4.5-7.5) Ur Specific [place] 1.015 (1.000-1.030) Urine Protein Trace H (Negative) Urine Glucose (UA) Negative (Negative) Urine Ketones Negative (Negative) Urine Blood 3+ H (Negative) Urine Nitrite Negative (Negative) Urine Bilirubin Negative (Negative) Urine Urobilinogen Negative (Negative) Ur Leukocyte Esterase 3+ H (Negative) Urine WBC (Auto) >30 H (0-5) /hpf Urine RBC (Auto) 10-30 H (0-4) /hpf U Hyaline Cast (Auto) 1-5 (0-5) /lpf U Epithel Cells (Auto) 5-10 H (0-5) /lpf Urine Bacteria (Auto) 4+ H (Negative) Blood Type A Positive Antibody Screen NEGATIVE Imaging Data Radiologist's Impression: Radiology results as stated below per my review and the radiologist's interpretation: XR chest 1V portable CLINICAL HISTORY: weakness dyspnea COMPARISON STUDY: 12/01/2017 FINDINGS: Interval development of a left basilar parenchymal infiltrate combined with a small left effusion. Lungs otherwise appear clear. There is a permanent bipolar cardiac pacemaker. IMPRESSION: Interval development of a left basilar pleural effusion with left basilar infiltrative process. The above report was generated using voice recognition software. It may contain grammatical, syntax or spelling errors. Electronically signed by: Renny Lomeli M.D. 12/20/2018 11:08 AM ECG Data Attestation: I personally reviewed and interpreted this ECG as follows: Indication: weakness Rate (beats per minute): 72 Rhythm: other (A-paced) Findings: + other (prolonged PA, normal QRS duration, normal axis); no acute ischemic change Blood Pressure Blood Pressure Findings: Normal blood pressure Blood Pressure Disposition: did not require urgent referral MDM Narrative Prior records/ancillary studies reviewed. Triage nursing notes reviewed. The patient is a 88 year old white male w/ PMHx of Lymphoma,s/p radiation 10 years ago, chronic pancreatitis, esophageal dysmotility s/p esophageal dilation, gastroparesis, laryngospasm, bleeding ulcer, cauterized by Dr. 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 Differential diagnosis: Etiologies such as metabolic, infection, hypo/hyperglycemia, electrolyte abnormalities, cardiac sources, intracerebral event, toxicologic, neurologic, as well as others were entertained. Patient was seen and evaluated the bedside. The patient reportedly has had some epistaxis and associated rectal bleeding. Patient did have an INR of 10 reportedly. Patient otherwise has a fairly benign exam at the bedside. Patient did a blood work completed. Patient blood work shows anemia but appears fairly chronic and stable. Last hemoglobin 10.2 today 9.4. The patient's vital signs are stable. The patient was ordered a PPI bolus and drip as the patient did have Hemoccult positive stool. The patient's INR is unmeasurable. The patient was subsequently ordered IV vitamin K. I did speak with hematology who agreed with the current plan of care and no need for [facility] at this time. If the patient's status were to ameena isidro we could rediscuss the possibility of giving [facility]. I did speak with on-call GI as a consult they will follow the patient. I did speak the on-call hospitalist who agreed to further evaluate treat the patient. The patient was admitted to the medicine service. Of note the patient does have mild changes in his LFTs which are likely related to his pancreatic mass. Impression & Plan GI bleed, Supratherapeutic INR Critical Care Time I have personally spent greater than 45 minutes of critical care time in direct management of this patient. This includes bedside care, interpretation of diagnostic studies, and testing, discussion with consultants, patient, and family members, and other require inpatient management activities. This 45 minutes is in excess of all separately billable procedures. Critical Care Time: Yes Total Critical Care Time: 45 Discharge Plan Visit Data Chief Complaint: Weakness Stated Complaint: weakness / [place] ED Provider: Rojas Ramos Discharge Problem: GI bleed, Supratherapeutic INR Patient Disposition: Being Evaluated by Hospitalist Forms Stand Alone Forms: My [facility] Prescriptions Prescriptions: No Action sennosides [Senokot] 8.6 mg Tablet 8.6 mg PO QAM PRN (Reason: Constipation) RF: 0 acetaminophen 325 mg Tablet 650 mg PO Q6H PRN (Reason: Pain) RF: 0 naproxen 375 mg Tablet 375 mg PO BID RF: 0 nystatin 100,000 unit/gram Ointment 1 applic TOPICAL BID PRN (Reason: Rash) RF: 0 potassium chloride 10 mEq Tablet Extended Release 10 meq PO BID RF: 0 hydrocortisone [Anusol-HC] 2.5 % Cream With Perineal Applicator 1 applic PA BID PRN (Reason: Hemorrhoids) RF: 0 magnesium hydroxide [Milk of Magnesia] 400 mg/5 mL Suspension 30 ml PO Q OTHER DAY PRN (Reason: Constipation) RF: 0 Novolog U-100 Insulin aspart 100 unit/mL Solution 2 unit SUBCUT AC RF: 0 warfarin [Coumadin] 2 mg Tablet 2 mg PO QPM RF: 0 sertraline 25 mg Tablet 75 mg PO QAM RF: 0 bumetanide 1 mg Tablet 1 mg PO QAM RF: 0 tramadol 50 mg Tablet 50 mg PO Q6H PRN (Reason: Pain) RF: 0 atorvastatin 10 mg tablet 10 mg PO QAM RF: 0 levothyroxine 50 mcg tablet 50 mcg PO QAM RF: 0 pantoprazole 40 mg tablet,delayed release (DR/EC) 40 mg PO QAM RF: 0 finasteride 5 mg tablet 5 mg PO HS RF: 0 cholecalciferol (vitamin D3) [Vitamin D3] 2,000 unit Capsule 2,000 units PO QPM RF: 0 sotalol 80 mg Tablet 40 mg PO BID 30 Days Qty: 30 RF: 1 vitamin B complex Tablet 1 tab PO QAM RF: 0 insulin detemir U-100 100 unit/mL (3 mL) insulin pen 5 unit subcut QPM Qty: 0 RF: 0 polyethylene glycol 3350 [Miralax] 17 gram Powder In Packet 17 g PO QAM PRN (Reason: Constipation) RF: 0 ciprofloxacin HCl [Cipro] 500 mg Tablet 500 mg PO BID RF: 0 dexamethasone [Decadron] 4 mg Tablet 2 mg PO QAM PRN (Reason: mood and appetite) RF: 0 Referrals Referrals: Marie Hansen [Primary Care Provider] - Discharge Problem: GI bleed Qualifiers: GI bleed type/associated pathology: unspecified gastrointestinal hemorrhage type Qualified Code(s): K92.2 - Gastrointestinal hemorrhage, unspecified The scribe's documentation has been prepared under my direction and personally reviewed by me in its entirety. I confirm that the note above accurately reflects all work, treatment, procedures, and medical decision making performed by me.
[2018-12-20] MEDS ORDERED: dexAMETHasone 4 MG TAB PO PRN (14:59)
[2018-12-20] MEDS ORDERED: TRAMADOL HCL 50 MG TABLET PO PRN (14:59)
[2018-12-20] MEDS ORDERED: ONDANSETRON INJ 2 MG/ML 2 ML VIAL IV PRN (14:59)
[2018-12-20] MEDS ORDERED: NSS + 20MEQ KCL 20 MEQ/1,000 ML BAG IV SCH (14:59)
[2018-12-20] MEDS ORDERED: CIPROFLOXACIN 400 MG/200 ML BAG IV SCH (15:00)
[2018-12-20] MEDS ORDERED: metroNIDAZOLE 500 MG/100 ML BAG IV SCH (16:00)
[2018-12-20] MEDS: cefTRIAXone SODIUM 1,000 MG in DEXTROSE 5% 50 ML IV SCH (16:13)
[2018-12-20] MEDS: PANTOprazole 40 MG in DEXTROSE 5% 100 ML IV SCH ×2 (17:23→22:13)
[2018-12-20] MEDS ORDERED: GLUCOSE 40% GEL 15 GM TUBE PO PRN (20:18)
[2018-12-20] MEDS ORDERED: CARBOHYDRATES FOR HYPOGLYCEMIA PO PRN (20:18)
[2018-12-20] MEDS ORDERED: GLUCAGON FOR INJ 1 MG VIAL SQ PRN (20:18)
[2018-12-20] MEDS ORDERED: GLUCOSE 10 TABS/TUBE PO PRN (20:18)
[2018-12-20] MEDS ORDERED: DEXTROSE 50% 50 ML SYRINGE IV PRN (20:18)
[2018-12-20] MEDS: FINASTERIDE 5 MG TAB PO SCH (20:59)
[2018-12-20] MEDS ORDERED: INSULIN ASPART 100 UNITS/ML 3 ML PEN SC SCH (21:00)
[2018-12-20] MEDS: SOTALOL HCL 80 MG TAB PO SCH (21:29)
[2018-12-20] MEDS: ALBUMIN 25% 50 ML IV SCH ×2 (21:57→22:10)
[2018-12-20 23:25] LABS: INR 1.7 (0.9-1.1); Prothrombin Time 17.2 Seconds (9.0-12.0)
[2018-12-21] MEDS ORDERED: Nursing to Pharmacy Communication ONE ×2 (00:04→17:11)
[2018-12-21] MEDS: INSULIN ASPART 100 UNITS/ML 3 ML PEN SC SCH ×4 (00:18→20:43)
[2018-12-21] MEDS: PANTOprazole 40 MG in DEXTROSE 5% 100 ML IV SCH ×5 (04:29→23:56)
[2018-12-21 05:18] LABS: Hematocrit (blood only) 26.2 % (42-52); Hemoglobin 8.8 g/dL (14.0-18.0); Mean Corpuscular Hgb Conc 33.6 g/dL (32-36); Mean Corpuscular Volume 91.6 fL (80-100); RDW Coefficient of Variation 14.5 % (11.5-14.5); RDW Standard Deviation 48.3 fL (36.4-46.3); Red Blood Count 2.86 M/uL (4.7-6.1); White Blood Count 5.48 K/uL (4.8-10.8)
[2018-12-21 05:34] LABS: Mean Platelet Volume 10.3 fL (7.4-10.4); Platelet Count 79 K/uL (130-400)
[2018-12-21 05:43] LABS: BUN Creatinine Ratio 29.4 (10-20); Calcium 6.8 mg/dl (8.5-10.1); Creatinine Clr Calc Pharmacy 65.2 ml/min; Est GFR (African American) 97.2; Est GFR (Non-African American) 83.9; Magnesium 1.8 mg/dl (1.8-2.4); Potassium 4.3 mmol/L (3.5-5.1)
[2018-12-21 05:45] LABS: Immature Granulocytes # (auto) 0.03 K/uL (0.00-0.02); Immature Granulocytes % (auto) 0.5 %; Lymphocytes # (auto) 0.62 K/uL (1.2-3.4); Lymphocytes % (auto) 11.3 %; Monocytes # (auto) 0.31 K/uL (0.11-0.59); Monocytes % (auto) 5.7 %; Neutrophils # (auto) 4.52 K/uL (1.4-6.5); Neutrophils % (auto) 82.5 %; Ovalocytes 1+; Polychromasia 1+; Tear Drop Cells 1+
[2018-12-21] MEDS: LEVOTHYROXINE SODIUM 50 MCG TABLET PO SCH (06:17)
--- NOTE | 2018-12-21 07:42 | Hospitalist Progress Note ---
Date of Service December 21, 2018 Assessment & Plan (1) Generalized weakness: 88 y/o M hx PAF - Coumadin, HTN, DM II, hypothyroidism, chronic anemia and thrombocytopenia, indeterminate pancreatic head mass. He is being treated for a UTI with Cipro at present and had been complaining of weakness. He also noted bright red blood MN with a bowel movement this AM. Labs were obtained and his INR returned at > 10. He had brown heme + stool on rectal exam in the ER. He does have a history of hemorrhoids which occasionally bleed and so did not become alarmed with some bleeding this AM. The pt is currently being worked up for a pancreatic head mass and required a ductal stent due to biliary o bstruction 12/03/18. He does not report SOB, lightheadedness or CP at the time of admission. He had a biopsy 12/03 with the stent placement which was indeterminate and has an additional biopsy scheduled in the coming weeks. Initial labs are otherwise notable for a 1 unit hemoglobin drop, worsening thrombocytopenia, LFT increase, a slight BUN elevation and a strongly + UA. 1) High INR - possible acute GI bleed - pt provided IV vit K in ER - PPi drip due to Hx of gastric ulcer, BUN elevation and heme+ stool. Consult GI performed an endoscopy and change of biliary stent,. Acute blood loss anemia Question of occluded biliary stent this was changed on 12/21 UTI - may be contributing to weakness - placed on Ceftriaxone. He was on Cipro at his NH which may have impacted his INR, is changed to ceftriaxone initial results are concerning for gram-negative if Pseudomonas may need to change to imipenem to avoid quinolone interaction with anticoagulant Pancreatic mass - the patient is exhibiting functional decline, his LFTs are climbing and he has severe protein malnutrition. GI medicine performed stent replacement continue to address diagnostic evaluation of pancreatic mass AF - tachy/logan - rhythm is atrially paced on admission - cont Sotalol DM II - placed on a SS Malnourished - currently on Dexamethasone -moderate protein calorie malnutrit ion. Will offer nutritional supplements and dietary consultation Hypothyroid clinically stable continue Synthroid therapy Synthroid HTN/HLD - cont Statin - Bumex held DNR confirmed Subjective Mr. Brown is actually doing much better than expected his INR is been remedied by vitamin K his atrial fibrillation is been relatively controlled and has been tolerant of a new antibiotic for his UTI which is growing gram-negative bacilli there is some concern with elevation of his bilirubin of undergoing a repeat ERCP for diagnostic study and consider reevaluation of his pancreatic mass Review of Systems ROS: well nourished well developed. No double vision blurry vision No problems with speech or swallowing No palpitations, chest pain or pressure No Wheezing or breathing issues mild abdominal pain plus nausea vomiting diarrhea No burning urine urine frequency or changes in color No focal joint pain or muscle pain No skin rashes or oral lesions No unusual bruising or bleeding No focused back pain or numbness or loss of strength No changes in memory or confusion Physical Exam Vital Signs (Past 24 Hours): Last Vital Signs Temp 36.3 C L 12/21/18 06:45 Pulse 80 12/21/18 06:45 Resp 22 12/21/18 06:45 BP 117/60 12/21/18 06:45 Pulse Ox 98 12/21/18 06:45 The patient appeared chronically ill and fatigued Vital signs as documented. Head exam is unremarkable. normocephalic, atraumatic Neck is without jugular venous distension, thyromegaly, or lymphademopathy Lungs are clear to auscultation and percussion. Cardiac exam reveals irregularly irregular. First and second heart sounds normal. Abdominal exam reveals mild abdominal pain, hypoacitve bowel sounds Extremities are nonedematous and both pedal pulses are present Neurologic exam is A&Ox3, no focal deficits, strength is equal bilateral Psychologically seems neither anxious or depressed Skin is warm Dry without bruises or lesions
[2018-12-21] MEDS: SOTALOL HCL 80 MG TAB PO SCH ×2 (08:47→20:43)
[2018-12-21] MEDS: ATORVASTATIN 10 MG TAB PO SCH (08:47)
[2018-12-21] MEDS: SERTRALINE HCL 50 MG TABLET PO SCH (08:48)
[2018-12-21 09:27] LABS: Albumin Level 1.6 gm/dl (3.4-5.0); Bilirubin Direct 0.7 mg/dl (0-0.2); Bilirubin,Total 1.9 mg/dl (0.2-1); Total Protein 4.3 gm/dl (6.4-8.2)
--- NOTE | 2018-12-21 12:53 | History & Physical Bridge Note ---
Date of Service December 21, 2018 History & Physical Bridge Note I have examined the patient, reviewed the History & Physical and in the interval since the performance of the History & Physical I have noted the following changes of clinical significance: no changes noted ERCP today for stent exchange, patient consented
[2018-12-21] MEDS ORDERED: LABETALOL HCL IV 5 MG/ML 20ML IV PRN (12:54)
[2018-12-21] MEDS ORDERED: FLUMAZENIL 0.1 MG/1 ML 10 ML VIAL IV PRN (12:54)
[2018-12-21] MEDS ORDERED: CALCIUM CHLORIDE 10% 10 ML SYR IV ONE (12:54)
[2018-12-21] MEDS ORDERED: ONDANSETRON INJ 2 MG/ML 2 ML VIAL IV PRN (12:54)
[2018-12-21] MEDS ORDERED: fentaNYL citrate 100 MCG/2 ML VIAL IV PRN (12:54)
[2018-12-21] MEDS ORDERED: ATROPINE SULFATE 0.1 MG/ML 10ML SYR IV PRN (12:54)
[2018-12-21] MEDS ORDERED: NALOXONE HCL 0.4 MG/1 ML VIAL/CARP IV PRN (12:54)
[2018-12-21] MEDS ORDERED: ePHEDrine sulfate 50 MG/ML AMP IV PRN (12:54)
[2018-12-21] MEDS ORDERED: PROMETHAZINE HCL 12.5 MG in SODIUM CHLORIDE 0.9% 50 ML IV PRN (12:54)
[2018-12-21] MEDS ORDERED: PROPOFOL IV EMULSION 10 MG/ML 20 ML VIAL IV ONE (13:37)
--- NOTE | 2018-12-21 14:06 | Operative Report ---
Post Operative Report Pre & Post Diagnosis Operation Date: 12/21/18 07:30 Pre-Op Diagnosis: GI BLEED Post-Op Diagnosis: GI BLEED Procedure Operation Date: 12/21/18 07:30 Actual Procedures p Endoscopic Retrograde Cholangiopancreatogram(Not Applicable) - Madie Pepper MD Surgeon Madie Pepper MD Bass Fisher None Estimated Blood Loss 0 Findings See Below (ERCP with stent removal, biopsy and Uncovered metal stent placement) Specimens CBD stent Description of Procedure ERCP I attest to the content of the Intraoperative Record and any orders documented therein. Any exceptions are noted below.
--- NOTE | 2018-12-21 14:24 | GI REPORT ---
Patient Name: Evens Osborn Procedure Date: 12/21/2018 1:03 PM Date of : 1930 Admit Type: Inpatient Age: 88 Gender: Male Attending MD: Madie Pepper MD Procedure: ERCP Providers: Madie Pepper MD Referring MD: Cindy Jeronimo DO, Nina Ahuja, M.d., Jd Weber M.d. Indications: For therapy of ascending cholangitis, Elevated liver enzymes, Tumor of the head of pancreas, Stent change Medicines: General Anesthesia Complications: No immediate complications. Estimated Blood Loss: Estimated blood loss: none. Procedure: Pre-Anesthesia Assessment: - Prior to the procedure, a History and Physical was performed, and patient medications and allergies were reviewed. The patient is competent. The risks and benefits of the procedure and the sedation options and risks were discussed with the patient. All questions were answered and informed consent was obtained. Patient identification and proposed procedure were verified by the physician and the nurse in the procedure room. Mental Status Examination: alert and oriented. Airway Examination: normal oropharyngeal airway and neck mobility. Respiratory Examination: clear to auscultation. CV Examination: normal. ASA Grade Assessment: IV - A patient with severe systemic disease that is a constant threat to life. After reviewing the risks and benefits, the patient was deemed in satisfactory condition to undergo the procedure. The anesthesia plan was to use general anesthesia. Immediately prior to administration of medications, the patient was re-assessed for adequacy to receive sedatives. The heart rate, respiratory rate, oxygen saturations, blood pressure, adequacy of pulmonary ventilation, and response to care were monitored throughout the procedure. The physical status of the patient was re-assessed after the procedure. After obtaining informed consent, the scope was passed under direct vision. Throughout the procedure, the patient's blood pressure, pulse, and oxygen saturations were monitored continuously. The SCOPE was introduced through the mouth, and advanced to the duodenum and used to cannulate the bile duct. The ERCP was accomplished without difficulty. The patient tolerated the procedure well. Findings: A biliary stent was visible on the business management professor film. The esophagus was successfully intubated under direct vision. The scope was advanced to a normal major papilla in the descending duodenum without detailed examination of the pharynx, larynx and associated structures, and upper GI tract. The upper GI tract was grossly normal. One plastic stent originating in the biliary tree was emerging from the major papilla. The stent was visibly occluded. A biliary sphincterotomy had been performed. The sphincterotomy appeared open. One stent was removed from the biliary tree using a snare and sent for cytology. A 0.035 inch straight standard wire was passed into the biliary tree. The 8.5 mm balloon was passed over the guidewire and the bile duct was then deeply cannulated. Contrast was injected. I personally interpreted the bile duct images. Ductal flow of contrast was adequate. Image quality was adequate. Contrast extended to the main bile duct. The upper third of the main bile duct and left and right hepatic ducts and all intrahepatic branches were markedly dilated, secondary to a stricture. The largest diameter was 12 mm. The lower third of the main bile duct contained a single severe stenosis. The lower third of the main bile duct was biopsied with a cold forceps for histology. Verification of patient identification for the specimen was done by the physician and nurse using the patient's name and date. One 10 Fr by 6 cm uncovered metal stent (upon patient's request prior to the procedure) was placed into the common bile duct. Bile and sludge flowed through the stent. The stent was in good position. The total fluoroscopy exposure time was 59 seconds. PD was not cannulated nor injected with contrast. Impression: - One visibly occluded stent from the biliary tree was seen in the major papilla. This was removed and sent to cytology. - Prior biliary sphincterotomy appeared open. - A single severe biliary stricture was found in the lower third of the main bile duct. This was biopsied. - The intrahepatic branches and upper/middle third of the main bile duct were markedly dilated, secondary to a stricture in the lower third. - One uncovered metal stent was placed into the common bile duct. Recommendation: - Return patient to [facility] for [facility] care. - Follow up as scheduled, has EUS planned in few weeks though patient seems inclined to no further work up. Madie Pepper MD 12/21/2018 2:24:45 PM This report has been signed electronically. Note Initiated On: 12/21/2018 1:03 PM Number of Addenda: 0 I attest to the content of the Intraoperative Record and orders documented therein, exceptions below {[id number]}
--- NOTE | 2018-12-21 14:30 | Fluoroscopy Report ---
[place] ERCP biliary ductal CLINICAL HISTORY: EXPLORE DUCTS COMPARISON STUDY: ERCP 11/30/2018. FLUOROSCOPY TIME: 59 seconds. 6 fluoroscopic spot images submitted. FINDINGS: Images demonstrate cannulation of the common bile duct. There is an indwelling common bile duct stent. This was removed. Contrast was injected into the common bile duct which demonstrates dist ended into and hepatic bile ducts, unchanged. Tight stricture again noted within the distal common bi le duct. A metallic common bile duct stent was placed and appears in good position. IMPRESSION: Fluoroscopy provided for biliary stent exchange with placement of a metallic common bile duct stent which appears in good position. Electronically signed by: Scout Greenberg M.D. 12/21/2018 2:29 PM
--- NOTE | 2018-12-21 14:41 | Anesthesiology Progress Note ---
Date of Service December 21, 2018 Anesthesia Post Procedure Vital Signs Vital Signs: Temp Pulse Pulse Resp BP BP Pulse Ox 12/21/18 14:35 61 16 119/60 100 12/21/18 14:25 59 L 19 122/62 99 12/21/18 14:15 36.2 C L 65 18 118/65 100 12/21/18 12:56 36.5 C 66 16 120/60 92 12/21/18 10:58 36.5 C 73 17 101/60 100 12/21/18 06:45 36.3 C L 80 22 117/60 98 12/21/18 03:55 36.3 C L 77 16 108/60 95 12/20/18 23:16 36.3 C L 73 18 98/55 L 96 12/20/18 21:00 60 99/51 L 12/20/18 19:08 36.7 C 71 20 104/59 L 99 12/20/18 15:13 12/20/18 15:12 75 19 119/57 L 96 12/20/18 15:04 62 Pulse Ox 12/21/18 14:35 12/21/18 14:25 12/21/18 14:15 12/21/18 12:56 12/21/18 10:58 12/21/18 06:45 12/21/18 03:55 12/20/18 23:16 12/20/18 21:00 12/20/18 19:08 12/20/18 15:13 96 12/20/18 15:12 12/20/18 15:04 Notes Mental Status: alert / awake / arousable Patient Amnestic to Procedure: Yes Nausea / Vomiting: adequately controlled Pain: adequately controlled Airway Patency, RR, SpO2: stable & adequate BP & HR: stable & adequate Hydration State: stable & adequate Anesthetic Complications: no major complications apparent
[2018-12-21] MEDS: cefTRIAXone SODIUM 1,000 MG in DEXTROSE 5% 50 ML IV SCH (15:13)
[2018-12-21] MEDS: FINASTERIDE 5 MG TAB PO SCH (20:43)
[2018-12-22] MEDS: PANTOprazole 40 MG in DEXTROSE 5% 100 ML IV SCH ×4 (04:53→19:23)
[2018-12-22] MEDS: LEVOTHYROXINE SODIUM 50 MCG TABLET PO SCH (05:51)
[2018-12-22] MEDS: INSULIN ASPART 100 UNITS/ML 3 ML PEN SC SCH ×4 (07:40→20:23)
[2018-12-22] MEDS: SOTALOL HCL 80 MG TAB PO SCH ×2 (07:41→20:27)
[2018-12-22] MEDS: ATORVASTATIN 10 MG TAB PO SCH (07:42)
[2018-12-22] MEDS: SERTRALINE HCL 50 MG TABLET PO SCH (07:42)
[2018-12-22 08:58] LABS: Eosinophils # (auto) 0.04 K/uL (0-0.5); Eosinophils % (auto) 0.7 %; Hematocrit (blood only) 27.9 % (42-52); Hemoglobin 9.4 g/dL (14.0-18.0); Immature Granulocytes # (auto) 0.02 K/uL (0.00-0.02); Immature Granulocytes % (auto) 0.3 %; Lymphocytes # (auto) 0.64 K/uL (1.2-3.4); Lymphocytes % (auto) 10.9 %; Mean Corpuscular Hgb Conc 33.7 g/dL (32-36); Mean Corpuscular Volume 92.7 fL (80-100); Mean Platelet Volume 9.4 fL (7.4-10.4); Monocytes # (auto) 0.36 K/uL (0.11-0.59); Monocytes % (auto) 6.1 %; Neutrophils # (auto) 4.83 K/uL (1.4-6.5); Platelet Count 110 K/uL (130-400); RDW Coefficient of Variation 14.6 % (11.5-14.5); RDW Standard Deviation 49.8 fL (36.4-46.3); Red Blood Count 3.01 M/uL (4.7-6.1); White Blood Count 5.89 K/uL (4.8-10.8)
[2018-12-22 09:34] LABS: Albumin Level 1.8 gm/dl (3.4-5.0); BUN Creatinine Ratio 22.2 (10-20); Calcium 7.5 mg/dl (8.5-10.1); Creatinine Clr Calc Pharmacy 62.6 ml/min; Est GFR (African American) 95.6; Est GFR (Non-African American) 82.5; Potassium 3.8 mmol/L (3.5-5.1)
[2018-12-22 09:38] LABS: Albumin Globulin Ratio 0.6 (0.9-2); Bilirubin,Total 1.8 mg/dl (0.2-1); Globulin 2.9 gm/dl (2.5-4.0); Total Protein 4.7 gm/dl (6.4-8.2)
--- NOTE | 2018-12-22 14:03 | Gastroenterology Progress Note ---
Date of Service December 22, 2018 Pt without complaints. He is afebrile, and abd is benign. His labs show stable hgb and slowly improving LFTs; his lipase is > 6000. OK to adv diet as tolerated, cont to follow LFT's q 2-3 days, complete empiric oral abx for 7 days for cholangitis. Physical Exam Vital Signs (Past 24 Hours): Last Vital Signs Temp 36.3 C L 12/22/18 10:54 Pulse 64 12/22/18 10:54 Resp 16 12/22/18 10:54 BP 105/58 L 12/22/18 10:54 Pulse Ox 98 12/22/18 10:54
--- NOTE | 2018-12-22 14:06 | Hospitalist Progress Note ---
Date of Service December 22, 2018 Assessment & Plan (1) Generalized weakness: 88 y/o M hx PAF - Coumadin, HTN, DM II, hypothyroidism, chronic anemia and thrombocytopenia, indeterminate pancreatic head mass. He is being treated for a UTI with Cipro at present and had been complaining of weakness. He also noted bright red blood [place] with a bowel movement this AM. Labs were obtained and his INR returned at > 10. He had brown heme + stool on rectal exam in the ER. He does have a history of hemorrhoids which occasionally bleed and so did not become alarmed with some bleeding this AM. The pt is currently being worked up for a pancreatic head mass and required a ductal stent due to biliary o bstruction 12/03/18. He does not report SOB, lightheadedness or CP at the time of admission. He had a biopsy 12/03 with the stent placement which was indeterminate and has an additional biopsy scheduled in the coming weeks. Initial labs are otherwise notable for a 1 unit hemoglobin drop, worsening thrombocytopenia, LFT increase, a slight BUN elevation and a strongly + UA. High INR - IV vit K in ER -INR has responded well to the vitamin K, consult GI performed an endoscopy and change of biliary stent,. Acute blood loss anemia is noted. The patient will be transitioned to twice daily Protonix p.o. Question of occluded biliary stent this was changed on 12/21 patient's bilirubin has reduced he does have mild elevation of his lipase UTI - may be contributing to weakness - placed on Ceftriaxone. He was on Cipro at his snf which may have impacted his INR, is changed to ceftriaxone initial results are concerning for gram-negative if Pseudomonas may need to change to imipenem to avoid quinolone interaction with anticoagulant Pancreatic mass - the patient is exhibiting functional decline, GI medicine performed stent replacement and repeat biopsy of pancreatic mass pathology results are pending at this time AF - tachy/logan - rhythm is atrially paced on admission - cont Sotalol DM II - placed on a SS Malnourished - currently on Dexamethasone -moderate protein calorie malnutrition. Will offer nutritional supplements and dietary consultation Hypothyroid clinically stable continue Synthroid therapy Synthroid HTN/HLD - cont Statin - Bumex held DNR confirmed Subjective Patient no complaints after his endoscopy. The patient does have elevation of his lipase however gastrology is agreed to progress with feeding. His bilirubin is improved. He did have biopsies of his pancreas which we are waiting further the results. Review of Systems ROS: well nourished well developed. Patient is thin and appears slightly frail No double vision blurry vision No problems with speech or swallowing No palpitations, chest pain or pressure No Wheezing or breathing issues No abdominal pain nausea vomiting diarrhea changes in appetite or weight No burning urine urine frequency or changes in color No focal joint pain or muscle pain No skin rashes or oral lesions No unusual bruising or bleeding No focused back pain or numbness or loss of strength No changes in memory or confusion Physical Exam Vital Signs (Past 24 Hours): Last Vital Signs Temp 36.3 C L 12/22/18 10:54 Pulse 64 12/22/18 10:54 Resp 16 12/22/18 10:54 BP 105/58 L 12/22/18 10:54 Pulse Ox 98 12/22/18 10:54 The patient appeared thin and chronically ill Vital signs as documented. Head exam is unremarkable. normocephalic, atraumatic Neck is without jugular venous distension, thyromegaly, or lymphademopathy Lungs are clear to auscultation and percussion. Cardiac exam reveals Rhythm is regular. First and second heart sounds normal. Abdominal exam reveals normal bowel sounds, no masses, no organomegaly mild tenderness to deep palpation Extremities are nonedematous and both pedal pulses are present Neurologic exam is A&Ox3, no focal deficits, strength is equal bilateral Psychologically seems neither anxious or depressed Skin is warm Dry without bruises or lesions
[2018-12-22 14:57] LABS: INR 1.3 (0.9-1.1)
[2018-12-22] MEDS: cefTRIAXone SODIUM 1,000 MG in DEXTROSE 5% 50 ML IV SCH (15:02)
[2018-12-22] MEDS: FINASTERIDE 5 MG TAB PO SCH (20:28)
[2018-12-23] MEDS: PANTOprazole 40 MG in DEXTROSE 5% 100 ML IV SCH ×3 (05:04→09:33)
[2018-12-23] MEDS: LEVOTHYROXINE SODIUM 50 MCG TABLET PO SCH (06:22)
[2018-12-23 06:26] LABS: INR 1.3 (0.9-1.1); Prothrombin Time 12.9 Seconds (9.0-12.0)
[2018-12-23] MEDS: INSULIN ASPART 100 UNITS/ML 3 ML PEN SC SCH ×4 (07:52→20:29)
[2018-12-23] MEDS: SOTALOL HCL 80 MG TAB PO SCH ×2 (07:53→20:29)
[2018-12-23] MEDS: ATORVASTATIN 10 MG TAB PO SCH (07:53)
[2018-12-23] MEDS: SERTRALINE HCL 50 MG TABLET PO SCH (07:54)
--- NOTE | 2018-12-23 11:39 | Pharmacy Report ---
Pharmacy Glycemic Rec 1 - Date of Service December 23, 2018 - Scope Glycemic Pharmacist to provide recommendations to improve glycemic control (all ICU patients are screened for hyperglycemia and treatment recommendations are provided per protocol). Pt identified with hyperglycemia (BSG above 180) while admitted to [facility] ([facility]). - Subjective The patient is a 88 year old M admitted on 12/20/18 13:37 for generalized weakness, cholangitis, pancreatic head mass and UTI. Patient's past medical history is significant for type 2 diabetes mellitus. - Objective Accuchecks BSG (last 24hrs):: 12/22/18 12/22/18 12/22/18 11:42 16:25 20:22 POC Glucose 214 H 190 H 162 H 12/23/18 12/23/18 06:57 11:26 POC Glucose 173 H 239 H - Recent Pertinent Medications Outpatient Anti-diabetic Regimen: * Levemir 5 units Q PM * Novolog 2 units with each meal The patient is currently receiving: * Basal Insulin: None * Correctional Insulin: Novolog Correction per scale ACHS Goal Range: Low 120 mg/dL - High 180 mg/dL Correction Factor: 10 mg/dL/unit * Prandial Insulin: Per carb ratio of 1 unit per 15 grams CHO consumed Risk Factors for Insulin Resistance: * Steroids: dexamethasone 2mg PO daily * Infection: UTI, cholangitis - Assessment & Plan ASSESSMENT: * Type 2 diabetic experiencing both post-prandial hyperglycemia and fasting hyperglycemia with current insulin orders * Pt had been on a basal insulin prior to admission however this has not yet been resumed * Current Novolog CF and CR have not consistently controlled post-prandial hyperglycemia. * Current BSG pattern suggests AM dose of dexamethasone leads to hyperglycemia w/ lunch and dinner RECOMMEND: * Resume Levemir 5 units Q PM * Changing correction factor 25 mg/dl/unit * Changing carb ratio 1 unit per 12 grams CHO consumed * Changing goal range Low 120 mg/dL - High 150 mg/dL Pharmacy will continue to provide recommendations in EMR while patient admitted to 1E/2E. Physicians may request pharmacy to continue to follow patient when transferred out of the ICU and/or consult pharmacy to write glycemic control orders * Please note that the plan above was derived based on current level of insulin resistance and hospital stress. These recommendations are appropriate for inpatient admission only. Plan of care upon discharge will need to be reassessed to avoid potential outpatient hypo/hyperglycemia. Thank you.
--- NOTE | 2018-12-23 12:34 | Discharge Summary ---
Date of Service December 23, 2018 Admission HPI Per Admitting Provider 88 y/o M hx PAF - Coumadin, tachy/logan - pacer, HTN, DM II, hypothyroidism, chronic anemia and thrombocytopenia, indeterminate pancreatic head mass, history of lymphoma 2008. He is being treated for a UTI with Cipro at present and had been complaining of weakness. He also noted bright red blood [place] with a bowel movement this AM. Labs were obtained and his INR returned at > 10. He had brown heme + stool on rectal exam in the ER. He does have a history of hemorrhoids which occasionally bleed and so did not become alarmed with some bleeding this AM. The pt is currently being worked up for a pancreatic head ma ss and required a ductal stent due to biliary obstruction 12/03/18. He does not report SOB, lightheadedness or CP at the time of admission. He had a biopsy 12/03 with the stent placement which was indeterminate and has an additional biopsy scheduled in the coming weeks. Initial labs are otherwise notable for a 1 unit hemoglobin drop, worsening thrombocytopenia, LFT increase, a slight BUN elevation and a strongly + UA. 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 11) Basal cell CA 12) Bleeding gastric ulcer required cauterization 2015 13) PE/DVT 14) Hypothyroidism Sugical: 1) Pacer placement 2) Mohs 3) ERCP/stent Social: Resides at [facility], distant history of cigar smoking, until recently would drink a few glasses of wne weekly Family: Mother following CVA Father due to suicide Sister due to lung CA Principal Diagnosis abdominal pain elevated biliruben pancreatic mass change of bile duct stent endoscopically Discharge Exam Patient is thin and chronically ill he is tolerating his diet he has no additional abdominal pain is not appear to be jaundiced. His heart is regular with a systolic murmur his lungs are clear his abdomen is with normal bowel sounds and soft Discharge Data Allergies Allergy/AdvReac Type Severity Reaction Status Date / Time doxycycline Allergy Intermediate rash Verified 12/21/18 12:34 Penicillins Allergy Unknown Unknown Verified 12/21/18 12:56 Consultations 12/20/18 11:54 ED Decision to Admit Stat 12/20/18 14:59 Consult Gastroenterology Routine Procedures Performed Operation Date: 12/21/18 07:30 Actual Procedures p Endoscopic Retrograde Cholangiopancreatogram(Not Applicable) - Madie Pepper MD Ordered Studies 12/21/18 13:00 [place] ERCP biliary ductal Routine Hospital Course (1) Generalized weakness: 88 y/o M hx PAF - Coumadin, HTN, DM II, hypothyroidism, chronic anemia and thrombocytopenia, indeterminate pancreatic head mass. He is being treated for a UTI with Cipro at present and had been complaining of weakness. He also noted bright red blood [place] with a bowel movement this AM. Labs were obtained and his INR returned at > 10. He had brown heme + stool on rectal exam in the ER. He does have a history of hemorrhoids which occasionally bleed and so did not become alarmed with some bleeding this AM. The pt is currently being worked up for a pancreatic head mass and required a ductal stent due to biliary obstruction 12/03/18. He does not report SOB, lightheadedness or CP at the time of admission. He had a biopsy 12/03 with the stent placement which was indeterminate and has an additional biopsy performed during an endoscopy on 12/21 High INR - IV vit K in ER -INR has responded well to the vitamin K, consult GI performed an endoscopy and change of biliary stent,. Acute blood loss anemia is noted. The patient will be transitioned to twice daily Protonix p.o. patient will resume his Coumadin as an outpatient this was felt to likely be influenced by his quinolone treatment Question of occluded biliary stent this was changed on 12/21 patient's bilirubin has reduced he has tolerated oral intake despite a mild elevation of his lipase UTI - may be contributing to weakness - placed on Ceftriaxone. He was on Cipro at his snf which may have impacted his INR, start on Cefdinir Pancreatic mass - the patient is exhibiting functional decline, GI medicine performed stent replacement and repeat biopsy of pancreatic mass pathology results are pending at this time AF - tachy/logan - rhythm is atrially paced on admission - cont Sotalol DM II -he will resume his outpatient glucose management strategy Malnourished - currently on Dexamethasone -moderate protein calorie malnutri tion. Will offer nutritional supplements and dietary consultation Hypothyroid clinically stable continue Synthroid therapy Synthroid HTN/HLD - cont Statin - Bumex held DNR confirmed Total Time Total Time Spent Total Time Spent (In Minutes): greater than 30 minutes were required to prepare discharge Discharge Plan Discharge Items Patient Disposition: Home - Home Health Services Reason For Visit: GI BLEED Discharge Diagnosis: biliary stent occlusion, replacement of stent, pancreas biopsy Discharge Goals: Decrease discomfort Activity: Resume your previous activity Non-emergency contact: Primary Care Provider Call non-emergency contact if: you have any medication questions Follow-up/Referrals: Marie Hansen [Primary Care Provider] - Diet: Regular Addtl Provider Instructions: please follow up with your PCP Prescriptions: New cefdinir 300 mg capsule 300 mg PO BID 7 Days Qty: 14 RF: 0 Continued sennosides [Senokot] 8.6 mg Tablet 8.6 mg PO QAM PRN (Reason: Constipation) RF: 0 acetaminophen 325 mg Tablet 650 mg PO Q6H PRN (Reason: Pain) RF: 0 nystatin 100,000 unit/gram Ointment 1 applic TOPICAL BID PRN (Reason: Rash) RF: 0 potassium chloride 10 mEq Tablet Extended Release 10 meq PO BID RF: 0 hydrocortisone [Anusol-HC] 2.5 % Cream With Perineal Applicator 1 applic [place] BID PRN (Reason: Hemorrhoids) RF: 0 magnesium hydroxide [Milk of Magnesia] 400 mg/5 mL Suspension 30 ml PO Q OTHER DAY PRN (Reason: Constipation) RF: 0 Novolog U-100 Insulin aspart 100 unit/mL Solution 2 unit SUBCUT AC RF: 0 warfarin [Coumadin] 2 mg Tablet 2 mg PO QPM RF: 0 sertraline 25 mg Tablet 75 mg PO QAM RF: 0 bumetanide 1 mg Tablet 1 mg PO QAM RF: 0 tramadol 50 mg Tablet 50 mg PO Q6H PRN (Reason: Pain) RF: 0 atorvastatin 10 mg tablet 10 mg PO QAM RF: 0 levothyroxine 50 mcg tablet 50 mcg PO QAM RF: 0 pantoprazole 40 mg tablet,delayed release (DR/EC) 40 mg PO QAM RF: 0 finasteride 5 mg tablet 5 mg PO HS RF: 0 cholecalciferol (vitamin D3) [Vitamin D3] 2,000 unit Capsule 2,000 units PO QPM RF: 0 sotalol 80 mg Tablet 40 mg PO BID 30 Days Qty: 30 RF: 1 vitamin B complex Tablet 1 tab PO QAM RF: 0 insulin detemir U-100 100 unit/mL (3 mL) insulin pen 5 unit subcut QPM Qty: 0 RF: 0 polyethylene glycol 3350 [Miralax] 17 gram Powder In Packet 17 g PO QAM PRN (Reason: Constipation) RF: 0 dexamethasone [Decadron] 4 mg Tablet 2 mg PO QAM PRN (Reason: mood and appetite) RF: 0 Discontinued naproxen 375 mg Tablet 375 mg PO BID RF: 0 ciprofloxacin HCl [Cipro] 500 mg Tablet 500 mg PO BID RF: 0 Stand-Alone Forms: [facility] Discharge Orders: Discharge Order (Routine); Ordered 12/23/18 Ordered By: Jesse Butcher Admission Data Admit Date/Time: 12/20/18 13:37 Attending Provider: Jesse Butcher Admit Provider: Obed Holloway Primary Care Provider: Marie Hansen Other Providers: Obed Holloway ; Evelina Coon Service: Telemetry
[2018-12-23] MEDS: cefTRIAXone SODIUM 1,000 MG in DEXTROSE 5% 50 ML IV SCH (13:53)
[2018-12-23] MEDS: FINASTERIDE 5 MG TAB PO SCH (20:29)
[2018-12-24] MEDS: LEVOTHYROXINE SODIUM 50 MCG TABLET PO SCH (05:54)
[2018-12-24 05:58] LABS: INR 1.3 (0.9-1.1)
[2018-12-24] MEDS: SOTALOL HCL 80 MG TAB PO SCH (08:04)
[2018-12-24] MEDS: SERTRALINE HCL 50 MG TABLET PO SCH (08:04)
[2018-12-24] MEDS: INSULIN ASPART 100 UNITS/ML 3 ML PEN SC SCH (08:06)
[2018-12-24] MEDS: ATORVASTATIN 10 MG TAB PO SCH (08:09)
== END 2018-12-24 10:15 ==
LOC: ED 09:57 → SUATTDRO 13:37 → 2E 13:37